=== PATIENT | female | born 1955 | race Caucasian/White ===

== ENCOUNTER → 2020-09-06 07:43 | Outpatient (REF) | payer MEDICARE, SELFPAY ==
--- NOTE | 2020-09-06 | NM_ITS ---
EXERCISE MYOCARDIAL PERFUSION STUDY INDICATION: Shortness of breath, coronary disease, evaluate for ischemia TECHNIQUE: The patient was brought in for an exercise perfusion study on 09/06/2020. Patient performed exercise as per Ryan protocol and was injected 35 mCi of sestamibi once target heart rate was achieved. Images were obtained using the SPECT gamma camera interlaced with the gating device. Images were obtained in supine position. Resting perfusion study was performed on 09/17/2020. Patient was administered 35 mCi of sestamibi intravenously at rest. Images were then obtained in supine position. Total DLP 103mGy-cm. Images were processed with the software and compared side to side in short axis, horizontal long axis and vertical long axis views. FINDINGS: Raw images were reviewed. The stress perfusion study showed moderately decreased tracer uptake in the basal to mid inferior wall. This is seen in both uncorrected as well as CT attenuated images. The gated study shows normal LV systolic function with calculated LVEF of 68%. LV cavity is normal in size. The gated study shows diminished contractility in the basal inferior wall. Resting study shows mildly decreased tracer uptake in the basal inferior wall that seems to improve with CT attenuation correction. Gating at rest reveals normal wall motion with ejection fraction at 64%. The findings are consistent with reversible perfusion defect in the basal to mid inferior wall. Basal part also has a fixed component. IMPRESSION: 1. Myocardial perfusion imaging study shows evidence of ischemia in the inferior wall. Moderate intensity. Most basal inferior wall has a fixed component that may indicate prior infarct. 2. Gated LVEF is normal. 3. Transient ischemic dilatation not present. EKG component of the test reported separately.
--- NOTE | 2020-09-06 07:30 | CA_ITS ---
Transthoracic Echocardiogram Patient (Last, First, Middle): Natacha Mei H Gender: Female Date of : 1955 Age: 65 Procedure Date: 09/06/2020 Procedure Type: Transthoracic Echocardiogram Location: OP Height: 182.88 cm Weight: 101.61 kg BSA: 2.24 m2 Heart Rate: bpm BP: 124 / 80 mmHg Marketing Ambassador: Referring MD: George Caro MD Symptoms: chest schuyler, CAD Study Quality: Fair ECG Rhythm: Sinus Conclusions: - The left ventricular systolic function is normal. The visually estimated ejection fraction is between 60-65%. - There is mild mitral valve regurgitation. - There is mild tricuspid valve regurgitation. Findings Procedure Information Contrast agent, definity, is being given per protocol without apparent complications. Left Ventricle Normal left ventricular cavity size. There is normal left ventricular wall thickness. The left ventricular systolic function is normal. The visually estimated ejection fraction is between 60-65%. There is no evidence of regional wall motion abnormalities. Diastolic function is normal for age. Right Ventricle Normal right ventricular cavity size and systolic function. Atria The left atrium is normal in size. The right atrium is normal in size. Aortic Valve There is a normal trileaflet aortic valve. There is no aortic valve stenosis. There is no aortic valve regurgitation. Mitral Valve The mitral valve appears normal. There is mild mitral valve regurgitation. There is no mitral valve stenosis. Pulmonic Valve The pulmonic valve was not well visualized. Tricuspid Valve Normal tricuspid valve structure. There is mild tricuspid valve regurgitation. The pulmonary artery systolic pressure is normal. Great Vessels The aortic annulus, sinuses of valsalva, asc aorta, and aortic arch are normal in size. Venous The inferior vena cava is normal in size and collapses greater than 50% with inspiration. Pericardium/Pleural There is a trivial pericardial effusion. Prior Study Comparison Changes noted compared to prior study dated: 11/12/2019. LVEF appears improved. Measurements 2D Linear Measurements IVSd: 0.87 0.6-0.9/0.6-1.0 cm LVIDd: 5.18 3.9-5.3/4.2-5.9 cm LVIDd Index: 2.31 2.4-3.2/2.2-3.1 cm/m2 LVIDs: 3.49 2.0-3.6 cm LVPWd: 0.89 0.7-1.1 cm Ao Root: 2.80 2.1-3.5 cm LA Diam: 3.80 2.7-3.8/3.0-4.0 cm LAIDs Index: 1.70 1.5-2.3 cm/m2 LV Mass: 203.53 67-162/88-224 g LV Mass Index: 90.86 43-95/49-115 g/m2 LVOT Diam: 2.00 3.0+(-)1.3 cm Mitral Valve MV Pk E: 0.72 MV PK A: 0.66 MV Decel Time: 269.00 E/A: 1.10 E'Lateral: 10.50 E'Medial: 7.83 E/E' Med: 9.20 E/E' Lat: 6.90 PHT: 79.00 MVA PHT: 2.78 Decel Labette: 2.69 Aortic Valve AoV Pk Anders: 1.29 AoV Mn Anders: 0.93 AoV VTI: 0.33 AoV Pk Grad: 7.00 Aov Mn Grad: 4.00 ROCHELLE Cont.VTI: 1.75 LVOT LVOT Pk Anders: 0.79 LVOT Mn Anders: 0.52 LVOT VTI: 0.19 LVOT Pk Grad: 3.00 LVOT Mn Grad: 1.00 LVOT Diam: 2.00 LVOT Area: 3.14 Diastolic Function MV Pk E: 0.72 MV Pk A: 0.66 E/A: 1.10 E'Medial: 7.83 E/E' Med: 9.20 E' Laterial: 10.50 E/E' Lat: 6.90 Tricuspid Valve TR Pk Anders: 1.89 TR Pk Grad: 14.00 Great Vessels Aorta Ao Root-2D: 2.80 2.0-3.7 cm Ao Asc: 2.90 2.1-3.4 cm Pulmonary Valve PV Pk Anders: 0.94 Peak PV Grad: 4.00 Updated in Other Vendor System with Status of Final Desean Jefferson MD electronically signed on 09/08/2020 4:04:32 PM with status of Final
--- NOTE | 2020-09-06 08:30 | CA_ITS ---
Acquisition Time: 2020-09-06 08:55:48 Total Exercise Time: 00:08:32 Test Indications: Dyspnea Medications: ASA ELIQUIS ISOSORBIDE METOPROLOL ATORVASTATIN OXCARBEZAPINE Protocol: SHANT Max HR: 113 BPM 73% of Pred: 153 BPM Max BP: 140/078 mmHG Max Work Load: 10.1 METS Exercise nuclear stress test using Shant protocol. Total of 8 min 32 sec. Pt reports thightnes in mid sternum and like she had a lump in her throat at peak exercise with L side jaw pain. Pain resolves copmpletely in recovery. EKG with occ PAC's and PVC's. Scooping ST depressions anteriorly and laterally suggestive of ischemia. Nuclear images to follow. Normotensive response to test. Test reviewed with Dr. Jefferson HR up to 132 measured Referred By: George Caro Overread By: Mame Hdez
== END ==
LOC: HO.CARD 07:43
PROVIDERS: PCP Internal Medicine; Visit Provider Internal Medicine Cardiovascular Disease
DX: R07.89 Other chest pain (principal); I48.0 Paroxysmal atrial fibrillation; I25.10 Atherosclerotic heart disease of native coronary artery without angina pectoris; I10 Essential (primary) hypertension; R06.02 Shortness of breath
CPT/HCPCS: 78452; 93017; 93306; A9500; Q9957

== ENCOUNTER → 2020-10-11 08:39 | Outpatient (BNVA) | payer MEDICARE, SELFPAY | PROVIDERS: PCP Internal Medicine; Referring Provider Internal Medicine; Visit Provider Nurse Practitioner Family | DX: G47.33 Obstructive sleep apnea (adult) (pediatric) (principal) | CPT/HCPCS: 99212 ==

== ENCOUNTER → 2020-12-13 08:37 | Outpatient (BNVA) | payer MEDICARE, SELFPAY | PROVIDERS: PCP Internal Medicine; Visit Provider Nurse Practitioner Family | DX: Z76.89 Persons encountering health services in other specified circumstances (principal) | CPT/HCPCS: Q3014 ==

== ENCOUNTER → 2021-01-02 13:07 | Outpatient (BNVA) | payer MEDICARE, SELFPAY | PROVIDERS: PCP Internal Medicine; Visit Provider Internal Medicine Cardiovascular Disease | DX: I25.118 Atherosclerotic heart disease of native coronary artery with other forms of angina pectoris (principal); I48.0 Paroxysmal atrial fibrillation | CPT/HCPCS: 93005; 99212 ==

== ENCOUNTER 2021-02-07 08:00 | Outpatient (REF) | payer MEDICARE, SELFPAY ==
--- NOTE | ~2021-02-07 | MM_ITS ---
EXAMINATION: MM SCREENING DIGITAL BREAST TOMOSYNTHESIS, BILATERAL CLINICAL INFORMATION: Screening. Asymptomatic. The lifetime risk of breast cancer based on the Tyrer-Cuzick Model is 11.6%. COMPARISON: Mammography: February 02, 2020 and studies dating back to November 03, 2012 TECHNIQUE: Digital breast tomosynthesis is performed in both the craniocaudal and mediolateral oblique views along with computer-aided detection (CAD). Synthesized 2D images are generated from the tomosynthesis. FINDINGS: There are scattered areas of fibroglandular density (ACR BI-RADS breast composition Category b). There are no significant masses, abnormal calcifications, or other abnormalities. MM/MM tomosynthesis screening BI IMPRESSION: There are no significant changes from prior study. ASSESSMENT: BI-RADS 1: Negative RECOMMENDATION: Routine annual mammography screening. This patient's information was entered into a reminder system with a target due date for their next mammogram.
== END 2021-02-07 08:01 | disposition home or self-care (01) ==
LOC: HO.MAMMO 08:00
PROVIDERS: Visit Provider Internal Medicine
DX: Z12.31 Encounter for screening mammogram for malignant neoplasm of breast (principal)
CPT/HCPCS: 77063; 77067

== ENCOUNTER 2021-03-01 09:37 | Outpatient (REF) | payer MEDICARE, SELFPAY ==
[2021-03-01 10:34] LABS: MANUAL DIFF FLAG NO
[2021-03-01 10:42] LABS: Basophils Absolute Auto 0.1 X10*3/uL (0.0-0.2); Basophils Percent Auto 1.2 % (0-2); Eosinophils Absolute Auto 0.1 X10*3/uL (0.0-0.4); Eosinophils Percent Auto 2.6 % (0-4); Hemoglobin 13.4 g/dl (12.0-16.0); Imm Gran Abs Auto 0.01 X10*3/uL (0.00-0.03); Imm Gran Pct Auto 0.2 % (0.0-0.4); Lymphocytes Absolute Auto 1.6 X10*3/uL (1.2-4.9); Lymphocytes Percent Auto 32.3 % (20-40); Mean Corpuscular HGB Conc 31.9 g/dl (31.0-35.0); Mean Corpuscular Hemoglobin 30.3 pg (27.0-33.0); Mean Platelet Volume 10.6 fL (9.4-12.3); Monocytes Absolute Auto 0.6 X10*3/uL (0.1-1.2); Monocytes Percent Auto 11.3 % (2-11); Neutrophils Absolute Auto 2.6 X10*3/uL (2.0-8.3); Neutrophils Percent Auto 52.4 % (45-73); Platelet Count 256 X10*3/uL (160-400); Red Blood Count 4.42 X10*6/uL (4.20-5.50)
[2021-03-01 11:18] LABS: Alanine Aminotransferase 29 U/L (0-31); Albumin Level 4.4 g/dL (3.5-5.0); Alkaline Phosphatase 74 U/L (39-117); Anion Gap 14 (12-20); Aspartate Amino Transferase 23 U/L (5-31); Bilirubin Total 0.6 mg/dL (0.0-1.0); Blood Urea Nitrogen 16 mg/dL (9-16); Calcium 9.5 mg/dL (8.4-10.2); Carbon Dioxide 28 mmol/L (22-29); Chloride 103 mmol/L (96-108); Cholesterol 149 mg/dL; Estimated Glomerular Filt Rate > 60; Glucose Random 102 mg/dL (60-115); HDL Cholesterol 47 mg/dL; LDL Cholesterol Calculated 82 mg/dl; Sodium 140 mmol/L (135-145); Total Protein 6.8 g/dL (6.5-8.0); Triglycerides 100 mg/dL
[2021-03-01 11:23] LABS: Free T4 (Free Thyroxine) 0.83 ng/dL (0.71-1.85); Thyroid Stimulating Hormone 2.12 uIU/mL (0.32-4.0); Vitamin D 25-OH Total 37.1 ng/mL (>30)
[2021-03-01 11:50] LABS: Folate 10.5 ng/mL (> or = 4.0); Vitamin B12 313 pg/mL (200-900)
== END 2021-03-01 09:38 | disposition home or self-care (01) ==
LOC: HO.LAB 09:37
PROVIDERS: PCP Internal Medicine; Visit Provider Internal Medicine
DX: I10 Essential (primary) hypertension (principal); E78.00 Pure hypercholesterolemia, unspecified; E78.2 Mixed hyperlipidemia; I25.10 Atherosclerotic heart disease of native coronary artery without angina pectoris
CPT/HCPCS: 36415; 80053; 80061; 82306; 82607; 82746; 84439; 84443; 85025

== ENCOUNTER → 2021-04-10 12:52 | Outpatient (BNVA) | payer MEDICARE, SELFPAY | PROVIDERS: PCP Internal Medicine; Visit Provider Internal Medicine Cardiovascular Disease | DX: I20.8 Other forms of angina pectoris (principal); I48.0 Paroxysmal atrial fibrillation | CPT/HCPCS: 99212 ==

== ENCOUNTER → 2021-05-23 08:30 | Outpatient (BNVA) | payer MEDICARE, SELFPAY | PROVIDERS: PCP Internal Medicine; Visit Provider Nurse Practitioner Family | DX: G47.33 Obstructive sleep apnea (adult) (pediatric) (principal); G47.31 Primary central sleep apnea | CPT/HCPCS: Q3014 ==

== ENCOUNTER 2021-06-06 07:29 | Outpatient (REF) | payer MEDICARE, SELFPAY ==
[2021-06-06 08:46] LABS: Estimated Average Glucose 126 mg/dL
[2021-06-06 08:54] LABS: Alanine Aminotransferase 23 U/L (0-31); Albumin Level 4.5 g/dL (3.5-5.0); Alkaline Phosphatase 79 U/L (39-117); Anion Gap 14 (12-20); Aspartate Amino Transferase 22 U/L (5-31); Blood Urea Nitrogen 20 mg/dL (9-16); Calcium 9.9 mg/dL (8.4-10.2); Carbon Dioxide 24 mmol/L (22-29); Chloride 105 mmol/L (96-108); Cholesterol 144 mg/dL; Estimated Glomerular Filt Rate 57; Glucose Random 114 mg/dL (60-115); HDL Cholesterol 40 mg/dL; LDL Cholesterol Calculated 89 mg/dl; Potassium 4.2 mmol/L (3.3-5.1); Sodium 139 mmol/L (135-145); Total Protein 7.1 g/dL (6.5-8.0); Triglycerides 78 mg/dL
[2021-06-06 10:46] LABS: Glucose Urine UA NEG (NEG); Leukocyte Esterase Urine 1+ (NEG); Nitrite Urine NEG (NEG); PH 5.5 (5.0-8.0); Specific Gravity - Urine >= 1.030 (1.005-1.025); Urine Blood TRACE (NEG); Urine Ketones NEG (NEG); Urine Protein NEG (NEG-TRACE)
[2021-06-06 10:50] LABS: Appearance Urine HAZY; Color Urine YELLOW
[2021-06-06 11:04] LABS: Bacteria Urine 1+ /LPF; Squamous Epithelial Cell Urine 2+ /LPF
== END 2021-06-06 07:30 | disposition home or self-care (01) ==
LOC: HO.LAB 07:29
PROVIDERS: PCP Internal Medicine; Visit Provider Internal Medicine
DX: E78.00 Pure hypercholesterolemia, unspecified (principal); E78.2 Mixed hyperlipidemia; R73.02 Impaired glucose tolerance (oral); N39.41 Urge incontinence
CPT/HCPCS: 36415; 80053; 80061; 81001; 83036

== ENCOUNTER 2021-08-04 08:00 | Outpatient (RCR) | payer MEDICARE, SELFPAY ==
[2021-06-29 10:11] VITALS: BP 118/85
--- NOTE | 2021-07-12 07:40 | MHC.PT.EP ---
[facility] [place] Office [place] Office [place] Office [address] Elham Stern [address] [phone] F: [phone] F: [phone] F: [phone] F: [phone] Physical Therapy Plan of Care Date of Evaluation: Date of Surgery: Diagnosis: Dorsalgia Assessment: Pt is a 66 y/o female referred to PT for eval and treat of dorsalgia who presents with lumbosacral dysfunction resulting in decreased tolerance for standing and walking for duration, as well as performing yard work, HH chores and squatting activities, secondary to decreased L > R hip strength, decreased L hip ROM, decreased core strength, mild pelvic asymmetry, and pain. Pt is deemed an appropriate candidate to receive skilled PT in order to address her physical limitations to improve her functional ability. Frequency and Duration: The patient will be seen 2 x / wk x 5 wks. Short Term Goals: Initiate HEP with evidence of compliance. 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 Improve baseline pain with activity to < 5/10; initial 8/10 Treatment Plan: Modalities to reduce pain, spasms and effusion. Manual therapy to restore motion and function. Therapeutic exercise to improve strength and flexibility. Neuromuscular re-education for posture and balance. Therapeutic activities to return to functional activities of daily living. Electronically signed by: Axel Johnson PT. Please sign and return to therapist. Thank you for your referral.
--- NOTE | 2021-08-04 09:09 | MHC.PT.DC ---
[facility] [place] Office [place] Office [place] Office [address] Elham Stern [address] [place] [address] [phone] F: [phone] F: [phone] F: [phone] F: [phone] Physical Therapy Discharge Report Diagnosis: Dorsalgia Date of Surgery: Date of Evaluation: 06/29/21 Date of Discharge: 08/04/21 Treatments to Date: 10 Cancellations to Date: No Shows to Date: Discharge Status: Achieved Goals Improved Function Independent with HEP Discharge Summary: Natacha was referred to PT for eval and treat of LBP secondary to decreased L > R hip strength, decreased L hip ROM, decreased core strength, mild pelvic asymmetry, and pain hindering her functional limitation. Natacha actively participated in all her ther/ex while in clinic and at her home. W/in the 10 visit to therapy, pt was able to address her physical impairments, achieved all of her goals, and is improved of her functional abilities. PT recommends pt is cont following her HEP and progressing appropriately. pt and PT in agreement for discharge. Electronically signed by: Axel Johnson PT. Please sign and return to therapist. Thank you for your referral.
== END 2021-08-04 09:09 | disposition home or self-care (01) ==
LOC: HO.PTCHIC 08:00
PROVIDERS: Visit Provider Internal Medicine
DX: M54.9 Dorsalgia, unspecified (principal)
CPT/HCPCS: 97110; 97140; 97161

== ENCOUNTER → 2021-08-07 19:20 | Outpatient (REF) | payer MEDICARE, SELFPAY | LOC: HO.SL 19:20 | PROVIDERS: Visit Provider Nurse Practitioner Family | DX: G47.33 Obstructive sleep apnea (adult) (pediatric) (principal); G47.31 Primary central sleep apnea; I48.0 Paroxysmal atrial fibrillation | CPT/HCPCS: 95811 ==

== ENCOUNTER → 2021-08-09 11:07 | Outpatient (BNVA) | payer MEDICARE, SELFPAY | PROVIDERS: PCP Internal Medicine; Referring Provider Internal Medicine; Visit Provider Internal Medicine Cardiovascular Disease ==

== ENCOUNTER → 2021-08-21 07:23 | Outpatient (REF) | payer MEDICARE, SELFPAY ==
--- NOTE | 2021-08-21 07:26 | CA_ITS ---
Transthoracic Echocardiogram Patient (Last, First, Middle): Natacha Mei H Gender: Female Date of : 1955 Age: 66 Procedure Date: 08/21/2021 Procedure Type: Transthoracic Echocardiogram Location: OP Height: 182.88 cm Weight: 102.97 kg BSA: 2.25 m2 Heart Rate: bpm BP: 124 / 78 mmHg Associate Account Director: Referring MD: George Caro MD Supervisor Mail Carriers: George Caro MD Symptoms: I42.9 - Cardiomyopathy, unspecified Study Quality: Fair ECG Rhythm: Atrial Fibrillation Conclusions: - 1. Mildly reduced LV systolic function with LVEF of 45-50% 2. Normal cardiac valvular Doppler 3. Normal RV systolic pressure 4. No gross pericardial effusion Findings Left Ventricle Normal left ventricular cavity size. There is normal left ventricular wall thickness. The left ventricular systolic function is mildly decreased. The visually estimated ejection fraction is between 45-50%. Diastolic function is indeterminate on the basis of available data. Right Ventricle Normal right ventricular cavity size. There is borderline right ventricular systolic function. Atria The left atrium is likely dilated. There is no evidence of interatrial shunt. The right atrium is normal in size. Aortic Valve Normal aortic valve structure and function. There is no aortic valve stenosis. There is no aortic valve regurgitation. Mitral Valve Normal mitral valve structure and function. There is trace mitral valve regurgitation. There is no mitral valve stenosis. Pulmonic Valve The pulmonic valve was not well visualized. Tricuspid Valve Likely normal tricuspid valve structure and function. There is trace tricuspid valve regurgitation. The right ventricular systolic pressure is normal. The right ventricular systolic pressure is 22 mmHg. Normal right atrial pressure. There is no evidence of pulmonary hypertension. Great Vessels All visible segments of the aorta are normal in size. Venous The inferior vena cava is normal in size and collapses greater than 50% with inspiration. Pericardium/Pleural There is no evidence of pericardial effusion. Prior Study Comparison Changes noted compared to prior study dated: 09/06/2020. LV systolic function is reduced Measurements 2D Linear Measurements IVSd: 0.84 0.6-0.9/0.6-1.0 cm LVIDd: 5.66 3.9-5.3/4.2-5.9 cm LVIDd Index: 2.52 2.4-3.2/2.2-3.1 cm/m2 LVIDs: 4.23 2.0-3.6 cm LVPWd: 0.91 0.7-1.1 cm Ao Root: 3.30 2.1-3.5 cm LA Diam: 3.80 2.7-3.8/3.0-4.0 cm LAIDs Index: 1.69 1.5-2.3 cm/m2 LV Mass: 234.57 67-162/88-224 g LV Mass Index: 104.25 43-95/49-115 g/m2 LVOT Diam: 2.00 3.0+(-)1.3 cm 2D Systolic Function EF 4C: 49.10 >55% EF 2C: 39.50 >55% EF BiP: 44.20 >55% Mitral Valve MV Pk E: 0.68 MV Decel Time: 294.00 E'Lateral: 10.70 E'Medial: 7.51 E/E' Med: 9.10 E/E' Lat: 6.40 PHT: 86.00 MVA PHT: 2.56 Decel [place]: 2.32 Aortic Valve AoV Pk Anders: 1.10 AoV Mn Anders: 0.69 AoV VTI: 0.25 AoV Pk Grad: 5.00 Aov Mn Grad: 2.00 ROCHELLE Cont.VTI: 1.71 LVOT LVOT Pk Anders: 0.65 LVOT Mn Anders: 0.43 LVOT VTI: 0.14 LVOT Pk Grad: 2.00 LVOT Mn Grad: 1.00 LVOT Diam: 2.00 LVOT Area: 3.14 Diastolic Function MV Pk E: 0.68 E'Medial: 7.51 E/E' Med: 9.10 E' Laterial: 10.70 E/E' Lat: 6.40 Tricuspid Valve TR Pk Anders: 1.89 TR Pk Grad: 14.00 RA Press: 8.00 RVSP: 22.00 Great Vessels Aorta Ao Root-2D: 3.30 2.0-3.7 cm Pulmonary Valve PV Pk Anders: 0.94 Peak PV Grad: 4.00 Updated in Other Vendor System with Status of Final George Caro MD electronically signed on 08/21/2021 2:21:26 PM with status of Final
== END ==
LOC: HO.CARD 07:23
PROVIDERS: Visit Provider Internal Medicine Cardiovascular Disease
DX: I20.8 Other forms of angina pectoris (principal); I48.0 Paroxysmal atrial fibrillation; I42.9 Cardiomyopathy, unspecified; Z79.899 Other long term (current) drug therapy
CPT/HCPCS: 93306; 99212

== ENCOUNTER → 2021-08-22 08:13 | Outpatient (BNVA) | payer MEDICARE, SELFPAY | PROVIDERS: PCP Internal Medicine; Visit Provider Nurse Practitioner Family | CPT/HCPCS: Q3014 ==

== ENCOUNTER → 2021-08-24 09:27 | Outpatient (BNVA) | payer MEDICARE, SELFPAY | PROVIDERS: PCP Internal Medicine; Referring Provider Internal Medicine; Visit Provider Internal Medicine Cardiovascular Disease | DX: I48.92 Unspecified atrial flutter (principal); I25.10 Atherosclerotic heart disease of native coronary artery without angina pectoris | CPT/HCPCS: 93005; 99212 ==

== ENCOUNTER → 2021-08-25 13:20 | Day surgery (SDC) | payer MEDICARE, SELFPAY ==
[2021-08-25 13:45] VITALS: BP 139/78; PULSE 66; RESP 16; TEMP 36.4; O2SAT 95
--- NOTE | 2021-08-25 13:45 | ECG_ITS ---
Test Reason : pre-cardioversion Blood Pressure : / mmHG Vent. Rate : 065 BPM Atrial Rate : 065 BPM P-R Int : 168 ms QRS Dur : 082 ms QT Int : 430 ms P-R-T Axes : 011 010 -12 degrees QTc Int : 447 ms Normal sinus rhythm Normal ECG When compared with ECG of 13-JAN-2020 08:24, Sinus rhythm has replaced Atrial flutter Nonspecific ST and T wave abnormality is no longer Present Vent. rate has decreased Referred By: George Caro Electronically Signed By:ELIANE JONES
--- NOTE | 2021-08-25 13:56 | PC.NURSE ---
Patient in NSR, confirmed with EKG per Dr Caro. Patient sent home.
== END ==
PROVIDERS: PCP Internal Medicine; Visit Provider Internal Medicine Cardiovascular Disease
DX: I48.0 Paroxysmal atrial fibrillation (principal); I48.92 Unspecified atrial flutter; I10 Essential (primary) hypertension; Z79.01 Long term (current) use of anticoagulants; Z53.8 Procedure and treatment not carried out for other reasons
CPT/HCPCS: 93005

== ENCOUNTER 2021-09-07 08:46 | Outpatient (REF) | payer MEDICARE, SELFPAY ==
[2021-09-07 09:25] LABS: Estimated Average Glucose 123 mg/dL; Hemoglobin A1c % 5.9 %
[2021-09-07 10:03] LABS: Alanine Aminotransferase 21 U/L (0-31); Albumin Level 4.3 g/dL (3.5-5.0); Alkaline Phosphatase 66 U/L (39-117); Anion Gap 9 (12-20); Aspartate Amino Transferase 19 U/L (5-31); Bilirubin Total 0.7 mg/dL (0.0-1.0); Blood Urea Nitrogen 17 mg/dL (9-16); Calcium 9.6 mg/dL (8.4-10.2); Carbon Dioxide 26 mmol/L (22-29); Chloride 109 mmol/L (96-108); Cholesterol 111 mg/dL; Estimated Glomerular Filt Rate 38; Glucose Random 101 mg/dL (60-115); HDL Cholesterol 44 mg/dL; LDL Cholesterol Calculated 52 mg/dl; Potassium 4.5 mmol/L (3.3-5.1); Sodium 139 mmol/L (135-145); Total Protein 6.6 g/dL (6.5-8.0); Triglycerides 78 mg/dL
[2021-09-07 10:54] LABS: Appearance Urine HAZY; Color Urine YELLOW; Glucose Urine UA NEG (NEG); Leukocyte Esterase Urine NEG (NEG); Nitrite Urine NEG (NEG); Specific Gravity - Urine >= 1.030 (1.005-1.025); Urine Blood 2+ (NEG); Urine Ketones NEG (NEG); Urine Protein 2+ MG/DL (NEG-TRACE)
[2021-09-07 11:15] LABS: Mucus Urine 2+ /LPF; Squamous Epithelial Cell Urine 1+ /LPF
== END 2021-09-07 08:47 | disposition home or self-care (01) ==
LOC: HO.LAB 08:46
PROVIDERS: PCP Internal Medicine; Visit Provider Internal Medicine
DX: E78.00 Pure hypercholesterolemia, unspecified (principal); E78.2 Mixed hyperlipidemia; N39.41 Urge incontinence
CPT/HCPCS: 36415; 80053; 80061; 81001; 83036

== ENCOUNTER → 2021-10-02 15:03 | Outpatient (BNVA) | payer MEDICARE, SELFPAY | PROVIDERS: PCP Internal Medicine; Referring Provider Internal Medicine; Visit Provider Internal Medicine Cardiovascular Disease | DX: I48.0 Paroxysmal atrial fibrillation (principal); I25.10 Atherosclerotic heart disease of native coronary artery without angina pectoris; Z79.899 Other long term (current) drug therapy | CPT/HCPCS: 93005; 99212 ==

== ENCOUNTER 2021-11-01 09:40 | Outpatient (REF) | payer MEDICARE, SELFPAY ==
[2021-11-01 11:04] LABS: Anion Gap 11 (12-20); Blood Urea Nitrogen 17 mg/dL (9-16); Carbon Dioxide 29 mmol/L (22-29); Chloride 105 mmol/L (96-108); Estimated Glomerular Filt Rate 57; Glucose Random 101 mg/dL (60-115); Potassium 4.4 mmol/L (3.3-5.1); Sodium 141 mmol/L (135-145)
[2021-11-01 11:12] LABS: Appearance Urine CLOUDY; Color Urine YELLOW; Glucose Urine UA NEG (NEG); Leukocyte Esterase Urine 1+ (NEG); Nitrite Urine NEG (NEG); Specific Gravity - Urine 1.015 (1.005-1.025); Urine Blood NEG (NEG); Urine Ketones NEG (NEG); Urine Protein 2+ MG/DL (NEG-TRACE)
[2021-11-01 11:28] LABS: Amorphous Sediment Urine 2+ /LPF; Bacteria Urine 2+ /LPF; RBC Urine 0-2 /HPF (0); Squamous Epithelial Cell Urine 2+ /LPF
== END 2021-11-01 09:41 | disposition home or self-care (01) ==
LOC: HO.LAB 09:40
PROVIDERS: Nurse Practitioner Family; PCP Internal Medicine; Visit Provider Internal Medicine
DX: I48.0 Paroxysmal atrial fibrillation (principal)
CPT/HCPCS: 36415; 80048; 81001

== ENCOUNTER 2021-12-06 14:15 | Emergency (ER) | payer MEDICARE, SELFPAY ==
--- NOTE | 2021-12-06 | ECG_ITS ---
Test Reason : a fibb Blood Pressure : / mmHG Vent. Rate : 091 BPM Atrial Rate : 288 BPM P-R Int : 000 ms QRS Dur : 070 ms QT Int : 352 ms P-R-T Axes : 243 011 -39 degrees QTc Int : 432 ms Atrial flutter with variable A-V block Nonspecific ST and T wave abnormality Abnormal ECG When compared with ECG of 25-AUG-2021 13:51, Atrial flutter has replaced Sinus rhythm Nonspecific T wave abnormality now evident in Anterolateral leads Referred By: Generic ED Physician Electronically Signed By:ROMA SINGH MD
--- NOTE | ~2021-12-06 | XR_ITS ---
EXAMINATION: LEFT WRIST AND LEFT ELBOW CLINICAL INFORMATION: Injury COMPARISON: None TECHNIQUE: 4 views left wrist, 4 views left elbow FINDINGS: Elbow: A hemarthrosis is present minimally displaced radial head fracture is present. No other fractures are seen. Wrist: No bone joint or soft tissue abnormality is seen. XR/XR wrist LT min 3V IMPRESSION: Nondisplaced radial head fracture with hemarthrosis
--- NOTE | ~2021-12-06 | XR_ITS ---
EXAMINATION: LEFT WRIST AND LEFT ELBOW CLINICAL INFORMATION: Injury COMPARISON: None TECHNIQUE: 4 views left wrist, 4 views left elbow FINDINGS: Elbow: A hemarthrosis is present minimally displaced radial head fracture is present. No other fractures are seen. Wrist: No bone joint or soft tissue abnormality is seen. XR/XR elbow LT 2V IMPRESSION: Nondisplaced radial head fracture with hemarthrosis
[2021-12-06 15:40] VITALS: BP 127/78; PULSE 65; RESP 18; TEMP 36.9; O2SAT 95; BMI 30.5
--- NOTE | 2021-12-06 22:37 | ED_ITS ---
HPI - Fall General Chief Complaint: Fall Stated Complaint: fell on ice L arm pain Time Seen by Provider: 12/06/21 22:12 Source: patient Mode of arrival: ambulatory Limitations: no limitations History of Present Illness HPI Narrative: 66-year-old female who presents emergency department for evaluation of injuries from a fall that occurred this morning at 8:30 a.m.. Patient states she stepped outside of her house and the steps were slippery secondary to icy conditions. She states that her legs when out from under her and she landed on her upper buttocks and left forearm. She denied any head injury or loss of consciousness. She states that since the injury she has been having pain in her left buttocks area, left forearm and left wrist. She states she is having trouble moving her left elbow secondary to her pain. The pain is constant, sharp and moderate in intensity. Related Data Home Medications Medication Instructions Recorded Confirmed cholecalciferol (vitamin D3) 25 25 mcg PO DAILY 09/16/20 10/02/21 mcg (1,000 unit) capsule nitroglycerin 0.4 mg sublingual 0.4 mg SUBLINGUAL DAILY PRN 09/16/20 10/02/21 tablet oxcarbazepine 150 mg tablet 150 mg PO DAILY 09/16/20 10/02/21 ropinirole 0.25 mg tablet 0.25 mg PO BEDTIME PRN 04/10/21 10/02/21 Previous Rx's Medication Instructions Recorded apixaban 5 mg tablet (Eliquis) 5 mg PO BID #180 tab 06/08/21 metoprolol succinate 100 mg 100 mg PO DAILY 90 Days #90 tab 08/08/21 tablet,extended release 24 hr cpap 14 cm water humidified air #1 ea 08/22/21 rosuvastatin 40 mg tablet 40 mg PO DAILY #90 tab 08/30/21 dronedarone 400 mg tablet (Multaq) 400 mg PO BID #60 tab 10/02/21 isosorbide mononitrate 120 mg 120 mg PO DAILY #90 tab 10/16/21 tablet,extended release 24 hr Allergies Allergy/AdvReac Type Severity Reaction Status Date / Time No Known Allergies Allergy Verified 12/06/21 15:40 [No Known Allergies*] Review of Systems Review of Systems: Yes all other systems are reviewed and are negative PMFSH Past Medical History Medical History CAD (coronary artery disease) GERD (gastroesophageal reflux disease) Glaucoma HLD (hyperlipidemia) HTN (hypertension) Obesity (BMI 30-39.9) Paroxysmal atrial fibrillation Seizure disorder Surgical History History of eye surgery Hx of appendectomy Hx of colonoscopy Family History Family History Father No problems noted. Mother CVD (cardiovascular disease) Sister Cancer Social History Social History Housing: House Alcohol intake: current Alcohol intake frequency: holidays/special occasions only Patient Tobacco Use Status: Never used Tobacco Second Hand Smoke Exposure: Yes Advance Directives: Yes Advance Directives on File: Yes Advance Directives Date on File: 11/16/19 service: No Current occupational status: retired Physical Exam Vital Signs: Vital Signs: Last Vital Signs Temp 98.5 F 12/06/21 15:40 Pulse 65 12/06/21 15:40 Resp 18 12/06/21 15:40 BP 127/78 12/06/21 15:40 Pulse Ox 95 12/06/21 15:40 BMI result Body Mass Index 30.5 Const: General: cooperative and no acute distress Orientation/consciousness: oriented to person and oriented to place Limitations: no limitations HENMT: Head: Yes normal to inspection, Yes normocephalic and Yes atraumatic Ears: external ears normal General nose exam: Normal external nose present Face and sinus: Yes normal facial exam Mouth: Normal oral and palatal mucosa present Throat: Yes posterior oropharynx normal Eyes: General: appearance normal, both eyes and all related structures Pupils: Equal, round and reactive pupils present Neck: Neck: Yes normal visual inspection, Yes no lymphadenopathy, Yes trachea midline and Yes supple Chest: Chest palpation & inspection: normal inspection of the chest and normal palpation of entire chest wall Resp: Effort & Inspection: normal respiratory effort and able to speak in complete sentences Auscultation: clear to auscultation bilaterally Cardio: Rate: regular rate Rhythm: regular rhythm Heart sounds: S1 normal heart sound present, S2 normal heart sound present and no murmurs GI: Inspection: Yes normal to inspection Palpation (GI): Soft to palpation, nontender and no guarding Auscultation: normal bowel sounds : General: Yes no CVA tenderness Back/Spine/Pelvis: Other: Tenderness with palpation of the left buttocks, no tenderness palpation of her vertebrae or her coccyx area. Back: no CVA tenderness Skin: General skin exam: no rashes or lesions noted Neuro: General: oriented to person and oriented to place Cranial nerves: Yes CN's II-XII intact bilaterally and Yes Equal, round and reactive pupils present Cognition (Neuro): normal cognition Motor exam (neuro): 5/5 motor strength present throughout Extrem: Other: Patient has full range of motion of all of her extremities except for her left elbow. The patient does have tenderness palpation over the radial head and has increased pain with supination and pronation of the left elbow /Forearm. Her extremity is neurovascularly intact. Psych: Appearance: grossly normal Speech and movement: Normal speech and movement present Affect: normal affect Attitude: cooperative Thought process: Normal thought process present Thought content: Normal thought content present Course Course Course Narrative: 66-year-old female who presents emergency department for evaluation of injuries from a fall that occurred this morning at 8:30 a.m. the patient was walking down the outside steps at her home, the [place] and she fell landing on her buttocks on her left forearm. The patient does have tenderness palpation of her left buttocks and pain with palpation over the Left radial head. she also has pain with supination pronation of the left forearm. I did look at the patient's left elbow and left wrist x-rays. I do not see any acute fracture on the left wrist x-ray. Patient does have a nondisplaced radial head fracture. Patient was placed in a sling. She was advised to take Tylenol for her pain. She was given printed and verbal instructions and discharged home. 2251: Radiologist noted a nondisplaced radial head fracture and no fracture noted on the wrist x-ray. Discharge Plan Discharge Clinical Impression: Fall Qualifiers: Encounter type: initial encounter Qualified Code(s): W19.XXXA - Unspecified fall, initial encounter Closed fracture of radial head Qualifiers: Encounter type: initial encounter Fracture alignment: nondisplaced Laterality: left Qualified Code(s): S52.125A - Nondisplaced fracture of head of left radius, initial encounter for closed fracture Contusion of buttock Qualifiers: Encounter type: initial encounter Qualified Code(s): S30.0XXA - Contusion of lower back and pelvis, initial encounter Patient Disposition: Home, Self-Care Instructions: Elbow Fracture (ED) Additional Instructions: I reviewed the x-ray of your elbow. You have a fracture/broken bone of the radial head. This type of fracture is usually treated with a sling and sometimes splint. I want you to wear the sling for at least 2 weeks. You should follow-up with the orthopedic doctor on-call within the next 1-2 weeks for re-evaluation. I do not see any broken bones on the x-ray of your wrist. I will contact to with the radiologist's interpretation of your x-rays. Take Tylenol (acetaminophen) 500 mg pills, 2 pills every 4 to 6 hours as needed for pain. Apply ice for 15 minutes 4 to 6 times a day to your elbow to help reduce the pain and swelling. Follow-up with the orthopedic doctor within 1-2 weeks. Please return to the emergency department if your symptoms get worse or if you develop any symptoms that are concerning to you. Prescriptions: No Action apixaban [Eliquis] 5 mg tablet 5 mg PO BID Qty: 180 RF: 1 metoprolol succinate 100 mg tablet extended release 24 hr 100 mg PO DAILY 90 Days Qty: 90 RF: 3 (DME) cpap 14 cm water humidified air 0 .Route .MEDSUPPLY Qty: 1 RF: 0 rosuvastatin 40 mg tablet 40 mg PO DAILY Qty: 90 RF: 3 isosorbide mononitrate 120 mg tablet extended release 24 hr 120 mg PO DAILY Qty: 90 RF: 1 ropinirole 0.25 mg tablet 0.25 mg PO BEDTIME PRNRF: 0 nitroglycerin 0.4 mg tablet, sublingual 0.4 mg sublingual DAILY PRNRF: 0 oxcarbazepine 150 mg tablet 150 mg PO DAILY RF: 0 cholecalciferol (vitamin D3) 25 mcg (1,000 unit) capsule 25 mcg PO DAILY RF: 0 Multaq 400 mg tablet 400 mg PO BID Qty: 60 RF: 3
== END 2021-12-06 23:04 | disposition home or self-care (01) ==
PROVIDERS: Emergency Provider Emergency Medicine Emergency Medical Services; PCP Internal Medicine
DX: S52.125A Nondisplaced fracture of head of left radius, initial encounter for closed fracture (principal); S30.0XXA Contusion of lower back and pelvis, initial encounter; I10 Essential (primary) hypertension; I25.10 Atherosclerotic heart disease of native coronary artery without angina pectoris; I48.0 Paroxysmal atrial fibrillation; G40.909 Epilepsy, unspecified, not intractable, without status epilepticus; W00.1XXA Fall from stairs and steps due to ice and snow, initial encounter; Y93.9 Activity, unspecified; Y92.009 Unspecified place in unspecified non-institutional (private) residence as the place of occurrence of the external cause; Y99.9 Unspecified external cause status
CPT/HCPCS: 73070; 73110; 93005; 99283; 99284

== ENCOUNTER 2021-12-22 07:57 | Outpatient (REF) | payer MEDICARE, SELFPAY ==
--- NOTE | ~2021-12-22 | XR_ITS ---
EXAMINATION: XR ELBOW, LEFT CLINICAL INFORMATION: Follow-up fracture COMPARISON: Previous x-ray 12/06/2021 TECHNIQUE: AP, lateral, and oblique views of the left elbow. FINDINGS: There is a nondisplaced radial head fracture that appears unchanged. This does not appear intra-articular. No other fracture is seen. The joint spaces are normal. There is a small joint effusion. XR/XR elbow LT min 3V IMPRESSION: Nondisplaced radial head fracture and small joint effusion.
== END 2021-12-22 07:58 | disposition home or self-care (01) ==
LOC: HO.HOSX 07:57
PROVIDERS: Visit Provider Physician Assistant
DX: S52.122A Displaced fracture of head of left radius, initial encounter for closed fracture (principal)
CPT/HCPCS: 73080; 99202

== ENCOUNTER → 2022-01-10 08:29 | Outpatient (BNVA) | payer MEDICARE, SELFPAY | PROVIDERS: PCP Internal Medicine; Referring Provider Internal Medicine; Visit Provider Internal Medicine Cardiovascular Disease | DX: I48.92 Unspecified atrial flutter (principal); I48.0 Paroxysmal atrial fibrillation; I25.10 Atherosclerotic heart disease of native coronary artery without angina pectoris | CPT/HCPCS: 93005; 99212 ==

== ENCOUNTER → 2022-01-15 15:05 | Outpatient (REF) | payer MEDICARE, SELFPAY ==
--- NOTE | 2022-01-15 15:16 | HM_ITS ---
Conclusion: 1. Patient was monitor for 3 days and 9 hours 2. Baseline was normal sinus rhythm with average heart of 77 beats per minute 3. Intermittent episodes of atrial fibrillation with total burden of 43.11% with longest episode lasting 19 hours and 22 minutes 4. No significant pauses or bradycardia noted 5. Total of 5109 PACs accounting for 1.35% of PACs accounting for frequent PACs 6. No patient reported symptoms MTDD
== END ==
LOC: HO.CARD 15:05
PROVIDERS: Visit Provider Internal Medicine Cardiovascular Disease
DX: I48.92 Unspecified atrial flutter (principal)
CPT/HCPCS: 93242

== ENCOUNTER 2022-01-19 07:52 | Outpatient (REF) | payer MEDICARE, SELFPAY ==
--- NOTE | ~2022-01-19 | XR_ITS ---
EXAMINATION: XR ELBOW, LEFT CLINICAL INFORMATION: Left elbow pain. COMPARISON: 12/22/2021 TECHNIQUE: AP, lateral, and oblique views of the left elbow. FINDINGS: The fracture line is still evident for healing proximal left radial neck fracture. There is no change in alignment. There is marginal sclerosis and some periosteal new bone formation present about the fracture site. A small elbow effusion remains. XR/XR elbow LT min 3V IMPRESSION: Healing left radial neck fracture without change in alignment. Elbow effusion.
== END 2022-01-19 07:53 | disposition home or self-care (01) ==
LOC: HO.HOSX 07:52
PROVIDERS: Visit Provider Physician Assistant
DX: S52.122D Displaced fracture of head of left radius, subsequent encounter for closed fracture with routine healing (principal)
CPT/HCPCS: 73080; 99212

== ENCOUNTER 2022-02-13 09:00 | Outpatient (RCR) | payer MEDICARE, SELFPAY ==
--- NOTE | 2022-02-13 09:36 | MHC.OT.DC ---
[address] [phone] F: [phone] Occupational Therapy Discharge Note Provider: REENA Naqvi Diagnosis: Left radial head fx Date of Surgery: Date of Evaluation: 01/02/22 Date of Discharge: 02/13/22 Treatments to Date: 8 Cancellations to Date: 0 No Shows to Date: 0 Discharge Status: Achieved Goals Improved Function Independent with HEP Discharge Summary: Pt is 9 wks post left radial head fracture. Goals met for left elbow ROM , hand strength and UE function. She cont to avoid heavy use of LUE. Her primary compliant is worsening of chronic left shoulder pain with some activities and pushing ie rolling over in bed. Electronically Signed By: Kelsey Ulloa OT CHT CLT Reviewed/agree with student documentation: N/A Therapist: Please Sign and return to therapist, thank you for your referral.
== END 2022-03-29 15:46 | disposition home or self-care (01) ==
LOC: HO.OT 09:00
PROVIDERS: PCP Internal Medicine; Visit Provider Physician Assistant
DX: S52.122D Displaced fracture of head of left radius, subsequent encounter for closed fracture with routine healing (principal)
CPT/HCPCS: 97110; 97140; 97165

== ENCOUNTER 2022-03-01 08:52 | Outpatient (REF) | payer MEDICARE, SELFPAY ==
--- NOTE | ~2022-03-01 | XR_ITS ---
EXAMINATION: XR ELBOW, LEFT CLINICAL INFORMATION: Pain. COMPARISON: Prior radiographs, most recently 01/19/2018. TECHNIQUE: AP, lateral, and oblique views of the left elbow. FINDINGS: There is mild bony demineralization. Bony alignment is normal. There is no fracture, dislocation or joint effusion. The previously noted radial head fracture now appears healed, with slight bony remodeling. No soft tissue swelling, gas or foreign body is seen. XR/XR elbow LT min 3V IMPRESSION: Unremarkable left elbow. The previously noted radial head fracture is now appears healed.
== END 2022-03-01 08:53 | disposition home or self-care (01) ==
LOC: HO.HOSX 08:52
PROVIDERS: Visit Provider Physician Assistant
DX: S52.122D Displaced fracture of head of left radius, subsequent encounter for closed fracture with routine healing (principal)
CPT/HCPCS: 73080; 99212

== ENCOUNTER → 2022-03-20 14:16 | Outpatient (BNVA) | payer MEDICARE, SELFPAY | PROVIDERS: PCP Internal Medicine; Referring Provider Internal Medicine; Visit Provider Internal Medicine Cardiovascular Disease | DX: I48.0 Paroxysmal atrial fibrillation (principal); I25.10 Atherosclerotic heart disease of native coronary artery without angina pectoris | CPT/HCPCS: 99212 ==

== ENCOUNTER 2022-03-21 10:03 | Outpatient (REF) | payer MEDICARE, SELFPAY ==
--- NOTE | ~2022-03-21 | XR_ITS ---
EXAMINATION: XR KNEE, LEFT CLINICAL INFORMATION: Left knee pain. COMPARISON: 03/15/2007 TECHNIQUE: Three views of the left knee. FINDINGS: There is osteopenia of visualized bones. No acute fracture or dislocation of the left knee is identified. No left knee effusion is seen. The joint spaces appear maintained. There is question of some concavity of the lateral tibial plateau however this may be related to spurring and angle of imaging. Without effusion, an acute minimal compression fracture would be unlikely. XR/XR knee LT 2V IMPRESSION: Osteopenia without definite acute abnormality of the left knee. No significant degenerative change.
== END 2022-03-21 10:04 | disposition home or self-care (01) ==
LOC: HO.XRAY 10:03
PROVIDERS: PCP Internal Medicine; Visit Provider Internal Medicine
DX: M25.511 Pain in right shoulder (principal); M25.512 Pain in left shoulder
CPT/HCPCS: 73560

== ENCOUNTER → 2022-04-04 07:58 | Outpatient (BNVA) | payer MEDICARE, SELFPAY | PROVIDERS: PCP Internal Medicine; Visit Provider Nurse Practitioner Family | DX: G47.33 Obstructive sleep apnea (adult) (pediatric) (principal); G40.909 Epilepsy, unspecified, not intractable, without status epilepticus; G25.81 Restless legs syndrome; Z79.899 Other long term (current) drug therapy | CPT/HCPCS: 99212 ==

== ENCOUNTER → 2022-04-11 13:28 | Outpatient (RCR) | payer MEDICARE, SELFPAY ==
--- NOTE | 2020-10-19 17:24 | MHC.PT.EP ---
[facility] [place] Office [place] Office [place] Office [address] Elham Stern [address] [phone] F: [phone] F: [phone] F: [phone] F: [phone] Physical Therapy Plan of Care Date of Evaluation: 10/19/20 Date of Surgery: Diagnosis: Dorsalgia Assessment: Pt is a 65 y/o female referred to PT for eval and treat of dorsalgia who presents with lumbar and pelvic dysfunction resulting in decreased tolerance for performing yard and housework, sitting for duration, performing recreational activities, as well as disturbed sleep secondary to decreased core and hip strength, pelvic asymmetry, increased LE tissue tension, decreased trunk ROM, and pain. Pt is deemed an appropriate candidate to receive skilled PT services to address her physical impairments in order to improve her functional ability. Frequency and Duration: The patient will be seen 2x/wk x 5 wks. Short Term Goals: In 1 week: initiate HEP with evidence of compliance. In 3 weeks: Pt will report no disturbed sleep d/t LBP; initial: 1/4 night's sleep. Custodial Goals: In 5 weeks: I with home program. In 5 weeks: Pt will report able to sit as long as she'd like w/o increasing her pain; initial: 1/2 hour. Treatment Plan: Modalities to reduce pain, spasms and effusion. Manual therapy to restore motion and function. Therapeutic exercise to improve strength and flexibility. Neuromuscular re-education for posture and balance. Therapeutic activities to return to functional activities of daily living. Please sign and return to therapist. Thank you for your referral.
--- NOTE | 2020-12-14 16:13 | MHC.PT.DC ---
[facility] [place] Office [place] Office [place] Office [address] Elham Stern [address] [phone] F: [phone] F: [phone] F: [phone] F: [phone] Physical Therapy Discharge Report Diagnosis: Dorsalgia Date of Surgery: Date of Evaluation: 10/19/20 Date of Discharge: 12/14/20 Treatments to Date: 12 Cancellations to Date: 0 No Shows to Date: 0 Discharge Status: Discharge Summary: Natacha has been an active and motivated participant in her therapy in and out of the clinic. She has met all of her therapeutic goals, is independent with her home program and though she has enjoyed PT and would like to continue therapy she is in agreement with DC at this time. Subjective back pain disability questionnaire improved from 48% to 6%. Electronically signed by: Axel Johnson PT. Please sign and return to therapist. Thank you for your referral.
--- NOTE | 2020-12-21 16:22 | MHC.PT.DC ---
[facility] [place] Office [place] Office [place] Office [address] Elham Stern [address] [phone] F: [phone] F: [phone] F: [phone] F: [phone] Physical Therapy Discharge Report Diagnosis: Dorsalgia Date of Surgery: Date of Evaluation: 10/19/20 Date of Discharge: 12/21/20 Treatments to Date: 12 Cancellations to Date: 0 No Shows to Date: 0 Discharge Status: Achieved Goals Improved Function Independent with HEP Discharge Summary: Natacha has been an active and motivated participant in her therapy in and out of the clinic. She has met all of her therapeutic goals, is independent with her home program and though she has enjoyed PT and would like to continue therapy she is in agreement with DC at this time. Subjective back pain disability questionnaire improved from 48% to 6%. Electronically signed by: Axel Johnson PT. Please sign and return to therapist. Thank you for your referral.
== END | disposition home or self-care (01) ==
LOC: HO.PTCHIC 10-19 08:07
PROVIDERS: PCP Internal Medicine; Visit Provider Internal Medicine
DX: M54.9 Dorsalgia, unspecified (principal)
CPT/HCPCS: 97110; 97140; 97162

== ENCOUNTER 2022-06-20 12:00 | Outpatient (REF) | payer MEDICARE, SELFPAY ==
--- NOTE | ~2022-06-20 | XR_ITS ---
EXAMINATION: XR KNEE AP STANDING CLINICAL INFORMATION: Right knee pain. COMPARISON: Radiographs dated 03/21/2022 and 12/16/2013. TECHNIQUE: AP bilateral standing view of the knees was obtained. FINDINGS: Bones and soft tissues are normal. No fracture or joint effusion. Alignment is anatomic. Joint spaces are well maintained. No abnormal soft tissue calcification. XR/XR knee standing BI IMPRESSION: Normal knees.
== END 2022-06-20 12:01 | disposition home or self-care (01) ==
LOC: HO.HOSX 12:00
PROVIDERS: Visit Provider Physician Assistant
DX: M25.561 Pain in right knee (principal); M25.562 Pain in left knee; M17.12 Unilateral primary osteoarthritis, left knee
CPT/HCPCS: 73565; 99212

== ENCOUNTER 2022-06-29 07:23 | Outpatient (REF) | payer MEDICARE, SELFPAY ==
--- NOTE | ~2022-06-29 | MR_ITS ---
EXAMINATION: MR KNEE WITHOUT CONTRAST, LEFT CLINICAL INFORMATION: Unilateral primary osteoarthritis of the left knee. COMPARISON: None TECHNIQUE: MRI of the knee without contrast was performed using routine sequences on a high-field scanner. FINDINGS: MENISCI: Medial Meniscus: Horizontal tear is present at the posterior horn and body of the medial meniscus extending to the undersurface with associated undersurface fraying. No displaced flap fragments. Lateral Meniscus: A diffuse horizontal tear involves the posterior horn, body, and anterior horn and extends to the meniscal undersurface throughout these regions. Partial extrusion of the meniscal body. LIGAMENTS: Cruciate: Intact Collateral: Intact EXTENSOR MECHANISM: Intact ARTICULAR CARTILAGE/BONE: Patellofemoral Compartment: There is mild nonuniform chondral thinning at the patella diffusely. Trochlear cartilage appears relatively well-preserved by comparison with minimal chondral thinning and surface irregularity at the inferior aspect of the medial trochlear facet. Normal trochlear morphology. Medial Compartment: Tiny marginal osteophytes. Minimal chondral thinning and surface irregularity at the medial tibial plateau. Lateral Compartment: Moderate nonuniform chondral thinning and surface irregularity are present at the posterior half of the lateral tibial plateau. No focal nonuniform cartilage loss is evident at the posterior weight-bearing surface of the lateral femoral condyle. Moderate sized marginal osteophytes. JOINT FLUID AND BURSAE: No joint effusion. Trace Trujillo's cyst. There is a multilocular cyst in the proximal aspect of the popliteal fossa arising from the origin of the lateral head of the gastrocnemius muscle measuring 5 x 4 x 2.5 cm, most consistent with a large synovial cyst. No suspicious features. MR/MR knee LT wo con IMPRESSION: 1. Diffuse horizontal undersurface tear of the lateral meniscus and a small undersurface horizontal tear of the medial meniscus. 2. [id number] lateral compartment osteoarthritis. More mild osteoarthritis in the patellofemoral and medial compartments. 3. A 5 cm multilocular synovial cyst in the superior aspect of the popliteal fossa arising at the origin of the lateral head of the gastrocnemius.
--- NOTE | ~2022-06-29 | MM_ITS ---
EXAMINATION: MM SCREENING DIGITAL BREAST TOMOSYNTHESIS, BILATERAL CLINICAL INFORMATION: Screening. Asymptomatic. The lifetime risk of breast cancer based on the Tyrer-Cuzick Model is 9%. COMPARISON: Mammography: 02/07/2021, 02/02/2020, 01/27/2019 TECHNIQUE: Digital breast tomosynthesis is performed in both the craniocaudal and mediolateral oblique views along with computer-aided detection (CAD). Synthesized 2D images are generated from the tomosynthesis. Additional left MLO view is provided. FINDINGS: There are scattered areas of fibroglandular density (ACR BI-RADS breast composition Category b). There are no significant masses, abnormal calcifications, or other abnormalities. Parenchymal pattern is similar to prior studies. The axilla and skin contours are unremarkable. MM/MM tomosynthesis screening BI IMPRESSION: No mammographic evidence of malignancy. ASSESSMENT: BI-RADS 1: Negative RECOMMENDATION: Routine annual mammography screening. This patient's information was entered into a reminder system with a target due date for their next mammogram.
== END 2022-06-29 07:24 | disposition home or self-care (01) ==
LOC: HO.MRI 07:23
PROVIDERS: Visit Provider Physician Assistant
DX: Z12.31 Encounter for screening mammogram for malignant neoplasm of breast (principal); M17.12 Unilateral primary osteoarthritis, left knee; R61 Generalized hyperhidrosis
CPT/HCPCS: 73721; 77063; 77067

== ENCOUNTER → 2022-07-04 07:51 | Outpatient (BNVA) | payer MEDICARE, SELFPAY | PROVIDERS: PCP Internal Medicine; Visit Provider Nurse Practitioner Family | DX: G47.33 Obstructive sleep apnea (adult) (pediatric) (principal); G40.909 Epilepsy, unspecified, not intractable, without status epilepticus; G25.81 Restless legs syndrome | CPT/HCPCS: 99212 ==

== ENCOUNTER 2022-07-06 11:47 | Outpatient (REF) | payer MEDICARE, SELFPAY ==
--- NOTE | ~2022-07-06 | XR_ITS ---
EXAMINATION: XR SHOULDER, LEFT CLINICAL INFORMATION: Pain. COMPARISON: None TECHNIQUE: AP neutral, scapular Y, and axillary views of the left shoulder. FINDINGS: Bony alignment and mineralization are normal. The glenohumeral joint is intact. There is mild osteoarthritic change of the glenohumeral joint. The acromioclavicular and coracoclavicular intervals are normal. There is very mild osteoarthritic change of the acromioclavicular joint. There is a small distal acromial undersurface osteophyte. There is cortical irregularity of the greater tuberosity of the proximal left humerus. No soft tissue calcification or foreign body is seen. There is no left pneumothorax. XR/XR shoulder LT min 2V IMPRESSION: 1. There is mild osteoarthritic change of the left glenohumeral joint, and very mild osteoarthritic change is seen of the left acromioclavicular joint. 2. Findings are consistent with left rotator cuff impingement.
== END 2022-07-06 11:48 | disposition home or self-care (01) ==
LOC: HO.HOSX 11:47
PROVIDERS: Visit Provider Physician Assistant
DX: M17.12 Unilateral primary osteoarthritis, left knee (principal); M19.012 Primary osteoarthritis, left shoulder
CPT/HCPCS: 73030; 99212

== ENCOUNTER 2022-07-06 13:00 | Outpatient (RCR) | payer MEDICARE, SELFPAY ==
--- NOTE | 2022-04-24 13:15 | MHC.PT.EP ---
[facility] [place] Office [place] Office [place] Office [address] [phone] F: [phone] F: [phone] F: [phone] F: [phone] Physical Therapy Plan of Care Date of Evaluation: Date of Surgery: n/a Diagnosis: L shoulder pain Assessment: Patient is a 67 year old R handed female who presents with s/s consistent with L shoulder pain. 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 She does not recall what caused the pain to start. Patient past medical history includes [place], seizure disorder and radial head fracture. Current impairments include pain, posture, ROM, strength, activity tolerance and functional mobility. Functional limitations include decreased ability to sleep, dress, reach, lift, push, carry, and drive. Patient is motivated with good rehab potential. Skilled PT will address impairments and functional limitations in order to achieve goals. Frequency and Duration: The patient will be seen 2x/week for 5 weeks Short Term Goals: I with HEP - 2 weeks Eliminate pain arc - 3 weeks ER AROM 55 - 3 weeks Cash Person Goals: Full pain free AROM - 5 weeks Strength 4/5 grossly - 5 weeks Pain 2/10 with daily activities - 5 weeks Treatment Plan: Modalities to reduce pain, spasms and effusion. Manual therapy to restore motion and function. Therapeutic exercise to improve strength and flexibility. Neuromuscular re-education for posture and balance. Therapeutic activities to return to functional activities of daily living. Electronically signed by: Akil Banerjee, PT Please sign and return to therapist. Thank you for your referral.
--- NOTE | 2022-07-09 10:30 | MHC.PT.DC ---
[facility] [place] Office [place] Office [place] Office [address] [phone] F: [phone] F: [phone] F: [phone] F: [phone] Physical Therapy Discharge Report Diagnosis: L shoulder pain Date of Surgery: n/a Date of Evaluation: 04/24/22 Date of Discharge: 07/06/22 Treatments to Date: 18 Cancellations to Date: No Shows to Date: Discharge Status: Improved Function Independent with HEP Discharge Summary: We discussed in depth pathology, pursuit of continued process through HEP and mechanics of HEP. Updated HEP issued. ER goals met. Painful arc still present but to lesser degree. She is I with HEP. and Strength is 4/5 within available ROM. ROM has progress but not full. AAROM to 150 flex, abd 140, ER 60, IR 60. Pain is up to 5/10 with daily activities. Electronically signed by: Akil Banerjee PT Please sign and return to therapist. Thank you for your referral.
== END 2022-07-09 10:31 | disposition home or self-care (01) ==
LOC: HO.PTCHIC 13:00
PROVIDERS: PCP Internal Medicine; Visit Provider Internal Medicine
DX: M25.511 Pain in right shoulder (principal)
CPT/HCPCS: 97012; 97110; 97140; 97162

== ENCOUNTER 2022-07-16 15:33 | Outpatient (REF) | payer MEDICARE, SELFPAY ==
--- NOTE | ~2022-07-16 | MR_ITS ---
EXAMINATION: MRI SHOULDER WITHOUT CONTRAST, LEFT CLINICAL INFORMATION: Left shoulder pain. Decreased range of motion. COMPARISON: Left shoulder radiographs dated 07/06/2022. TECHNIQUE: Multisequence MR imaging of the left shoulder was obtained without contrast high-field strength scanner. FINDINGS: ROTATOR CUFF: Moderate supraspinatus tendinosis with irregular full-thickness partial tearing of the supraspinatus tendon measuring up to 2.5 x 2.9 cm (AP x ML). The torn tendon fibers are retracted to the humeral head apex. A few posterior tendon fibers appear to remain intact. No muscle atrophy or fatty infiltration. BICEPS: Intact. CORACOACROMIAL ARCH: The undersurface of the acromion is curved with tiny lateral subacromial spurs. Moderate acromioclavicular osteoarthritis. LABRUM/CAPSULE: Attenuation and irregularity of the posterior, posteroinferior, and inferior labrum consistent with complex degenerative tearing. Intact inferior joint capsule. GLENOHUMERAL JOINT/MARROW: Full-thickness glenoid articular cartilage loss, most prominent posteriorly where there is mild glenoid bony remodeling and subchondral cystic change. Full thickness articular cartilage loss at the posterior aspect of the humeral head with mild underlying subchondral cystic change. Prominent marginal osteophytes. Small joint effusion. Mild chronic posterior subluxation of the humeral head. Degenerative cystic change within the greater tuberosity. MR/MR shoulder LT wo con IMPRESSION: 1. [id number] glenohumeral osteoarthritis, most prominent posteriorly. Mild chronic posterior subluxation of the humeral head. Small glenohumeral joint effusion with prominent marginal osteophytes. 2. Complex degenerative tearing and attenuation throughout the posterior, posteroinferior, and inferior labrum. 3. Moderate supraspinatus tendinosis with irregular full-thickness partial tearing measuring 2.5 x 2.9 cm. Retraction of the torn tendon fibers to the humeral head apex. 4. Moderate acromioclavicular osteoarthritis with tiny subacromial spurs.
== END 2022-07-16 15:34 | disposition home or self-care (01) ==
LOC: HO.MRI 15:33
PROVIDERS: Visit Provider Physician Assistant
DX: S46.009A Unspecified injury of muscle(s) and tendon(s) of the rotator cuff of unspecified shoulder, initial encounter (principal)
CPT/HCPCS: 73221

== ENCOUNTER → 2022-07-26 09:12 | Outpatient (BNVA) | payer MEDICARE, SELFPAY | PROVIDERS: PCP Internal Medicine; Visit Provider Orthopaedic Surgery | DX: M25.512 Pain in left shoulder (principal); M12.812 Other specific arthropathies, not elsewhere classified, left shoulder | CPT/HCPCS: 99212 ==

== ENCOUNTER 2022-08-16 09:00 | Outpatient (RCR) | payer MEDICARE, SELFPAY ==
--- NOTE | 2022-11-14 09:03 | MHC.PT.DC ---
[facility] [place] Office [place] Office [place] Office [address] Elham Stern [address] [phone] F: [phone] F: [phone] F: [phone] F: [phone] Physical Therapy Discharge Report Diagnosis: OA of L knee Date of Surgery: n/a Date of Evaluation: 07/17/22 Date of Discharge: 11/14/22 Treatments to Date: 10 Cancellations to Date: No Shows to Date: Discharge Status: Improved Function Independent with HEP Discharge Summary: Pt ended up continuing with just HEP. 08/16/22: pt progressing well in skilled PT with improved strength, balance and function. we reviewed all HEP at this time and re-issued. She will attempt exclusively for 2 weeks then return. 08/13/22: pt progressing well with skilled PT. improved strength and function with reduced pain. we will continue to progress as tolerated. update HEP NV. Pt has been demonstrating improved strength, reduced rest needed. functional improvements include increased ease with transfers and walking. Reduced pain with walking. Electronically signed by: Akil Banerjee, PT Please sign and return to therapist. Thank you for your referral.
== END 2022-11-14 09:03 | disposition home or self-care (01) ==
LOC: HO.PTCHIC 09:00
PROVIDERS: PCP Internal Medicine; Visit Provider Physician Assistant
DX: M17.12 Unilateral primary osteoarthritis, left knee (principal)
CPT/HCPCS: 97110; 97140; 97162

== ENCOUNTER 2022-09-11 07:08 | Outpatient (REF) | payer MEDICARE, SELFPAY ==
[2022-09-11 07:20] LABS: MANUAL DIFF FLAG NO
[2022-09-11 08:19] LABS: Basophils Absolute Auto 0.1 X10*3/uL (0.0-0.2); Basophils Percent Auto 1.1 % (0-2); Eosinophils Absolute Auto 0.2 X10*3/uL (0.0-0.4); Eosinophils Percent Auto 2.2 % (0-4); Estimated Average Glucose 128 mg/dL; Hematocrit 40.6 % (37.0-47.0); Hemoglobin 13.4 g/dl (12.0-16.0); Hemoglobin A1C 150.3616 umol/L; Hemoglobin A1c % 6.1 %; Imm Gran Abs Auto 0.02 X10*3/uL (0.00-0.03); Imm Gran Pct Auto 0.3 % (0.0-0.4); Lymphocytes Percent Auto 26.6 % (20-40); Mean Corpuscular Hemoglobin 30.5 pg (27.0-33.0); Mean Corpuscular Volume 92.3 fL (80.0-98.0); Mean Platelet Volume 10.6 fL (9.4-12.3); Monocytes Absolute Auto 0.8 X10*3/uL (0.1-1.2); Monocytes Percent Auto 10.8 % (2-11); Neutrophils Absolute Auto 4.3 x10*3/uL (2.0-8.3); Platelet Count 288 X10*3/uL (160-400); Red Cell Distribution Width 12.9 % (11.0-16.0); White Blood Count 7.3 X10*3/uL (4.8-10.8)
[2022-09-11 08:29] LABS: Appearance Urine Cloudy; Color Urine Yellow; Glucose Urine UA Negative (Negative); Leukocyte Esterase Urine Moderate (2+) (Negative); Nitrite Urine Negative (Negative); PH 5.5 (5.0-9.0); UMIC TRIGGER UA YES; Urine Blood Trace (Negative); Urine Ketones Trace mg/dL (Negative); Urine Protein 100 (2+) mg/dL (Neg-Trace)
[2022-09-11 08:34] LABS: Bacteria Urine 1+ (None Seen); Hyaline Casts Urine 0-2 /LPF (0-2); RBC Urine 0-2 /HPF (0-2); WBC Urine 21-50 /HPF (0-5)
[2022-09-11 08:42] LABS: Alanine Aminotransferase 34 U/L (0-31); Albumin Level 4.5 g/dL (3.5-5.0); Alkaline Phosphatase 58 U/L (39-117); Anion Gap 14 (12-20); Aspartate Amino Transferase 32 U/L (5-31); Bilirubin Total 0.7 mg/dL (0.0-1.0); Blood Urea Nitrogen 18 mg/dL (9-16); Carbon Dioxide 28 mmol/L (22-29); Chloride 105 mmol/L (96-108); Cholesterol 154 mg/dL; Estimated Glomerular Filt Rate 54; Glucose Random 111 mg/dL (60-115); HDL Cholesterol 46 mg/dL; LDL Cholesterol Calculated 80 mg/dl; Potassium 4.8 mmol/L (3.3-5.1); Sodium 142 mmol/L (135-145); Total Protein 7.2 g/dL (6.5-8.0); Triglycerides 143 mg/dL
[2022-09-11 08:50] LABS: B Type Natriuretic Peptide 541 pg/mL (<100)
[2022-09-11 09:06] LABS: Free T4 (Free Thyroxine) 0.89 ng/dL (0.71-1.85); Thyroid Stimulating Hormone 2.74 uIU/mL (0.32-4.0); Vitamin D 25-OH Total 48.9 ng/mL (>30)
[2022-09-11 09:23] LABS: Vitamin B12 352 pg/mL (200-900)
== END 2022-09-11 07:09 | disposition home or self-care (01) ==
LOC: HO.LAB 07:08
PROVIDERS: PCP Internal Medicine; Visit Provider Internal Medicine
DX: R73.02 Impaired glucose tolerance (oral) (principal); E78.00 Pure hypercholesterolemia, unspecified; N39.41 Urge incontinence; I48.0 Paroxysmal atrial fibrillation; M81.0 Age-related osteoporosis without current pathological fracture
CPT/HCPCS: 36415; 80053; 80061; 81001; 82306; 82607; 82746; 83036; 83880; 84439; 84443; 85025

== ENCOUNTER 2022-09-18 14:56 | Outpatient (REF) | payer MEDICARE, SELFPAY ==
--- NOTE | ~2022-09-18 | MM_ITS ---
EXAMINATION: BONE DENSITOMETRY CLINICAL INDICATION: Osteoporosis. COMPARISON: Previous BD dated 12/25/2016 and baseline BD dated 03/19/2000. TECHNIQUE: Using a PadSquad DXA System (software version: 13.1) manufactured by [employer], dual-energy x-ray absorptiometry was performed of the lumbar spine and left hip. The images are of good technical quality. Summary results are attached. FINDINGS: AP SPINE L1-L4: Current: BMD 1.328 g/cm2, Z-score 1.7, T-score 1.2, normal, 5.4% increase from previous, 0.8% increase from baseline (<5% change is not significant). Prior: BMD 1.260 g/cm2. Baseline: BMD 1.317 g/cm2. LEFT FEMUR, NECK: Current: BMD 0.972 g/cm2, Z-score 0.4, T-score -0.5, normal. Prior: BMD 0.909 g/cm2. Baseline: BMD 0.940 g/cm2. LEFT FEMUR, TOTAL: Current: BMD 0.882 g/cm2, Z-score -0.4, T-score -1.0, normal, 3.4% decrease from previous, 3.3% decrease from baseline (<5% change is not significant). Prior: BMD 0.913 g/cm2. Baseline: BMD 0.912 g/cm2. IDENTIFIED RISK FACTORS: Early menopause, family history (parent hip fracture), anticonvulsant, secondary osteoporosis, history of fracture (adult). HISTORY OF FRACTURE: Elbow. MEDICATIONS: Vitamin D. MM/XR DEXA axial skeleton IMPRESSION: 1. DIAGNOSIS: Normal bone density based on the lowest T-score value of -1.0 in the total femur applying World Health Organization criteria. 2. 10-YEAR FRACTURE RISK PREDICTION, FRAX: According to the guidelines, FRAX calculation should only be performed on patients in the osteopenia bone density category. Therefore, FRAX was not performed on this patient. 3. Treatment Recommendations: NOF guidelines recommend consideration for treatment in postmenopausal women and men age 50 and older presenting with the following: -A hip or vertebral (clinical or morphometric) fracture. -T-score less than or equal to -2.5 at the femoral neck or spine after appropriate evaluation to exclude secondary causes. -Low bone mass at the hip or spine and a 10-year fracture probability by FRAX of greater than or equal to 3% for hip fracture or greater than or equal to 20% for major osteoporotic fracture based on the [place] adapted WHO algorithm. 4. Other Recommendations: All treatment decisions require clinical judgment and consideration of individual patient factors, including patient preferences, comorbidities, previous drug use, risk factors not captured in the FRAX model (e.g. frailty, falls, vitamin D deficiency, increased bone turnover, interval significant decline in bone density) and possible under or overestimation of fracture risk by FRAX. FUTURE SCAN RECOMMENDATION: People with diagnosed cases of osteoporosis or at high risk for fracture should have regular bone mineral density tests. For patients eligible for Medicare, routine testing is allowed once every 2 years. The testing frequency can be increased to one year for patients who have rapidly progressing disease, those who are receiving or discontinuing medical therapy to restore bone mass, or have additional risk factors.
== END 2022-09-18 14:57 | disposition home or self-care (01) ==
LOC: HO.MAMMO 14:56
PROVIDERS: Visit Provider Internal Medicine
DX: Z13.820 Encounter for screening for osteoporosis (principal); M81.0 Age-related osteoporosis without current pathological fracture; Z78.0 Asymptomatic menopausal state
CPT/HCPCS: 77080

== ENCOUNTER → 2022-09-24 14:51 | Outpatient (BNVA) | payer MEDICARE, SELFPAY | PROVIDERS: PCP Internal Medicine; Referring Provider Internal Medicine; Visit Provider Internal Medicine Cardiovascular Disease | DX: I48.19 Other persistent atrial fibrillation (principal); I25.10 Atherosclerotic heart disease of native coronary artery without angina pectoris | CPT/HCPCS: 93005; 99212 ==

== ENCOUNTER 2022-10-03 11:16 | Day surgery (SDC) | payer MEDICARE, SELFPAY ==
--- NOTE | 2022-10-02 08:34 | HO.ANESPROP2 ---
HPI - Anesthesia Eval Consult details Narrative: 67yo F for Cardioversion Eliquis for afib PMFSH Active Problems Active Problems: All Active Problems (Updated 09/25/22 @ 14:15 by George Caro MD) Persistent atrial fibrillation (Acute) COVID-19 virus infection (Acute) Age-related osteoporosis without current pathological fracture (Acute) Encounter for subsequent annual wellness visit (AWV) in Medicare patient (Acute) Arthritis of left shoulder region (Acute) Hyperhidrosis (Acute) Osteoarthritis of left knee (Acute) Restless leg syndrome (Acute) Seizure disorder (Acute) Knee pain, left (Acute) Bilateral shoulder pain (Acute) Closed fracture of head of left radius with routine healing (Acute) Left radial head fracture (Acute) Urge incontinence (Acute) Left radial fracture (Acute) Renal insufficiency (Acute) Generalized anxiety disorder (Acute) Atrial flutter (Acute) Central sleep apnea (Acute) Urge incontinence (Acute) Impaired glucose tolerance (Acute) Angina of effort (Acute) GERD (gastroesophageal reflux disease) (Acute) Obesity (BMI 30-39.9) (Acute) Obstructive sleep apnea (Acute) Back pain (Acute) CAD (coronary artery disease) (Acute) HLD (hyperlipidemia) (Acute) HTN (hypertension) (Acute) Past Medical History Medical History (Updated 10/03/22 @ 15:48 by Alexsander Burroughs MD) Atrial flutter CAD (coronary artery disease) Glaucoma HLD (hyperlipidemia) HTN (hypertension) Left shoulder pain Obesity (BMI 30-39.9) Osteoarthritis of left knee Paroxysmal atrial fibrillation Rotator cuff arthropathy of left shoulder Seizure disorder Family History Family History Father No problems noted. Mother CVD (cardiovascular disease) Sister Cancer Surgical History Surgical History History of eye surgery Hx of appendectomy Hx of colonoscopy Social History Social History Housing: House Alcohol intake: current Alcohol intake frequency: holidays/special occasions only Patient Tobacco Use Status: Never used Tobacco e-Cigarette/Vaping Use: Never Used Second Hand Smoke Exposure: Yes Advance Directives Date on File: 11/16/19 service: No Current occupational status: retired Current occupation: rt handed Cognitive needs: No Hearing needs: No Vision needs: Yes Meds Allergies Allergy/AdvReac Type Severity Reaction Status Date / Time No Known Allergies Allergy Verified 10/03/22 11:41 [No Known Allergies*] Home Medications Medication Instructions Recorded Confirmed Last Taken Type cholecalciferol (vitamin D3) 25 25 mcg PO DAILY 09/16/20 10/03/22 10/03/22 History mcg (1,000 unit) capsule nitroglycerin 0.4 mg sublingual 0.4 mg sublingual DAILY PRN Chest 09/16/20 10/03/22 Unknown History tablet Pain Exam Exam Date and Time: October 02, 2022 0834 Pertinent Lab Results Pertinent Lab Results: Laboratory Tests 09/11/22 09/11/22 07:19 07:19 WBC 7.3 Hgb 13.4 Hct 40.6 Plt Count 288 Sodium 142 Potassium 4.8 Chloride 105 Carbon Dioxide 28 BUN 18 H Creatinine 1.01 Narrative Narrative: EKG 09/20[address] atrial fibrillation with nonspecific [address] T wave changes ECHO 2020 Conclusions: - 1. Mildly reduced LV systolic function with LVEF of 45-50% ? ? 2. Normal cardiac valvular Doppler ? 3. Normal RV systolic pressure ? 4. No gross pericardial effusion ? ? 3 day Holter Conclusion: 1. Patient was monitor for 3 days and 9 hours 2. Baseline was normal sinus rhythm with average heart of 77 beats per minute 3. Intermittent episodes of atrial fibrillation with total burden of 43.11% with longest episode lasting 19 hours and 22 minutes? 4. No significant pauses or bradycardia noted 5. Total of 5109 PACs accounting for 1.35% of PACs accounting for frequent PACs 6. No patient reported symptoms?
--- NOTE | 2022-10-03 11:26 | MHC.SHP ---
Pre-Procedural Eval Section A Date of Service: 10/03/22 The patient is an INPATIENT: No Changes since office visit: Yes Patient answered all questions; No Cold of Flu in the past 2 weeks, No New Medical Problems and No Changes in Medication The History & Physical has been completed within 30 days and I have reviewed it.: Yes Section B Chief Complaint: Unspecified atrial flutter Allergies: Allergies Allergy/AdvReac Type Severity Reaction Status Date / Time No Known Allergies Allergy Verified 09/12/22 13:44 [No Known Allergies*] Plan I have reviewed the history and physical and performed a pertinent physical examination on my patient. No changes have occurred unless specified.
[2022-10-03 11:42] VITALS: BMI 31.4
[2022-10-03 11:55] VITALS: BP 145/78; PULSE 71; RESP 18; TEMP 36.9; O2SAT 94
--- NOTE | 2022-10-03 12:36 | HO.ANESPROP2 ---
[facility] Active Problems Active Problems: All Active Problems (Updated 10/03/22 @ 11:41 by Veronica Norton RN) Back pain (Acute) Obstructive sleep apnea (Acute) Angina of effort (Acute) Impaired glucose tolerance (Acute) Urge incontinence (Acute) Central sleep apnea (Acute) Atrial flutter (Acute) Generalized anxiety disorder (Acute) Renal insufficiency (Acute) Left radial fracture (Acute) Urge incontinence (Acute) Left radial head fracture (Acute) Closed fracture of head of left radius with routine healing (Acute) Bilateral shoulder pain (Acute) Knee pain, left (Acute) Restless leg syndrome (Acute) Hyperhidrosis (Acute) Arthritis of left shoulder region (Acute) Encounter for subsequent annual wellness visit (AWV) in Medicare patient (Acute) Age-related osteoporosis without current pathological fracture (Acute) COVID-19 virus infection (Acute) Persistent atrial fibrillation (Acute) Osteoarthritis of left knee (Acute) Seizure disorder (Acute) GERD (gastroesophageal reflux disease) (Acute) Obesity (BMI 30-39.9) (Acute) CAD (coronary artery disease) (Acute) HLD (hyperlipidemia) (Acute) HTN (hypertension) (Acute) Past Medical History Medical History CAD (coronary artery disease) Glaucoma HLD (hyperlipidemia) HTN (hypertension) Left shoulder pain Obesity (BMI 30-39.9) Osteoarthritis of left knee Paroxysmal atrial fibrillation Rotator cuff arthropathy of left shoulder Seizure disorder Family History Family History Father No problems noted. Mother CVD (cardiovascular disease) Sister Cancer Family history of problems with anesthesia: No Surgical History Surgical History History of eye surgery Hx of appendectomy Hx of colonoscopy History of Problems with Anesthesia: No Social History Social History Housing: House Alcohol intake: current Alcohol intake frequency: holidays/special occasions only Patient Tobacco Use Status: Never used Tobacco e-Cigarette/Vaping Use: Never Used Second Hand Smoke Exposure: Yes Use of substances other than those prescribed or required for medical reasons: No Are you DNR?: No Advance Directives: No Advance Directives Information Provided: Yes Advance Directives Date on File: 11/16/19 service: No Current occupational status: retired Current occupation: rt handed Cognitive needs: No Hearing needs: No Vision needs: Yes Meds Allergies Allergy/AdvReac Type Severity Reaction Status Date / Time No Known Allergies Allergy Verified 10/03/22 11:41 [No Known Allergies*] Active Medications: Current Medications Lactated Ringer's (Lr) 1,000 mls @ 100 mls/hr IVCONT .Q10H TAO Sodium Chloride (0.9 % Sodium Chloride Flush 3 Ml Syringe) 3 ml IVFLUSH QSHIFT TAO Home Medications Medication Instructions Recorded Confirmed Last Taken Type cholecalciferol (vitamin D3) 25 25 mcg PO DAILY 09/16/20 10/03/22 10/03/22 History mcg (1,000 unit) capsule nitroglycerin 0.4 mg sublingual 0.4 mg sublingual DAILY PRN Chest 09/16/20 10/03/22 Unknown History tablet Pain Exam Exam Date and Time: October 03, 2022 1236 Height,Weight and Vital Signs: Height 6 ft Weight 105.233 kg Last Vital Signs Temp 98.5 F 10/03/22 11:55 Pulse 71 10/03/22 11:55 Resp 18 10/03/22 11:55 BP 145/78 H 10/03/22 11:55 Pulse Ox 94 10/03/22 11:55 O2 Del Method 10/03/22 11:55 Airway Mallampati Class: II TM Dist: >3cm Neck ROM: Full Assessment and Plan Assessment Anesthesia Assessment: Anesthesia Plan Discussed and Chart Reviewed Final Anesthetic Review Family History of Problems with Anesthesia: No History of Problems with Anesthesia: No NPO: Yes ASA Class: III Final Preanesthetic Review: No Changes in Pt Med Stat, Meds/Allgs Chart Reviewed, Consent Obtained/Reviewed and Anes Risks/Benef Reviewed Patient Risk: Intermediate Procedure Risk: Low Anesthetic Plan Anesthetic Plan: GA Disposition: Standard PACU
--- NOTE | 2022-10-03 13:13 | ECG_ITS ---
Test Reason : postop Blood Pressure : / mmHG Vent. Rate : 057 BPM Atrial Rate : 057 BPM P-R Int : 162 ms QRS Dur : 080 ms QT Int : 452 ms P-R-T Axes : 023 031 012 degrees QTc Int : 439 ms Sinus bradycardia with sinus arrhythmia RSR' or QR pattern in V1 suggests right ventricular conduction delay Otherwise normal ECG When compared with ECG of 06-DEC-2021 16:00, Sinus rhythm has replaced Atrial flutter Vent. rate has decreased BY 34 BPM Nonspecific T wave abnormality has replaced inverted T waves in Inferior leads Nonspecific T wave abnormality no longer evident in Anterolateral leads Referred By: George Caro Electronically Signed By:BRITTNEY YUAN MD
--- NOTE | 2022-10-03 13:14 | HO.CARDIVERS ---
Cardioversion Procedure Note Cardioversion Date of Procedure: Today Ordering Provider: Myself Performing Provider: Myself Indication for Procedure: Persistent atrial fibrillation Pre-Op Diagnosis: Same Post-Op Diagnosis: Sinus rhythm Performed with Transesophageal Echo: No History: See my office note Consent: Verbal and Written consent was obtained from the patient before starting and after confirming oral anticoagulation use. The patient was made aware of the risk of synchronized cardioversion including benefits, alternatives Procedure: After consent obtained, cardioversion pads were attached in AP configuration and the patient was sedated by the anesthesia team. Once adequate sedation achieved, patient was delivered 200 joules of biphasic synchronized energy in anteroposterior configuration x2. Complications: None Impression: Successful conversion to sinus rhythm Recommendations: 1. 12 lead EKG 2. Continue Multaq and oral anticoagulation 3. Follow up in the clinic after Holter monitor
[2022-10-03 13:17] VITALS: BP 90/60; PULSE 59; RESP 16; TEMP 36.3; O2SAT 93
[2022-10-03 13:32] VITALS: BP 102/59; PULSE 60; RESP 16; O2SAT 96
[2022-10-03 13:47] VITALS: BP 101/57; PULSE 56; RESP 16; O2SAT 96
[2022-10-03 14:07] VITALS: BP 121/78; PULSE 58; RESP 16; TEMP 36.3; O2SAT 96
== END 2022-10-03 15:26 | disposition home or self-care (01) ==
PROVIDERS: PCP Internal Medicine; Visit Provider Internal Medicine Cardiovascular Disease
PROC: 5A2204Z Restoration of Cardiac Rhythm, Single (ICD-10-PCS; principal; 2022-10-03 13:00)
DX: I48.19 Other persistent atrial fibrillation (principal); Z79.01 Long term (current) use of anticoagulants; I25.10 Atherosclerotic heart disease of native coronary artery without angina pectoris; I10 Essential (primary) hypertension; E78.5 Hyperlipidemia, unspecified; G40.909 Epilepsy, unspecified, not intractable, without status epilepticus; Z79.899 Other long term (current) drug therapy
CPT/HCPCS: 92960; 93005

== ENCOUNTER → 2022-10-17 07:07 | Outpatient (REF) | payer MEDICARE, SELFPAY ==
--- NOTE | 2022-10-17 07:11 | HM_ITS ---
Conclusion: 1. Patient was monitored for total period of 2 days and 22 hours 2. Baseline rhythm is atrial fibrillation/flutter with average heart of 62 beats per minute 3. Frequent slow ventricular response to atrial flutter/fibrillation, 32% of time, heart rate less than 60 beats per minute 4. Very rare PVCs noted 5. No patient reported symptoms 6. No significant pauses noted MTDD
== END ==
LOC: HO.CARD 07:07
PROVIDERS: Visit Provider Internal Medicine Cardiovascular Disease
DX: I48.19 Other persistent atrial fibrillation (principal)
CPT/HCPCS: 93242

== ENCOUNTER → 2022-11-21 10:37 | Outpatient (BNVA) | payer MEDICARE, SELFPAY | PROVIDERS: PCP Internal Medicine; Referring Provider Internal Medicine; Visit Provider Internal Medicine Cardiovascular Disease | DX: I48.0 Paroxysmal atrial fibrillation (principal); I25.10 Atherosclerotic heart disease of native coronary artery without angina pectoris; Z79.01 Long term (current) use of anticoagulants; Z79.899 Other long term (current) drug therapy | CPT/HCPCS: 93005; 99212 ==

== ENCOUNTER 2022-12-19 06:48 | Outpatient (REF) | payer MEDICARE, SELFPAY ==
[2022-12-19 06:59] LABS: MANUAL DIFF FLAG NO
[2022-12-19 07:24] LABS: Basophils Absolute Auto 0.1 X10*3/uL (0.0-0.2); Basophils Percent Auto 1.3 % (0-2); Eosinophils Absolute Auto 0.1 X10*3/uL (0.0-0.4); Eosinophils Percent Auto 2.5 % (0-4); Hematocrit 42.2 % (37.0-47.0); Hemoglobin 14.1 g/dl (12.0-16.0); Imm Gran Abs Auto 0.01 X10*3/uL (0.00-0.03); Imm Gran Pct Auto 0.2 % (0.0-0.4); Lymphocytes Absolute Auto 2.2 X10*3/uL (1.2-4.9); Lymphocytes Percent Auto 41.7 % (20-40); Mean Corpuscular HGB Conc 33.4 g/dl (31.0-35.0); Mean Corpuscular Hemoglobin 31.8 pg (27.0-33.0); Mean Platelet Volume 10.1 fL (9.4-12.3); Monocytes Absolute Auto 0.7 X10*3/uL (0.1-1.2); Monocytes Percent Auto 13.6 % (2-11); Neutrophils Absolute Auto 2.1 x10*3/uL (2.0-8.3); Neutrophils Percent Auto 40.7 % (45-73); Platelet Count 269 X10*3/uL (160-400); Red Blood Count 4.44 X10*6/uL (4.20-5.50); Red Cell Distribution Width 12.9 % (11.0-16.0); White Blood Count 5.2 X10*3/uL (4.8-10.8)
[2022-12-19 07:44] LABS: B Type Natriuretic Peptide 176 pg/mL (<100)
[2022-12-19 07:50] LABS: Alanine Aminotransferase 19 U/L (0-31); Albumin Level 4.5 g/dL (3.5-5.0); Alkaline Phosphatase 57 U/L (39-117); Anion Gap 14 (12-20); Aspartate Amino Transferase 21 U/L (5-31); Blood Urea Nitrogen 20 mg/dL (9-16); Calcium 10.2 mg/dL (8.4-10.2); Carbon Dioxide 25 mmol/L (22-29); Chloride 105 mmol/L (96-108); Cholesterol 126 mg/dL; Estimated Average Glucose 123 mg/dL; Estimated Glomerular Filt Rate 54; Glucose Random 101 mg/dL (60-115); HDL Cholesterol 42 mg/dL; Hemoglobin A1C 150.9405 umol/L; Hemoglobin A1c % 5.9 %; LDL Cholesterol Calculated 63 mg/dl; Potassium 4.6 mmol/L (3.3-5.1); Sodium 139 mmol/L (135-145); Total Protein 7.2 g/dL (6.5-8.0); Triglycerides 107 mg/dL
== END 2022-12-19 06:49 | disposition home or self-care (01) ==
LOC: HO.LAB 06:48
PROVIDERS: PCP Internal Medicine; Visit Provider Internal Medicine
DX: R73.02 Impaired glucose tolerance (oral) (principal); I25.10 Atherosclerotic heart disease of native coronary artery without angina pectoris; E78.00 Pure hypercholesterolemia, unspecified; E78.2 Mixed hyperlipidemia
CPT/HCPCS: 36415; 80053; 80061; 83036; 83880; 85025

== ENCOUNTER → 2023-03-28 11:08 | Outpatient (BNVA) | payer MEDICARE, SELFPAY | PROVIDERS: PCP Internal Medicine; Visit Provider Nurse Practitioner Family | DX: G47.33 Obstructive sleep apnea (adult) (pediatric) (principal); G40.909 Epilepsy, unspecified, not intractable, without status epilepticus; G25.81 Restless legs syndrome | CPT/HCPCS: 99212 ==

== ENCOUNTER 2023-05-02 10:06 | Outpatient (REF) | payer MEDICARE, SELFPAY ==
--- NOTE | ~2023-05-02 | XR_ITS ---
EXAMINATION: XR CHEST CLINICAL INFORMATION: Paroxysmal atrial fibrillation. COMPARISON: None available. TECHNIQUE: 2 views of the chest were obtained. FINDINGS: No significant abnormality is noted involving the heart, lungs, mediastinum, bony thorax or soft tissues. XR/XR chest 2V IMPRESSION: Unremarkable chest examination.
--- NOTE | ~2023-05-02 | XR_ITS ---
EXAMINATION: XR LUMBOSACRAL SPINE CLINICAL INFORMATION: Dorsalgia. COMPARISON: None available. TECHNIQUE: Three views of the lumbosacral spine. FINDINGS: There is normal lumbar lordosis. The vertebral heights and alignment is normal. There is loss of L2-L3 and L3-L4 disc levels in large left bridging osteophyte at the L3-L4 disc level. No acute fracture, lytic or sclerotic process seen. The paravertebral soft tissues are normal. SI joints are normal. XR/XR lumbar spine 2-3V IMPRESSION: Degenerative disc changes L2-L3 and L3-L4 disc levels with large left bridging osteophyte at the L3-L4 disc level.
--- NOTE | 2023-05-02 10:14 | ECG_ITS ---
Test Reason : PRE OP Blood Pressure : / mmHG Vent. Rate : 079 BPM Atrial Rate : 000 BPM P-R Int : 000 ms QRS Dur : 088 ms QT Int : 370 ms P-R-T Axes : 000 030 -03 degrees QTc Int : 424 ms Atrial fibrillation Abnormal ECG When compared with ECG of 03-OCT-2022 13:09, Atrial fibrillation has replaced Sinus rhythm Referred By: Monica Norwood Electronically Signed By:ROMA SINGH MD
[2023-05-02 11:21] LABS: INTERNATIONAL NORM RATIO 1.2 (0.9-1.1); Prothrombin Time 13.9 SEC (10.0-13.1)
[2023-05-02 11:26] LABS: Hematocrit 44.8 % (37.0-47.0); Hemoglobin 14.6 g/dl (12.0-16.0); Mean Corpuscular HGB Conc 32.6 g/dl (31.0-35.0); Mean Corpuscular Hemoglobin 30.9 pg (27.0-33.0); Mean Corpuscular Volume 94.7 fL (80.0-98.0); Mean Platelet Volume 11.2 fL (9.4-12.3); Platelet Count 246 X10*3/uL (160-400); Red Blood Count 4.73 X10*6/uL (4.20-5.50); Red Cell Distribution Width 12.8 % (11.0-16.0); White Blood Count 7.6 X10*3/uL (4.8-10.8)
[2023-05-02 11:54] LABS: Anion Gap 13 (12-20); Blood Urea Nitrogen 13 mg/dL (9-16); Calcium 10.4 mg/dL (8.4-10.2); Carbon Dioxide 25 mmol/L (22-29); Chloride 105 mmol/L (96-108); Estimated Glomerular Filt Rate 55; Glucose Random 89 mg/dL (60-115); Potassium 4.4 mmol/L (3.3-5.1); Sodium 139 mmol/L (135-145)
[2023-05-02 12:17] LABS: TSH reflex Free T4 2.71 uIU/mL (0.32-4.0)
== END 2023-05-02 10:07 | disposition home or self-care (01) ==
LOC: HO.LAB 10:06
PROVIDERS: Nurse Practitioner Family; PCP Internal Medicine; Visit Provider Internal Medicine
DX: Z01.818 Encounter for other preprocedural examination (principal); I48.0 Paroxysmal atrial fibrillation; M54.9 Dorsalgia, unspecified
CPT/HCPCS: 36415; 71046; 72100; 80048; 84443; 85027; 85610; 93005

== ENCOUNTER 2023-05-13 06:38 | Day surgery (SDC) | payer MEDICARE, SELFPAY ==
[2023-05-07 13:38] VITALS: BMI 33.1
--- NOTE | 2023-05-10 07:56 | MHC.SHP ---
Pre-Procedural Eval Section A Date of Service: 05/10/23 The patient is an INPATIENT: No Changes since office visit: No Cold of Flu in the past 2 weeks, No New Medical Problems, No Changes in Medication and No Patient answered all questions The History & Physical has been completed within 30 days and I have reviewed it.: Yes Section B Chief Complaint: Age-related nuclear cataract, right eye Allergies: Allergies Allergy/AdvReac Type Severity Reaction Status Date / Time No Known Allergies Allergy Verified 05/02/23 09:43 [No Known Allergies*] Plan Diagnosis/Plan: Unchanged I have reviewed the history and physical and performed a pertinent physical examination on my patient. No changes have occurred unless specified. Time Spent With Patient Time: Total time managing care of this patient today ____ minutes.
--- NOTE | 2023-05-10 08:29 | HO.ANESPROP2 ---
Documented by User: Erika Irving NP 05/10/23 08:30 HPI - Anesthesia Eval Consult details Narrative: 68yo F for Right Cataract Multifocal with IOL Insertion PCP cleared No previous cataract on record Eliquis for afib PMFSH Active Problems Active Problems: All Active Problems (Updated 05/07/23 @ 13:37 by Itzel Robledo RN) Back pain (Acute) Obstructive sleep apnea (Acute) GERD (gastroesophageal reflux disease) (Acute) Angina of effort (Acute) Impaired glucose tolerance (Acute) Urge incontinence (Acute) Central sleep apnea (Acute) Generalized anxiety disorder (Acute) Renal insufficiency (Acute) Left radial fracture (Acute) Urge incontinence (Acute) Left radial head fracture (Acute) Closed fracture of head of left radius with routine healing (Acute) Bilateral shoulder pain (Acute) Knee pain, left (Acute) Restless leg syndrome (Acute) Hyperhidrosis (Acute) Arthritis of left shoulder region (Acute) Encounter for subsequent annual wellness visit (AWV) in Medicare patient (Acute) Age-related osteoporosis without current pathological fracture (Acute) COVID-19 virus infection (Acute) Left shoulder pain (Acute) Preoperative clearance (Acute) Cataract (Acute) Paroxysmal atrial fibrillation (Acute) Osteoarthritis of left knee (Acute) Seizure disorder (Acute) Obesity (BMI 30-39.9) (Acute) CAD (coronary artery disease) (Acute) HLD (hyperlipidemia) (Acute) HTN (hypertension) (Acute) Past Medical History Medical History (Updated 05/07/23 @ 13:37 by Itzel Robledo RN) Atrial flutter CAD (coronary artery disease) Glaucoma History of cardioversion HLD (hyperlipidemia) HTN (hypertension) Left shoulder pain Obesity (BMI 30-39.9) Osteoarthritis of left knee Paroxysmal atrial fibrillation Persistent atrial fibrillation Rotator cuff arthropathy of left shoulder Seizure disorder Sleep apnea Family History Family History Father No problems noted. Mother CVD (cardiovascular disease) Sister Cancer Family history of problems with anesthesia: No Surgical History Surgical History (Updated 05/07/23 @ 13:24 by Itzel Robledo RN) History of eye surgery Hx of appendectomy Hx of colonoscopy History of Problems with Anesthesia: No Social History Social History Housing: House Are you a primary health care liaison to a significant other at home: No Do you presently have visiting nurse or other home services: No Alcohol intake: current Alcohol intake frequency: does not drink Patient Tobacco Use Status: Never used Tobacco e-Cigarette/Vaping Use: Never Used Second Hand Smoke Exposure: Yes Use of substances other than those prescribed or required for medical reasons: No Have you been hit, kicked, punched, or otherwise hurt by someone within the past year? If so, by whom?: No Are you DNR?: No Advance Directives: Yes Advance Directives Information Provided: Yes Advance Directives on File: Yes Advance Directives Date on File: 11/16/19 Recently lost weight without trying: No Eating poorly because of decreased appetite: No Nutrition Risks: No Nutritional Risk Poor oral hygiene: No service: No Current occupational status: retired Current occupation: rt handed Cognitive needs: No Hearing needs: No Vision needs: Yes Meds Allergies Allergy/AdvReac Type Severity Reaction Status Date / Time No Known Allergies Allergy Verified 05/02/23 09:43 [No Known Allergies*] Home Medications Medication Instructions Recorded Confirmed Last Taken Type cholecalciferol (vitamin D3) 25 25 mcg PO DAILY 09/16/20 05/07/23 10/03/22 History mcg (1,000 unit) capsule nitroglycerin 0.4 mg sublingual 0.4 mg sublingual DAILY PRN Chest 09/16/20 05/07/23 Unknown History tablet Pain Exam Exam Date and Time: May 10, 2023 0829 Height,Weight and Vital Signs: Height 6 ft Weight 110.677 kg Assessment and Plan Assessment Anesthesia Assessment: Chart Reviewed Final Anesthetic Review Family History of Problems with Anesthesia: No History of Problems with Anesthesia: No Documented by User: Cindy Steiner MD 05/13/23 07:33 [facility] Past Medical History Medical History (Updated 05/07/23 @ 13:37 by Itzel Robledo RN) Atrial flutter CAD (coronary artery disease) Glaucoma History of cardioversion HLD (hyperlipidemia) HTN (hypertension) Left shoulder pain Obesity (BMI 30-39.9) Osteoarthritis of left knee Paroxysmal atrial fibrillation Persistent atrial fibrillation Rotator cuff arthropathy of left shoulder Seizure disorder Sleep apnea Family History Family History Father No problems noted. Mother CVD (cardiovascular disease) Sister Cancer Surgical History Surgical History (Updated 05/07/23 @ 13:24 by Itzel Robledo RN) History of eye surgery Hx of appendectomy Hx of colonoscopy Social History Social History Housing: House Are you a primary health care liaison to a significant other at home: No Do you presently have visiting nurse or other home services: No Alcohol intake: current Alcohol intake frequency: does not drink Patient Tobacco Use Status: Never used Tobacco e-Cigarette/Vaping Use: Never Used Second Hand Smoke Exposure: Yes Use of substances other than those prescribed or required for medical reasons: No Have you been hit, kicked, punched, or otherwise hurt by someone within the past year? If so, by whom?: No Are you DNR?: No Advance Directives: Yes Advance Directives Information Provided: Yes Advance Directives on File: Yes Advance Directives Date on File: 11/16/19 Recently lost weight without trying: No Eating poorly because of decreased appetite: No Nutrition Risks: No Nutritional Risk Poor oral hygiene: No service: No Current occupational status: retired Current occupation: rt handed Cognitive needs: No Hearing needs: No Vision needs: Yes Meds Allergies Allergy/AdvReac Type Severity Reaction Status Date / Time No Known Allergies Allergy Verified 05/02/23 09:43 [No Known Allergies*] Home Medications Medication Instructions Recorded Confirmed Last Taken Type cholecalciferol (vitamin D3) 25 25 mcg PO DAILY 09/16/20 05/07/23 10/03/22 History mcg (1,000 unit) capsule nitroglycerin 0.4 mg sublingual 0.4 mg sublingual DAILY PRN Chest 09/16/20 05/07/23 Unknown History tablet Pain Exam Airway Mallampati Class: II TM Dist: >3cm Neck ROM: Full Heart: rrr Lungs: cta Assessment and Plan Assessment Anesthesia Assessment: Anesthesia Plan Discussed Final Anesthetic Review NPO: Yes ASA Class: III Final Preanesthetic Review: No Changes in Pt Med Stat, Meds/Allgs Chart Reviewed and Consent Obtained/Reviewed Patient Risk: Intermediate Procedure Risk: Intermediate Anesthetic Plan Anesthetic Plan: MAC: Disposition: Standard PACU
[2023-05-13 07:01] VITALS: BP 108/69; PULSE 89; RESP 18; TEMP 36.1; O2SAT 98
[2023-05-13] MEDS: Lactated Ringers 500 ML 50 ML IV (07:18)
[2023-05-13] MEDS: Tetracaine HCl/PF 0.5% Oph Sol 4 ML DROPS 1 DROP EYE-RIGHT (07:19)
[2023-05-13] MEDS: Ketorolac Tromethamine 0.5% Op 5 ML DROPS 1 DROP EYE-RIGHT ×3 (07:19→07:25)
[2023-05-13] MEDS: Cyclopentolate 1 % Ophth Sol 2 ML DRPBTL 1 DROP EYE-RIGHT ×3 (07:19→07:25)
[2023-05-13] MEDS: Phenylephrine HCL 2.5% Oph SoL 2 ML BOTTLE 1 DROP EYE-RIGHT ×3 (07:19→07:25)
[2023-05-13] MEDS: Tropicamide 1 % Ophth Sol 3 ML BTL 1 DROP EYE-RIGHT ×3 (07:33→07:34)
[2023-05-13 07:35] VITALS: BMI 33.0
--- NOTE | 2023-05-13 07:39 | PC.NURSE ---
late entry. udn ordered by Dr. Steiner for bilateral ex wheezes, given with increased aearation. ok to proceed with surgery.
--- NOTE | 2023-05-13 08:22 | HO.PNOPHT ---
Ophthalmology Procedure Procedure Date of Service: 05/13/23 Ophthalmology Viscoelastic: Humera Garcíat Dual Pack Pro Ophthalmology Lenses: TECNALINI [id number] (22) Procedure Notes: PREOPERATIVE DIAGNOSIS: Decreased visual acuity right eye secondary to cataract POSTOPERATIVE DIAGNOSIS: Same PROCEDURE: Right cataract extraction with intraocular lens insertion SURGEON: Jeffery Beauchamp M.D. ANESTHESIA: Topical/MAC ESTIMATED BLOOD LOSS: None COMPLICATIONS: None After obtaining informed consent, the patient was brought to the operating room suite and placed in the supine position. After adequate sedation per anesthesia, topical drops of Tetracaine were given to the right eye. The eye was then prepped and draped in the usual sterile fashion. The operating room microscope was then positioned over the operative eye and a lid speculum placed. A paracentesis was created. Viscoelastic was then instilled into the anterior chamber. A three plane incision was then created temporally, utilizing a 2.85 mm keratome. Capsulotomy forceps were then utilized to create a circular tear capsulotomy. Hydrodissection and hydrodelineation were carried out until adequate mobilization of the nucleus occurred. Phacoemulsification was then utilized to remove the dense central nucleus followed by removal of the cortical material utilizing the automated aspiration irrigation unit. Viscoelastic was instilled into the posterior capsular bag followed by placement of a posterior chamber intraocular lens without difficulty. The residual Viscoelastic was then removed utilizing the automated IA machine. The wound was checked and found to be watertight. The patient tolerated the procedure well and the lid speculum was removed. Intracameral injection of Vigamox 0.1 mL followed by a subtenon injection of Kenalog-40 0.2 mL were administered. The patient will be seen in the a.m.
[2023-05-13 08:42] VITALS: BP 117/72; PULSE 71; RESP 16; TEMP 36.1; O2SAT 98
== END 2023-05-13 08:59 | disposition home or self-care (01) ==
PROVIDERS: PCP Internal Medicine; Visit Provider Ophthalmology
PROC: (CPT 66985; principal; 2023-05-13 09:10)
DX: H25.11 Age-related nuclear cataract, right eye (principal); H52.4 Presbyopia; H40.1132 Primary open-angle glaucoma, bilateral, moderate stage; Z83.511 Family history of glaucoma; H18.413 Arcus senilis, bilateral; I48.91 Unspecified atrial fibrillation; I25.10 Atherosclerotic heart disease of native coronary artery without angina pectoris; I10 Essential (primary) hypertension; E78.00 Pure hypercholesterolemia, unspecified; G47.33 Obstructive sleep apnea (adult) (pediatric); F90.9 Attention-deficit hyperactivity disorder, unspecified type; Z79.01 Long term (current) use of anticoagulants; Z99.89 Dependence on other enabling machines and devices; Z79.899 Other long term (current) drug therapy; Z88.8 Allergy status to other drugs, medicaments and biological substances
CPT/HCPCS: 66984; J2250; J3301; V2632

== ENCOUNTER 2023-05-27 06:26 | Day surgery (SDC) | payer MEDICARE, SELFPAY ==
[2023-05-07 13:40] VITALS: BMI 33.1
--- NOTE | 2023-05-23 14:44 | HO.ANESPROP2 ---
Documented by User: Erika Irving NP 05/23/23 14:44 HPI - Anesthesia Eval Consult details Narrative: 68yo F for Left Cataract Multifocal with IOL Insertion PCP cleared Right eye 05/13/23 with MAC: midaz 2 PMFSH Active Problems Active Problems: All Active Problems (Updated 05/07/23 @ 13:37 by Itzel Robledo, RN) Back pain (Acute) Obstructive sleep apnea (Acute) GERD (gastroesophageal reflux disease) (Acute) Angina of effort (Acute) Impaired glucose tolerance (Acute) Urge incontinence (Acute) Central sleep apnea (Acute) Generalized anxiety disorder (Acute) Renal insufficiency (Acute) Left radial fracture (Acute) Urge incontinence (Acute) Left radial head fracture (Acute) Closed fracture of head of left radius with routine healing (Acute) Bilateral shoulder pain (Acute) Knee pain, left (Acute) Restless leg syndrome (Acute) Hyperhidrosis (Acute) Arthritis of left shoulder region (Acute) Encounter for subsequent annual wellness visit (AWV) in Medicare patient (Acute) Age-related osteoporosis without current pathological fracture (Acute) COVID-19 virus infection (Acute) Left shoulder pain (Acute) Preoperative clearance (Acute) Cataract (Acute) Paroxysmal atrial fibrillation (Acute) Osteoarthritis of left knee (Acute) Seizure disorder (Acute) Obesity (BMI 30-39.9) (Acute) CAD (coronary artery disease) (Acute) HLD (hyperlipidemia) (Acute) HTN (hypertension) (Acute) Past Medical History Medical History (Updated 05/07/23 @ 13:37 by Itzel Robledo RN) Atrial flutter CAD (coronary artery disease) Glaucoma History of cardioversion HLD (hyperlipidemia) HTN (hypertension) Left shoulder pain Obesity (BMI 30-39.9) Osteoarthritis of left knee Paroxysmal atrial fibrillation Persistent atrial fibrillation Rotator cuff arthropathy of left shoulder Seizure disorder Sleep apnea Family History Family History Father No problems noted. Mother CVD (cardiovascular disease) Sister Cancer Family history of problems with anesthesia: No Surgical History Surgical History (Updated 05/27/23 @ 06:37 by Graciela Jovel) History of cataract surgery History of eye surgery Hx of appendectomy Hx of colonoscopy History of Problems with Anesthesia: No Social History Social History Housing: House Are you a primary acute care assistant to a significant other at home: No Do you presently have visiting nurse or other home services: No Alcohol intake: current Alcohol intake frequency: does not drink Patient Tobacco Use Status: Never used Tobacco e-Cigarette/Vaping Use: Never Used Second Hand Smoke Exposure: Yes Use of substances other than those prescribed or required for medical reasons: No Have you been hit, kicked, punched, or otherwise hurt by someone within the past year? If so, by whom?: No Are you DNR?: No Advance Directives: Yes Advance Directives Information Provided: Yes Advance Directives on File: Yes Advance Directives Date on File: 11/16/19 Recently lost weight without trying: No Eating poorly because of decreased appetite: No Nutrition Risks: No Nutritional Risk Poor oral hygiene: No service: No Current occupational status: retired Current occupation: rt handed Cognitive needs: No Hearing needs: No Vision needs: Yes Meds Allergies Allergy/AdvReac Type Severity Reaction Status Date / Time No Known Allergies Allergy Verified 05/27/23 06:36 [No Known Allergies*] Home Medications Medication Instructions Recorded Confirmed Last Taken Type cholecalciferol (vitamin D3) 25 25 mcg PO DAILY 09/16/20 05/07/23 10/03/22 History mcg (1,000 unit) capsule nitroglycerin 0.4 mg sublingual 0.4 mg sublingual DAILY PRN Chest 09/16/20 05/07/23 Unknown History tablet Pain Exam Exam Date and Time: May 23, 2023 1444 Height,Weight and Vital Signs: Height 6 ft Weight 110.677 kg Assessment and Plan Assessment Anesthesia Assessment: Chart Reviewed Final Anesthetic Review Family History of Problems with Anesthesia: No History of Problems with Anesthesia: No Documented by User: Smooth Rodriguez MD 05/27/23 07:07 [facility] Past Medical History Medical History (Updated 05/07/23 @ 13:37 by Itzel Robledo RN) Atrial flutter CAD (coronary artery disease) Glaucoma History of cardioversion HLD (hyperlipidemia) HTN (hypertension) Left shoulder pain Obesity (BMI 30-39.9) Osteoarthritis of left knee Paroxysmal atrial fibrillation Persistent atrial fibrillation Rotator cuff arthropathy of left shoulder Seizure disorder Sleep apnea Family History Family History Father No problems noted. Mother CVD (cardiovascular disease) Sister Cancer Surgical History Surgical History (Updated 05/27/23 @ 06:37 by Graciela Jovel) History of cataract surgery History of eye surgery Hx of appendectomy Hx of colonoscopy Social History Social History Housing: House Are you a primary acute care assistant to a significant other at home: No Do you presently have visiting nurse or other home services: No Alcohol intake: current Alcohol intake frequency: does not drink Patient Tobacco Use Status: Never used Tobacco e-Cigarette/Vaping Use: Never Used Second Hand Smoke Exposure: Yes Use of substances other than those prescribed or required for medical reasons: No Have you been hit, kicked, punched, or otherwise hurt by someone within the past year? If so, by whom?: No Are you DNR?: No Advance Directives: Yes Advance Directives Information Provided: Yes Advance Directives on File: Yes Advance Directives Date on File: 11/16/19 Recently lost weight without trying: No Eating poorly because of decreased appetite: No Nutrition Risks: No Nutritional Risk Poor oral hygiene: No service: No Current occupational status: retired Current occupation: rt handed Cognitive needs: No Hearing needs: No Vision needs: Yes Meds Allergies Allergy/AdvReac Type Severity Reaction Status Date / Time No Known Allergies Allergy Verified 05/27/23 06:36 [No Known Allergies*] Home Medications Medication Instructions Recorded Confirmed Last Taken Type cholecalciferol (vitamin D3) 25 25 mcg PO DAILY 09/16/20 05/07/23 10/03/22 History mcg (1,000 unit) capsule nitroglycerin 0.4 mg sublingual 0.4 mg sublingual DAILY PRN Chest 09/16/20 05/07/23 Unknown History tablet Pain Exam Airway Mallampati Class: II TM Dist: >3cm Neck ROM: Full Assessment and Plan Assessment Anesthesia Assessment: Anesthesia Plan Discussed Final Anesthetic Review NPO: Yes ASA Class: III Final Preanesthetic Review: No Changes in Pt Med Stat, Meds/Allgs Chart Reviewed, Consent Obtained/Reviewed and Anes Risks/Benef Reviewed Patient Risk: Low Procedure Risk: Low Anesthetic Plan Anesthetic Plan: MAC: Disposition: Standard PACU
[2023-05-27] MEDS: Tetracaine HCl/PF 0.5% Oph Sol 4 ML DROPS 1 DROP EYE-LEFT (06:45)
[2023-05-27] MEDS: Cyclopentolate 1 % Ophth Sol 2 ML DRPBTL 1 DROP EYE-LEFT ×3 (06:46→07:02)
[2023-05-27 06:48] VITALS: BP 122/75; PULSE 83; RESP 16; TEMP 36.6; O2SAT 95
[2023-05-27] MEDS: Tropicamide 1 % Ophth Sol 3 ML BTL 1 DROP EYE-LEFT ×3 (06:48→07:04)
[2023-05-27] MEDS: Ketorolac Tromethamine 0.5% Op 5 ML DROPS 1 DROP EYE-LEFT ×3 (06:50→07:06)
[2023-05-27] MEDS: Phenylephrine HCL 2.5% Oph SoL 2 ML BOTTLE 1 DROP EYE-LEFT ×3 (06:52→07:08)
[2023-05-27] MEDS: Lactated Ringers 500 ML 50 ML IV (06:56)
--- NOTE | 2023-05-27 07:54 | HO.PNOPHT ---
Ophthalmology Procedure Procedure Date of Service: 05/27/23 Ophthalmology Viscoelastic: Healva Garcíat Dual Pack Pro Ophthalmology Lenses: TECNIS [id number] (22.5) Procedure Notes: PREOPERATIVE DIAGNOSIS: Decreased visual acuity left eye secondary to cataract POSTOPERATIVE DIAGNOSIS: Same PROCEDURE: Left cataract extraction with intraocular lens insertion SURGEON: Jeffery Beauchamp M.D. ANESTHESIA: Topical/MAC ESTIMATED BLOOD LOSS: None COMPLICATIONS: None After obtaining informed consent, the patient was brought to the operation room suite and placed in the supine position. After adequate sedation per anesthesia, topical drops of Tetracaine were given to the left eye. The eye was then prepped and draped in the usual sterile fashion. The operating room microscope was then positioned over the operative eye and a lid speculum placed. A paracentesis was created. Viscoelastic was then instilled into the anterior chamber. A three plane incision was then created temporally, utilizing a 2.85 mm keratome. Capsulotomy forceps were then utilized to create a circular tear capsulotomy. Hydrodissection and hydrodelineation were carried out until adequate mobilization of the nucleus occurred. Phacoemulsification was then utilized to remove the dense central nucleus followed by removal of the cortical material utilizing the automated aspiration irrigation unit. Viscoat elastic was instilled into the posterior capsular bag followed by placement of a posterior chamber intraocular lens without difficulty. The residual Viscoat elastic was then removed utilizing the automated IA machine. The wound was check and found to be watertight. The patient tolerated the procedure well and the lid speculum was removed. Intracameral injection of Vigamox 0.1 mL followed by a subtenon injection of Kenalog-40 0.2 mL were administered. The patient will be seen in the a.m.
[2023-05-27 08:21] VITALS: BP 107/69; PULSE 83; RESP 18; TEMP 36.1; O2SAT 97
== END 2023-05-27 08:31 | disposition home or self-care (01) ==
PROVIDERS: PCP Internal Medicine; Visit Provider Ophthalmology
PROC: (CPT 66985; principal; 2023-05-27 08:00)
DX: H25.12 Age-related nuclear cataract, left eye (principal); H52.4 Presbyopia; H40.1132 Primary open-angle glaucoma, bilateral, moderate stage; H18.413 Arcus senilis, bilateral; H54.7 Unspecified visual loss; I48.0 Paroxysmal atrial fibrillation; R56.9 Unspecified convulsions; E78.00 Pure hypercholesterolemia, unspecified; F90.9 Attention-deficit hyperactivity disorder, unspecified type; G47.30 Sleep apnea, unspecified; I25.10 Atherosclerotic heart disease of native coronary artery without angina pectoris; Z83.511 Family history of glaucoma; Z88.8 Allergy status to other drugs, medicaments and biological substances; Z79.899 Other long term (current) drug therapy
CPT/HCPCS: 66984; J2250; J3010; J3301; V2632

== ENCOUNTER → 2023-06-05 09:01 | Outpatient (BNVA) | payer MEDICARE, SELFPAY | PROVIDERS: PCP Internal Medicine; Referring Provider Internal Medicine; Visit Provider Internal Medicine Cardiovascular Disease | DX: R06.02 Shortness of breath (principal); I48.19 Other persistent atrial fibrillation; I25.10 Atherosclerotic heart disease of native coronary artery without angina pectoris; I10 Essential (primary) hypertension; Z98.890 Other specified postprocedural states | CPT/HCPCS: 99212 ==

== ENCOUNTER 2023-06-13 07:29 | Outpatient (REF) | payer MEDICARE, SELFPAY ==
--- NOTE | 2023-06-13 08:24 | PFT_ITS ---
INDICATION: Dyspnea. SPIROMETRY: FEV1 to FVC of 89% with an FEV1 of 3.10 L, which is 100% predicted and FVC of 3.49 L, which is 86% predicted. No significant response to bronchodilators noted. Maximum voluntary ventilation of 146% predicted. LUNG VOLUMES: Total lung capacity 86% predicted with an expiratory reserve volume of 17% predicted. DIFFUSION CAPACITY: DLCO 52% predicted. COMPARISONS: None. INTERPRETATION: No obstructive, nor restrictive ventilatory defects identified. No significant response to bronchodilators noted. Normal maximum voluntary ventilation. Lung volumes with a decrease in the expiratory reserve volume, secondary to an elevated BMI. Patient does have a moderate diffusion impairment that appears to be isolated therefore, need to consider underlying pulmonary vascular conditions and/or occult interstitial lung conditions. She would also correct for hemoglobin. Clinical correlation warranted. MD ROGER Ziegler/MODL / [id number]
== END 2023-06-13 07:30 | disposition home or self-care (01) ==
LOC: HO.RESP 07:29
PROVIDERS: PCP Internal Medicine; Visit Provider Internal Medicine Cardiovascular Disease
DX: R06.02 Shortness of breath (principal)
CPT/HCPCS: 94010; 94727; 94729

== ENCOUNTER → 2023-06-13 08:24 | Outpatient (BNV) | payer MEDICARE, SELFPAY | PROVIDERS: PCP Internal Medicine; Visit Provider Hospitalist | DX: R06.09 Other forms of dyspnea (principal) | CPT/HCPCS: 94060; 94727; 94729 ==

== ENCOUNTER 2023-07-03 06:44 | Outpatient (REF) | payer MEDICARE, SELFPAY ==
[2023-07-03 07:00] LABS: MANUAL DIFF FLAG NO
[2023-07-03 07:14] LABS: Basophils Absolute Auto 0.1 X10*3/uL (0.0-0.2); Basophils Percent Auto 1.7 % (0-2); Eosinophils Absolute Auto 0.1 X10*3/uL (0.0-0.4); Eosinophils Percent Auto 2.4 % (0-4); Hematocrit 45.8 % (37.0-47.0); Hemoglobin 14.8 g/dl (12.0-16.0); Imm Gran Abs Auto 0.02 X10*3/uL (0.00-0.03); Imm Gran Pct Auto 0.3 % (0.0-0.4); Lymphocytes Percent Auto 33.8 % (20-40); Mean Corpuscular HGB Conc 32.3 g/dl (31.0-35.0); Mean Corpuscular Hemoglobin 30.5 pg (27.0-33.0); Mean Corpuscular Volume 94.2 fL (80.0-98.0); Mean Platelet Volume 10.6 fL (9.4-12.3); Monocytes Absolute Auto 0.8 X10*3/uL (0.1-1.2); Monocytes Percent Auto 13.3 % (2-11); Neutrophils Absolute Auto 2.8 x10*3/uL (2.0-8.3); Neutrophils Percent Auto 48.5 % (45-73); Platelet Count 232 X10*3/uL (160-400); Red Blood Count 4.86 X10*6/uL (4.20-5.50); Red Cell Distribution Width 12.7 % (11.0-16.0); White Blood Count 5.8 X10*3/uL (4.8-10.8)
[2023-07-03 07:27] LABS: Estimated Average Glucose 123 mg/dL; Hemoglobin A1c % 5.9 %
[2023-07-03 07:46] LABS: Alanine Aminotransferase 26 U/L (0-31); Albumin Level 4.7 g/dL (3.5-5.0); Alkaline Phosphatase 65 U/L (39-117); Anion Gap 16 (12-20); Aspartate Amino Transferase 26 U/L (5-31); Bilirubin Total 1.1 mg/dL (0.0-1.0); Blood Urea Nitrogen 16 mg/dL (9-16); Calcium 10.3 mg/dL (8.4-10.2); Carbon Dioxide 25 mmol/L (22-29); Chloride 105 mmol/L (96-108); Estimated Glomerular Filt Rate 46; Glucose Random 110 mg/dL (60-115); Potassium 4.1 mmol/L (3.3-5.1); Sodium 142 mmol/L (135-145); Total Protein 7.8 g/dL (6.5-8.0)
[2023-07-03 07:49] LABS: B Type Natriuretic Peptide 212 pg/mL (<100)
== END 2023-07-03 06:45 | disposition home or self-care (01) ==
LOC: HO.LAB 06:44
PROVIDERS: PCP Internal Medicine; Visit Provider Internal Medicine
DX: I48.0 Paroxysmal atrial fibrillation (principal); R73.02 Impaired glucose tolerance (oral)
CPT/HCPCS: 36415; 80053; 83036; 83880; 85025

== ENCOUNTER 2023-07-04 10:53 | Outpatient (AMB) | payer MEDICARE, SELFPAY ==
--- NOTE | 2023-07-04 11:07 | A.OFFVIS_ITS ---
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: No Allergies No Known Allergies [No Known Allergies*] Allergy (Verified 05/27/23 06:36) Medication List - Last Reconciled 07/04/23 by George Caro MD aluminum chloride 20% (Drysol) 1 appl topical 2XW PRN apixaban (Eliquis) 5 mg PO BID cholecalciferol (vitamin D3) 25 mcg PO DAILY [cpap 14 cm water humidified air As directed] isosorbide mononitrate ER 120 mg PO DAILY metoprolol succinate ER 100 mg PO DAILY nitroglycerin 0.4 mg sublingual DAILY PRN oxcarbazepine 150 mg PO DAILY rosuvastatin 40 mg PO DAILY tramadol 25 mg (1/2 x 50 mg) PO DAILY PRN HPI HPI Comments History of Present Illness Details Natacha comes for follow-up after recent PFTs. This shows significantly reduced diffusion capacity and concern for pulmonary vascular disease and/or interstitial lung disease. Patient continues to have limiting exertional shortness of breath. Remains in atrial fibrillation with controlled rate. No anginal sounding chest discomfort. Takes all her medications. She denies any orthopnea, PND, leg edema. No lightheadedness, syncope. No bleeding issues or neurologic events. [facility] Medical History Atrial flutter CAD (coronary artery disease) Glaucoma History of cardioversion HLD (hyperlipidemia) HTN (hypertension) Left shoulder pain Obesity (BMI 30-39.9) Osteoarthritis of left knee Paroxysmal atrial fibrillation Persistent atrial fibrillation Rotator cuff arthropathy of left shoulder Seizure disorder Sleep apnea Surgical History History of cataract surgery History of eye surgery Hx of appendectomy Hx of colonoscopy Family History Father No problems noted. Mother CVD (cardiovascular disease) Sister Cancer Social History Housing: House Are you a primary respiratory care specialist to a significant other at home: No Do you presently have visiting nurse or other home services: No Alcohol intake: current Alcohol intake frequency: does not drink Patient Tobacco Use Status: Never used Tobacco e-Cigarette/Vaping Use: Never Used Second Hand Smoke Exposure: Yes Advance Directives Date on File: 11/16/19 service: No Current occupational status: retired Current occupation: rt handed Cognitive needs: No Hearing needs: No Vision needs: Yes Review of Systems Const Denies chills, Denies fatigue, Denies fever(s), Denies frequent falls, Denies weakness, Denies weight gain and Denies weight loss ENT Denies dizziness Card Denies chest pain, Denies leg edema, Denies lightheadedness, Denies palpitations, Denies dyspnea, Denies dyspnea on exertion, Denies orthopnea and Denies other (loss of consciousness) Resp Denies cough, Denies dyspnea and Denies dyspnea on exertion GI Denies hematochezia and Denies change in stool character Musc Denies abnormal gait, Denies muscle weakness, Denies numbness, Denies radiating pain into limb and Denies tingling Neuro Denies abnormal gait, Denies dizziness, Denies frequent falls, Denies numbness, Denies tingling and Denies weakness Endo Denies fatigue and Denies palpitations Physical Exam Vital Signs: Last Vital Signs Pulse 94 07/04/23 11:13 BP 120/80 07/04/23 11:13 BMI result Body Mass Index 33.2 Const General: cooperative, comfortable, no acute distress, alert, awake and well groomed Nutritional Appearance: overweight Orientation/consciousness: patient oriented x3 Limitations: no limitations Neck Neck: Yes trachea midline, Yes supple and Yes no JVD Resp Effort & Inspection: normal respiratory effort Auscultation: clear to auscultation bilaterally Cardio Jugular venous distension: no JVD Palpation: normal PMI Rate: regular rate Rhythm: abnormal rhythm regularly irregular Heart sounds: S1 normal heart sound present and S2 normal heart sound present GI Auscultation: normal bowel sounds Neuro General: patient oriented x3 and no focal motor deficits Extrem General: Yes no clubbing, cyanosis or edema Psych Appearance: grossly normal Assessment & Plan Assessment & Plan (1) SOB (shortness of breath) on exertion: Code(s): R06.02 - Shortness of breath Plan: Patient with disabling exertional shortness of breath of unclear etiology. Question worsening cardiomyopathy and/or pulmonary hypertension related to vascular disease. Would suggest her to undergo an echocardiogram. There is also likelihood of underlying interstitial lung disease and will refer her to Pulmonary for further evaluation with the CT scan. If there is no clear evidence of interstitial lung disease and/or there is worsening LV systolic function will pursue rhythm control approach. No overt signs of congestive heart failure at this point in time. (2) Persistent atrial fibrillation: Comment: Cardioversion September 2022 Code(s): I48.19 - Other persistent atrial fibrillation Plan: Persistent rate control atrial fibrillation has failed rhythm control approach in the past. She has been very vague about her symptoms in the past and this has led to difficulty in managing her atrial fibrillation. However there are no other obvious causes for shortness of breath as mentioned above, will pursue rhythm control approach. However would like to avoid amiodarone therapy given there is possibility of interstitial lung disease and reduced diffusion capacity and would have to use either sotalol or Tikosyn loading followed by synchronized cardioversion. Continue full oral anticoagulation with Eliquis. Semi annual renal function test should be pursued. Continue CPAP therapy. (3) CAD (coronary artery disease): Code(s): I25.10 - Atherosclerotic heart disease of [place] coronary artery without angina pectoris Qualifiers: Coronary Disease-Associated Artery/Lesion type: [place] artery [place] vs. transplanted heart: [place] heart Associated angina: without angina Qualified Code(s): I25.10 - Atherosclerotic heart disease of [place] coronary artery without angina pectoris Plan: CAD with prior RCA disease. Her symptoms are not suggestive angina at this point time. Does not require further ischemic workup at this point time. Continue full oral anticoagulation with Eliquis. Currently on dual antianginal therapy with isosorbide as well as metoprolol therapy. She does not have any symptoms including with stress of chest tightness which were symptoms of angina. Continue high-intensity statin therapy with target goal LDL less than 60 mg/dL. Will follow up in the clinic in 3 months time, sooner p.r.n.. Thank you for allowing me to partake in her care Orders: Orders CA echo transthoracic complete Today R06.02 - Shortness of breath Referrals Pulmonary Medicine Referral R06.02 - Shortness of breath, R94.2 - Abnormal results of pulmonary function studies Coding Level of Care Code Est Pt Level 4 (35367) Diagnoses SOB (shortness of breath) on exertion R06.02 Persistent atrial fibrillation I48.19 CAD (coronary artery disease) I25.10 Coronary Disease-Associated Artery/Lesion type: [place] artery [place] vs. transplanted heart: [place] heart Associated angina: without angina
[2023-07-04 11:13] VITALS: BP 120/80; PULSE 94; BMI 33.2
== END 2023-07-04 11:41 | disposition home or self-care (01) ==
PROVIDERS: PCP Internal Medicine; Visit Provider Internal Medicine Cardiovascular Disease
DX: R06.02 Shortness of breath (principal); I48.19 Other persistent atrial fibrillation; I25.10 Atherosclerotic heart disease of native coronary artery without angina pectoris
CPT/HCPCS: 99214

== ENCOUNTER → 2023-07-04 10:53 | Outpatient (BNVA) | payer MEDICARE, SELFPAY | PROVIDERS: PCP Internal Medicine; Visit Provider Internal Medicine Cardiovascular Disease | DX: I25.10 Atherosclerotic heart disease of native coronary artery without angina pectoris (principal); I48.19 Other persistent atrial fibrillation; R06.02 Shortness of breath | CPT/HCPCS: 99212 ==

== ENCOUNTER 2023-07-05 09:50 | Outpatient (AMB) | payer MEDICARE, SELFPAY ==
[2023-07-05 09:58] VITALS: BP 114/68; PULSE 85; O2SAT 92; BMI 33.2
--- NOTE | 2023-07-05 09:58 | MHC.PC.OV ---
Vital Signs 07/05/23 09:58 Height 6 ft Weight 245 lb BMI 33.2 BP 114/68 Blood Pressure Location Lt brachial Position Sitting Pulse 85 Pulse Source Pulse Oximeter Pulse Oximetry (%) 92 Oxygen Delivery Method Room Air Intake Visit Reasons: A fib, low back pain Allergies No Known Allergies [No Known Allergies*] Allergy (Verified 07/05/23 09:58) Medication List - Last Reconciled 07/05/23 by Alexsander Burroughs MD aluminum chloride 20% (Drysol) 1 appl topical 2XW PRN apixaban (Eliquis) 5 mg PO BID cholecalciferol (vitamin D3) 25 mcg PO DAILY [cpap 14 cm water humidified air As directed] isosorbide mononitrate ER 120 mg PO DAILY metoprolol succinate ER 100 mg PO DAILY nitroglycerin 0.4 mg sublingual DAILY PRN oxcarbazepine 150 mg PO DAILY rosuvastatin 40 mg PO DAILY tramadol 25 mg (1/2 x 50 mg) PO DAILY PRN Tobacco use date assessed: 05/02/23 Fall risk assessment: No Falls in past year Last assessed Fall Risk: 07/05/23 Dental Screening Dental Screen Date: 07/05/23 Did you have a dental visit in the last 12 months?: Yes Did you have a dental problem in the last 6 months where you did not have access to dental care?: No Was dental information given to patient?: Patient has dentist HPI A fib, low back pain HPI Details 68-year-old obese female with multiple medical problems atrial fibrillation paroxysmal obstructive sleep apnea impaired glucose tolerance generalized anxiety disorder seizure disorder GERD coronary artery disease with hypercholesterolemia and hypertension last seen in March 2023 having low back pain x-ray requested and is here for follow-up.. Review of the notes did see Cardiology for follow-up patient continues to have the problem with breathing and was advised echocardiogram concerns about interstitial lung disease and referred for pulmonary. Patient did have a pulmonary function test done early June no obstructive nor restrictive defects. Patient did have some cataract surgery vision is better but still has some problem. back pain discussed about osteoarthritis and tramadol does help.handicap melissa [facility] Medical History (Updated 07/05/23 @ 10:46 by Alexsander Burroughs MD) Atrial flutter CAD (coronary artery disease) Glaucoma History of cardioversion HLD (hyperlipidemia) HTN (hypertension) Left shoulder pain Obesity (BMI 30-39.9) Osteoarthritis of left knee Paroxysmal atrial fibrillation Persistent atrial fibrillation Rotator cuff arthropathy of left shoulder Seizure disorder Sleep apnea Surgical History History of cataract surgery History of eye surgery Hx of appendectomy Hx of colonoscopy Family History Father No problems noted. Mother CVD (cardiovascular disease) Sister Cancer Social History Housing: House Are you a primary resident caregiver to a significant other at home: No Do you presently have visiting nurse or other home services: No Alcohol intake: current Alcohol intake frequency: does not drink Patient Tobacco Use Status: Never used Tobacco e-Cigarette/Vaping Use: Never Used Second Hand Smoke Exposure: Yes Advance Directives Date on File: 11/16/19 service: No Current occupational status: retired Current occupation: rt handed Cognitive needs: No Hearing needs: No Vision needs: Yes Questionnaire PHQ-9 Over the last 2 weeks, how often have you been bothered by any of the following problems? 1. Little interest or pleasure in doing things: more than half the days 2. Feeling down, depressed, or hopeless: several days 3. Trouble falling or staying asleep, or sleeping too much: nearly every day 4. Feeling tired or having little energy: nearly every day 5. Poor appetite or overeating: more than half the days 6. Feeling bad about yourself - or that you are a failure or have let yourself or your family down: not at all 7. Trouble concentrating on things, such as reading the newspaper or watching television: several days 8. Moving or speaking so slowly that other people could have noticed. Or the opposite - being so fidgety or restless that you have been moving around a lot more than usual: not at all 9. Thoughts that you would be better off or of hurting yourself in some way: not at all Total score: 12 Depression Screening Interpretation: Positive Source: Developed by Drs. Chato Veliz, Aysha Cox, Shaka Adamson and colleagues, with an educational ly from [employer]. Thrive Questionnaire Date Thrive assessed: 12/21/22 AUDIT C Alcohol Use Questionnaire (AUDIT-C) 1. How often do you have a drink containing alcohol?: Monthly or less 2. How many drinks containing alcohol do you have on a typical day when you are drinking?: 1 or 2 3. How often do you have six or more drinks on one occasion?: Never Total Score: 1 Score Reviewed/Action Taken: No TERRELL-7 AMB Questionnaire TERRELL-7 Date TERRELL - 7 assessed: 05/02/23 Source: Developed by Drs. Chato Veliz, Aysha Cox, Shaka Adamson and colleagues, with an educational ly from [employer]. Physical exam (Primary Care) Vital Signs: Last Vital Signs Pulse 85 07/05/23 09:58 BP 114/68 07/05/23 09:58 Pulse Ox 92 07/05/23 09:58 Oxygen Delivery Method Room Air 07/05/23 09:58 BMI result Body Mass Index 33.2 Tobacco/Smoking Status: Tobacco use Status Tobacco use date assessed 05/02/23 07/05/23 10:01 Patient Tobacco Use Status Never used Tobacco 07/05/23 10:01 e-Cigarette/Vaping Use Never Used 07/05/23 10:01 PHQ-9: PHQ-9 Score PHQ-9: Total score 12 07/05/23 18:04 Depression Screening Interpretation: Positive Thrive Assessment: Date of Thrive Assessment Date Thrive assessed 12/21/22 07/05/23 10:01 Const General: alert; No acute distress Eyes Conjunctivae: conjunctivae normal Resp Auscultation: clear to auscultation bilaterally Cardio Rate: regular rate Rhythm: regular rhythm GI Inspection: Yes normal to inspection Extrem General: Yes normal to inspection and No edema Assessment and Plan Assessment & Plan (1) SOB (shortness of breath) on exertion: Code(s): R06.02 - Shortness of breath Plan: Patient has been seen by Cardiology and referred to Pulmonary (2) Persistent atrial fibrillation: Comment: Cardioversion September 2022 Code(s): I48.19 - Other persistent atrial fibrillation Plan: Continue with anticoagulation (3) Obstructive sleep apnea: Comment: in-lab PSG- AHI 24/hr, REM AHI 60/hr, O2 wild[place] 79% Code(s): G47.33 - Obstructive sleep apnea (adult) (pediatric) Plan: Discussed about CPAP treatment for obstructive sleep apnea. uses the cPAP > 4 hours QD and benefits from this (4) Impaired glucose tolerance: Code(s): R73.02 - Impaired glucose tolerance (oral) Plan: Decrease the amount of carbohydrate intake, pasta, bread, rice and potatoes are all sugar and that is aside from all the sweet stuff, remember that fruits are good but they are Sweet also. (5) Generalized anxiety disorder: Code(s): F41.1 - Generalized anxiety disorder Plan: Continue with present medication of oxcarbazepine (6) Obesity (BMI 30-39.9): Code(s): E66.9 - Obesity, unspecified Plan: Diet and exercise (7) CAD (coronary artery disease): Code(s): I25.10 - Atherosclerotic heart disease of [place] coronary artery without angina pectoris Qualifiers: Associated angina: without angina Coronary Disease-Associated Artery/Lesion type: [place] artery [place] vs. transplanted heart: [place] heart Qualified Code(s): I25.10 - Atherosclerotic heart disease of [place] coronary artery without angina pectoris Plan: Control the cholesterol, weight, blood pressure (8) HLD (hyperlipidemia): Comment: LDL goal < 70. Well controlled. Continue statin Code(s): E78.5 - Hyperlipidemia, unspecified Qualifiers: Hyperlipidemia type: mixed hyperlipidemia Qualified Code(s): E78.2 - Mixed hyperlipidemia Plan: Avoid fried foods, chicken skin, eggs, butter margarine, pastries and meat. Be it pork or beef they have a lot of cholesterol LDL goal of less than 70 and triglyceride of less than 150 patient is on rosuvastatin 40 mg once a day (9) HTN (hypertension): Comment: Well controlled. Continue current meds Code(s): I10 - Essential (primary) hypertension Qualifiers: Hypertension type: essential hypertension Qualified Code(s): I10 - Essential (primary) hypertension Plan: Continue with blood pressure medication. Decrease salt intake and exercise patient is taking metoprolol 100 mg once a day isosorbide mononitrate 120 mg once a day (10) Back pain: Comment: Marchegenerative disc changes L2-L3 and L3-L4 disc levels with large left bridging osteophyte at the L3-L4 disc level. Code(s): M54.9 - Dorsalgia, unspecified Plan: tramadol for pain and call if pain gets worse Medications: Changed From nitroglycerin 0.4 mg sublingual DAILY PRN Chest Pain To nitroglycerin Q5 min prn cp x 3 0.4 mg sublingual DAILY PRN 20 tabs 0RF Chest Pain Coding Level of Care Code Est Pt Level 4 (44683) Diagnoses SOB (shortness of breath) on exertion R06.02 Persistent atrial fibrillation I48.19 Obstructive sleep apnea G47.33 Impaired glucose tolerance R73.02 Generalized anxiety disorder F41.1 Obesity (BMI 30-39.9) E66.9 CAD (coronary artery disease) I25.10 Associated angina: without angina Coronary Disease-Associated Artery/Lesion type: [place] artery [place] vs. transplanted heart: [place] heart HLD (hyperlipidemia) E78.2 Hyperlipidemia type: mixed hyperlipidemia HTN (hypertension) I10 Hypertension type: essential hypertension Back pain M54.9
== END 2023-07-05 10:55 | disposition home or self-care (01) ==
PROVIDERS: Visit Provider Internal Medicine
DX: M54.50 Low back pain, unspecified (principal); I48.19 Other persistent atrial fibrillation; G47.33 Obstructive sleep apnea (adult) (pediatric); I10 Essential (primary) hypertension; R73.02 Impaired glucose tolerance (oral); F41.1 Generalized anxiety disorder; I25.10 Atherosclerotic heart disease of native coronary artery without angina pectoris; E78.2 Mixed hyperlipidemia
CPT/HCPCS: 99214

== ENCOUNTER → 2023-07-31 10:54 | Outpatient (REF) | payer MEDICARE, SELFPAY ==
--- NOTE | 2023-07-31 10:59 | CA_ITS ---
Transthoracic Echocardiogram Patient (Last, First, Middle): Natacha Mei H Gender: Female Date of : 1955 Age: 68 Procedure Date: 07/31/2023 Procedure Type: Transthoracic Echocardiogram Location: OP Height: 182.88 cm Weight: 111.13 kg BSA: 2.32 m2 Heart Rate: 70 bpm BP: 130 / 78 mmHg Junior Systems Engineer: Referring MD: George Caro MD Landscape Manager: George Caro MD Symptoms: R06.02 - Shortness of breath Study Quality: Adequate ECG Rhythm: Atrial Fibrillation Conclusions: - 1. Normal LV systolic function 2. Mildly dilated left atrium 3. Normal cardiac valvular Doppler 4. Normal RV systolic pressure 5. Small loculated pericardial effusion near the left ventricle Findings Left Ventricle Normal left ventricular size, thickness, and systolic function. The visually estimated ejection fraction is between 55-60%. Diastolic function is indeterminate on the basis of available data. Right Ventricle Normal right ventricular cavity size and systolic function. Atria The left atrium is mildly dilated. There is no evidence of interatrial shunt. The right atrium is likely dilated. Aortic Valve Normal aortic valve structure and function. There is no aortic valve stenosis. There is no aortic valve regurgitation. Mitral Valve Normal mitral valve structure and function. There is trace mitral valve regurgitation. There is no mitral valve stenosis. Pulmonic Valve The pulmonic valve is likely normal. Tricuspid Valve Normal tricuspid valve structure. There is mild tricuspid valve regurgitation. The right ventricular systolic pressure is normal. The right ventricular systolic pressure is 25 mmHg. Normal right atrial pressure. There is no evidence of pulmonary hypertension. Great Vessels All visible segments of the aorta are normal in size. The pulmonary artery was not well visualized. Venous The inferior vena cava is normal in size and collapses greater than 50% with inspiration. Pericardium/Pleural There is a small loculated pericardial effusion overlying the left ventricle. Prior Study Comparison Changes noted compared to prior study dated: 08/21/2021. LV systolic function is normal Measurements 2D Linear Measurements IVSd: 0.98 0.6-0.9/0.6-1.0 cm LVIDd: 5.26 3.9-5.3/4.2-5.9 cm LVIDd Index: 2.27 2.4-3.2/2.2-3.1 cm/m2 LVIDs: 3.39 2.0-3.6 cm LVPWd: 0.84 0.7-1.1 cm Ao Root: 3.00 2.1-3.5 cm LA Diam: 4.30 2.7-3.8/3.0-4.0 cm LAIDs Index: 1.85 1.5-2.3 cm/m2 LV Mass: 217.43 67-162/88-224 g LV Mass Index: 93.72 43-95/49-115 g/m2 LVOT Diam: 2.00 3.0+(-)1.3 cm 2D Systolic Function EF 4C: 62.10 >55% EF 2C: 47.10 >55% EF BiP: 56.90 >55% Mitral Valve MV Pk E: 1.01 MV Decel Time: 250.00 E'Lateral: 10.20 E'Medial: 8.38 E/E' Med: 12.10 E/E' Lat: 9.90 PHT: 73.00 MVA PHT: 3.01 Decel [place]: 4.04 Aortic Valve AoV Pk Anders: 1.43 AoV Mn Anders: 0.92 AoV VTI: 0.34 AoV Pk Grad: 8.00 Aov Mn Grad: 4.00 ROCHELLE Cont.VTI: 1.64 LVOT LVOT Pk Anders: 0.75 LVOT Mn Anders: 0.53 LVOT VTI: 0.18 LVOT Pk Grad: 2.00 LVOT Mn Grad: 1.00 LVOT Diam: 2.00 LVOT Area: 3.14 Diastolic Function MV Pk E: 1.01 E'Medial: 8.38 E/E' Med: 12.10 E' Laterial: 10.20 E/E' Lat: 9.90 Right Ventricle TAPSE (mm): 19.90 Tricuspid Valve TR Pk Anders: 2.35 TR Pk Grad: 22.00 RA Press: 3.00 RVSP: 25.00 Great Vessels Aorta Ao Root-2D: 3.00 2.0-3.7 cm Sinus of Valsalva: 3.00 2.0-3.5 cm Ao Asc: 3.30 2.1-3.4 cm Pulmonary Valve PV Pk Anders: 0.79 Peak PV Grad: 2.00 Updated in Other Vendor System with Status of Final George Caro MD electronically signed on 08/02/2023 11:26:00 AM with status of Final
== END ==
LOC: HO.CARD 10:54
PROVIDERS: PCP Internal Medicine; Visit Provider Internal Medicine Cardiovascular Disease
DX: R06.02 Shortness of breath (principal)
CPT/HCPCS: 93306

== ENCOUNTER → 2023-07-31 10:59 | Outpatient (BNV) | payer MEDICARE, SELFPAY | PROVIDERS: PCP Internal Medicine; Visit Provider Internal Medicine Cardiovascular Disease | DX: I31.39 Other pericardial effusion (noninflammatory) (principal) | CPT/HCPCS: 93306 ==

== ENCOUNTER 2023-08-02 13:14 | Outpatient (AMB) | payer MEDICARE, SELFPAY ==
[2023-08-02 13:15] VITALS: BP 123/77; PULSE 93; O2SAT 97; BMI 33.6
--- NOTE | 2023-08-02 13:15 | A.OFFVIS_ITS ---
Intake Vital Signs 08/02/23 13:15 Height 6 ft Weight 248 lb 0.321 oz BMI 33.6 BP 123/77 Blood Pressure Location Lt brachial Position Sitting Pulse 93 Pulse Source Doppler Pulse Oximetry (%) 97 Oxygen Delivery Method Room Air Intake Visit Reasons: Shortness of breath Allergies No Known Allergies [No Known Allergies*] Allergy (Verified 08/02/23 13:20) HPI HPI Comments History of Present Illness Details The patient is here for a pulmonary follow up visit. The patient has been complainging of dyspnea on exertion. Moderate inseverity, worse when going up stairs. Had recent PFTs. This shows significantly reduced diffusion capacity and concern for pulmonary vascular disease and/or interstitial lung disease. She had a CXR personally reviewed by me without any evidence of acute disease. She will requiere a CT chest. Has atrial fibrillation and have been adherent to the Eliquis. Has never had bloodclots. Takes all her medications. She denies any orthopnea, PND, leg edema. No lightheadedness, syncope. No bleeding issues or neurologic events. We did have her go on a brief walking oximetry and she did become dyspneic after going up stairs, She did not desaturate which is reassuring. [facility] Medical History (Updated 08/05/23 @ 23:12 by Dagoberto Casey MD) Abnormal PFTs (pulmonary function tests) CAD (coronary artery disease) Dyspnea Glaucoma History of COVID-19 HLD (hyperlipidemia) HTN (hypertension) Impaired glucose tolerance Obesity (BMI 30-39.9) Obstructive sleep apnea Osteoarthritis of left knee Persistent atrial fibrillation (~2019) Seizure disorder Tubular adenoma of colon (~2006) Surgical History (Updated 08/02/23 @ 09:55 by Saundra Grace PA-C) History of appendectomy History of cardiac cath History of cardioversion History of cataract surgery History of colonoscopy History of eye surgery Family History Father No problems noted. Mother CVD (cardiovascular disease) Sister Cancer Social History Housing: House Are you a primary residential child care counselor to a significant other at home: No Do you presently have visiting nurse or other home services: No Alcohol intake: current Alcohol intake frequency: does not drink Patient Tobacco Use Status: Never used Tobacco e-Cigarette/Vaping Use: Never Used Second Hand Smoke Exposure: Yes Advance Directives Date on File: 11/16/19 service: No Current occupational status: retired Current occupation: rt handed Cognitive needs: No Hearing needs: No Vision needs: Yes Review of Systems Const Denies chills, Denies fatigue, Denies fever(s), Denies frequent falls, Denies weakness, Denies weight gain and Denies weight loss ENT Denies dizziness Card Denies chest pain, Denies leg edema, Denies lightheadedness, Denies palpitations, Denies dyspnea, Reports dyspnea on exertion, Denies orthopnea and Denies other (loss of consciousness) Resp Denies cough, Denies dyspnea and Reports dyspnea on exertion GI Denies hematochezia and Denies change in stool character Musc Denies abnormal gait, Denies muscle weakness, Denies numbness, Denies radiating pain into limb and Denies tingling Neuro Denies abnormal gait, Denies dizziness, Denies frequent falls, Denies numbness, Denies tingling and Denies weakness Endo Denies fatigue and Denies palpitations Physical Exam Vital Signs: Last Vital Signs Pulse 93 08/02/23 13:15 BP 123/77 08/02/23 13:15 Pulse Ox 97 08/02/23 13:15 Oxygen Delivery Method Room Air 08/02/23 13:15 BMI result Body Mass Index 33.6 Const General: cooperative, comfortable, no acute distress, alert, awake and well groomed Orientation/consciousness: patient oriented x3 Limitations: no limitations HEENT Head: Yes normocephalic Neck Neck: Yes trachea midline, Yes supple and Yes no JVD Chest Chest palpation & inspection: normal inspection of the chest Resp Effort & Inspection: normal respiratory effort Auscultation: no crackles, no rales, no rhonchi, no wheezes and diminished lung sounds Cardio Rate: regular rate Rhythm: abnormal rhythm Heart sounds: S1 normal heart sound present and S2 normal heart sound present GI Auscultation: normal bowel sounds Skin General skin exam: no rashes or lesions noted Neuro General: patient oriented x3 and no focal motor deficits Extrem General: Yes no clubbing, cyanosis or edema Psych Appearance: grossly normal Results Reviewed Results Reviewed: [address] [address] Pulmonary Function Report Signed Patient: Natacha Mei MR#: [id number] : 1955 Acct:[id number] Age/Sex: 68 / F ADM Date: 06/13/23 Loc: HO.RESP Attending Dr: George Caro MD Ordering Physician: eGorge Caro MD Date of Service: 06/13/23 Procedure(s): PFT? pulmonary function test Accession Number(s): [id number] cc: George Caro MD~ ? INDICATION:? Dyspnea. ?? SPIROMETRY:? FEV1 to FVC of 89% with an FEV1 of 3.10 L, which is 100% predicted and FVC of 3.49 L, which is 86% predicted.? No significant response to bronchodilators noted.? Maximum voluntary ventilation of 146% predicted. ?? LUNG VOLUMES:? Total lung capacity 86% predicted with an expiratory reserve volume of 17% predicted. ?? DIFFUSION CAPACITY:? DLCO 52% predicted. ?? COMPARISONS:? None. ?? INTERPRETATION:? No obstructive, nor restrictive ventilatory defects identified.? No significant response to bronchodilators noted.? Normal maximum voluntary ventilation.? Lung volumes with a decrease in the expiratory reserve volume, secondary to an elevated BMI.? Patient does have a moderate diffusion impairment that appears to be isolated therefore, need to consider underlying pulmonary vascular conditions and/or occult interstitial lung conditions.? She would also correct for hemoglobin.? Clinical correlation warranted. ? Dagoberto Casey MD ? MR/MODL DD:? 06/14/2023 08:05:39 DT:? 06/15/2023 05:40:31 Job #:? [id number] / [id number] Dictated By: Dagoberto Casey MD Signed By: <Electronically signed by Dagoberto Casey MD> 06/15/23 2306 DD/ 0805 TD/TT: 06/15/23 0540 Solar Consultant: Assessment & Plan Assessment & Plan (1) Dyspnea: Code(s): R06.00 - Dyspnea, unspecified (2) Abnormal PFTs (pulmonary function tests): Code(s): R94.2 - Abnormal results of pulmonary function studies (3) Persistent atrial fibrillation: Onset Date: ~2018 Comment: (Dx 11/2019, s/p cardioversion 10/2022) Code(s): I48.19 - Other persistent atrial fibrillation Plan CT chest to address the on going dysnea and abnormal PFTs. CXR was non diagnostic lasix x 3 days rate control continue anticoagulation F/U 2 months Medications: New furosemide (Lasix) 20 mg PO DAILY 5 days 5 tabs 0RF Coding Level of Care Code New Pt Level 4 (50781) Diagnoses Dyspnea R06.00 Abnormal PFTs (pulmonary function tests) R94.2 Persistent atrial fibrillation I48.19 Time Spent (min) 40
== END 2023-08-02 13:49 | disposition home or self-care (01) ==
PROVIDERS: PCP Internal Medicine; Visit Provider Hospitalist
DX: R06.00 Dyspnea, unspecified (principal); R94.2 Abnormal results of pulmonary function studies; I48.19 Other persistent atrial fibrillation
CPT/HCPCS: 99214

== ENCOUNTER → 2023-08-02 13:14 | Outpatient (BNVA) | payer MEDICARE, SELFPAY | PROVIDERS: PCP Internal Medicine; Visit Provider Hospitalist | DX: R06.00 Dyspnea, unspecified (principal); R94.2 Abnormal results of pulmonary function studies; I48.19 Other persistent atrial fibrillation | CPT/HCPCS: 99212 ==

== ENCOUNTER 2023-08-22 13:46 | Outpatient (REF) | payer MEDICARE, SELFPAY ==
--- NOTE | ~2023-08-22 | CT_ITS ---
EXAMINATION: CT CHEST WITHOUT CONTRAST CLINICAL INFORMATION: Abnormal PFTs. Dyspnea COMPARISON: None available. TECHNIQUE: Multidetector volumetric CT imaging of the chest was done. Axial MIP volume rendering provided. Sagittal and coronal reformatted images were obtained. This CT examination was performed using dose optimization techniques as appropriate, variously including the following: *Automated exposure control *Adjustment of mA and/or kV according to patient size (this includes techniques or standardized protocols for targeted exams where dose is matched to indication/reason for exam; i.e. extremities or head) *Use of iterative reconstruction technique DLP: 241 mGy-cm FINDINGS: WATCH REPAIR PERSON: Unremarkable LUNGS: Trachea and bronchi are patent. Mild bronchiectasis without significant wall thickening. Very mild groundglass opacities left lower lobe, for example, sagittal 38/139 Lingular atelectasis. 3 mm subpleural RML nodule, 4:41. 3 mm lingular nodule, 4:38. MEDIASTINUM: Unremarkable thyroid. No pathologic lymphadenopathy. Nonenlarged heart. Trace pericardial thickening/fluid. Degree of coronary calcifications: Moderate. Nonaneurysmal aorta. Trace atherosclerotic calcifications. Nonenlarged pulmonary arteries. PLEURA: Minimal apical pleural thickening. 3 and 4 mm fissural nodules, 4:33. Small left fissural nodule, 4:35 There is no pleural effusion. No pleural mass or thickening. AXILLA: No lymphadenopathy. UPPER ABDOMEN: No upper abdominal pathology recognized. OSSEOUS STRUCTURES: No suspicious osseous lesions. CT/CT chest wo IV con IMPRESSION: Lingular atelectasis. Mild bronchiectasis without significant wall thickening. Mild groundglass opacities left lower lobe, question small vessel airway disease, infectious or inflammatory etiologies. Pulmonary nodules, none larger than 3 mm. In low-risk patient, no routine follow-up recommended. In high risk patient, optional CT at 12 months. Stable at 12 months, no further follow-up.
== END 2023-08-22 13:47 | disposition home or self-care (01) ==
LOC: HO.CT 13:46
PROVIDERS: PCP Internal Medicine; Visit Provider Hospitalist
DX: R94.2 Abnormal results of pulmonary function studies (principal); R06.00 Dyspnea, unspecified
CPT/HCPCS: 71250

== ENCOUNTER 2023-10-02 08:40 | Outpatient (AMB) | payer MEDICARE, SELFPAY ==
--- NOTE | 2023-10-02 08:54 | MHC.OFFVIS ---
Intake Vital Signs 10/02/23 08:55 Height 6 ft Weight 249 lb 1.957 oz BMI 33.8 Pulse 90 Pulse Source Pulse Oximeter Pulse Oximetry (%) 95 Oxygen Delivery Method Room Air Intake Visit Reasons: Shortness of breath Producer Director Required: No Allergies No Known Allergies [No Known Allergies*] Allergy (Verified 10/02/23 08:56) HPI HPI Comments History of Present Illness Details The patient is a 68 y/o woman complainging of dyspnea on exertion. Moderate inseverity, worse when going up stairs. Had recent PFTs. This shows significantly reduced diffusion capacity and concern for pulmonary vascular disease and/or interstitial lung disease. She had a CXR personally reviewed by me without any evidence of acute disease. She will requiere a CT chest. Has atrial fibrillation and have been adherent to the Eliquis. Has never had bloodclots. Takes all her medications. She denies any orthopnea, PND, leg edema. No lightheadedness, syncope. No bleeding issues or neurologic events. We did have her go on a brief walking oximetry and she did become dyspneic after going up stairs, She did not desaturate which is reassuring. 10/02/2023 the patient is here for a pulmonary follow-up visit. Overall the patient is doing about the same. Still having dyspnea on exertion. [id number] severity. We did review her CT scan of the chest which demonstrated some evidence of mild pneumonitis in addition to mild degree of bronchiectasis and also subcentimeter pulmonary nodule. The findings whenever dramatic but still could be if plain the patient has abnormal PFTs and also shortness of breath. The patient may be developing some degree of hypersensitivity. Be reasonable to try her on a course of inhaled cortical steroids see if she gets some relief. If she does not have any relief will be reasonable to get some blood work to assess for the pneumonitis. In addition to that she will need another CT scan in a year's time. [facility] Medical History (Updated 10/02/23 @ 20:02 by Dagoberto Casey MD) Pulmonary nodules Pneumonitis Aspiration pneumonitis Abnormal PFTs (pulmonary function tests) Dyspnea Tubular adenoma of colon (~2006) History of COVID-19 Persistent atrial fibrillation (~2018) Osteoarthritis of left knee Impaired glucose tolerance Obesity (BMI 30-39.9) Glaucoma Seizure disorder Obstructive sleep apnea CAD (coronary artery disease) HLD (hyperlipidemia) HTN (hypertension) Surgical History (Updated 08/02/23 @ 09:55 by Saundra Grace PA-C) History of cardiac cath History of colonoscopy History of appendectomy History of cataract surgery History of cardioversion History of eye surgery Family History Father No problems noted. Mother CVD (cardiovascular disease) Sister Cancer Social History Housing: House Are you a primary residential care officer to a significant other at home: No Do you presently have visiting nurse or other home services: No Alcohol intake: current Alcohol intake frequency: does not drink Patient Tobacco Use Status: Never used Tobacco e-Cigarette/Vaping Use: Never Used Second Hand Smoke Exposure: Yes Advance Directives Date on File: 11/16/19 service: No Current occupational status: retired Current occupation: rt handed Cognitive needs: No Hearing needs: No Vision needs: Yes Review of Systems Const Denies chills, Denies fatigue, Denies fever(s), Denies frequent falls, Denies weakness, Denies weight gain and Denies weight loss ENT Denies dizziness Card Denies chest pain, Denies leg edema, Denies lightheadedness, Denies palpitations, Denies dyspnea, Reports dyspnea on exertion, Denies orthopnea and Denies other (loss of consciousness) Resp Denies cough, Denies dyspnea and Reports dyspnea on exertion GI Denies hematochezia and Denies change in stool character Musc Denies abnormal gait, Denies muscle weakness, Denies numbness, Denies radiating pain into limb and Denies tingling Neuro Denies abnormal gait, Denies dizziness, Denies frequent falls, Denies numbness, Denies tingling and Denies weakness Endo Denies fatigue and Denies palpitations Physical Exam Vital Signs: Last Vital Signs Pulse 90 10/02/23 08:55 Pulse Ox 95 10/02/23 08:55 Oxygen Delivery Method Room Air 10/02/23 08:55 BMI result Body Mass Index 33.8 Const General: cooperative, comfortable, no acute distress, alert, awake and well groomed Orientation/consciousness: patient oriented x3 Limitations: no limitations HEENT Head: Yes normocephalic Neck Neck: Yes trachea midline, Yes supple and Yes no JVD Chest Chest palpation & inspection: normal inspection of the chest Resp Effort & Inspection: normal respiratory effort Auscultation: no crackles, no rales, no rhonchi, no wheezes and diminished lung sounds Cardio Rate: regular rate Rhythm: abnormal rhythm Heart sounds: S1 normal heart sound present and S2 normal heart sound present GI Auscultation: normal bowel sounds Skin General skin exam: no rashes or lesions noted Neuro General: patient oriented x3 and no focal motor deficits Extrem General: Yes no clubbing, cyanosis or edema Psych Appearance: grossly normal Results Reviewed Results Reviewed: [address] [address] [address] Scan Report Signed Patient: Natacha Mei MR#: [id number] : 1955 Acct:[id number] Age/Sex: 68 / F ADM Date: 08/22/23 Loc: HO.CT Attending Dr: Dagoberto Casey MD Ordering Physician: Dagoberto Casey MD Date of Service: 08/22/23 Procedure(s): CT chest wo IV con Accession Number(s): [id number] cc: Alexsander Burroughs MD; Dagoberto Casey MD~ EXAMINATION: CT CHEST WITHOUT CONTRAST CLINICAL INFORMATION: Abnormal PFTs. Dyspnea COMPARISON: None available. TECHNIQUE: Multidetector volumetric CT imaging of the chest was done. Axial MIP volume rendering provided. Sagittal and coronal reformatted images were obtained. This CT examination was performed using dose optimization techniques as appropriate, variously including the following: *Automated exposure control *Adjustment of mA and/or kV according to patient size (this includes techniques or standardized protocols for targeted exams where dose is matched to indication/reason for exam; i.e. extremities or head) *Use of iterative reconstruction technique DLP: 241 mGy-cm FINDINGS: STEREO COMPILER: Unremarkable LUNGS: Trachea and bronchi are patent. Mild bronchiectasis without significant wall thickening. Very mild groundglass opacities left lower lobe, for example, sagittal 38/139 Lingular atelectasis. 3 mm subpleural RML nodule, 4:41. 3 mm lingular nodule, 4:38. MEDIASTINUM: Unremarkable thyroid. No pathologic lymphadenopathy. Nonenlarged heart. Trace pericardial thickening/fluid. Degree of coronary calcifications: Moderate. Nonaneurysmal aorta. Trace atherosclerotic calcifications. Nonenlarged pulmonary arteries. PLEURA: Minimal apical pleural thickening. 3 and 4 mm fissural nodules, 4:33. Small left fissural nodule, 4:35 There is no pleural effusion. No pleural mass or thickening. AXILLA: No lymphadenopathy. UPPER ABDOMEN: No upper abdominal pathology recognized. OSSEOUS STRUCTURES: No suspicious osseous lesions. CT/CT chest wo IV con IMPRESSION: Lingular atelectasis. Mild bronchiectasis without significant wall thickening. Mild groundglass opacities left lower lobe, question small vessel airway disease, infectious or inflammatory etiologies. Pulmonary nodules, none larger than 3 mm. In low-risk patient, no routine follow-up recommended. In high risk patient, optional CT at 12 months. Stable at 12 months, no further follow-up. 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: Assessment & Plan Assessment & Plan (1) Dyspnea: Code(s): R06.00 - Dyspnea, unspecified Qualifiers: Dyspnea type: dyspnea on exertion Qualified Code(s): R06.09 - Other forms of dyspnea (2) Abnormal PFTs (pulmonary function tests): Code(s): R94.2 - Abnormal results of pulmonary function studies (3) Persistent atrial fibrillation: Onset Date: ~2018 Comment: (Dx 11/2019, s/p cardioversion 10/2022) Code(s): I48.19 - Other persistent atrial fibrillation (4) Pneumonitis: Code(s): J98.4 - Other disorders of lung (5) Pulmonary nodules: Code(s): R91.8 - Other nonspecific abnormal finding of lung field Plan start Flovent x 4-8 weeks Bloodwork specially if no better Repeat CT chest in 8-12 months rate control continue anticoagulation F/U 4 months Orders: Orders Basic Metabolic Panel Today J69.0 - Pneumonitis due to inhalation of food and vomit WENDY Reflex Titer and Pattern Today J69.0 - Pneumonitis due to inhalation of food and vomit Cyclic Citrullinated Peptide Today J69.0 - Pneumonitis due to inhalation of food and vomit Erythrocyte Sedimentation Rate Today J69.0 - Pneumonitis due to inhalation of food and vomit Complete Blood Count Auto Diff Today J69.0 - Pneumonitis due to inhalation of food and vomit Rast Allergen Today J69.0 - Pneumonitis due to inhalation of food and vomit Hypersensitive Pneumonitis Prf Today J69.0 - Pneumonitis due to inhalation of food and vomit, R91.8 - Other nonspecific abnormal finding of lung field Immunoglobulin E Today J69.0 - Pneumonitis due to inhalation of food and vomit Medications: New fluticasone propionate 110 mcg/actuation (Flovent HFA) 2 puffs inhalation DAILY 12 grams 5RF 30 days Coding Level of Care Code Est Pt Level 4 (81023) Diagnoses Dyspnea on exertion R06.09 Dyspnea type: dyspnea on exertion Abnormal PFTs (pulmonary function tests) R94.2 Persistent atrial fibrillation I48.19 Pneumonitis J98.4 Pulmonary nodules R91.8 Time Spent (min) 16
[2023-10-02 08:55] VITALS: PULSE 90; O2SAT 95; BMI 33.8
== END 2023-10-02 09:18 | disposition home or self-care (01) ==
PROVIDERS: PCP Internal Medicine; Visit Provider Hospitalist
DX: R06.09 Other forms of dyspnea (principal); R94.2 Abnormal results of pulmonary function studies; I48.19 Other persistent atrial fibrillation; J98.4 Other disorders of lung; R91.8 Other nonspecific abnormal finding of lung field
CPT/HCPCS: 99214

== ENCOUNTER → 2023-10-02 08:40 | Outpatient (BNVA) | payer MEDICARE, SELFPAY | PROVIDERS: PCP Internal Medicine; Visit Provider Hospitalist | DX: R06.09 Other forms of dyspnea (principal); R94.2 Abnormal results of pulmonary function studies; J98.4 Other disorders of lung; R91.8 Other nonspecific abnormal finding of lung field; I48.19 Other persistent atrial fibrillation; Z79.01 Long term (current) use of anticoagulants | CPT/HCPCS: 99212 ==

== ENCOUNTER 2023-10-03 09:30 | Outpatient (AMB) | payer MEDICARE, SELFPAY ==
--- NOTE | 2023-10-03 09:31 | MHC.OFFVIS ---
Intake Vital Signs 10/03/23 09:34 Weight 247 lb 8 oz BP 130/76 Blood Pressure Location Lt brachial Position Sitting Pulse 54 Pulse Source Pulse Oximeter Pulse Oximetry (%) 98 Oxygen Delivery Method Room Air Intake Visit Reasons: 6m Follow up SUSIE - Confirmed Intake Note: F/U SUSIE Community Health Advisor Required: No Allergies No Known Allergies [No Known Allergies*] Allergy (Verified 10/03/23 09:32) HPI HPI Comments History of Present Illness Details 68 y/o female patient presents for follow up SUSIE on CPAP and seizure. Pt reports she sleeps well with CPAP, wakes up refreshed. She does not wakes up during the night unless she needs to go to bathroom. Daytime tiredness has improved. The CPAP compliance and therapy response (09/03/23-10/02/23) reviewed. She is on CPAP at 15 cmH2O. The usage days 83 % and the average usage hours 7 hours and 50 min. The residual AHI was 13.3 /hr and the apnea index was central 10.6 and the obstructive 1.4. Pt's last seizure was 10-12 years ago, she lost consciousness, fell and broke her fingers. Pt states that she missed couple of days medications at that time. She is on oxcarbazepine 150 mg daily. Pt's restless legs symptoms stable, maybe once a month. Pt uses ropinirole 0.25 mg PRN. ? ? PFSH Medical History (Updated 10/02/23 @ 20:02 by Dagoberto Casey MD) Pulmonary nodules Pneumonitis Aspiration pneumonitis Abnormal PFTs (pulmonary function tests) Dyspnea Tubular adenoma of colon (~2006) History of COVID-19 Persistent atrial fibrillation (~2019) Osteoarthritis of left knee Impaired glucose tolerance Obesity (BMI 30-39.9) Glaucoma Seizure disorder Obstructive sleep apnea CAD (coronary artery disease) HLD (hyperlipidemia) HTN (hypertension) Surgical History (Updated 08/02/23 @ 09:55 by Saundra Grace PA-C) History of cardiac cath History of colonoscopy History of appendectomy History of cataract surgery History of cardioversion History of eye surgery Family History (Updated 10/03/23 @ 09:33 by Sarah Negron CMA) Father CVD (cardiovascular disease) Mother CVD (cardiovascular disease) Sister Cancer Social History (Updated 10/03/23 @ 09:34 by Sarah Negron CMA) Housing: House Are you a primary healthcare insurance sales agent to a significant other at home: No Do you presently have visiting nurse or other home services: No Alcohol intake: current Alcohol intake frequency: does not drink Patient Tobacco Use Status: Never used Tobacco e-Cigarette/Vaping Use: Never Used Second Hand Smoke Exposure: Yes Advance Directives Date on File: 11/16/19 service: No Current occupational status: retired Current occupation: rt handed Cognitive needs: No Hearing needs: No Vision needs: Yes Review of Systems Const All systems reviewed & are unremarkable except as noted in HPI and below ENT Reports Normal hearing present Neuro Reports Normal hearing present Physical Exam Const General: cooperative, comfortable and no acute distress Nutritional Appearance: obese Orientation/consciousness: patient oriented x3 Resp Effort & Inspection: normal respiratory effort and able to speak in complete sentences Neuro General: patient oriented x3 Cranial nerves: Yes Bilaterally intact EOM present, Yes Normal facial strength present, Yes Normal hearing present, Yes Ability to bilaterally rotate head present and Yes Ability to bilaterally elevate shoulders present Gait exam (Neuro): Normal gait present Assessment & Plan Assessment & Plan (1) Obstructive sleep apnea: Comment: in-lab PSG- AHI 24/hr, REM AHI 60/hr, O2 wilda 79% Code(s): G47.33 - Obstructive sleep apnea (adult) (pediatric) (2) Seizure disorder: Comment: Complex partial [id number] not had in a long time per patient Code(s): G40.909 - Epilepsy, unspecified, not intractable, without status epilepticus (3) Restless leg syndrome: Code(s): G25.81 - Restless legs syndrome Plan Ordered to switch to CPAP 12 cmH2O. Stressed patient for importance of compliance. Educate patient to clean and changes supplies routinely. Continue to take Oxcarbazepine 150 mg daily. Monitor restless legs symptoms. Coding Level of Care Code Est Pt Level 3 (51539) Diagnoses Obstructive sleep apnea G47.33 Seizure disorder G40.909 Restless leg syndrome G25.81
[2023-10-03 09:34] VITALS: BP 130/76; PULSE 54; O2SAT 98
== END 2023-10-03 09:56 | disposition home or self-care (01) ==
PROVIDERS: Visit Provider Nurse Practitioner Family
DX: G47.33 Obstructive sleep apnea (adult) (pediatric) (principal); G40.909 Epilepsy, unspecified, not intractable, without status epilepticus; G25.81 Restless legs syndrome
CPT/HCPCS: 99213

== ENCOUNTER → 2023-10-03 09:30 | Outpatient (BNVA) | payer MEDICARE, SELFPAY | PROVIDERS: Visit Provider Nurse Practitioner Family | DX: G47.33 Obstructive sleep apnea (adult) (pediatric) (principal); G40.909 Epilepsy, unspecified, not intractable, without status epilepticus; G25.81 Restless legs syndrome | CPT/HCPCS: 99212 ==

== ENCOUNTER 2023-10-14 09:09 | Outpatient (AMB) | payer MEDICARE, SELFPAY ==
[2023-10-14 09:11] VITALS: BP 120/72; PULSE 72; BMI 34.1
--- NOTE | 2023-10-14 09:11 | MHC.OFFVIS ---
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: No Allergies No Known Allergies [No Known Allergies*] Allergy (Verified 10/03/23 09:32) Medication List - Last Reconciled 10/14/23 by George Caro MD aluminum chloride 20% (Drysol) 1 appl topical 2XW PRN apixaban (Eliquis) 5 mg PO BID cholecalciferol (vitamin D3) 25 mcg PO DAILY [cpap 14 cm water humidified air As directed] fluticasone propionate 110 mcg/actuation (Flovent HFA) 2 puffs inhalation DAILY 30 days isosorbide mononitrate ER 120 mg PO DAILY metoprolol succinate ER 100 mg PO DAILY nitroglycerin 0.4 mg sublingual DAILY PRN oxcarbazepine 150 mg PO DAILY rosuvastatin 40 mg PO DAILY tramadol 25 mg (1/2 x 50 mg) PO DAILY PRN HPI HPI Comments History of Present Illness Details Natacha comes for follow-up. She continues to have increasing symptoms of shortness of breath. No clear orthopnea although she feels distended on her belly. She is currently not taking furosemide therapy. She denies any significant leg swelling. She says she cannot exercise because of shortness of breath but also she gets cramping in her thigh and gluteal muscles when she walks fast or for long distance could be suggestive claudication. She denies any palpitations. No anginal sounding chest discomfort. Has been taking oral anticoagulant regularly. Was seen by Pulmonary and there was suspicion for some kind of pneumonitis and was given course of steroids. Although this has not led to any improvement. [facility] Medical History Pulmonary nodules Pneumonitis Aspiration pneumonitis Abnormal PFTs (pulmonary function tests) Dyspnea Tubular adenoma of colon (~2006) History of COVID-19 Persistent atrial fibrillation (~2018) Osteoarthritis of left knee Impaired glucose tolerance Obesity (BMI 30-39.9) Glaucoma Seizure disorder Obstructive sleep apnea CAD (coronary artery disease) HLD (hyperlipidemia) HTN (hypertension) Surgical History History of cardiac cath History of colonoscopy History of appendectomy History of cataract surgery History of cardioversion History of eye surgery Family History Father CVD (cardiovascular disease) Mother CVD (cardiovascular disease) Sister Cancer Social History Housing: House Are you a primary congregational care pastor to a significant other at home: No Do you presently have visiting nurse or other home services: No Alcohol intake: current Alcohol intake frequency: does not drink Patient Tobacco Use Status: Never used Tobacco e-Cigarette/Vaping Use: Never Used Second Hand Smoke Exposure: Yes Advance Directives Date on File: 11/16/19 service: No Current occupational status: retired Current occupation: rt handed Cognitive needs: No Hearing needs: No Vision needs: Yes Review of Systems Const Denies chills, Denies fatigue, Denies fever(s), Denies frequent falls, Denies weakness, Denies weight gain and Denies weight loss ENT Denies dizziness Card Denies chest pain, Denies leg edema, Denies lightheadedness, Denies palpitations, Denies dyspnea, Denies dyspnea on exertion, Denies orthopnea and Denies other (loss of consciousness) Resp Denies cough, Denies dyspnea and Denies dyspnea on exertion GI Denies hematochezia and Denies change in stool character Musc Denies abnormal gait, Denies muscle weakness, Denies numbness, Denies radiating pain into limb and Denies tingling Neuro Denies abnormal gait, Denies dizziness, Denies frequent falls, Denies numbness, Denies tingling and Denies weakness Endo Denies fatigue and Denies palpitations Physical Exam Vital Signs: Last Vital Signs Pulse 72 10/14/23 09:11 BP 120/72 10/14/23 09:11 BMI result Body Mass Index 34.1 Const General: cooperative, comfortable, no acute distress, alert, awake and well groomed Nutritional Appearance: overweight Orientation/consciousness: patient oriented x3 Limitations: no limitations Neck Neck: Yes trachea midline, Yes supple and Yes JVD Resp Effort & Inspection: normal respiratory effort Auscultation: clear to auscultation bilaterally Cardio Jugular venous distension: JVD Palpation: normal PMI Rate: regular rate Rhythm: abnormal rhythm regularly irregular Heart sounds: S1 normal heart sound present and S2 normal heart sound present GI Auscultation: normal bowel sounds Neuro General: patient oriented x3 and no focal motor deficits Extrem General: Yes no clubbing, cyanosis or edema Psych Appearance: grossly normal Assessment & Plan Assessment & Plan (1) (HFpEF) heart failure with preserved ejection fraction: Code(s): I50.30 - Unspecified diastolic (congestive) heart failure Plan: Patient progressive symptoms shortness of breath with elevated BNP with persistent atrial fibrillation. Findings suggestive of early heart failure preserved ejection fraction. Clinically appears to be mildly overloaded. Would suggest to start Lasix 20 mg daily. Will obtain blood work including BMP and BNP today. Further treatment based on the finding. I think she will benefit from rhythm control approach, see below. Importance of daily weight monitoring avoidance of salt loading was discussed. Symptoms are suggestive claudication a legs and will obtain lower extremity ultrasound to assess for significant peripheral vascular disease that may require alternative evaluation and treatment to improve her functional capacity. Continue CPAP therapy. Continue aggressive blood pressure control. (2) CAD (coronary artery disease): Code(s): I25.10 - Atherosclerotic heart disease of grindstone coronary artery without angina pectoris Qualifiers: Coronary Disease-Associated Artery/Lesion type: grindstone artery [place] vs. transplanted heart: grindstone heart Associated angina: without angina Qualified Code(s): I25.10 - Atherosclerotic heart disease of grindstone coronary artery without angina pectoris Plan: CAD with no significant anginal symptoms on dual antianginal therapy. Continue current medical therapy. Currently on full oral anticoagulation with Eliquis and would avoid antiplatelet therapy to reduce bleeding risk. Continue statin therapy with target goal LDL closer to 60 mg/dL. (3) Persistent atrial fibrillation: Onset Date: ~2018 Comment: (Dx 11/2019, s/p cardioversion 10/2022) Code(s): I48.19 - Other persistent atrial fibrillation Plan: Persistent atrial fibrillation which has been resistant to treatment. Although I think this is causing a progressive cardiac dysfunction and probably early heart failure syndrome. I think she will benefit from rhythm control approach. Although there is limited options of treatment and cannot safely use flecainide, Multaq or amiodarone therapy. Will require initiation of sotalol in hospital. Will arrange for this after the . Continue full oral anticoagulation with Eliquis. Will follow with her in 4 weeks time, sooner p.r.n.. Thank you for allowing me to partake in her care Orders: Orders Basic Metabolic Panel Today I48.19 - Other persistent atrial fibrillation B Type Natriuretic Peptide Today I48.19 - Other persistent atrial fibrillation US arterial duplex LE BI Today I73.9 - Peripheral vascular disease, unspecified Medications: New furosemide (Lasix) 20 mg PO DAILY 40 tabs 2RF isosorbide mononitrate ER 120 mg PO DAILY 30 tabs 5RF Discontinued isosorbide mononitrate ER Discontinued Reason: Patient no longer taking 120 mg PO DAILY 90 tabs 2RF furosemide (Lasix) Discontinued Reason: Patient no longer taking 20 mg PO DAILY 5 days 5 tabs 0RF Coding Level of Care Code Est Pt Level 4 (25373) Diagnoses (HFpEF) heart failure with preserved ejection fraction I50.30 Coronary artery disease involving grindstone coronary artery of grindstone heart without angina pectoris I25.10 Coronary Disease-Associated Artery/Lesion type: grindstone artery [place] vs. transplanted heart: grindstone heart Associated angina: without angina Persistent atrial fibrillation I48.19
== END 2023-10-14 09:31 | disposition home or self-care (01) ==
PROVIDERS: PCP Internal Medicine; Visit Provider Internal Medicine Cardiovascular Disease
DX: I50.30 Unspecified diastolic (congestive) heart failure (principal); I25.10 Atherosclerotic heart disease of native coronary artery without angina pectoris; I48.19 Other persistent atrial fibrillation
CPT/HCPCS: 99214

== ENCOUNTER 2023-10-14 09:09 | Outpatient (REF) | payer MEDICARE, SELFPAY ==
[2023-10-14 10:59] LABS: Anion Gap 14 (12-20); Blood Urea Nitrogen 20 mg/dL (9-16); Calcium 9.8 mg/dL (8.4-10.2); Carbon Dioxide 26 mmol/L (22-29); Chloride 106 mmol/L (96-108); Estimated Glomerular Filt Rate 50; Glucose Random 109 mg/dL (60-115); Potassium 4.5 mmol/L (3.3-5.1); Sodium 141 mmol/L (135-145)
[2023-10-14 11:05] LABS: B Type Natriuretic Peptide 211 pg/mL (<100)
== END 2023-10-14 09:10 | disposition home or self-care (01) ==
LOC: HO.LAB 09:09
PROVIDERS: PCP Internal Medicine; Visit Provider Internal Medicine Cardiovascular Disease
DX: I48.19 Other persistent atrial fibrillation (principal); I50.30 Unspecified diastolic (congestive) heart failure; I25.10 Atherosclerotic heart disease of native coronary artery without angina pectoris; Z79.01 Long term (current) use of anticoagulants; Z79.899 Other long term (current) drug therapy
CPT/HCPCS: 36415; 80048; 83880; 99212

== ENCOUNTER 2023-10-16 10:06 | Outpatient (AMB) | payer MEDICARE, SELFPAY ==
[2023-10-16 10:09] VITALS: BP 112/62; PULSE 91; O2SAT 94; BMI 33.8
--- NOTE | 2023-10-16 10:09 | A.OFFPC_ITS ---
Vital Signs 10/16/23 10:09 Height 6 ft Weight 249 lb BMI 33.8 BP 112/62 Blood Pressure Location Lt brachial Position Sitting Pulse 91 Pulse Source Pulse Oximeter Pulse Oximetry (%) 94 Oxygen Delivery Method Room Air Intake Visit Reasons: sob on exertion, a fib Allergies No Known Allergies [No Known Allergies*] Allergy (Verified 10/16/23 10:10) Medication List - Last Reconciled 10/16/23 by Alexsander Burroughs, aluminum chloride 20% (Drysol) 1 appl topical 2XW PRN apixaban (Eliquis) 5 mg PO BID cholecalciferol (vitamin D3) 25 mcg PO DAILY [cpap 14 cm water humidified air As directed] fluticasone propionate 110 mcg/actuation (Flovent HFA) 2 puffs inhalation DAILY 30 days furosemide (Lasix) 20 mg PO DAILY isosorbide mononitrate ER 120 mg PO DAILY metoprolol succinate ER 100 mg PO DAILY nitroglycerin 0.4 mg sublingual DAILY PRN oxcarbazepine 150 mg PO DAILY rosuvastatin 40 mg PO DAILY tramadol 25 mg (1/2 x 50 mg) PO DAILY PRN Tobacco use date assessed: 05/02/23 Fall risk assessment: No Falls in past year Last assessed Fall Risk: 10/16/23 Dental Screening Dental Screen Date: 10/16/23 Did you have a dental visit in the last 12 months?: Yes Did you have a dental problem in the last 6 months where you did not have access to dental care?: No Was dental information given to patient?: Patient has dentist HPI sob on exertion, a fib HPI Details 68-year-old obese female with atrial fib rillation obstructive sleep apnea impaired glucose tolerance generalized anxiety disorder coronary artery disease with hypertension hypercholesterolemia last seen in July 2023. Review of the notes patient is due for colonoscopy mammogram. Patient follows up with Cardiology seen in October 14 problem of increasing shortness of breath no significant swelling preserved ejection fraction patient started on Lasix 20 mg suggesting benefit from rhythm control advised lower extremity ultrasound question of claudication advised sotalol and will need hospitalization. Patient also follows up with Neurology on CPAP advised to switch to CPAP 12 cm water. Patient also has followed up with Pulmonary started on Flovent and because of the in a pulmonary nodules advised repeat in 1 year. Echocardiogram August 2023 Normal LV systolic function 2. Mildly dilated left atrium 3. Normal cardiac valvular Doppler 4. Normal RV systolic pressure 5. Small loculated pericardial effusion near the left ventricle [facility] Medical History (Updated 10/16/23 @ 10:50 by Alexsander Burroughs MD) Breast cancer screening by mammogram Pulmonary nodules Pneumonitis Aspiration pneumonitis Abnormal PFTs (pulmonary function tests) Dyspnea Tubular adenoma of colon (~2006) History of COVID-19 Persistent atrial fibrillation (~2019) Osteoarthritis of left knee Impaired glucose tolerance Obesity (BMI 30-39.9) Glaucoma Seizure disorder Obstructive sleep apnea CAD (coronary artery disease) HLD (hyperlipidemia) HTN (hypertension) Surgical History History of cardiac cath History of colonoscopy History of appendectomy History of cataract surgery History of cardioversion History of eye surgery Family History Father CVD (cardiovascular disease) Mother CVD (cardiovascular disease) Sister Cancer Social History Housing: House Are you a primary intensive care anaesthetist to a significant other at home: No Do you presently have visiting nurse or other home services: No Alcohol intake: current Alcohol intake frequency: does not drink Patient Tobacco Use Status: Never used Tobacco e-Cigarette/Vaping Use: Never Used Second Hand Smoke Exposure: Yes Advance Directives Date on File: 11/16/19 service: No Current occupational status: retired Current occupation: rt handed Cognitive needs: No Hearing needs: No Vision needs: Yes Questionnaire PHQ-9 Over the last 2 weeks, how often have you been bothered by any of the following problems? 1. Little interest or pleasure in doing things: more than half the days 2. Feeling down, depressed, or hopeless: several days 3. Trouble falling or staying asleep, or sleeping too much: nearly every day 4. Feeling tired or having little energy: nearly every day 5. Poor appetite or overeating: more than half the days 6. Feeling bad about yourself - or that you are a failure or have let yourself or your family down: not at all 7. Trouble concentrating on things, such as reading the newspaper or watching television: several days 8. Moving or speaking so slowly that other people could have noticed. Or the opposite - being so fidgety or restless that you have been moving around a lot more than usual: not at all 9. Thoughts that you would be better off or of hurting yourself in some way: not at all Total score: 12 Depression Screening Interpretation: Positive Depression Screening Done: Yes Source: Developed by Drs. Chato Veliz, Aysha Cox, Shaka Adamson and colleagues, with an educational ly from [employer]. Thrive Questionnaire Date Thrive assessed: 12/21/22 AUDIT C Alcohol Use Questionnaire (AUDIT-C) 1. How often do you have a drink containing alcohol?: Monthly or less 2. How many drinks containing alcohol do you have on a typical day when you are drinking?: 1 or 2 3. How often do you have six or more drinks on one occasion?: Never Total Score: 1 Score Reviewed/Action Taken: No TERRELL-7 AMB Questionnaire TERRELL-7 Date TERRELL - 7 assessed: 05/02/23 Source: Developed by Drs. Chato Veliz, Aysha Cox, Shaka Adamson and colleagues, with an educational ly from [employer]. Physical exam (Primary Care) Vital Signs: Last Vital Signs Pulse 91 10/16/23 10:09 BP 112/62 10/16/23 10:09 Pulse Ox 94 10/16/23 10:09 Oxygen Delivery Method Room Air 10/16/23 10:09 BMI result Body Mass Index 33.8 Tobacco/Smoking Status: Tobacco use Status Tobacco use date assessed 05/02/23 10/16/23 10:11 Patient Tobacco Use Status Never used Tobacco 10/16/23 10:11 e-Cigarette/Vaping Use Never Used 10/16/23 10:11 PHQ-9: PHQ-9 Score PHQ-9: Total score 12 10/16/23 10:39 Depression Screening Interpretation: Positive Thrive Assessment: Date of Thrive Assessment Date Thrive assessed 12/21/22 10/16/23 10:11 Const General: alert; No acute distress Eyes Conjunctivae: conjunctivae normal Resp Auscultation: clear to auscultation bilaterally Cardio Rate: regular rate Rhythm: regular rhythm GI Inspection: Yes normal to inspection Extrem General: Yes normal to inspection and No edema Assessment and Plan Assessment & Plan (1) Dyspnea: Code(s): R06.00 - Dyspnea, unspecified Qualifiers: Dyspnea type: dyspnea on exertion Qualified Code(s): R06.09 - Other forms of dyspnea Plan: Patient has seen Pulmonary placed on Flovent concern about cardiac and has seen Cardiology placed on Lasix. Dilemma on rhythm control (2) Seizure disorder: Comment: Complex partial [id number] not had in a long time per patient Code(s): G40.909 - Epilepsy, unspecified, not intractable, without status epilepticus Plan: Continue with oxcarbazepine sees Neurology (3) CAD (coronary artery disease): Code(s): I25.10 - Atherosclerotic heart disease of [place] coronary artery without angina pectoris Qualifiers: Associated angina: without angina Coronary Disease-Associated Artery/Lesion type: [place] artery [place] vs. transplanted heart: [place] heart Qualified Code(s): I25.10 - Atherosclerotic heart disease of [place] coronary artery without angina pectoris Plan: Control the cholesterol, weight, blood pressure, diabetes continue with anticoagulation (4) Persistent atrial fibrillation: Onset Date: ~2018 Comment: (Dx 11/2019, s/p cardioversion 10/2022) Code(s): I48.19 - Other persistent atrial fibrillation Plan: Continue with anticoagulation will pursue rhythm control (5) HTN (hypertension): Comment: Well controlled. Continue current meds Code(s): I10 - Essential (primary) hypertension Qualifiers: Hypertension type: essential hypertension Qualified Code(s): I10 - Essential (primary) hypertension Plan: Continue with blood pressure medication. Decrease salt intake and exercise on metoprolol 100 mg once a day (6) HLD (hyperlipidemia): Comment: LDL goal < 70. Well controlled. Continue statin Code(s): E78.5 - Hyperlipidemia, unspecified Qualifiers: Hyperlipidemia type: mixed hyperlipidemia Qualified Code(s): E78.2 - Mixed hyperlipidemia Plan: Avoid fried foods, chicken skin, eggs, butter margarine, pastries and meat. Be it pork or beef they have a lot of cholesterol on rosuvastatin 40 mg once a day (7) Impaired glucose tolerance: Code(s): R73.02 - Impaired glucose tolerance (oral) Plan: Decrease the amount of carbohydrate intake, pasta, bread, rice and potatoes are all sugar and that is aside from all the sweet stuff, remember that fruits are good but they are Sweet also. (8) Obstructive sleep apnea: Comment: in-lab PSG- AHI 24/hr, REM AHI 60/hr, O2 wilda 79% Code(s): G47.33 - Obstructive sleep apnea (adult) (pediatric) Plan: Continue with CPAP more than 4 hours a night and benefits from this (9) Generalized anxiety disorder: Code(s): F41.1 - Generalized anxiety disorder (10) Obesity (BMI 30-39.9): Code(s): E66.9 - Obesity, unspecified Plan: Diet and exercise no salt loading (11) Breast cancer screening by mammogram: Code(s): Z12.31 - Encounter for screening mammogram for malignant neoplasm of breast (12) Colon cancer screening: Code(s): Z12.11 - Encounter for screening for malignant neoplasm of colon Orders: Orders Complete Blood Count Auto Diff 2 Months R73.02 - Impaired glucose tolerance (oral) Comprehensive Met. Panel 2 Months R73.02 - Impaired glucose tolerance (oral) Thyroid Stimulating Hormone 2 Months R73.02 - Impaired glucose tolerance (oral) Vitamin B12 and Folate 2 Months R73.02 - Impaired glucose tolerance (oral) Hemoglobin A1c Today R73.02 - Impaired glucose tolerance (oral) Free T4 (Free Thyroxine) 2 Months R73.02 - Impaired glucose tolerance (oral) Vitamin D 25-OH Total 2 Months R73.02 - Impaired glucose tolerance (oral) B Type Natriuretic Peptide 2 Months R73.02 - Impaired glucose tolerance (oral) Lipid Panel 2 Months E78.00 - Pure hypercholesterolemia, unspecified, R73.02 - Impaired glucose tolerance (oral) MM tomosynthesis screening BI Today Z12.31 - Encounter for screening mammogram for malignant neoplasm of breast Referrals Gastroenterology Referral Z12.11 - Encounter for screening for malignant neoplasm of colon Coding Level of Care Code Est Pt Level 4 (14954) Diagnoses Dyspnea on exertion R06.09 Dyspnea type: dyspnea on exertion Seizure disorder G40.909 Coronary artery disease involving [place] coronary artery of [place] heart without angina pectoris I25.10 Associated angina: without angina Coronary Disease-Associated Artery/Lesion type: [place] artery [place] vs. transplanted heart: [place] heart Persistent atrial fibrillation I48.19 Essential hypertension I10 Hypertension type: essential hypertension Mixed hyperlipidemia E78.2 Hyperlipidemia type: mixed hyperlipidemia Impaired glucose tolerance R73.02 Obstructive sleep apnea G47.33 Generalized anxiety disorder F41.1 Obesity (BMI 30-39.9) E66.9 Breast cancer screening by mammogram Z12.31 Colon cancer screening Z12.11
== END 2023-10-16 10:57 | disposition home or self-care (01) ==
PROVIDERS: PCP Internal Medicine; Visit Provider Internal Medicine
DX: R06.09 Other forms of dyspnea (principal); G40.909 Epilepsy, unspecified, not intractable, without status epilepticus; I48.19 Other persistent atrial fibrillation; I25.10 Atherosclerotic heart disease of native coronary artery without angina pectoris; I10 Essential (primary) hypertension; E78.2 Mixed hyperlipidemia; R73.02 Impaired glucose tolerance (oral); G47.33 Obstructive sleep apnea (adult) (pediatric); F41.1 Generalized anxiety disorder; E66.9 Obesity, unspecified
CPT/HCPCS: 99214

== ENCOUNTER 2023-10-29 10:40 | Inpatient (IN) | payer MEDICARE, SELFPAY ==
--- NOTE | 2023-10-28 11:47 | P.HPHOSP_ITS ---
History of Present Illness Date of Service: 10/28/23 <Lexy Casey NP - Last Filed: 10/29/23 13:25> 10/29/23 <Agustin Levi MD - Last Filed: 10/30/23 08:18> Chief Complaint: Sotalol initiation due to persistent atrial fibrillation <Lexy Casey NP - Last Filed: 10/29/23 13:25> 68 year old women admitted for sotalol initiation. She has a hx of persistant atrial fibrillation causing dyspnea with no chest pain. She had been on other antiarrythmics with no success. She will be directly admitted and will be started on sotalol. <Lexy Casey NP - Last Filed: 10/29/23 13:25> Review of Systems 2 Review of Systems: Denies any recent fever chills or decrease in appetite respiratory reported some dyspnea cardiovascular denied chest pain gastrointestinal denies any dysphagia abdominal pain nausea vomiting or diarrhea genitourinary denies any dysuria frequency or hematuria musculoskeletal denies any joint pain or swelling neuropsych denies any weakness or seizures all other systems reviewed are negative <Lexy Casey NP - Last Filed: 10/29/23 13:25> [facility] Medical History: Medical History Pulmonary nodules Aspiration pneumonitis Tubular adenoma of colon (~2006) History of COVID-19 Persistent atrial fibrillation (~2018) Osteoarthritis of left knee Impaired glucose tolerance Obesity (BMI 30-39.9) Glaucoma Seizure disorder Obstructive sleep apnea CAD (coronary artery disease) HLD (hyperlipidemia) HTN (hypertension) <Lexy Casey NP - Last Filed: 10/29/23 13:25> Family History: Family History Father CVD (cardiovascular disease) Mother CVD (cardiovascular disease) Sister Cancer <Lexy Casey NP - Last Filed: 10/29/23 13:25> Surgical History: Surgical History History of cardiac cath History of colonoscopy History of appendectomy History of cataract surgery History of cardioversion History of eye surgery <Lexy Casey NP - Last Filed: 10/29/23 13:25> Social History: Social History Household Members: None Housing: House Are you a primary landcare officer to a significant other at home: No Do you presently have visiting nurse or other home services: No Alcohol intake: current Alcohol intake frequency: does not drink Patient Tobacco Use Status: Never used Tobacco e-Cigarette/Vaping Use: Never Used Second Hand Smoke Exposure: Yes Use of substances other than those prescribed or required for medical reasons: No Currently Displaying Signs/Symptoms of Drug Intoxication Withdrawal: No Have you been hit, kicked, punched, or otherwise hurt by someone within the past year? If so, by whom?: No Do you feel safe in your current relationship?: No Current Relationship Is there a partner from a previous relationship who is making you feel unsafe now?: No Are you made to feel afraid or neglected: No Advance Directives: Yes Advance Directives on File: Yes Advance Directives Date on File: 11/16/19 Do you have thoughts of harming others: None Do you have a plan to hurt others: No Plan Recently lost weight without trying: No Nutrition Risks: No Nutritional Risk Patient : No : No Poor oral hygiene: No service: No Current occupational status: retired Current occupation: rt handed Cognitive needs: No Hearing needs: No Vision needs: Yes <Lexy Casey NP - Last Filed: 10/29/23 13:25> Meds Allergies/Adverse reactions: Allergies Allergy/AdvReac Type Severity Reaction Status Date / Time No Known Allergies Allergy Verified 10/16/23 10:10 [No Known Allergies*] <Lexy Casey NP - Last Filed: 10/29/23 13:25> Active Medications: Current Medications Acetaminophen (Acetaminophen 325 Mg Tablet) 650 mg PO Q6H PRN PRN Reason: Pain, Mild (Pain Scale 1-3) Ondansetron HCl (Ondansetron Hcl 4 Mg/2 Ml Vial) 4 mg IVPUSH Q8H PRN PRN Reason: Nausea and Vomiting Sodium Chloride (0.9 % Sodium Chloride Flush 3 Ml Syringe) 3 ml IVFLUSH QSHIFT TAO Sotalol HCl (Sotalol Hcl 80 Mg Tablet) 80 mg PO BID TAO <Lexy Casey NP - Last Filed: 10/29/23 13:25> Home medications: Home Medications Medication Instructions Recorded Confirmed Last Taken Type cholecalciferol (vitamin D3) 25 25 mcg PO DAILY 09/16/20 10/29/23 10/29/23 History mcg (1,000 unit) capsule rosuvastatin 40 mg tablet 40 mg PO BEDTIME 10/29/23 10/29/23 10/28/23 History <Lexy Casey NP - Last Filed: 10/29/23 13:25> Physical Exam 2 Vital Signs and Narrative: Vital Signs: Appearing in no acute distress head is normocephalic atraumatic eyes pupils are PERRLA sclera is anicteric mouth throat mucous membranes are intact and moist neck is supple no lymphadenopathy, no JVD noted lung sounds are clear to auscultation heart regular rate rhythm, clear S1, S2 positive bowel sounds, abdomen is soft, nontender neuro patient is alert x3, no focal deficits <Lexy Casey NP - Last Filed: 10/29/23 13:25> Results Labs CBC and Chem 7: 10/29/23 11:17 10/29/23 11:17 <Lexy Casey NP - Last Filed: 10/29/23 13:25> Assessment and Plan (1) Persistent atrial fibrillation: Status: Acute <Lexy Casey NP - Last Filed: 10/29/23 13:25> 68-year-old woman admitted for sotalol initiation due to persistent atrial fibrillation putting her in to acute congestive heart failure. Patient has failed other antiarrhythmics in the past Persistent atrial fibrillation Sotalol initiation Check EKG prior to 1st dose, then EKG 2 hours post dose x5, contact provider for QTC greater than 500 Check BMP, magnesium in the morning, keep potassium greater than 4 magnesium greater than 2 Continue Eliquis and metoprolol cardioversion Congestive heart failure no exacerbation On lasix Coronary artery disease statin Obesity. BMI 33.5 Discussed importance of weight management as this may be contributing to worsening of other comorbidities DVT prophylaxis with Eliquis Full code Patient requires 2 inpatient midnights for sotalol initiation necessitating close monitoring and likely cardioversion, this cannot be done at a lesser acute setting <Lexy Casey NP - Last Filed: 10/29/23 13:25> Quality Stroke Does the patient have a stroke diagnosis?: No <Lexy Casey NP - Last Filed: 10/29/23 13:25> VTE Prior VTE?: No <Lexy Casey NP - Last Filed: 10/29/23 13:25> VTE Risk Level:: Medical - moderate - high <Lexy Casey NP - Last Filed: 10/29/23 13:25> VTE Device Contraindication: Treatment Not Indicated <Lexy Casey NP - Last Filed: 10/29/23 13:25> VTE Drug Contraindication: N/A - Med Ordered <Lexy Casey NP - Last Filed: 10/29/23 13:25>
--- NOTE | 2023-10-29 | ECG_ITS ---
Test Reason : sotolol protocol Blood Pressure : / mmHG Vent. Rate : 086 BPM Atrial Rate : 000 BPM P-R Int : 000 ms QRS Dur : 078 ms QT Int : 370 ms P-R-T Axes : 000 019 -33 degrees QTc Int : 442 ms Atrial fibrillation RSR' or QR pattern in V1 suggests right ventricular conduction delay Nonspecific ST abnormality Abnormal ECG When compared with ECG of 02-MAY-2023 10:18, No significant change was found Referred By: Lexy Casey Electronically Signed By:BRITTNEY YUAN MD
[2023-10-29 11:35] LABS: Hemoglobin 14.5 g/dl (12.0-16.0); Mean Corpuscular HGB Conc 33.7 g/dl (31.0-35.0); Mean Corpuscular Hemoglobin 31.1 pg (27.0-33.0); Mean Corpuscular Volume 92.3 fL (80.0-98.0); Mean Platelet Volume 10.5 fL (9.4-12.3); Platelet Count 244 X10*3/uL (160-400); Red Blood Count 4.66 X10*6/uL (4.20-5.50); Red Cell Distribution Width 12.7 % (11.0-16.0); White Blood Count 6.8 X10*3/uL (4.8-10.8)
[2023-10-29 11:49] VITALS: BP 110/71; PULSE 70; RESP 18; TEMP 36.5; O2SAT 92
[2023-10-29 11:51] LABS: Anion Gap 11 (12-20); Blood Urea Nitrogen 15 mg/dL (9-16); Calcium 10.2 mg/dL (8.4-10.2); Carbon Dioxide 26 mmol/L (22-29); Chloride 106 mmol/L (96-108); Glucose Random 121 mg/dL (60-115); Magnesium 2.1 mg/dL (1.6-2.6); Potassium 3.9 mmol/L (3.3-5.1); Sodium 139 mmol/L (135-145)
[2023-10-29 12:05] VITALS: BMI 33.5
[2023-10-29 13:14] LABS: Creatinine Clr Calc Pharmacy 66.6; Estimated Glomerular Filt Rate 49
[2023-10-29] MEDS: Sotalol HCL 80 MG TABLET PO ×2 (13:34→20:20)
--- NOTE | 2023-10-29 14:40 | PC.NURSE ---
At ~11:15 pts BP 75/35. Pt stated he felt weird and not right . Dr. Rodriges paged and immediatley after Dr. Caro happened to be at bedside checking in on pt, gave verbal order to give bolus of 500cc NS. Pt diaphoretic, placed in trendelenberg. Rapid response initiated. Dr. Rodriges at bedside as well as multiple staff RNs. Pts BP increased after bolus see chart for details. Pt also mentating better and stated he felt better.
--- NOTE | 2023-10-29 15:30 | ECG_ITS ---
Test Reason : sotolol Blood Pressure : / mmHG Vent. Rate : 078 BPM Atrial Rate : 000 BPM P-R Int : 000 ms QRS Dur : 092 ms QT Int : 372 ms P-R-T Axes : 000 035 -23 degrees QTc Int : 424 ms Atrial fibrillation RSR' or QR pattern in V1 suggests right ventricular conduction delay Nonspecific ST abnormality Abnormal ECG When compared with ECG of 29-OCT-2023 11:48, No significant changes seen Referred By: Lexy Casey Electronically Signed By:BRITTNEY YUAN MD
[2023-10-29 16:00] VITALS: BP 105/67; PULSE 83; RESP 18; TEMP 36.4; O2SAT 95
--- NOTE | 2023-10-29 17:34 | P.CONCA_ITS ---
History of Present Illness History of Present Illness Date of Service: 10/29/23 Requesting physician: Lexy Casey Consult reason: atrial fibrillation and shortness of breath Chief complaint: Sotalol start Narrative: I was consulted to see Natacha who is a long-term patient of mine for admission for sotalol loading as requested might be. Patient came as an outpatient. Plan was made to admit her for sotalol loading and if does not convert with medications as followed by synchronized cardioversion. As recommended by FDA she requires inpatient initiation sotalol as per sotalol protocol. Patient has history of persistent atrial fibrillation with exertional shortness of breath which is not explained by any other significant etiology including decompensated heart failure or significant worsening of pulmonary function. Also no evidence of significant myocardial ischemia. Plan was made for pursuing rhythm control approach. Given her multiple comorbidities sotalol was selected as a choice of antiarrhythmic drug therapy and requirement for inpatient initiation. Patient has been taking her oral anticoagulation therapy regularly. She denies any new onset orthopnea, PND, leg edema. No prolonged palpitations irregular heartbeat. Review of Systems 2 Constitutional: Constitutional: Reports no additional constitutional complaints Eyes: Eyes: Reports no additional eye complaints Cardiovascular: Cardiovascular: Denies chest pain, Denies lightheadedness, Denies Loss of Consciousness, Denies palpitations, Reports dyspnea on exertion and Denies orthopnea Respiratory: Respiratory: Denies cough, Reports dyspnea on exertion and Denies wheezing Gastrointestinal: Gastrointestinal: Reports no additional gastrointestinal complaints Genitourinary: Genitourinary: Reports no additional female genitourinary complaints Musculoskeletal: Musculoskeletal: Reports no additional musculoskeletal complaints Integumentary/Breasts: Skin/Breast: Reports system reviewed and no additional complaints, except as docu Neurologic: Reports system reviewed and no additional complaints, except as documented Psychiatric: Psychiatric: Reports no additional psychiatric complaints Endocrine: Endocrine: Denies palpitations Allergic/Immunologic: Allergic/Immunologic: Denies wheezing PMFSH Past Medical History Medical History Pulmonary nodules Aspiration pneumonitis Tubular adenoma of colon (~2006) History of COVID-19 Persistent atrial fibrillation (~2018) Osteoarthritis of left knee Impaired glucose tolerance Obesity (BMI 30-39.9) Glaucoma Seizure disorder Obstructive sleep apnea CAD (coronary artery disease) HLD (hyperlipidemia) HTN (hypertension) Family History Family History Father CVD (cardiovascular disease) Mother CVD (cardiovascular disease) Sister Cancer Surgical History Surgical History History of cardiac cath History of colonoscopy History of appendectomy History of cataract surgery History of cardioversion History of eye surgery Social History Social History Household Members: None Housing: House Are you a primary healthcare financial analyst to a significant other at home: No Do you presently have visiting nurse or other home services: No Alcohol intake: current Alcohol intake frequency: does not drink Patient Tobacco Use Status: Never used Tobacco e-Cigarette/Vaping Use: Never Used Second Hand Smoke Exposure: Yes Use of substances other than those prescribed or required for medical reasons: No Currently Displaying Signs/Symptoms of Drug Intoxication Withdrawal: No Have you been hit, kicked, punched, or otherwise hurt by someone within the past year? If so, by whom?: No Do you feel safe in your current relationship?: No Current Relationship Is there a partner from a previous relationship who is making you feel unsafe now?: No Are you made to feel afraid or neglected: No Advance Directives: Yes Advance Directives on File: Yes Advance Directives Date on File: 11/16/19 Do you have thoughts of harming others: None Do you have a plan to hurt others: No Plan Recently lost weight without trying: No Nutrition Risks: No Nutritional Risk Patient : No : No Poor oral hygiene: No service: No Current occupational status: retired Current occupation: rt handed Cognitive needs: No Hearing needs: No Vision needs: Yes Meds Allergies Allergy/AdvReac Type Severity Reaction Status Date / Time No Known Allergies Allergy Verified 10/16/23 10:10 [No Known Allergies*] Active Medications: Current Medications Acetaminophen (Acetaminophen 325 Mg Tablet) 650 mg PO Q6H PRN PRN Reason: Pain, Mild (Pain Scale 1-3) Apixaban (Apixaban 5 Mg Tablet) 5 mg PO BID [facility] Atorvastatin Calcium (Atorvastatin Calcium 80 Mg Tablet) 80 mg PO BEDTIME [facility] Fluticasone Propionate (Fluticasone Propionate 100 Mcg Blst.W.Dev) 2 puff INHALE RDAILY [facility] Furosemide (Furosemide 20 Mg Tablet) 20 mg PO DAILY [facility]; Protocol Isosorbide Mononitrate (Isosorbide Mononitrate 60 Mg Tab.Er.24h) 120 mg PO DAILY [facility]; Protocol Metoprolol Succinate (Metoprolol Succinate Er 100 Mg Tab.Er.24h) 100 mg PO DAILY [facility]; Protocol Nitroglycerin (Nitroglycerin 0.4 Mg Tab.Subl) 0.4 mg SUBLINGUAL DAILY PRN PRN Reason: Chest Pain Ondansetron HCl (Ondansetron Hcl 4 Mg/2 Ml Vial) 4 mg IVPUSH Q8H PRN PRN Reason: Nausea and Vomiting Oxcarbazepine (Oxcarbazepine 150 Mg Tablet) 150 mg PO DAILY [facility] Sodium Chloride (0.9 % Sodium Chloride Flush 3 Ml Syringe) 3 ml IVFLUSH QSHIFT [facility] Last Admin: 10/29/23 15:15 Dose: Not Given Sotalol HCl (Sotalol Hcl 80 Mg Tablet) 80 mg PO BID [facility] Last Admin: 10/29/23 13:34 Dose: 80 mg Vitamin D (Cholecalciferol (Vitamin D3) 25 Mcg Tablet) 25 mcg PO DAILY [facility] Home Medications Medication Instructions Recorded Confirmed Last Taken Type cholecalciferol (vitamin D3) 25 25 mcg PO DAILY 09/16/20 10/29/23 10/29/23 History mcg (1,000 unit) capsule rosuvastatin 40 mg tablet 40 mg PO BEDTIME 10/29/23 10/29/23 10/28/23 History Physical Exam 2 Vital Signs: Vital Signs: Last Vital Signs Temp 97.5 F 10/29/23 16:00 Pulse 83 10/29/23 16:00 Resp 18 10/29/23 16:00 BP 105/67 10/29/23 16:00 Pulse Ox 95 10/29/23 16:00 O2 Del Method Room Air 10/29/23 16:00 BMI result Body Mass Index 33.5 Const: General: cooperative, comfortable, no acute distress, alert, awake and well groomed Nutritional Appearance: overweight Orientation/consciousness: patient oriented x3 Limitations: no limitations Neck: Neck: Yes trachea midline, Yes supple and Yes JVD Resp: Effort & Inspection: normal respiratory effort Auscultation: clear to auscultation bilaterally Cardio: Jugular venous distension: JVD Palpation: normal PMI Rate: r egular rate Rhythm: abnormal rhythm regularly irregular Heart sounds: S1 normal heart sound present and S2 normal heart sound present GI: Auscultation: normal bowel sounds Neuro: General: patient oriented x3 and no focal motor deficits Extrem: General: Yes no clubbing, cyanosis or edema Psych: Appearance: grossly normal Objective Labs and Meds 10/29/23 11:17 10/29/23 11:17 Lab results: Laboratory Results - last 24 hr 10/29/23 11:17 WBC 6.8 RBC 4.66 Hgb 14.5 Hct 43.0 MCV 92.3 MCH 31.1 MCHC 33.7 RDW 12.7 Plt Count 244 MPV 10.5 Absolute Nucleated RBC 0.000 Nucleated RBC % (auto) 0.0 Sodium 139 Potassium 3.9 Chloride 106 Carbon Dioxide 26 Anion Gap 11 L BUN 15 Creatinine 1.10 Estim Creat Clear Calc 66.6 Estimated GFR 49 Random Glucose 121 H Calcium 10.2 Magnesium 2.1 EKG shows atrial fibrillation with nonspecific ST wave changes with normal QT interval Assessment and Plan (1) Persistent atrial fibrillation: Status: Acute Persistent atrial fibrillation this elderly woman with multiple comorbidities with persistent symptoms exertional shortness of breath not clearly explained by any other etiology. Plan for pursuing rhythm control approach. Given long- standing atrial fibrillation unlikely antiarrhythmic drug support will require with sotalol as the best option given her multiple other underlying comorbidities. Admitted for sotalol protocol for 48 hours. Plan if she does not convert for synchronized cardioversion on . Please keep her NPO past midnight. Continue full oral anticoagulation as prescribed. Metoprolol should be discontinued as patient is being initiated on sotalol therapy. (2) CAD (coronary artery disease): Qualifiers: Coronary Disease-Associated Artery/Lesion type: [place] artery [place] vs. transplanted heart: menominee heart Associated angina: without angina Qualified Code(s): I25.10 - Atherosclerotic heart disease of [place] coronary artery without angina pectoris Status: Acute Known prior CAD with RCA intervention. Currently with no symptoms. Continue high-intensity statin therapy. Continue aggressive blood pressure control. If required with discontinue of metoprolol blood pressure increased will require amlodipine therapy. No new aspirin therapy as patient is already on oral anticoagulation therapy. No active symptoms of ischemia. Continue isosorbide therapy. Will continue to follow with you Procedures Date of Service Date of Service: 10/29/23
[2023-10-29 19:21] VITALS: BP 98/60; PULSE 80; RESP 20; TEMP 36.3; O2SAT 93
--- NOTE | 2023-10-29 20:00 | ECG_ITS ---
Test Reason : Sotalol administration Blood Pressure : / mmHG Vent. Rate : 065 BPM Atrial Rate : 000 BPM P-R Int : 000 ms QRS Dur : 090 ms QT Int : 426 ms P-R-T Axes : 000 038 008 degrees QTc Int : 443 ms Atrial fibrillation RSR' or QR pattern in V1 suggests right ventricular conduction delay Nonspecific ST and T wave abnormality Abnormal ECG No significant changes seen Referred By: Lexy Casey Electronically Signed By:BRITTNEY YUAN MD
[2023-10-29] MEDS: Atorvastatin Calcium 80 MG TABLET PO (20:19)
[2023-10-29] MEDS: Apixaban 5 MG TABLET PO (20:19)
--- NOTE | 2023-10-29 22:36 | ECG_ITS ---
Test Reason : SOTOLOL PROTOCOL Blood Pressure : / mmHG Vent. Rate : 061 BPM Atrial Rate : 036 BPM P-R Int : 000 ms QRS Dur : 092 ms QT Int : 434 ms P-R-T Axes : 000 018 -21 degrees QTc Int : 436 ms Atrial fibrillation RSR' or QR pattern in V1 suggests right ventricular conduction delay Nonspecific ST abnormality Abnormal ECG No significant changes seen Referred By: Hernandez العلي Electronically Signed By:BRITTNEY YUAN MD
[2023-10-29 23:27] VITALS: BP 112/68; PULSE 69; RESP 18; TEMP 36.4; O2SAT 96
[2023-10-29] MEDS: 0.9 % Sodium Chloride Flush 3 ML SYRINGE IVFLUSH (23:58)
--- NOTE | 2023-10-30 | ECG_ITS ---
Test Reason : SOTOLOL PROTOCOL Blood Pressure : / mmHG Vent. Rate : 073 BPM Atrial Rate : 073 BPM P-R Int : 172 ms QRS Dur : 078 ms QT Int : 400 ms P-R-T Axes : 064 038 031 degrees QTc Int : 440 ms Normal sinus rhythm RSR' or QR pattern in V1 suggests right ventricular conduction delay Otherwise normal ECG When compared with ECG of 30-OCT-2023 10:12, Sinus rhythm has replaced Atrial fibrillation Nonspecific T wave abnormality, improved in Inferior leads Referred By: Hernandez العلي Electronically Signed By:BRITTNEY YUAN MD
--- NOTE | 2023-10-30 | ECG_ITS ---
Test Reason : sotolol Blood Pressure : / mmHG Vent. Rate : 067 BPM Atrial Rate : 000 BPM P-R Int : 000 ms QRS Dur : 084 ms QT Int : 438 ms P-R-T Axes : 000 027 -04 degrees QTc Int : 462 ms Atrial fibrillation RSR' or QR pattern in V1 suggests right ventricular conduction delay Nonspecific ST abnormality Abnormal ECG When compared with ECG of 29-OCT-2023 22:36, No significant changes seen Referred By: Hernandez العلي Electronically Signed By:BRITTNEY YUAN MD
[2023-10-30 03:37] VITALS: BP 121/77; PULSE 63; RESP 18; TEMP 36.2; O2SAT 96
--- NOTE | 2023-10-30 03:44 | PC.NURSE ---
10/29/23 EKG done prior to Sotalol dose scheduled for 2099 , QTC was 443. Sotalol administered at 2019 as per order. EKG done 2 hours following QTC was 436. Patient remains in Afib. This RN notified pharmacy to update. Patient is resting comfortably . Will continue to monitor .
[2023-10-30 07:15] VITALS: BP 111/60; PULSE 64; RESP 18; TEMP 36.9; O2SAT 94
[2023-10-30 07:55] LABS: Blood Urea Nitrogen 16 mg/dL (9-16); Calcium 9.9 mg/dL (8.4-10.2); Carbon Dioxide 27 mmol/L (22-29); Chloride 104 mmol/L (96-108); Creatinine Clr Calc Pharmacy 80.5; Estimated Glomerular Filt Rate > 60; Glucose Random 105 mg/dL (60-115); Magnesium 2.3 mg/dL (1.6-2.6); Potassium 4.2 mmol/L (3.3-5.1); Sodium 138 mmol/L (135-145)
[2023-10-30] MEDS: Furosemide 20 MG TABLET PO (08:16)
[2023-10-30] MEDS: OXcarbazepine 150 MG TABLET PO (08:16)
[2023-10-30] MEDS: Cholecalciferol (Vitamin D3) 25 MCG TABLET PO (08:17)
[2023-10-30] MEDS: Apixaban 5 MG TABLET PO ×2 (08:17→21:34)
[2023-10-30] MEDS: Isosorbide Mononitrate 60 MG TAB.ER.24H 120 MG PO (08:17)
[2023-10-30] MEDS: Sotalol HCL 80 MG TABLET PO ×2 (08:18→21:34)
--- NOTE | 2023-10-30 09:19 | MHC.CM.PN ---
IMM 10/30. Pt lives at home alone, is self-care, uses a cane occasionally. Pt will drive herself home (car is in lot). HCP completed with pt, now on file. PCP: Dr. Beltre Po
[2023-10-30] MEDS: 0.9 % Sodium Chloride Flush 3 ML SYRINGE IVFLUSH ×3 (09:25→21:35)
--- NOTE | 2023-10-30 09:44 | PM.PNCARD ---
Subjective Subjective Date of Service: 10/30/23 Principal diagnosis: Persistent atrial fibrillation, CAD. Interval history: Patient currently asymptomatic. Doing well. Hemodynamically stable. Remains in control atrial fibrillation. Getting sotalol load and tolerating well with no significant QTC prolongation Review of Systems Review of Systems Yes all other systems are reviewed and are negative Physical Exam Vital Signs: Last Vital Signs Temp 98.4 F 10/30/23 07:15 Pulse 64 10/30/23 07:15 Resp 18 10/30/23 07:15 BP 111/60 10/30/23 07:15 Pulse Ox 94 10/30/23 07:15 O2 Del Method Room Air 10/30/23 07:15 BMI result Body Mass Index 33.5 Const General: cooperative, comfortable, no acute distress, alert, awake and well groomed Nutritional Appearance: overweight Orientation/consciousness: patient oriented x3 Limitations: no limitations Neck Neck: Yes trachea midline, Yes supple and Yes JVD Resp Effort & Inspection: normal respiratory effort Auscultation: clear to auscultation bilaterally Cardio Jugular venous distension: JVD Palpation: normal PMI Rate: regular rate Rhythm: abnormal rhythm regularly irregular Heart sounds: S1 normal heart sound present and S2 normal heart sound present GI Auscultation: normal bowel sounds Neuro General: patient oriented x3 and no focal motor deficits Extrem General: Yes no clubbing, cyanosis or edema Psych Appearance: grossly normal Objective Labs and Meds 10/29/23 11:17 10/29/23 11:17 Lab results: Laboratory Results - last 24 hr 10/29/23 10/30/23 11:17 07:08 WBC 6.8 RBC 4.66 Hgb 14.5 Hct 43.0 MCV 92.3 MCH 31.1 MCHC 33.7 RDW 12.7 Plt Count 244 MPV 10.5 Absolute Nucleated RBC 0.000 Nucleated RBC % (auto) 0.0 Hold Purple Top SEE NOTE Sodium 139 Potassium 3.9 Chloride 106 Carbon Dioxide 26 Anion Gap 11 L BUN 15 Creatinine 1.10 Estim Creat Clear Calc 66.6 Estimated GFR 49 Random Glucose 121 H Calcium 10.2 Magnesium 2.1 Progress Note: A&P Assessment and plan (1) Persistent atrial fibrillation: Status: Acute Assessment and Plan: Persistent rate control atrial fibrillation with symptoms of shortness of breath. Plan is for sotalol loading and completion if remains in atrial fibrillation to synchronized cardioversion. Continue to do sotalol protocol in EKGs. Plan for synchronized cardioversion tomorrow tentatively. Please keep patient NPO past midnight. Continue full oral anticoagulation as planned with apixaban 5 mg b.i.d.. (2) CAD (coronary artery disease): Status: Acute Assessment and Plan: CAD stable without any symptoms of angina. Continue high-intensity statin therapy. Continue full oral anticoagulation with Eliquis. Continue metoprolol and isosorbide. Will continue to follow with you Time Spent With Patient Time: Total time managing care of this patient today ____ minutes. Progress Note: Quality Stroke Does the patient have a stroke diagnosis?: No Procedures Date of Service Date of Service: 10/30/23
--- NOTE | 2023-10-30 10:18 | ECG_ITS ---
Test Reason : sotolol protocol Blood Pressure : / mmHG Vent. Rate : 079 BPM Atrial Rate : 000 BPM P-R Int : 000 ms QRS Dur : 078 ms QT Int : 386 ms P-R-T Axes : 000 042 009 degrees QTc Int : 442 ms Atrial fibrillation RSR' or QR pattern in V1 suggests right ventricular conduction delay Nonspecific ST and T wave abnormality Abnormal ECG When compared with ECG of 30-OCT-2023 07:52, No significant change was found Referred By: Hernandez العلي Electronically Signed By:BRITTNEY YUAN MD
--- NOTE | 2023-10-30 10:22 | PC.NURSE ---
EKG done this am prior to sotalol dose, qtc was 462, provider notified and sotalol dose given 0818. Recheck EKG showed qtc 442, provider notified.
--- NOTE | 2023-10-30 11:24 | P.PNIM_ITS ---
Subjective Subjective Date of Service: 10/30/23 Interval History: no palpitations no chest pain Review of Systems Review of Systems: Yes all other systems are reviewed and are negative Physical Exam 2 Vital Signs: Vital Signs: Last Vital Signs Temp 98.4 F 10/30/23 07:15 Pulse 64 10/30/23 07:15 Resp 18 10/30/23 07:15 BP 111/60 10/30/23 07:15 Pulse Ox 94 10/30/23 07:15 O2 Del Method Room Air 10/30/23 07:15 BMI result Body Mass Index 33.5 Gen: in no acute distress HEENT: sclera anicteric, moist mucus membranes Neck: supple Lungs: clear to auscultation bilaterally Heart: irregular, no murmurs Abd: soft, non-tender, non-distended Ext: no edema Skin: warm/well-perfused Neuro: alert and oriented x3, no focal findings Psych: appropriate affect Objective Data Active Medications Acetaminophen (Acetaminophen 325 Mg Tablet) 650 mg PO Q6H PRN PRN Reason: Pain, Mild (Pain Scale 1-3) Apixaban (Apixaban 5 Mg Tablet) 5 mg PO BID [facility] Last Admin: 10/30/23 08:17 Dose: 5 mg Documented By: GRACE Atorvastatin Calcium (Atorvastatin Calcium 80 Mg Tablet) 80 mg PO BEDTIME [facility] Last Admin: 10/29/23 20:19 Dose: 80 mg Documented By: JUSTNIA Fluticasone Propionate (Fluticasone Propionate 100 Mcg Blst.W.Dev) 2 puff INHALE RDAILY [facility] Last Admin: 10/30/23 07:39 Dose: Not Given Documented By: MIGDALIA Non-Admin Reason: Med Not Available Furosemide (Furosemide 20 Mg Tablet) 20 mg PO DAILY [facility]; Protocol Last Admin: 10/30/23 08:16 Dose: 20 mg Documented By: GRACE Isosorbide Mononitrate (Isosorbide Mononitrate 60 Mg Tab.Er.24h) 120 mg PO DAILY [facility]; Protocol Last Admin: 10/30/23 08:17 Dose: 120 mg Documented By: GRACE Nitroglycerin (Nitroglycerin 0.4 Mg Tab.Subl) 0.4 mg SUBLINGUAL DAILY PRN PRN Reason: Chest Pain Ondansetron HCl (Ondansetron Hcl 4 Mg/2 Ml Vial) 4 mg IVPUSH Q8H PRN PRN Reason: Nausea and Vomiting Oxcarbazepine (Oxcarbazepine 150 Mg Tablet) 150 mg PO DAILY [facility] Last Admin: 10/30/23 08:16 Dose: 150 mg Documented By: GRACE Sodium Chloride (0.9 % Sodium Chloride Flush 3 Ml Syringe) 3 ml IVFLUSH QSHIFT [facility] Last Admin: 10/30/23 09:25 Dose: 3 ml Documented By: GRACE Sotalol HCl (Sotalol Hcl 80 Mg Tablet) 80 mg PO BID [facility] Last Admin: 10/30/23 08:18 Dose: 80 mg Documented By: GRACE Vitamin D (Cholecalciferol (Vitamin D3) 25 Mcg Tablet) 25 mcg PO DAILY [facility] Last Admin: 10/30/23 08:17 Dose: 25 mcg Documented By: GRACE Labs 10/29/23 11:17 10/29/23 11:17 Labs: Laboratory Results - last 24 hr 10/29/23 10/30/23 11:17 07:08 MCV 92.3 MCH 31.1 MCHC 33.7 RDW 12.7 Plt Count 244 MPV 10.5 Absolute Nucleated RBC 0.000 Nucleated RBC % (auto) 0.0 Hold Purple Top SEE NOTE Anion Gap 11 L Estim Creat Clear Calc 66.6 Estimated GFR 49 Random Glucose 121 H Calcium 10.2 Magnesium 2.1 Assessment and Plan (1) Persistent atrial fibrillation: Status: Acute Plan d2 68yo W with persistent AF, CAD admitted for sotalol load persistent AF - sotalol load, monitor QTc to ensure <500, Cardiology following - monitor K/Mg, keep >4/2 respectively - continue apixaban - d/c metoprolol - NPO p MN for cardioversion tomorrow if remains in AF CAD - statin, Imdur VTE ppx - apixaban dispo - eventual home In my clinical judgment, the patient requires continued inpatient hospitalization for the following reasons: sotalol load, cardioversion Total time managing care of this patient today: 35 minutes. Quality Stroke Does the patient have a stroke diagnosis?: No VTE Prior VTE?: No VTE Risk Level:: Medical - moderate - high VTE Device Contraindication: Treatment Not Indicated VTE Drug Contraindication: N/A - Med Ordered
[2023-10-30 11:44] VITALS: BP 110/58; PULSE 75; RESP 20; TEMP 36.2; O2SAT 95
[2023-10-30 13:56] LABS: Anion Gap 12 (12-20)
[2023-10-30 15:25] VITALS: BP 127/80; PULSE 87; RESP 16; TEMP 36.6; O2SAT 96
[2023-10-30 20:00] VITALS: BP 108/59; PULSE 69; RESP 20; TEMP 36.6; O2SAT 94
--- NOTE | 2023-10-30 21:24 | PC.NURSE ---
Assumed care of patient 20:00 this evening (late assignment change). Patient on sotalol protocol. EKG done at 20:33 showed NSR ventricular rate 72bpm, QTc 459ms. Covering Dr. Cerda notified of EKG results and pt BP 108/59. On tele pt's HR noted to be ranging upper 60's to low 70's, asymptomatic with BP. MD written order to continue with administration of sotalol. Will continue to monitor for remainder of designer/writer's scheduled care.
[2023-10-30] MEDS: Atorvastatin Calcium 80 MG TABLET PO (21:34)
[2023-10-30 23:22] VITALS: BP 140/68; PULSE 68; RESP 20; TEMP 36.2; O2SAT 94
[2023-10-31] MEDS: Acetaminophen 325 MG TABLET 650 MG PO (00:21)
--- NOTE | 2023-10-31 00:23 | PC.NURSE ---
Post-sotalol EKG obtained at 23:13, still showing NSR ventricular rate 67bpm, QTc 467ms. Dr. Cerda notified, continue with NPO at midnight as ordered for prior tentative cardioversion in case pt should reconvert to afib. Okay for po meds per MD. Will continue to monitor.
[2023-10-31 01:28] VITALS: RESP 14
[2023-10-31 04:00] VITALS: BP 110/60; PULSE 80; RESP 16; TEMP 36.6; O2SAT 92
--- NOTE | 2023-10-31 07:00 | ECG_ITS ---
Test Reason : SOTALOL PROTOCOL Blood Pressure : / mmHG Vent. Rate : 077 BPM Atrial Rate : 077 BPM P-R Int : 172 ms QRS Dur : 076 ms QT Int : 414 ms P-R-T Axes : 013 036 026 degrees QTc Int : 468 ms Normal sinus rhythm Nonspecific ST abnormality Abnormal ECG No significant change was found Referred By: Hernandez العلي Electronically Signed By:BRITTNEY YUAN MD
[2023-10-31 07:10] VITALS: BP 135/67; PULSE 73; RESP 18; TEMP 36.2; O2SAT 97
--- NOTE | 2023-10-31 07:28 | PC.NURSE ---
Assumed care this am, got EKG @ 0714 showed sinus rhythm, qtc 468. provider notified.
[2023-10-31 07:51] LABS: Anion Gap 12 (12-20); Blood Urea Nitrogen 16 mg/dL (9-16); Calcium 9.6 mg/dL (8.4-10.2); Carbon Dioxide 27 mmol/L (22-29); Chloride 103 mmol/L (96-108); Creatinine Clr Calc Pharmacy 77.9; Estimated Glomerular Filt Rate 59; Glucose Random 100 mg/dL (60-115); Magnesium 2.3 mg/dL (1.6-2.6); Potassium 3.7 mmol/L (3.3-5.1); Sodium 138 mmol/L (135-145)
[2023-10-31] MEDS: Fluticasone Propionate 100 MCG BLST.W.DEV 2 PUFF INHALE (08:06)
[2023-10-31 08:09] VITALS: PULSE 79; RESP 18; O2SAT 93
[2023-10-31] MEDS: 0.9 % Sodium Chloride Flush 3 ML SYRINGE IVFLUSH (08:36)
[2023-10-31] MEDS: Apixaban 5 MG TABLET PO (08:36)
[2023-10-31] MEDS: Isosorbide Mononitrate 60 MG TAB.ER.24H 120 MG PO (08:36)
[2023-10-31] MEDS: OXcarbazepine 150 MG TABLET PO (08:36)
[2023-10-31] MEDS: Cholecalciferol (Vitamin D3) 25 MCG TABLET PO (08:36)
[2023-10-31] MEDS: Sotalol HCL 80 MG TABLET PO (08:36)
[2023-10-31] MEDS: Furosemide 20 MG TABLET PO (09:18)
--- NOTE | 2023-10-31 10:24 | PM.PNCARD ---
Subjective Subjective Date of Service: 10/31/23 Principal diagnosis: Persistent atrial fibrillation, CAD. Interval history: Converted to sinus rhythm overnight. Does not feel any changes symptoms. Hemodynamically stable. Review of Systems Review of Systems Yes all other systems are reviewed and are negative Physical Exam Vital Signs: Last Vital Signs Temp 97.2 F 10/31/23 07:10 Pulse 79 10/31/23 08:09 Resp 18 10/31/23 08:09 BP 135/67 10/31/23 07:10 Pulse Ox 97 10/31/23 07:10 O2 Del Method Room Air 10/31/23 07:10 BMI result Body Mass Index 33.5 Const General: cooperative, comfortable, no acute distress, alert and awake Nutritional Appearance: overweight Orientation/consciousness: patient oriented x3 Neck Neck: Yes trachea midline, Yes supple and Yes no JVD Resp Effort & Inspection: normal respiratory effort Auscultation: rales, no wheezes and diminished lung sounds Cardio Jugular venous distension: no JVD Palpation: normal PMI Rate: regular rate Rhythm: regular rhythm Heart sounds: S1 normal heart sound present, S2 normal heart sound present, no click, no gallops and no murmurs GI Auscultation: normal bowel sounds Neuro General: patient oriented x3 and no focal motor deficits Extrem General: Yes no clubbing, cyanosis or edema Objective Labs and Meds 10/29/23 11:17 10/31/23 06:47 Lab results: Laboratory Results - last 24 hr 10/30/23 10/31/23 08:35 06:47 Hold Purple Top SEE NOTE Sodium 138 138 Potassium 4.2 3.7 Chloride 104 103 Carbon Dioxide 27 27 Anion Gap 12 12 BUN 16 16 Creatinine 0.91 0.94 Estim Creat Clear Calc 80.5 77.9 Estimated GFR > 60 59 Random Glucose 105 100 Calcium 9.9 9.6 Magnesium 2.3 2.3 Progress Note: A&P Assessment and plan (1) Paroxysmal atrial fibrillation: Status: Inactive Assessment and Plan: Patient converted to sinus rhythm on sotalol loading. Doing okay. After her morning dose of sotalol repeat EKG and if QTC is within acceptable limits can be discharged home on sotalol 80 mg b.i.d.. Please switch her timing to 10:00 and 22:00. Continue Eliquis for oral anticoagulation as well. Will follow-up clinically and after Holter monitor in 4 weeks time. Continue CPAP therapy (2) CAD (coronary artery disease): Status: Acute Assessment and Plan: CAD stable. Continue aggressive medical therapy. Continue full oral anticoagulation. Blood pressure is well optimized. Continue high-intensity statin therapy. Will follow up as outpatient. Thank you for allowing me to partake in her care Time Spent With Patient Time: Total time managing care of this patient today ____ minutes. Progress Note: Quality Stroke Does the patient have a stroke diagnosis?: No Procedures Date of Service Date of Service: 10/31/23
--- NOTE | 2023-10-31 10:26 | P.DS_ITS ---
DS: Providers Provider Date of Service: 10/31/23 Date of admission: 10/29/23 10:40 Date of discharge: 10/31/23 Primary care physician: Alexsander Burroughs MD Consults: 10/28/23 11:20 Consult to Cardiology Routine Consulting Provider: [facility] Reason for consultation: sotalol load DS: Diagnosis Discharge Diagnosis (1) Persistent atrial fibrillation: Status: Acute DS: Summary Hospital Course Hospital Course: from admission H+P by hospitalist Lexy Casey NP, 10/29/23: 68 year old women admitted for sotalol initiation. She has a hx of persistant atrial fibrillation causing dyspnea with no chest pain. She had been on other antiarrythmics with no success. She will be directly admitted and will be started on sotalol. She was admitted to the telemetry unit for 48hr sotalol load. She converted to sinus rhythm on 10/30/23. QTc remained well below 500 ms. She was discharged on sotalol to replace metoprolol and will follow up with her automotive artist in 1-2 weeks. Time Attestation Discharge coordination time: Greater than 30 minutes Quality: Safe Use of Opioids Does Pt have an Active Cancer Diagnosis on the Problem List?: No Quality: Stroke Does the patient have a stroke diagnosis?: No Physical Exam Vital Signs: Vital Signs: Last Vital Signs Temp 97.2 F 10/31/23 07:10 Pulse 79 10/31/23 08:09 Resp 18 10/31/23 08:09 BP 135/67 10/31/23 07:10 Pulse Ox 97 10/31/23 07:10 O2 Del Method Room Air 10/31/23 07:10 BMI result Body Mass Index 33.5 Gen: in no acute distress HEENT: sclera anicteric, moist mucus membranes Neck: supple Lungs: clear to auscultation bilaterally Heart: regular rate and rhythm, no murmurs Abd: soft, non-tender, non-distended Ext: no edema Skin: warm/well-perfused Neuro: alert and oriented x3, no focal findings Psych: appropriate affect DS: Data Data Completed and Pending Completed studies during hospitalization [Text1]: Laboratory Results WBC 6.8 X10*3/uL (4.8-10.8) 10/29/23 11:17 RBC 4.66 X10*6/uL (4.20-5.50) 10/29/23 11:17 Hgb 14.5 g/dl (12.0-16.0) 10/29/23 11:17 Hct 43.0 % (37.0-47.0) 10/29/23 11:17 MCV 92.3 fL (80.0-98.0) 10/29/23 11:17 MCH 31.1 pg (27.0-33.0) 10/29/23 11:17 MCHC 33.7 g/dl (31.0-35.0) 10/29/23 11:17 RDW 12.7 % (11.0-16.0) 10/29/23 11:17 Plt Count 244 X10*3/uL (160-400) 10/29/23 11:17 MPV 10.5 fL (9.4-12.3) 10/29/23 11:17 Absolute Nucleated RBC 0.000 X10*3/uL (0.0-0.012) 10/29/23 11:17 Nucleated RBC % (auto) 0.0 /100WBC (0.0-0.2) 10/29/23 11:17 Hold Purple Top SEE NOTE 10/31/23 06:47 Sodium 138 mmol/L (135-145) 10/31/23 06:47 Potassium 3.7 mmol/L (3.3-5.1) 10/31/23 06:47 Chloride 103 mmol/L (96-108) 10/31/23 06:47 Carbon Dioxide 27 mmol/L (22-29) 10/31/23 06:47 Anion Gap 12 (12-20) 10/31/23 06:47 BUN 16 mg/dL (9-16) 10/31/23 06:47 Creatinine 0.94 mg/dL (0.5-1.4) 10/31/23 06:47 Estim Creat Clear Calc 77.9 10/31/23 06:47 Estimated GFR 59 10/31/23 06:47 Random Glucose 100 mg/dL (60-115) 10/31/23 06:47 Calcium 9.6 mg/dL (8.4-10.2) 10/31/23 06:47 Magnesium 2.3 mg/dL (1.6-2.6) 10/31/23 06:47 Discharge Plan Discharge Anticipated Discharge Date/Time: 10/31/23 12:00 Patient Disposition: Home, Self-Care Discharge Diagnosis: persistent atrial fibrillation Referrals: Alexsander Burroughs MD [Primary Care Provider] - 1 Week George Caro MD [Physician] - 1 Week Discharge Medications: New sotalol 80 mg Tablet 80 mg PO BID Qty: 60 0RF Continued Eliquis 5 mg tablet 5 mg PO BID Qty: 180 3RF oxcarbazepine 150 mg tablet 150 mg PO DAILY Qty: 90 2RF rosuvastatin 40 mg tablet 40 mg PO BEDTIME tramadol 50 mg tablet 25 mg PO DAILY PRN (Reason: pain) Qty: 20 0RF nitroglycerin 0.4 mg tablet, sublingual 0.4 mg sublingual DAILY PRN (Reason: Chest Pain) Qty: 20 0RF Rx Instructions: Q5 min prn cp x 3 cholecalciferol (vitamin D3) 25 mcg (1,000 unit) capsule 25 mcg PO DAILY isosorbide mononitrate 120 mg tablet extended release 24 hr 120 mg PO DAILY Qty: 30 5RF furosemide [Lasix] 20 mg tablet 20 mg PO DAILY Qty: 40 2RF fluticasone propionate [Flovent HFA] 110 mcg/actuation HFA aerosol inhaler 2 puff inhalation DAILY 30 Days Qty: 12 5RF Discontinued metoprolol succinate 100 mg tablet extended release 24 hr 100 mg PO DAILY Qty: 90 3RF Discharge Orders: Discharge Order (Routine); Ordered 10/31/23 Ordered By: Hernandez العلي Diet: Low salt diet Activity on Discharge: As tolerated Stand Alone Forms: Patient Portal Discharge page Care Plan Goals: cardiac health Health Concerns: atrial fibrillation, persistent Plan of Treatment: stop metoprolol; replace with sotalol 80 mg twice daily follow up with Dr Caro in 4 weeks; will arrange Holter monitoring continue Eliquis Please follow up with your primary care doctor within 1 week. Return to the hospital if you experience recurrent or worsening symptoms. Assessment: See Discharge Summary.
--- NOTE | 2023-10-31 10:33 | MHC.CM.PN ---
Per ROUNDS discussion, Patient will be medically cleared for dc to home today, self care. Last IMM addressed yesterday.
--- NOTE | 2023-10-31 10:36 | ECG_ITS ---
Test Reason : sotolol protocol Blood Pressure : / mmHG Vent. Rate : 068 BPM Atrial Rate : 068 BPM P-R Int : 162 ms QRS Dur : 082 ms QT Int : 440 ms P-R-T Axes : 022 013 005 degrees QTc Int : 467 ms Normal sinus rhythm with sinus arrhythmia Normal ECG When compared with ECG of 31-OCT-2023 07:14, No significant change was found Referred By: Hernandez العلي Electronically Signed By:ROMA SINGH MD
--- NOTE | 2023-10-31 10:50 | ECG_ITS ---
Test Reason : sotalol protocol Blood Pressure : / mmHG Vent. Rate : 079 BPM Atrial Rate : 079 BPM P-R Int : 174 ms QRS Dur : 078 ms QT Int : 420 ms P-R-T Axes : 018 028 001 degrees QTc Int : 481 ms Normal sinus rhythm Nonspecific ST abnormality Abnormal ECG When compared with ECG of 31-OCT-2023 10:19, QT has lengthened Referred By: Hernandez العلي Electronically Signed By:ROMA SINGH MD
[2023-10-31 11:04] VITALS: BP 122/65; PULSE 67; RESP 18; TEMP 36.6; O2SAT 92
== END 2023-10-31 13:52 | disposition home or self-care (01) | DRG 310 ==
PROVIDERS: Admitting Provider Nurse Practitioner Acute Care; PCP Internal Medicine; Visit Provider Family Medicine
DX: I48.19 Other persistent atrial fibrillation (principal); I25.10 Atherosclerotic heart disease of native coronary artery without angina pectoris; G47.33 Obstructive sleep apnea (adult) (pediatric); I50.9 Heart failure, unspecified; E66.9 Obesity, unspecified; Z68.35 Body mass index [BMI] 35.0-35.9, adult; Z79.01 Long term (current) use of anticoagulants; Z79.51 Long term (current) use of inhaled steroids; Z79.899 Other long term (current) drug therapy
CPT/HCPCS: 36415; 80048; 83735; 85027; 93005; 94640

== ENCOUNTER 2023-10-29 10:40 | Outpatient (BNV) | payer MEDICARE, SELFPAY | END 2023-10-31 10:36 | PROVIDERS: Admitting Provider Nurse Practitioner Acute Care; PCP Internal Medicine; Visit Provider Internal Medicine Cardiovascular Disease | DX: R94.31 Abnormal electrocardiogram [ECG] [EKG] (principal); Z51.81 Encounter for therapeutic drug level monitoring | CPT/HCPCS: 93010 ==

== ENCOUNTER → 2023-10-29 10:40 | Outpatient (BNV) | payer MEDICARE, SELFPAY | PROVIDERS: Admitting Provider Nurse Practitioner Acute Care; PCP Internal Medicine; Visit Provider Internal Medicine Cardiovascular Disease | DX: I48.0 Paroxysmal atrial fibrillation (principal); I25.10 Atherosclerotic heart disease of native coronary artery without angina pectoris | CPT/HCPCS: 99222; 99233 ==

== ENCOUNTER → 2023-10-29 10:40 | Outpatient (BNV) | payer MEDICARE, SELFPAY | PROVIDERS: Admitting Provider Nurse Practitioner Acute Care; PCP Internal Medicine; Visit Provider Nurse Practitioner Acute Care | DX: I48.19 Other persistent atrial fibrillation (principal) | CPT/HCPCS: 99223; 99232; 99239 ==

== ENCOUNTER → 2023-11-05 08:07 | Outpatient (REF) | payer MEDICARE, SELFPAY ==
--- NOTE | 2023-11-05 08:10 | HM_ITS ---
* Total monitoring time 3 days. * Underlying rhythm is sinus rhythm and atrial fibrillation. * Overall atrial fibrillation burden is about 45%. Longest episode 1 day. Khjytex402/Min. * Frequent supraventricular ectopy burden of 1.6%. * Occasional ventricular ectopy with a burden of 0.7%. Evidence of couplets, bigeminy, trigeminy. 3 morphologies. Longest 3 beat run. * Palpitations mentioned in diary but the date is not clear. Could be related to atrial fibrillation. MTDD
== END ==
LOC: HO.CARD 08:07
PROVIDERS: PCP Internal Medicine; Visit Provider Internal Medicine Cardiovascular Disease
DX: I48.19 Other persistent atrial fibrillation (principal)
CPT/HCPCS: 93005; 93242

== ENCOUNTER 2023-11-05 09:55 | Outpatient (AMB) | payer MEDICARE, SELFPAY ==
--- NOTE | 2023-11-05 09:32 | AM.OFFVISNUR ---
Intake Intake Visit Reasons: EKG Intake Note: Pt was here [place] [facility] [place]. Has rash face, upper back, and chest. On sotolol. Sent to our office by cardio dept. Legal Compliance Officer Required: No Accompanied by: Self / Same As Patient Allergies No Known Allergies [No Known Allergies*] Allergy (Verified 10/16/23 10:10) Followed by:: Dr. Caro Nursing Note Dry maculopapular rash on upper chest, upper back, and cheeks. She noted this s/p sotolol load at hospital. She was also on Lasix around this time and can't decipher rash cause. She also suspects she is back in Afib. EKG completed, confirms Afib. Dr. Caro reviewed EKG - orders: stop sotolol, go back on previous dose of Metoprolol 100mg, take claritan OTC for itchiness. Call us w outcome. If rash continues then we may conclude that it is not from sotolol and Dr. Caro may put her back on it. If rash continues we will need to look at Lasix as the possible culprit. She is not on Lasix currently, but was recently. Pt informed of results of EKG and recommendations above. She verbalizes understanding and agrees to plan. MAR updated w changes. Office Procedures EKG [id number], Complete Coding Level of Care Code Est Pt Level 1 (06172) CPT Codes EKG - CPT: 19870-[id number], Complete ([id number]) Time Spent (min) 40 Comment Triage, EKG, Medication reconciliation, Documentation, Education, Directions in writing
== END 2023-11-05 09:56 | disposition home or self-care (01) ==
LOC: HO.HCS 09:55
PROVIDERS: PCP Internal Medicine; Visit Provider Internal Medicine Cardiovascular Disease
DX: I48.19 Other persistent atrial fibrillation (principal)
CPT/HCPCS: 93010; 93244

== ENCOUNTER 2023-11-13 09:03 | Outpatient (AMB) | payer MEDICARE, SELFPAY ==
--- NOTE | 2023-11-13 09:06 | A.OFFPC_ITS ---
Vital Signs 11/13/23 09:08 Height 6 ft Weight 111.244 kg BMI 33.3 BP 126/70 Blood Pressure Location Lt brachial Position Sitting Pulse 62 Pulse Source Pulse Oximeter Pulse Oximetry (%) 96 Oxygen Delivery Method Room Air Intake Visit Reasons: TCM Intake Note: Patient is here for hospital discharge follow up (TCM). Patient was discharged from [facility] on 10/31/23. Mortgage Closer Required: No Workforce Development Program Director: Not Required per policy Accompanied by: Self / Same As Patient Allergies No Known Allergies [No Known Allergies*] Allergy (Verified 11/13/23 09:07) Tobacco use date assessed: 11/13/23 Fall risk assessment: No Falls in past year Last assessed Fall Risk: 11/13/23 Dental Screening Dental Screen Date: 11/13/23 Did you have a dental visit in the last 12 months?: Yes Did you have a dental problem in the last 6 months where you did not have access to dental care?: No Was dental information given to patient?: Patient has dentist HPI TCM TCM Information Date of Discharge 10/31/23 Discharged From [facility] Interactive Contact Date (Reference documentation from this date) 11/01/23 HPI Comments History of Present Illness Details 68 year old female with history of persi stent atrial fibrillation, htn, hld, unspecified seizure d/o, SUSIE, obesity among others presents to the office for hospital discharge follow up. Pt was directly admitted at the recommendation of her field marketing associate, Dr. Caro, for sotalol load from 10/29-10/31. She was started on sotalol 80mg BID. She converted to sinus rhythm on 10/30. Qtc was monitored closely and remained well below 500ms. Electrolytes, including mg and ca remained within normal limits. She was discharged home on sotalol 80mg bid to replace metoprolol and advised to follow up with cardiology in 1-2 weeks. She did have 48 holter monitor applied with afib noted 45% of the duration of study. Pt reports developing a rash on the chest, neck, and back with erythema, burning sensation, and pruritus that started during hospitalization after the sotalol initiation. She states about 2 weeks prior to admission, was started on 20mg lasix given persistent afib, elevated BNP, and soto suggestive of early systolic HF. She questions whether the rash is related to the furosemide vs the sotalol. She discontinued the sotalol at the recommendation of Dr. Caro about 5 days ago and does feel the rash is improving. Advised by pharmacy sotalol can take up to 5 days to clear from the body. She has been using lotions but feels they burn. No other new contacts. Since stopping the sotalol has gone back into atrial fibrillation. She has also noted recurrence of her soto to the point she needs to stop and rest before resuming activity. She was able to ambulate from her car into the office without resting. She denies any associated wheezing, lightheadedness, cp, but does report some palpitations. Denies any weight gain or edema. [facility] Medical History Pulmonary nodules Aspiration pneumonitis Tubular adenoma of colon (~2006) History of COVID-19 Persistent atrial fibrillation (~2018) Osteoarthritis of left knee Impaired glucose tolerance Obesity (BMI 30-39.9) Glaucoma Seizure disorder Obstructive sleep apnea CAD (coronary artery disease) HLD (hyperlipidemia) HTN (hypertension) Surgical History History of cardiac cath History of colonoscopy History of appendectomy History of cataract surgery History of cardioversion History of eye surgery Family History Father CVD (cardiovascular disease) Mother CVD (cardiovascular disease) Sister Cancer Social History Household Members: None Housing: House Are you a primary administrator health care facility to a significant other at home: No Do you presently have visiting nurse or other home services: No Alcohol intake: current Alcohol intake frequency: holidays/special occasions only Patient Tobacco Use Status: Never used Tobacco e-Cigarette/Vaping Use: Never Used Second Hand Smoke Exposure: Yes Advance Directives Date on File: 11/16/19 service: No Current occupational status: retired Current occupation: rt handed Cognitive needs: No Hearing needs: No Vision needs: Yes (Glasses) Questionnaire Thrive Questionnaire Date Thrive assessed: 10/30/23 TERRELL-7 AMB Questionnaire TERRELL-7 Date TERRELL - 7 assessed: 05/02/23 Source: Developed by Drs. Chato Veliz, Aysha B.W. Shaka Cox and colleagues, with an educational ly from [employer]. Review of Systems Const All systems reviewed & are unremarkable except as noted in HPI and below Physical exam (Primary Care) Vital Signs: Last Vital Signs Pulse 62 11/13/23 09:08 BP 126/70 11/13/23 09:08 Pulse Ox 96 11/13/23 09:08 Oxygen Delivery Method Room Air 11/13/23 09:08 BMI result Body Mass Index 33.3 Tobacco/Smoking Status: Tobacco use Status Tobacco use date assessed 11/13/23 11/13/23 09:16 Patient Tobacco Use Status Never used Tobacco 11/13/23 09:16 e-Cigarette/Vaping Use Never Used 11/13/23 09:16 Thrive Assessment: Date of Thrive Assessment Date Thrive assessed 10/30/23 11/13/23 09:16 Const Other: Constitutional - Awake and Alert, No apparent distress Eyes - PERRLA, EOMI Cardiovascular - S1S2, irregularly irregular, normal rate, 1+ ble edema Respiratory - Normal lung expansion, Normal respiratory effort, No respiratory distress, CTA bilaterally Extremities - no calf tenderness bilaterally, no swelling Skin - Warm, turgor normal. Maculopapular rash covering the anterior chest, proximal aspect of the anterior neck, and back. There is mild excoriation and dry skin noted. No fluctuance, induration, or drainage. Neurological - Alert & oriented x3 Psychological - Appropriate affect Results Reviewed Results Reviewed: cbc, bmp, echo 07/24, holter monitor 11/23, H&P, cardiology consult, d/c sumary Assessment and Plan Assessment & Plan (1) Persistent atrial fibrillation: Onset Date: ~2018 Comment: (Dx 11/2019, s/p cardioversion 10/2022), converted to nsr with sotalol but developed rash Code(s): I48.19 - Other persistent atrial fibrillation Plan: Pt successfully concerted to NSR following sotalol load during recent hospitalization. Unfortunately developed rash, likely r/t sotalol and this was discontinued and converted back into afib. Unfortunately per cardiology not a good candidate for other antiarrhythmics. Rate remains controlled. Continue toprol 100mg daily. Has also experienced recurrence of SOTO following conversion back into afib. Suspect has some degree of systolic heart failure 2/2 persistent afib, though last echo in July did not reveal this. Clinically she does not appear volume overloaded at this time. Advised to continue lasix 20mg daily. Keep upcoming appt with Dr. Caro but call sooner for any worsening symptoms. At this time, I do not think symptoms are severe enough to warrant emergency room evaluation but advised if SOTO worsens, if palpitations do not resolve in short period, if any lightheadness of chest pain to present immediately to the ED. Also recommended daily weights to monitor for 2-3lb gain in 24 hours or 5 pounds in 5 days. Follow low sodium diet. Continue eliquis for anticoagulation. (2) Obstructive sleep apnea: Comment: in-lab PSG- AHI 24/hr, REM AHI 60/hr, O2 wilda 79% Code(s): G47.33 - Obstructive sleep apnea (adult) (pediatric) Plan: Strict compliance with CPap (3) Drug rash: Code(s): L27.0 - Generalized skin eruption due to drugs and medicaments taken internally Plan: Seems less likely that furosemide use is cause of rash given such delay in symptoms onset from initiation of drug, though this medication can be associated with dry skin/rash. Will check BMP to evaluate for any signs of dehydration. More likely rash is r/t sotalol given it started w/i 24 hours of starting medication and has improved since its discontinuation, however sotalol is less likely to cause rash compared to furosemide. The rash is still quite extensive and is bothersome to patient. She shoudl continue the loratidine for antihistamine. Will prescribe prednisone 40mg daily x5 days. Advised on appropriate use of and side effects of medication. Orders: Orders Basic Metabolic Panel 11/13/23 I48.19 - Other persistent atrial fibrillation, L27.0 - Generalized skin eruption due to drugs and medicaments taken internally, Z51.81 - Encounter for therapeutic drug level monitoring Complete Blood Count Auto Diff 11/13/23 I48.19 - Other persistent atrial fibrillation, L27.0 - Generalized skin eruption due to drugs and medicaments taken internally, Z51.81 - Encounter for therapeutic drug level monitoring Medications: New prednisone 40 mg (2 x 20 mg) PO DAILY 10 tabs 0RF Coding Level of Care Code New Pt Level 5 (64997) Diagnoses Persistent atrial fibrillation I48.19 Obstructive sleep apnea G47.33 Drug rash L27.0 Time Spent (min) 50 Comment time on results above, discussion w/ pt, documentation
[2023-11-13 09:08] VITALS: BP 126/70; PULSE 62; O2SAT 96; BMI 33.3
== END 2023-11-13 09:51 | disposition home or self-care (01) ==
PROVIDERS: PCP Internal Medicine; Visit Provider Physician Assistant
DX: I48.19 Other persistent atrial fibrillation (principal); G47.33 Obstructive sleep apnea (adult) (pediatric); L27.0 Generalized skin eruption due to drugs and medicaments taken internally
CPT/HCPCS: 99204

== ENCOUNTER 2023-11-13 10:00 | Outpatient (REF) | payer MEDICARE, SELFPAY ==
[2023-11-13 10:57] LABS: MANUAL DIFF FLAG NO
[2023-11-13 11:31] LABS: Basophils Absolute Auto 0.1 X10*3/uL (0.0-0.2); Basophils Percent Auto 1.3 % (0-2); Eosinophils Absolute Auto 0.1 X10*3/uL (0.0-0.4); Eosinophils Percent Auto 1.2 % (0-4); Hematocrit 46.5 % (37.0-47.0); Hemoglobin 15.3 g/dl (12.0-16.0); Imm Gran Abs Auto 0.02 X10*3/uL (0.00-0.03); Imm Gran Pct Auto 0.3 % (0.0-0.4); Lymphocytes Percent Auto 25.4 % (20-40); Mean Corpuscular HGB Conc 32.9 g/dl (31.0-35.0); Mean Corpuscular Volume 94.1 fL (80.0-98.0); Mean Platelet Volume 11.1 fL (9.4-12.3); Monocytes Absolute Auto 0.8 X10*3/uL (0.1-1.2); Monocytes Percent Auto 9.9 % (2-11); Neutrophils Absolute Auto 4.9 x10*3/uL (2.0-8.3); Neutrophils Percent Auto 61.9 % (45-73); Platelet Count 259 X10*3/uL (160-400); Red Blood Count 4.94 X10*6/uL (4.20-5.50); Red Cell Distribution Width 12.8 % (11.0-16.0); White Blood Count 7.8 X10*3/uL (4.8-10.8)
[2023-11-13 11:59] LABS: Anion Gap 12 (12-20); Blood Urea Nitrogen 17 mg/dL (9-16); Calcium 10.3 mg/dL (8.4-10.2); Carbon Dioxide 28 mmol/L (22-29); Chloride 105 mmol/L (96-108); Estimated Glomerular Filt Rate 42; Glucose Random 153 mg/dL (60-115); Potassium 4.6 mmol/L (3.3-5.1); Sodium 140 mmol/L (135-145)
== END 2023-11-13 10:01 | disposition home or self-care (01) ==
LOC: HO.LAB 10:00
PROVIDERS: PCP Internal Medicine; Visit Provider Physician Assistant
DX: L27.0 Generalized skin eruption due to drugs and medicaments taken internally (principal); I48.19 Other persistent atrial fibrillation; Z79.899 Other long term (current) drug therapy
CPT/HCPCS: 36415; 80048; 85025

== ENCOUNTER 2023-11-19 08:27 | Outpatient (REF) | payer MEDICARE, SELFPAY ==
--- NOTE | ~2023-11-19 | US_ITS ---
EXAMINATION: US arterial duplex LE BI CLINICAL INFORMATION: Peripheral vascular disease, unspecified COMPARISON: None TECHNIQUE: Duplex Doppler techniques with wave form analysis and measurement of velocities were performed in the bilateral common femoral, profunda femoral, superficial femoral, popliteal, tibial and peroneal arteries. The study was performed only at rest. FINDINGS: RIGHT LEG: Common femoral artery: 91.1 cm/s, Multiphasic Profunda femoris artery: 60.4 cm/s, biphasic Superficial femoral artery (proximal): 122 cm/s, Multiphasic Superficial femoral artery (mid): 90.4 cm/s, Multiphasic Superficial femoral artery (distal): 99.5 cm/s, Multiphasic Proximal Popliteal artery: 69.7 cm/s, biphasic Distal popliteal artery: 66.4 cm/s, Multiphasic Mid posterior tibial artery: 58.5 cm/s, Multiphasic Peroneal artery: 87 cm/s, Multiphasic LEFT LEG: Common femoral artery: 129 cm/s, Multiphasic Profunda femoris artery: 70.8 cm/s, biphasic Superficial femoral artery (proximal): 126 cm/s, Multiphasic Superficial femoral artery (mid): 87.6 cm/s, Multiphasic Superficial femoral artery (distal): 92.5 cm/s, biphasic. Distal SFA collateral: 45.8 cm/sec, biphasic. Proximal Popliteal artery: 55.3 cm/s, Multiphasic Distal popliteal artery: 71.3 cm/s, Multiphasic Mid posterior tibial artery: 32.4 cm/s, biphasic Peroneal artery: 65.5 cm/s, biphasic US/US arterial duplex LE BI IMPRESSION: RIGHT LEG: No hemodynamically significant stenoses. LEFT LEG: No hemodynamically significant stenoses.
== END 2023-11-19 08:28 | disposition home or self-care (01) ==
LOC: HO.US 08:27
PROVIDERS: PCP Internal Medicine; Visit Provider Internal Medicine Cardiovascular Disease
DX: I73.9 Peripheral vascular disease, unspecified (principal)
CPT/HCPCS: 93925

== ENCOUNTER 2023-12-06 10:16 | Outpatient (REF) | payer MEDICARE, SELFPAY ==
--- NOTE | ~2023-12-06 | MM_ITS ---
EXAMINATION: MM SCREENING DIGITAL BREAST TOMOSYNTHESIS, BILATERAL CLINICAL INFORMATION: Screening. Asymptomatic. COMPARISON: Mammography: 06/29/2022, 02/07/2021, 02/02/2020, 01/27/2019, and dating back to 2013. TECHNIQUE: Digital breast tomosynthesis is performed in both the craniocaudal and mediolateral oblique views along with computer-aided detection (CAD). Synthesized 2D images are generated from the tomosynthesis. FINDINGS: There are scattered areas of fibroglandular density (ACR BI-RADS breast composition Category b). There are no suspicious masses, suspicious grouped calcifications, or areas of architectural distortion in either breast. The parenchymal pattern is stable from prior exams. No skin or axillary abnormality. MM/MM tomosynthesis screening BI IMPRESSION: No mammographic evidence of malignancy. ASSESSMENT: BI-RADS BI-RADS 1 - Negative RECOMMENDATION: Routine annual mammography screening. 1 year F/U This examination should not preclude the clinical evaluation of a suspicious palpable abnormality. This patient's information was entered into a reminder system with a target due date for their next mammogram.
== END 2023-12-06 10:17 | disposition home or self-care (01) ==
LOC: HO.MAMMO 10:16
PROVIDERS: PCP Internal Medicine; Visit Provider Internal Medicine
DX: Z12.31 Encounter for screening mammogram for malignant neoplasm of breast (principal); I48.19 Other persistent atrial fibrillation; I25.10 Atherosclerotic heart disease of native coronary artery without angina pectoris
CPT/HCPCS: 77063; 77067; 93005; 99212

== ENCOUNTER → 2023-12-06 10:30 | Outpatient (BNV) | payer MEDICARE, SELFPAY | PROVIDERS: PCP Internal Medicine; Visit Provider Radiology Diagnostic Radiology | DX: Z12.31 Encounter for screening mammogram for malignant neoplasm of breast (principal) | CPT/HCPCS: 77063; 77067 ==

== ENCOUNTER 2023-12-06 11:20 | Outpatient (AMB) | payer MEDICARE, SELFPAY ==
[2023-12-06 11:22] VITALS: BP 140/60; PULSE 83; BMI 33.7
--- NOTE | 2023-12-06 11:22 | MHC.OFFVIS ---
Intake Vital Signs 12/06/23 11:22 Height 6 ft Weight 248 lb 10.903 oz BMI 33.7 BP 140/60 H Blood Pressure Location Lt brachial Position Sitting Pulse 83 Pulse Source Pulse Oximeter Intake Visit Reasons: 1 mth s/p sotolol loading Intake Note: 1 mnth/ pt its feeling some tire and some shortness of breath due to been with a cold the pass week. [employer] Required: No Accompanied by: Self / Same As Patient Allergies sotolol Allergy (Severe, Uncoded 12/06/23 14:09) Rash HPI HPI Comments History of Present Illness Details Natacha comes for follow-up. She notices more exertional shortness of breath and notice that she is in atrial fibrillation. She developed a rash post hospitalization and subsequently rashes not dissipated after stopping sotalol and it seems like is related to sotalol. However since stopping a sotalol her atrial fibrillation has recurred. She definitely notice much improvement in her symptoms when she was in normal sinus rhythm with much improved functional capacity. She has been taking all other medications. Uses CPAP most of the time when she can. Also uses Eliquis all the time. She has no bleeding issues or neurologic events. No anginal symptoms. No clear orthopnea, PND. [facility] Medical History (Updated 12/06/23 @ 14:10 by George Caro MD) CAD (coronary artery disease) Pulmonary nodules Aspiration pneumonitis Tubular adenoma of colon (~2006) History of COVID-19 Persistent atrial fibrillation (~2018) Osteoarthritis of left knee Impaired glucose tolerance Obesity (BMI 30-39.9) Glaucoma Seizure disorder Obstructive sleep apnea HLD (hyperlipidemia) HTN (hypertension) Surgical History History of cardiac cath History of colonoscopy History of appendectomy History of cataract surgery History of cardioversion History of eye surgery Family History Father CVD (cardiovascular disease) Mother CVD (cardiovascular disease) Sister Cancer Social History Household Members: None Housing: House Are you a primary director long term care to a significant other at home: No Do you presently have visiting nurse or other home services: No Alcohol intake: current Alcohol intake frequency: holidays/special occasions only Patient Tobacco Use Status: Never used Tobacco e-Cigarette/Vaping Use: Never Used Second Hand Smoke Exposure: Yes Advance Directives Date on File: 11/16/19 service: No Current occupational status: retired Current occupation: rt handed Cognitive needs: No Hearing needs: No Vision needs: Yes (Glasses) Review of Systems Const Reports chills, Reports fatigue, Reports fever(s), Reports frequent falls, Reports weakness, Reports weight gain and Reports weight loss ENT Reports dizziness Card Reports chest pain, Reports leg edema, Reports lightheadedness, Reports palpitations, Reports dyspnea and Reports dyspnea on exertion Resp Reports cough, Reports dyspnea and Reports dyspnea on exertion GI Reports hematochezia Musc Reports abnormal gait, Reports muscle weakness, Reports numbness, Reports radiating pain into limb and Reports tingling Neuro Reports abnormal gait, Reports dizziness, Reports frequent falls, Reports numbness, Reports tingling and Reports weakness Endo Reports fatigue and Reports palpitations Physical Exam Vital Signs: Last Vital Signs Pulse 83 12/06/23 11:22 BP 140/60 H 12/06/23 11:22 BMI result Body Mass Index 33.7 Const General: cooperative, comfortable, no acute distress, alert, awake and well groomed Nutritional Appearance: overweight Orientation/consciousness: patient oriented x3 Limitations: no limitations Neck Neck: Yes trachea midline, Yes supple and Yes JVD Resp Effort & Inspection: normal respiratory effort Auscultation: clear to auscultation bilaterally Cardio Jugular venous distension: JVD Palpation: normal PMI Rate: regular rate Rhythm: abnormal rhythm regularly irregular Heart sounds: S1 normal heart sound present and S2 normal heart sound present GI Auscultation: normal bowel sounds Neuro General: patient oriented x3 and no focal motor deficits Extrem General: Yes no clubbing, cyanosis or edema Psych Appearance: grossly normal Office Procedures EKG Details: EKG shows atrial fibrillation 86 beats per minute [id number], Complete Assessment & Plan Assessment & Plan (1) Persistent atrial fibrillation: Onset Date: ~2018 Comment: (Dx 11/2019, s/p cardioversion 10/2022), converted to nsr with sotalol but developed rash Code(s): I48.19 - Other persistent atrial fibrillation Plan: persistent recurrent atrial fibrillation with allergic reaction developed to sotalol and developed atrial fibrillation after stopping sotalol. Patient symptomatic and is now more apparent with symptoms of shortness of breath with exertion which had improved with maintenance of rhythm. Will try to pursue rhythm control although charges are medications are limited. Given her underlying CAD class 1 C agents cannot be used. Now she has developed Virgen G to sotalol. Will schedule her for again admission for initiation of Tikosyn in the next week. We discussed about mechanism of action of Tikosyn and potential side effects. Requires inpatient monitoring for initiation. Continue full oral anticoagulation with Eliquis. If required may require synchronized cardioversion if remains in atrial fibrillation after loading with Tikosyn. If she maintains rhythm in the long run and does well will pursue ablation approach as well. (2) CAD (coronary artery disease): Code(s): I25.10 - Atherosclerotic heart disease of [place] coronary artery without angina pectoris Qualifiers: Coronary Disease-Associated Artery/Lesion type: [place] artery [place] vs. transplanted heart: [place] heart Associated angina: without angina Qualified Code(s): I25.10 - Atherosclerotic heart disease of [place] coronary artery without angina pectoris Plan: CAD with no recurrent symptoms of angina on current dual antianginal therapy with metoprolol as well as isosorbide. Continue high-intensity statin therapy. Currently on full oral anticoagulation with Eliquis and will therefore avoid antiplatelet agent. Target goal LDL closer to 60 mg/dL. Will follow up in the clinic in 4 weeks time, sooner p.r.n.. Thank you for allowing me to partake in her care Coding Level of Care Code Est Pt Level 4 (97083) Diagnoses Persistent atrial fibrillation I48.19 Coronary artery disease involving [place] coronary artery of [place] heart without angina pectoris I25.10 Coronary Disease-Associated Artery/Lesion type: [place] artery [place] vs. transplanted heart: [place] heart Associated angina: without angina CPT Codes EKG - CPT: 35900-[id number], Complete ([id number])
== END 2023-12-06 11:52 | disposition home or self-care (01) ==
PROVIDERS: PCP Internal Medicine; Visit Provider Internal Medicine Cardiovascular Disease
DX: I48.19 Other persistent atrial fibrillation (principal); I25.10 Atherosclerotic heart disease of native coronary artery without angina pectoris
CPT/HCPCS: 93010; 99214

== ENCOUNTER 2023-12-11 15:02 | Outpatient (BNV) | payer MEDICARE, SELFPAY | END 2023-12-11 19:01 | PROVIDERS: Admitting Provider Student in an Organized Health Care Education/Training Program; Visit Provider Internal Medicine Cardiovascular Disease | DX: I48.91 Unspecified atrial fibrillation (principal) | CPT/HCPCS: 93010 ==

== ENCOUNTER 2023-12-11 15:02 | Inpatient (IN) | payer MEDICARE, SELFPAY ==
--- NOTE | 2023-12-11 | ECG_ITS ---
Test Reason : QTc eval. Blood Pressure : / mmHG Vent. Rate : 084 BPM Atrial Rate : 000 BPM P-R Int : 000 ms QRS Dur : 080 ms QT Int : 382 ms P-R-T Axes : 000 023 -30 degrees QTc Int : 451 ms Atrial fibrillation Nonspecific T wave abnormality Abnormal ECG When compared to the previous EKG of No significant changes seen Referred By: Jose Carlos Ferrari Electronically Signed By:ROMA SINGH MD
[2023-12-11 15:14] VITALS: BP 126/71; PULSE 106; RESP 24; O2SAT 94
[2023-12-11 15:53] VITALS: BMI 34.0
[2023-12-11 16:04] LABS: MANUAL DIFF FLAG NO
[2023-12-11 16:07] LABS: Basophils Absolute Auto 0.1 X10*3/uL (0.0-0.2); Basophils Percent Auto 1.2 % (0-2); Eosinophils Absolute Auto 0.1 X10*3/uL (0.0-0.4); Eosinophils Percent Auto 1.8 % (0-4); Hematocrit 39.6 % (37.0-47.0); Hemoglobin 13.1 g/dl (12.0-16.0); Imm Gran Abs Auto 0.01 X10*3/uL (0.00-0.03); Imm Gran Pct Auto 0.2 % (0.0-0.4); Lymphocytes Absolute Auto 1.7 X10*3/uL (1.2-4.9); Lymphocytes Percent Auto 32.3 % (20-40); Mean Corpuscular HGB Conc 33.1 g/dl (31.0-35.0); Mean Corpuscular Hemoglobin 30.8 pg (27.0-33.0); Mean Corpuscular Volume 93.2 fL (80.0-98.0); Mean Platelet Volume 9.9 fL (9.4-12.3); Neutrophils Absolute Auto 2.3 x10*3/uL (2.0-8.3); Neutrophils Percent Auto 44.5 % (45-73); Platelet Count 246 X10*3/uL (160-400); Red Blood Count 4.25 X10*6/uL (4.20-5.50); Red Cell Distribution Width 13.2 % (11.0-16.0); White Blood Count 5.1 X10*3/uL (4.8-10.8)
--- NOTE | 2023-12-11 16:19 | PC.NURSE ---
Patient arrived as direct admit approximately 1500 ambulates to unit with steady gait. Oriented to room, call lim system and staff. Neurologically intact. SCHWARZ to command 5/5 denies sensation loss, +pp bilat no edema noted. Afib on tele. LSCTA c/o shortness of breath with exertion from ambulation only ok at rest. BS+X4 abdomen soft non-tender denies nausea/vomiting, last BM 12/11. Denies pain discomfort. Ambulated with steady gait low fall risk. Dr Del Angel notified of arrival to unit. Labs drawn awaiting EKG. Resting in bed comfortably bed in lowest locked position call lim within reach. Will continue to monitor and report changes
[2023-12-11 16:21] LABS: Anion Gap 13 (12-20); Blood Urea Nitrogen 19 mg/dL (9-16); Calcium 9.7 mg/dL (8.4-10.2); Carbon Dioxide 27 mmol/L (22-29); Chloride 105 mmol/L (96-108); Creatinine Clr Calc Pharmacy 70.3; Estimated Glomerular Filt Rate 52; Glucose Random 97 mg/dL (60-115); Sodium 141 mmol/L (135-145)
--- NOTE | 2023-12-11 17:00 | PM.IMHP ---
History of Present Illness Date of Service: 12/11/23 Chief Complaint: Atrial fibrillation, Need of Tikosyn A 68 years old lady with PMH of CAD, Seizure disorder, persistent Afib, SUSIE among others who presents to the hospital as direct admission by dr Caro for Tikosyn administration as she failed Sotalol outpatient. The patient was started on Sotalol about a month earlier and felt really good for few days before she developed a rash. She had to stop Sotalol and her Afib restarted again. No chest pain, SOB, nausea, vomiting, diarrhea or urinary symptoms. but she reports palpitations and dyspnea on exertion. She uses CPAP at home and takes her medications as prescribed. To start Tikosyn therapy inpatient. Review of Systems Review of Systems: No fever, chills or weakness No chest pain, having palpitation dyspnea on exertion No abdominal pain, nausea or vomiting No urinary symptoms No any rash or wounds PMFSH Medical History CAD (coronary artery disease) Pulmonary nodules Aspiration pneumonitis Tubular adenoma of colon (~2006) History of COVID-19 Persistent atrial fibrillation (~2019) Osteoarthritis of left knee Impaired glucose tolerance Obesity (BMI 30-39.9) Glaucoma Seizure disorder Obstructive sleep apnea HLD (hyperlipidemia) HTN (hypertension) Family History Father CVD (cardiovascular disease) Mother CVD (cardiovascular disease) Sister Cancer Surgical History History of cardiac cath History of colonoscopy History of appendectomy History of cataract surgery History of cardioversion History of eye surgery Social History Household Members: None Housing: House Are you a primary hospice care transitions coordinator to a significant other at home: No Do you presently have visiting nurse or other home services: No Alcohol intake: current Alcohol intake frequency: holidays/special occasions only Patient Tobacco Use Status: Never used Tobacco e-Cigarette/Vaping Use: Never Used Second Hand Smoke Exposure: Yes Use of substances other than those prescribed or required for medical reasons: No Have you been hit, kicked, punched, or otherwise hurt by someone within the past year? If so, by whom?: No Do you feel safe in your current relationship?: No Current Relationship Is there a partner from a previous relationship who is making you feel unsafe now?: No Are you made to feel afraid or neglected: No Denominational Healthcare Practices: [employer] Advance Directives: Yes Advance Directives on File: Yes Advance Directives Date on File: 11/01/23 Do you have thoughts of harming others: None Do you have a plan to hurt others: No Plan Recently lost weight without trying: No How much weight loss: Not applicable Eating poorly because of decreased appetite: No Nutrition screen score: 0 Nutrition Risks: No Nutritional Risk Patient : No : No Poor oral hygiene: No service: No Current occupational status: retired Current occupation: rt handed Cognitive needs: No Hearing needs: No Vision needs: Yes (Glasses) Meds Allergies Allergy/AdvReac Type Severity Reaction Status Date / Time sotolol Allergy Severe Rash Uncoded 12/06/23 14:09 Active Medications: Current Medications Acetaminophen (Acetaminophen 325 Mg Tablet) 650 mg PO Q6H PRN PRN Reason: Pain, Mild (Pain Scale 1-3) Ondansetron HCl (Ondansetron Hcl 4 Mg/2 Ml Vial) 4 mg IVPUSH Q8H PRN PRN Reason: Nausea and Vomiting Sodium Chloride (0.9 % Sodium Chloride Flush 3 Ml Syringe) 3 ml IVFLUSH [facility] Medications Medication Instructions Recorded Confirmed Last Taken Type cholecalciferol (vitamin D3) 25 25 mcg PO DAILY 09/16/20 10/29/23 10/29/23 History mcg (1,000 unit) capsule Physical Exam Vital Signs and Narrative: Vital Signs: Last Vital Signs Pulse 106 H 12/11/23 15:14 Resp 24 H 12/11/23 15:14 BP 126/71 12/11/23 15:14 Pulse Ox 94 12/11/23 15:14 O2 Del Method Room Air 12/11/23 15:14 BMI result Body Mass Index 34.0 Const: Other: Constitutional : Awake, interactive, not in distress Neck : Normal inspection, Supple Cardiovascular :irregular iirregular , no JVP, no lower extremity edema Respiratory : good bilateral air entry, no crackles, wheezes or rhonchi Gastrointestinal: soft, lax, Normal bowel sounds, Non tender Skin : Warm, Dry Neurological : Alert & oriented x3, No focal deficit Results Labs 12/11/23 15:53 12/11/23 15:53 Labs: Laboratory Results - last 24 hr 12/11/23 15:53 MCV 93.2 MCH 30.8 MCHC 33.1 RDW 13.2 Plt Count 246 MPV 9.9 Immature Gran % (Auto) 0.2 Neut % (Auto) 44.5 L Lymph % (Auto) 32.3 [place] % (Auto) 20.0 H Eos % (Auto) 1.8 Baso % (Auto) 1.2 Lymph # (Auto) 1.7 [place] # (Auto) 1.0 Eos # (Auto) 0.1 Baso # (Auto) 0.1 Abs Immat Gran (auto) 0.01 Absolute Neuts (auto) 2.3 Absolute Nucleated RBC 0.000 Nucleated RBC % (auto) 0.0 Anion Gap 13 Estim Creat Clear Calc 70.3 Estimated GFR 52 Random Glucose 97 Calcium 9.7 Assessment and Plan (1) Persistent atrial fibrillation: Status: Acute Plan A 68 years old lady with PMH of CAD, Seizure disorder, persistent Afib, SUSIE among others who presents to the hospital as direct admission by dr Caro for Tikosyn administration as she failed Sotalol outpatient. Dyspnea 2/2 symptomatic Persistent atrial fibrillation Start Tikosyn 250 mg bid at 7 Metoprolol 100 mg Continue Eliquis EKG for QTc prolongation Dr Caro recommended starting Tikosyn if QTc < 500 msec To follow with ECGs overnight Hx CAD Continue Hx Seizure disorder Continue Oxcarbazepine HLD Statin DVT PPx Eliquis The patient will need at least 2 overnight hospital stay for control of heart rhythm and resolution of dyspnea pending specialist recommendations. Quality Stroke Does the patient have a stroke diagnosis?: No VTE Prior VTE?: No VTE Risk Level:: Medical - moderate - high VTE Device Contraindication: Treatment Not Indicated VTE Drug Contraindication: N/A - Med Ordered
--- NOTE | 2023-12-11 17:37 | PHA.MEDREC ---
Pharmacy Consult ? Medication Reconciliation Pharmacy has completed the medication reconciliation. Patient reported medications. Reports has not started Arnuity Inhaler as it has not been approved by insurance yet. Reports she is suppose to do Flovent daily, but only does it when she remembers. Rachel David, PharmD
--- NOTE | 2023-12-11 19:01 | ECG_ITS ---
Test Reason : Follow QTc Blood Pressure : / mmHG Vent. Rate : 084 BPM Atrial Rate : 000 BPM P-R Int : 000 ms QRS Dur : 080 ms QT Int : 382 ms P-R-T Axes : 000 023 -30 degrees QTc Int : 451 ms Atrial fibrillation Nonspecific T wave abnormality Abnormal ECG When compared to the previous EKG of Atrial fibrillation has replaced Normal sinus rhythm Referred By: Jose Carlos Ferrari Electronically Signed By:ROMA SINGH MD
[2023-12-11 19:26] VITALS: BP 99/70; PULSE 92; RESP 22; TEMP 35.8; O2SAT 95
[2023-12-11] MEDS: Apixaban 5 MG TABLET PO (20:47)
[2023-12-11] MEDS: Atorvastatin Calcium 80 MG TABLET PO (20:47)
[2023-12-11] MEDS: 0.9 % Sodium Chloride Flush 3 ML SYRINGE IVFLUSH (20:48)
[2023-12-11] MEDS: Dofetilide 125 MCG CAPSULE 250 MCG PO (21:52)
[2023-12-11 23:08] VITALS: BP 113/65; PULSE 67; RESP 18; TEMP 37; O2SAT 96
[2023-12-12] VITALS (7 sets, daily range): BP systolic 103–129; BP diastolic 55–76; PULSE 69–83; RESP 18–20; TEMP 36.5–37.1; O2SAT 91–97
--- NOTE | 2023-12-12 | ECG_ITS ---
Test Reason : CP Blood Pressure : / mmHG Vent. Rate : 071 BPM Atrial Rate : 071 BPM P-R Int : 184 ms QRS Dur : 090 ms QT Int : 476 ms P-R-T Axes : 041 024 004 degrees QTc Int : 517 ms Sinus rhythm with Premature atrial complexes with Aberrant conduction Nonspecific ST abnormality Prolonged QT Abnormal ECG When compared with ECG of 12-DEC-2023 22:20, Aberrant conduction is now Present Referred By: Bryson Del Angel Electronically Signed By:ROMA SINGH MD
--- NOTE | 2023-12-12 01:09 | ECG_ITS ---
Test Reason : Follow QTc interval Blood Pressure : / mmHG Vent. Rate : 064 BPM Atrial Rate : 064 BPM P-R Int : 158 ms QRS Dur : 084 ms QT Int : 460 ms P-R-T Axes : 040 029 010 degrees QTc Int : 474 ms Sinus rhythm with Premature atrial complexes Nonspecific ST abnormality Abnormal ECG When compared to the previous EKG of Normal sinus rhythm has replaced Atrial fibrillation Referred By: Jose Carlos Ferrari Electronically Signed By:ROMA SINGH MD
--- NOTE | 2023-12-12 03:30 | PC.NURSE ---
Pt A&Ox4, no c/o pain or discomfort. Started Tikosyn this evening. Initially afib on hall monitor. At approx 0100 patient converted into NSR. MD Chavez notified. EKG obtained and copy placed on file. EKG showing NSR with PACs.
[2023-12-12 07:44] LABS: Alanine Aminotransferase 24 U/L (0-31); Albumin Level 4.3 g/dL (3.5-5.0); Alkaline Phosphatase 54 U/L (39-117); Anion Gap 13 (12-20); Aspartate Amino Transferase 26 U/L (5-31); Bilirubin Total 1.1 mg/dL (0.0-1.0); Blood Urea Nitrogen 16 mg/dL (9-16); Calcium 10.2 mg/dL (8.4-10.2); Carbon Dioxide 28 mmol/L (22-29); Chloride 103 mmol/L (96-108); Creatinine Clr Calc Pharmacy 80.2; Estimated Glomerular Filt Rate > 60; Glucose Random 98 mg/dL (60-115); Potassium 3.9 mmol/L (3.3-5.1); Sodium 140 mmol/L (135-145); Total Protein 7.2 g/dL (6.5-8.0)
[2023-12-12] MEDS: Fluticasone Propionate 100 MCG BLST.W.DEV 2 PUFF INHALE (07:48)
[2023-12-12] MEDS: Apixaban 5 MG TABLET PO ×2 (07:52→20:50)
[2023-12-12] MEDS: Isosorbide Mononitrate 60 MG TAB.ER.24H 120 MG PO (07:52)
[2023-12-12] MEDS: Cholecalciferol (Vitamin D3) 25 MCG TABLET PO (07:52)
[2023-12-12] MEDS: OXcarbazepine 150 MG TABLET PO (07:52)
[2023-12-12] MEDS: Furosemide 20 MG TABLET PO (07:52)
[2023-12-12] MEDS: Dofetilide 125 MCG CAPSULE 250 MCG PO ×2 (07:52→20:50)
[2023-12-12] MEDS: 0.9 % Sodium Chloride Flush 3 ML SYRINGE IVFLUSH ×2 (07:53→20:50)
[2023-12-12] MEDS: Metoprolol Succinate ER 100 MG TAB.ER.24H PO (08:27)
--- NOTE | 2023-12-12 09:02 | MHC.CM.PN ---
IMM 12/12. Pt lives at home, alone, self-care, uses a cane. Pt will transport herself home at D/C (car in lot). HCP on file and verified. PCP: Dr. Beltre Po
--- NOTE | 2023-12-12 09:51 | P.PNIM_ITS ---
Subjective Subjective Date of Service: 12/12/23 Interval History: Seen and evaluated this morning Converted to Sinus rhythm overnight No reported events QTc around 470 Review of Systems Review of Systems: Yes all other systems are reviewed and are negative Physical Exam 2 Vital Signs: Vital Signs: Last Vital Signs Temp 97.7 F 12/12/23 07:13 Pulse 74 12/12/23 07:51 Resp 18 12/12/23 07:51 BP 103/55 L 12/12/23 07:13 Pulse Ox 96 12/12/23 07:13 O2 Del Method Room Air 12/12/23 07:13 BMI result Body Mass Index 34.0 Const: Other: Constitutional : Awake, interactive, not in distress Neck : Normal inspection, Supple Cardiovascular :regular rhythm , no JVP, no lower extremity edema Respiratory : good bilateral air entry, no crackles, wheezes or rhonchi Gastrointestinal: soft, lax, Normal bowel sounds, Non tender Skin : Warm, Dry Neurological : Alert & oriented x3, No focal deficit Objective Data Active Medications Acetaminophen (Acetaminophen 325 Mg Tablet) 650 mg PO Q6H PRN PRN Reason: Pain, Mild (Pain Scale 1-3) Apixaban (Apixaban 5 Mg Tablet) 5 mg PO BID [facility] Last Admin: 12/12/23 07:52 Dose: 5 mg Documented By: TERESITA Atorvastatin Calcium (Atorvastatin Calcium 80 Mg Tablet) 80 mg PO BEDTIME [facility] Last Admin: 12/11/23 20:47 Dose: 80 mg Documented By: LATRELL Dofetilide (Dofetilide 125 Mcg Capsule) 250 mcg PO Q12H [facility] Last Admin: 12/12/23 07:52 Dose: 250 mcg Documented By: TERESITA Fluticasone Propionate (Fluticasone Propionate 100 Mcg Blst.W.Dev) 2 puff INHALE RDAILY [facility] Last Admin: 12/12/23 07:48 Dose: 2 puff Documented By: MIGDALIA Furosemide (Furosemide 20 Mg Tablet) 20 mg PO DAILY [facility]; Protocol Last Admin: 12/12/23 07:52 Dose: 20 mg Documented By: TERESITA Isosorbide Mononitrate (Isosorbide Mononitrate 60 Mg Tab.Er.24h) 120 mg PO DAILY [facility]; Protocol Last Admin: 12/12/23 07:52 Dose: 120 mg Documented By: TERESITA Loratadine (Loratadine 10 Mg Tablet) 10 mg PO DAILY PRN PRN Reason: Allergy Symptoms Metoprolol Succinate (Metoprolol Succinate Er 100 Mg Tab.Er.24h) 100 mg PO DAILY [facility]; Protocol Last Admin: 12/12/23 08:27 Dose: 100 mg Documented By: TERESITA Nitroglycerin (Nitroglycerin 0.4 Mg Tab.Subl) 0.4 mg SUBLINGUAL DAILY PRN PRN Reason: Chest Pain Ondansetron HCl (Ondansetron Hcl 4 Mg/2 Ml Vial) 4 mg IVPUSH Q8H PRN PRN Reason: Nausea and Vomiting Oxcarbazepine (Oxcarbazepine 150 Mg Tablet) 150 mg PO DAILY [facility] Last Admin: 12/12/23 07:52 Dose: 150 mg Documented By: TERESITA Sodium Chloride (0.9 % Sodium Chloride Flush 3 Ml Syringe) 3 ml IVFLUSH QSHIFT [facility] Last Admin: 12/12/23 07:53 Dose: 3 ml Documented By: TERESITA Tramadol HCl (Tramadol Hcl 50 Mg Tablet) 25 mg PO DAILY PRN PRN Reason: Pain, Moderate(Pain Scale 4-6) Vitamin D (Cholecalciferol (Vitamin D3) 25 Mcg Tablet) 25 mcg PO DAILY [facility] Last Admin: 12/12/23 07:52 Dose: 25 mcg Documented By: TERESITA Labs 12/11/23 15:53 12/12/23 07:10 Labs: Laboratory Results - last 24 hr 12/11/23 12/12/23 15:53 07:10 MCV 93.2 MCH 30.8 MCHC 33.1 RDW 13.2 Plt Count 246 MPV 9.9 Immature Gran % (Auto) 0.2 Neut % (Auto) 44.5 L Lymph % (Auto) 32.3 [place] % (Auto) 20.0 H Eos % (Auto) 1.8 Baso % (Auto) 1.2 Lymph # (Auto) 1.7 [place] # (Auto) 1.0 Eos # (Auto) 0.1 Baso # (Auto) 0.1 Abs Immat Gran (auto) 0.01 Absolute Neuts (auto) 2.3 Absolute Nucleated RBC 0.000 Nucleated RBC % (auto) 0.0 Hold Purple Top SEE NOTE Anion Gap 13 13 Estim Creat Clear Calc 70.3 80.2 Estimated GFR 52 > 60 Random Glucose 97 98 Calcium 9.7 10.2 Total Bilirubin 1.1 H AST 26 ALT 24 Alkaline Phosphatase 54 Total Protein 7.2 Albumin 4.3 Assessment and Plan (1) Persistent atrial fibrillation: Status: Acute Plan A 68 years old lady with PMH of CAD, Seizure disorder, persistent Afib, SUSIE among others who presents to the hospital as direct admission by dr Caro for Tikosyn administration as she failed Sotalol outpatient. Dyspnea 2/2 symptomatic Persistent atrial fibrillation converted to sinus rhythm Continue Tikosyn 250 mg bid Metoprolol 100 mg Continue Eliquis EKG for QTc prolongation Cardiology following To follow with ECGs overnight Hx CAD Continue Hx Seizure disorder Continue Oxcarbazepine HLD Statin DVT PPx Eliquis The patient will need at least overnight hospital stay for control of heart rhythm and resolution of dyspnea pending specialist recommendations. Quality Stroke Does the patient have a stroke diagnosis?: No VTE Prior VTE?: No VTE Risk Level:: Medical - moderate - high VTE Device Contraindication: Treatment Not Indicated VTE Drug Contraindication: N/A - Med Ordered
--- NOTE | 2023-12-12 10:12 | P.CONCA_ITS ---
History of Present Illness History of Present Illness Date of Service: 12/12/23 Requesting physician: Bryson Del Angel Consult reason: atrial fibrillation Chief complaint: Tikoysin treatment Narrative: I was consulted to see Natacha in cardiology consultation today for initiation of antiarrhythmic drug therapy with Tikosyn. Patient was recently admitted and initiated on sotalol therapy but subsequently developed a rash which is suspected to be related sotalol. This was discontinued and she had promptly had recurrent atrial fibrillation. She remain symptomatic with shortness of breath. She was therefore advised to come for outpatient admission for Tikosyn therapy. First dose of Tikosyn was given last night around 22:00. At 01:00 this morning she converted to sinus rhythm. She feels well. Denies any other cardiac complaints. No heart failure symptoms. Has been taking her oral anticoagulation regularly. QTC after Tikosyn was in the 470 range Review of Systems 2 Constitutional: Constitutional: Reports no additional constitutional complaints Cardiovascular: Cardiovascular: Reports no additional cardiovascular complaints Respiratory: Respiratory: Reports no additional respiratory complaints Gastrointestinal: Gastrointestinal: Reports no additional gastrointestinal complaints Genitourinary: Genitourinary: Reports no additional female genitourinary complaints Integumentary/Breasts: Skin/Breast: Reports system reviewed and no additional complaints, except as docu Psychiatric: Psychiatric: Reports no additional psychiatric complaints Endocrine: Endocrine: Reports no additional endocrine complaints [facility] Past Medical History Medical History CAD (coronary artery disease) Pulmonary nodules Aspiration pneumonitis Tubular adenoma of colon (~2006) History of COVID-19 Persistent atrial fibrillation (~2019) Osteoarthritis of left knee Impaired glucose tolerance Obesity (BMI 30-39.9) Glaucoma Seizure disorder Obstructive sleep apnea HLD (hyperlipidemia) HTN (hypertension) Family History Family History Father CVD (cardiovascular disease) Mother CVD (cardiovascular disease) Sister Cancer Surgical History Surgical History History of cardiac cath History of colonoscopy History of appendectomy History of cataract surgery History of cardioversion History of eye surgery Social History Social History Household Members: None Housing: House Are you a primary child care supervisor to a significant other at home: No Do you presently have visiting nurse or other home services: No Alcohol intake: current Alcohol intake frequency: holidays/special occasions only Patient Tobacco Use Status: Never used Tobacco e-Cigarette/Vaping Use: Never Used Second Hand Smoke Exposure: Yes Use of substances other than those prescribed or required for medical reasons: No Currently Displaying Signs/Symptoms of Drug Intoxication Withdrawal: No Have you been hit, kicked, punched, or otherwise hurt by someone within the past year? If so, by whom?: No Do you feel safe in your current relationship?: No Current Relationship Is there a partner from a previous relationship who is making you feel unsafe now?: No Are you made to feel afraid or neglected: No Gnosticism Healthcare Practices: Spiritism Advance Directives: Yes Advance Directives on File: Yes Advance Directives Date on File: 11/01/23 Do you have thoughts of harming others: None Do you have a plan to hurt others: No Plan Recently lost weight without trying: No How much weight loss: Not applicable Eating poorly because of decreased appetite: No Nutrition screen score: 0 Nutrition Risks: No Nutritional Risk Patient : No : No Poor oral hygiene: No service: No Current occupational status: retired Current occupation: rt handed Cognitive needs: No Hearing needs: No Vision needs: Yes (Glasses) Meds Allergies Allergy/AdvReac Type Severity Reaction Status Date / Time sotolol Allergy Severe Rash Uncoded 12/06/23 14:09 Active Medications: Current Medications Acetaminophen (Acetaminophen 325 Mg Tablet) 650 mg PO Q6H PRN PRN Reason: Pain, Mild (Pain Scale 1-3) Apixaban (Apixaban 5 Mg Tablet) 5 mg PO BID [facility] Last Admin: 12/12/23 07:52 Dose: 5 mg Atorvastatin Calcium (Atorvastatin Calcium 80 Mg Tablet) 80 mg PO BEDTIME [facility] Last Admin: 12/11/23 20:47 Dose: 80 mg Dofetilide (Dofetilide 125 Mcg Capsule) 250 mcg PO Q12H [facility] Last Admin: 12/12/23 07:52 Dose: 250 mcg Fluticasone Propionate (Fluticasone Propionate 100 Mcg Blst.W.Dev) 2 puff INHALE RDAILY [facility] Last Admin: 12/12/23 07:48 Dose: 2 puff Furosemide (Furosemide 20 Mg Tablet) 20 mg PO DAILY [facility]; Protocol Last Admin: 12/12/23 07:52 Dose: 20 mg Isosorbide Mononitrate (Isosorbide Mononitrate 60 Mg Tab.Er.24h) 120 mg PO DAILY [facility]; Protocol Last Admin: 12/12/23 07:52 Dose: 120 mg Loratadine (Loratadine 10 Mg Tablet) 10 mg PO DAILY PRN PRN Reason: Allergy Symptoms Metoprolol Succinate (Metoprolol Succinate Er 100 Mg Tab.Er.24h) 100 mg PO DAILY [facility]; Protocol Last Admin: 12/12/23 08:27 Dose: 100 mg Nitroglycerin (Nitroglycerin 0.4 Mg Tab.Subl) 0.4 mg SUBLINGUAL DAILY PRN PRN Reason: Chest Pain Ondansetron HCl (Ondansetron Hcl 4 Mg/2 Ml Vial) 4 mg IVPUSH Q8H PRN PRN Reason: Nausea and Vomiting Oxcarbazepine (Oxcarbazepine 150 Mg Tablet) 150 mg PO DAILY [facility] Last Admin: 12/12/23 07:52 Dose: 150 mg Sodium Chloride (0.9 % Sodium Chloride Flush 3 Ml Syringe) 3 ml IVFLUSH QSHIFT [facility] Last Admin: 12/12/23 07:53 Dose: 3 ml Tramadol HCl (Tramadol Hcl 50 Mg Tablet) 25 mg PO DAILY PRN PRN Reason: Pain, Moderate(Pain Scale 4-6) Vitamin D (Cholecalciferol (Vitamin D3) 25 Mcg Tablet) 25 mcg PO DAILY [facility] Last Admin: 12/12/23 07:52 Dose: 25 mcg Home Medications Medication Instructions Recorded Confirmed Last Taken Type cholecalciferol (vitamin D3) 25 25 mcg PO DAILY 09/16/20 12/11/23 10/29/23 History mcg (1,000 unit) capsule loratadine 10 mg tablet 10 mg PO DAILY PRN Allergy Symptoms 12/11/23 12/11/23 12/11/22 History Physical Exam 2 Vital Signs: Vital Signs: Last Vital Signs Temp 97.7 F 12/12/23 07:13 Pulse 74 12/12/23 07:51 Resp 18 12/12/23 07:51 BP 103/55 L 12/12/23 07:13 Pulse Ox 96 12/12/23 07:13 O2 Del Method Room Air 12/12/23 07:13 BMI result Body Mass Index 34.0 Const: General: cooperative, comfortable, no acute distress, well developed, alert and awake Nutritional Appearance: well nourished and obese O rientation/consciousness: patient oriented x3 Limitations: no limitations HEENT: Head: Yes normocephalic and Yes atraumatic Neck: Neck: Yes trachea midline, Yes supple and Yes no JVD Resp: Effort & Inspection: normal respiratory effort Auscultation: clear to auscultation bilaterally Cardio: Jugular venous distension: no JVD Palpation: normal PMI Rate: r egular rate Rhythm: regular rhythm Heart sounds: S1 normal heart sound present and S2 normal heart sound present GI: Auscultation: normal bowel sounds Skin: General skin exam: no rashes or lesions noted Neuro: General: patient oriented x3 and no focal motor deficits Extrem: General: Yes no clubbing, cyanosis or edema Objective Labs and Meds 12/11/23 15:53 12/12/23 07:10 Lab results: Laboratory Results - last 24 hr 12/11/23 12/12/23 15:53 07:10 WBC 5.1 RBC 4.25 Hgb 13.1 Hct 39.6 MCV 93.2 MCH 30.8 MCHC 33.1 RDW 13.2 Plt Count 246 MPV 9.9 Immature Gran % (Auto) 0.2 Neut % (Auto) 44.5 L Lymph % (Auto) 32.3 [place] % (Auto) 20.0 H Eos % (Auto) 1.8 Baso % (Auto) 1.2 Lymph # (Auto) 1.7 [place] # (Auto) 1.0 Eos # (Auto) 0.1 Baso # (Auto) 0.1 Abs Immat Gran (auto) 0.01 Absolute Neuts (auto) 2.3 Absolute Nucleated RBC 0.000 Nucleated RBC % (auto) 0.0 Hold Purple Top SEE NOTE Sodium 141 140 Potassium 4.0 3.9 Chloride 105 103 Carbon Dioxide 27 28 Anion Gap 13 13 BUN 19 H 16 Creatinine 1.05 0.92 Estim Creat Clear Calc 70.3 80.2 Estimated GFR 52 > 60 Random Glucose 97 98 Calcium 9.7 10.2 Total Bilirubin 1.1 H AST 26 ALT 24 Alkaline Phosphatase 54 Total Protein 7.2 Albumin 4.3 EKG on admission showed atrial fibrillation 2. EKG 3. Shows normal sinus rhythm with PACs with mildly prolonged QTC interval Assessment and Plan (1) Persistent atrial fibrillation: Status: Acute Persistent atrial fibrillation that promptly converted to sinus rhythm with 1 dose of Tikosyn. Feeling well with it. Continue to pursue Tikosyn protocol for total of 72 hours as recommended by FDA. Continue monitor EKGs 2 hours after Tikosyn dose. Continue metoprolol therapy. Avoidance of stimulants. Continue full oral anticoagulation with Eliquis. (2) CAD (coronary artery disease): Qualifiers: Coronary Disease-Associated Artery/Lesion type: [place] artery [place] vs. transplanted heart: [place] heart Associated angina: without angina Qualified Code(s): I25.10 - Atherosclerotic heart disease of [place] coronary artery without angina pectoris Status: Acute CAD without any symptoms of angina. Continue aggressive medical therapy including isosorbide and metoprolol. Nitroglycerin. Continue high-intensity statin therapy. Currently on full oral anticoagulation Eliquis and will therefore avoid aspirin therapy to reduce bleeding risk. Will continue to follow with you Procedures Date of Service Date of Service: 12/12/23
[2023-12-12] MEDS: Atorvastatin Calcium 80 MG TABLET PO (20:50)
--- NOTE | 2023-12-12 22:00 | ECG_ITS ---
Test Reason : qtc check Blood Pressure : / mmHG Vent. Rate : 083 BPM Atrial Rate : 083 BPM P-R Int : 172 ms QRS Dur : 072 ms QT Int : 414 ms P-R-T Axes : 021 038 -12 degrees QTc Int : 486 ms Normal sinus rhythm Nonspecific ST and T wave abnormality QT has lengthened Abnormal ECG When compared with ECG of 12-DEC-2023 03:17, Premature atrial complexes are no longer Present Referred By: Bryson Del Angel Electronically Signed By:ROMA SINGH MD
[2023-12-13 04:00] VITALS: BP 124/67; PULSE 67; RESP 18; TEMP 37; O2SAT 98
[2023-12-13 07:10] VITALS: BP 115/59; PULSE 64; RESP 18; TEMP 36.6; O2SAT 92
[2023-12-13 07:38] LABS: Anion Gap 11 (12-20); Blood Urea Nitrogen 15 mg/dL (9-16); Calcium 9.8 mg/dL (8.4-10.2); Carbon Dioxide 28 mmol/L (22-29); Chloride 105 mmol/L (96-108); Creatinine Clr Calc Pharmacy 84.8; Estimated Glomerular Filt Rate > 60; Glucose Random 100 mg/dL (60-115); Potassium 4.2 mmol/L (3.3-5.1); Sodium 140 mmol/L (135-145)
[2023-12-13] MEDS: Fluticasone Propionate 100 MCG BLST.W.DEV 2 PUFF INHALE (07:45)
[2023-12-13 07:47] VITALS: PULSE 67; RESP 18; O2SAT 95
[2023-12-13] MEDS: Dofetilide 125 MCG CAPSULE 250 MCG PO (08:19)
[2023-12-13] MEDS: Apixaban 5 MG TABLET PO ×2 (08:20→21:09)
[2023-12-13] MEDS: OXcarbazepine 150 MG TABLET PO (08:20)
[2023-12-13] MEDS: Isosorbide Mononitrate 60 MG TAB.ER.24H 120 MG PO (08:20)
[2023-12-13] MEDS: Furosemide 20 MG TABLET PO (08:20)
[2023-12-13] MEDS: Metoprolol Succinate ER 100 MG TAB.ER.24H PO (08:20)
[2023-12-13] MEDS: Cholecalciferol (Vitamin D3) 25 MCG TABLET PO (08:20)
[2023-12-13] MEDS: 0.9 % Sodium Chloride Flush 3 ML SYRINGE IVFLUSH ×2 (08:21→16:07)
--- NOTE | 2023-12-13 09:00 | ECG_ITS ---
Test Reason : Follow QTc Blood Pressure : / mmHG Vent. Rate : 071 BPM Atrial Rate : 071 BPM P-R Int : 158 ms QRS Dur : 088 ms QT Int : 436 ms P-R-T Axes : 021 028 -14 degrees QTc Int : 473 ms Normal sinus rhythm with sinus arrhythmia Nonspecific ST abnormality Abnormal ECG When compared with ECG of 12-DEC-2023 22:21, Aberrant conduction is no longer Present Referred By: Bryson Del Angel Electronically Signed By:ROMA SINGH MD
--- NOTE | 2023-12-13 10:40 | PM.PNCARD ---
Subjective Subjective Date of Service: 12/13/23 Principal diagnosis: Paroxysmal atrial fibrillation Interval history: Patient remains in sinus rhythm. She said she walked the hallway yesterday 6 times around the [place] and she says shortness of breath significantly improved. However QT interval is mildly prolonged. Review of Systems Review of Systems Yes all other systems are reviewed and are negative Physical Exam Vital Signs: Last Vital Signs Temp 97.8 F 12/13/23 07:10 Pulse 67 12/13/23 07:47 Resp 18 12/13/23 07:47 BP 115/59 L 12/13/23 07:10 Pulse Ox 92 12/13/23 07:10 O2 Del Method Room Air 12/13/23 07:10 BMI result Body Mass Index 34.0 Const General: cooperative, comfortable, no acute distress, well developed, alert and awake Nutritional Appearance: well nourished and obese Orientation/consciousness: patient oriented x3 Limitations: no limitations HEENT Head: Yes normocephalic and Yes atraumatic Neck Neck: Yes trachea midline, Yes supple and Yes no JVD Resp Effort & Inspection: normal respiratory effort Auscultation: clear to auscultation bilaterally Cardio Jugular venous distension: no JVD Palpation: normal PMI Rate: regular rate Rhythm: regular rhythm Heart sounds: S1 normal heart sound present and S2 normal heart sound present GI Auscultation: normal bowel sounds Skin General skin exam: no rashes or lesions noted Neuro General: patient oriented x3 and no focal motor deficits Extrem General: Yes no clubbing, cyanosis or edema Objective Labs and Meds 12/11/23 15:53 12/13/23 07:12 Lab results: Laboratory Results - last 24 hr 12/13/23 07:12 Hold Purple Top SEE NOTE Sodium 140 Potassium 4.2 Chloride 105 Carbon Dioxide 28 Anion Gap 11 L BUN 15 Creatinine 0.87 Estim Creat Clear Calc 84.8 Estimated GFR > 60 Random Glucose 100 Calcium 9.8 Progress Note: A&P Assessment and plan (1) Paroxysmal atrial fibrillation: Status: Inactive Assessment and Plan: Patient converted with Tikosyn. Doing very well with symptoms with exertion her shortness of breath is significantly improved. Continue rhythm control approach. Given her mild QT prolongation will reduce her Tikosyn dose to 125 mcg b.i.d. and follow-up for 2 more doses. Also lower the Toprol dose by half. Continue aggressive blood pressure control. Continue full oral anticoagulation with Eliquis. (2) CAD (coronary artery disease): Status: Acute Assessment and Plan: CAD which is currently stable. Continue current therapy. Continue full oral anticoagulation is high-intensity statin therapy. Will continue to follow with you Time Spent With Patient Time: Total time managing care of this patient today ____ minutes. Progress Note: Quality Stroke Does the patient have a stroke diagnosis?: No Procedures Date of Service Date of Service: 12/13/23
[2023-12-13 11:06] VITALS: BP 132/77; PULSE 84; RESP 20; TEMP 36.2; O2SAT 93
--- NOTE | 2023-12-13 11:54 | HO.PM.IMPN ---
Subjective Subjective Date of Service: 12/13/23 Interval History: Seen and evaluated this morning Still in Sinus rhythm No reported events QTc around 480s Review of Systems Review of Systems: Yes all other systems are reviewed and are negative Physical Exam Vital Signs: Vital Signs: Last Vital Signs Temp 97.1 F 12/13/23 11:06 Pulse 84 12/13/23 11:06 Resp 20 12/13/23 11:06 BP 132/77 12/13/23 11:06 Pulse Ox 93 12/13/23 11:06 O2 Del Method Room Air 12/13/23 11:06 BMI result Body Mass Index 34.0 Const: Other: Constitutional : Awake, interactive, not in distress Neck : Normal inspection, Supple Cardiovascular :regular rhythm , no JVP, no lower extremity edema Respiratory : good bilateral air entry, no crackles, wheezes or rhonchi Gastrointestinal: soft, lax, Normal bowel sounds, Non tender Skin : Warm, Dry Neurological : Alert & oriented x3, No focal deficit Objective Data Active Medications Acetaminophen (Acetaminophen 325 Mg Tablet) 650 mg PO Q6H PRN PRN Reason: Pain, Mild (Pain Scale 1-3) Apixaban (Apixaban 5 Mg Tablet) 5 mg PO BID [facility] Last Admin: 12/13/23 08:20 Dose: 5 mg Documented By: KING Atorvastatin Calcium (Atorvastatin Calcium 80 Mg Tablet) 80 mg PO BEDTIME [facility] Last Admin: 12/12/23 20:50 Dose: 80 mg Documented By: THEODORE Dofetilide (Dofetilide 125 Mcg Capsule) 125 mcg PO Q12H [facility] Fluticasone Propionate (Fluticasone Propionate 100 Mcg Blst.W.Dev) 2 puff INHALE RDAILY [facility] Last Admin: 12/13/23 07:45 Dose: 2 puff Documented By: SHANT Furosemide (Furosemide 20 Mg Tablet) 20 mg PO DAILY [facility]; Protocol Last Admin: 12/13/23 08:20 Dose: 20 mg Documented By: KING Isosorbide Mononitrate (Isosorbide Mononitrate 60 Mg Tab.Er.24h) 120 mg PO DAILY [facility]; Protocol Last Admin: 12/13/23 08:20 Dose: 120 mg Documented By: KING Loratadine (Loratadine 10 Mg Tablet) 10 mg PO DAILY PRN PRN Reason: Allergy Symptoms Metoprolol Succinate (Metoprolol Succinate Er 50 Mg Tab.Er.24h) 50 mg PO DAILY [facility]; Protocol Nitroglycerin (Nitroglycerin 0.4 Mg Tab.Subl) 0.4 mg SUBLINGUAL DAILY PRN PRN Reason: Chest Pain Ondansetron HCl (Ondansetron Hcl 4 Mg/2 Ml Vial) 4 mg IVPUSH Q8H PRN PRN Reason: Nausea and Vomiting Oxcarbazepine (Oxcarbazepine 150 Mg Tablet) 150 mg PO DAILY [facility] Last Admin: 12/13/23 08:20 Dose: 150 mg Documented By: KING Sodium Chloride (0.9 % Sodium Chloride Flush 3 Ml Syringe) 3 ml IVFLUSH QSHIFT [facility] Last Admin: 12/13/23 08:21 Dose: 3 ml Documented By: KING Tramadol HCl (Tramadol Hcl 50 Mg Tablet) 25 mg PO DAILY PRN PRN Reason: Pain, Moderate(Pain Scale 4-6) Vitamin D (Cholecalciferol (Vitamin D3) 25 Mcg Tablet) 25 mcg PO DAILY [facility] Last Admin: 12/13/23 08:20 Dose: 25 mcg Documented By: KING Labs 12/11/23 15:53 12/13/23 07:12 Labs: Laboratory Results - last 24 hr 12/13/23 07:12 Hold Purple Top SEE NOTE Anion Gap 11 L Estim Creat Clear Calc 84.8 Estimated GFR > 60 Random Glucose 100 Calcium 9.8 Assessment and Plan (1) Persistent atrial fibrillation: Status: Acute Plan A 68 years old lady with PMH of CAD, Seizure disorder, persistent Afib, SUSIE among others who presents to the hospital as direct admission by dr Caro for Tikosyn administration as she failed Sotalol outpatient. Dyspnea 2/2 symptomatic Persistent atrial fibrillation converted to sinus rhythm DEcrease Tikosyn to 125 mg bid Decrease Metoprolol 75 mg Continue Eliquis EKG for QTc prolongation Cardiology following To follow with ECGs post dose Hx CAD Continue Hx Seizure disorder Continue Oxcarbazepine HLD Statin DVT PPx Eliquis The patient will need at least overnight hospital stay for control of heart rhythm and resolution of dyspnea pending Finishing Tikosyn load. Quality Stroke Does the patient have a stroke diagnosis?: No VTE Prior VTE?: No VTE Risk Level:: Medical - moderate - high VTE Device Contraindication: Treatment Not Indicated VTE Drug Contraindication: N/A - Med Ordered
--- NOTE | 2023-12-13 14:34 | MHC.CM.PN ---
EMR reviewed and per MD rounds, pt is not medically cleared for D/C due to monitoring of remaining Tikosyn load. CM will continue to follow.
[2023-12-13 15:09] VITALS: BP 126/63; PULSE 89; RESP 19; TEMP 36.1; O2SAT 95
[2023-12-13 19:20] VITALS: BP 134/63; PULSE 85; RESP 16; TEMP 36.1; O2SAT 93
[2023-12-13] MEDS: Atorvastatin Calcium 80 MG TABLET PO (21:09)
[2023-12-13] MEDS: Dofetilide 125 MCG CAPSULE PO (21:09)
--- NOTE | 2023-12-13 22:00 | ECG_ITS ---
Test Reason : Follow QTc Blood Pressure : / mmHG Vent. Rate : 084 BPM Atrial Rate : 084 BPM P-R Int : 196 ms QRS Dur : 086 ms QT Int : 434 ms P-R-T Axes : 048 025 020 degrees QTc Int : 512 ms Normal sinus rhythm Low voltage QRS Nonspecific ST abnormality Prolonged QT Abnormal ECG When compared with ECG of 13-DEC-2023 10:29, No significant change was found Referred By: Bryson Del Angel Electronically Signed By:ROMA SINGH MD
[2023-12-14] VITALS: BP 128/72; PULSE 62; RESP 20
[2023-12-14 03:45] VITALS: BP 113/65; PULSE 63; RESP 20; TEMP 36.4; O2SAT 97
[2023-12-14 08:00] VITALS: BP 126/69; PULSE 78; RESP 16; TEMP 36.6; O2SAT 97
[2023-12-14] MEDS: Fluticasone Propionate 100 MCG BLST.W.DEV 2 PUFF INHALE (08:18)
[2023-12-14 08:21] VITALS: PULSE 83; RESP 16; O2SAT 92
[2023-12-14] MEDS: Furosemide 20 MG TABLET PO (08:29)
[2023-12-14] MEDS: Dofetilide 125 MCG CAPSULE PO (08:29)
[2023-12-14] MEDS: OXcarbazepine 150 MG TABLET PO (08:29)
[2023-12-14] MEDS: Isosorbide Mononitrate 60 MG TAB.ER.24H 120 MG PO (08:29)
[2023-12-14] MEDS: Cholecalciferol (Vitamin D3) 25 MCG TABLET PO (08:29)
[2023-12-14] MEDS: Apixaban 5 MG TABLET PO (08:29)
[2023-12-14] MEDS: Metoprolol Succinate ER 50 MG TAB.ER.24H PO (08:30)
[2023-12-14] MEDS: 0.9 % Sodium Chloride Flush 3 ML SYRINGE IVFLUSH (08:30)
[2023-12-14] MEDS: Acetaminophen 325 MG TABLET 650 MG PO (08:30)
--- NOTE | 2023-12-14 09:43 | PM.PNCARD ---
Subjective Subjective Date of Service: 12/14/23 Principal diagnosis: Paroxysmal atrial fibrillation Interval history: Patient remains in sinus rhythm. Feels very well. Able to walk the hallways without significant shortness of breath. QT is mildly prolonged. Tikosyn dose was reduced to 125 mcg b.i.d.. Review of Systems Review of Systems Yes all other systems are reviewed and are negative Physical Exam Vital Signs: Last Vital Signs Temp 97.9 F 12/14/23 08:00 Pulse 83 12/14/23 08:21 Resp 16 12/14/23 08:21 BP 126/69 12/14/23 08:00 Pulse Ox 97 12/14/23 08:00 O2 Del Method Room Air 12/14/23 08:00 BMI result Body Mass Index 34.0 Const General: cooperative, comfortable, no acute distress, well developed, alert and awake Nutritional Appearance: well nourished and obese Orientation/consciousness: patient oriented x3 Limitations: no limitations HEENT Head: Yes normocephalic and Yes atraumatic Neck Neck: Yes trachea midline, Yes supple and Yes no JVD Resp Effort & Inspection: normal respiratory effort Auscultation: clear to auscultation bilaterally Cardio Jugular venous distension: no JVD Palpation: normal PMI Rate: regular rate Rhythm: regular rhythm Heart sounds: S1 normal heart sound present and S2 normal heart sound present GI Auscultation: normal bowel sounds Skin General skin exam: no rashes or lesions noted Neuro General: patient oriented x3 and no focal motor deficits Extrem General: Yes no clubbing, cyanosis or edema Objective Labs and Meds 12/11/23 15:53 12/13/23 07:12 Progress Note: A&P Assessment and plan (1) Paroxysmal atrial fibrillation: Status: Inactive Assessment and Plan: Paroxysmal atrial fibrillation with much improved symptoms of exercise tolerance and shortness of breath in sinus rhythm. Will try to aggressively pursue rhythm control approach. Currently tolerating Tikosyn therapy well without any side effects. QT is mildly prolonged. Will follow up in the office after Holter monitor in 4 weeks time. Continue metoprolol but can reduce it to 50 mg daily. Avoidance of stimulants was discussed. Continue CPAP therapy. Continue aggressive blood pressure control. Continue full oral anticoagulation Eliquis. May consider ablation referral if she remains in sinus rhythm in the next 3-6 months (2) CAD (coronary artery disease): Status: Acute Assessment and Plan: CAD with no symptoms of angina at current point time. Continue current dual antianginal therapy. Continue aggressive lipid modification. Currently on full oral anticoagulation with Eliquis and will avoid aspirin therapy. Patient can be discharged home and will follow-up as outpatient Time Spent With Patient Time: Total time managing care of this patient today ____ minutes. Progress Note: Quality Stroke Does the patient have a stroke diagnosis?: No Procedures Date of Service Date of Service: 12/14/23
--- NOTE | 2023-12-14 10:12 | P.DS_ITS ---
DS: Providers Provider Date of Service: 12/14/23 Date of admission: 12/11/23 15:02 Primary care physician: Alexsander Burroughs MD Consults: 12/11/23 14:01 Consult to Cardiology Routine [place]ing [place] [facility] [place] Reason for consultation: Loading Tikosyn DS: Diagnosis Discharge Diagnosis (1) CAD (coronary artery disease): Status: Acute (2) Persistent atrial fibrillation: Status: Inactive DS: Summary Hospital Course Hospital Course: Admission note HPI A 68 years old lady with PMH of CAD, Seizure disorder, persistent Afib, SUSIE among others who presents to the hospital as direct admission by dr Caro for Tikosyn administration as she failed Sotalol outpatient. The patient was started on Sotalol about a month earlier and felt really good for few days before she developed a rash. She had to stop Sotalol and her Afib restarted again. No chest pain, SOB, nausea, vomiting, diarrhea or urinary symptoms. but she reports palpitations and dyspnea on exertion. She uses CPAP at home and takes her medications as prescribed. To start Tikosyn therapy inpatient. Hospital course The patient was admitted for treatment of symptomatic Persistent atrial fibrillation by loading Tikosyn. The patient was started on 250mcg with good response as she converted back to sinus rhythm and her dyspnea significantly improved. EKG monitored QTc which was between 450-480s. No abnormal rhythms noted. Decreased Tikosyn to 125 mg bid and Decrease Metoprolol to 50 mg XR daily. To follow with cardiology as outpatient. Continue Tikosyn 125 mcg twice daily Decrease Metoprolol to 50 mg XR Follow with dr Caro in office as scheduled Time Attestation Discharge coordination time: Greater than 30 minutes Quality: Safe Use of Opioids Does Pt have an Active Cancer Diagnosis on the Problem List?: No Quality: Stroke Does the patient have a stroke diagnosis?: No Physical Exam Vital Signs: Vital Signs: Last Vital Signs Temp 97.9 F 12/14/23 08:00 Pulse 83 12/14/23 08:21 Resp 16 12/14/23 08:21 BP 126/69 12/14/23 08:00 Pulse Ox 97 12/14/23 08:00 O2 Del Method Room Air 12/14/23 08:00 BMI result Body Mass Index 34.0 Const: Other: Constitutional : Awake, interactive, not in distress Neck : Normal inspection, Supple Cardiovascular :regular rhythm , no JVP, no lower extremity edema Respiratory : good bilateral air entry, no crackles, wheezes or rhonchi Gastrointestinal: soft, lax, Normal bowel sounds, Non tender Skin : Warm, Dry Neurological : Alert & oriented x3, No focal deficit DS: Data Data Completed and Pending Completed studies during hospitalization [Text1]: Procedures Assistance with Respiratory Ventilation, Less than 24 Consecutive Hours, Continuous Positive Airway Pressure (10/29/23) Discharge Plan Discharge Anticipated Discharge Date/Time: 12/14/23 10:02 Patient Disposition: Home, Self-Care Discharge Diagnosis: Persistent Atrial fibrillation Referrals: Po,Alexsander Schuler MD [Primary Care Provider] - 1 Week Discharge Medications: New metoprolol succinate 50 mg Tablet Extended Release 24 Hr 50 mg PO DAILY Qty: 90 0RF Protocol: Hold for SBP/HR < HOLD for SBP < : 90 HOLD for HR < : 60 dofetilide [Tikosyn] 125 mcg Capsule 125 mcg PO Q12H Qty: 60 0RF Continued Eliquis 5 mg tablet 5 mg PO BID Qty: 180 3RF oxcarbazepine 150 mg tablet 150 mg PO DAILY Qty: 90 2RF rosuvastatin 40 mg tablet 40 mg PO BEDTIME Qty: 90 3RF Arnuity Ellipta 100 mcg/actuation blister with device 1 inh inhalation DAILY Qty: 30 11RF loratadine 10 mg Tablet 10 mg PO DAILY PRN (Reason: Allergy Symptoms) tramadol 50 mg tablet 25 mg PO DAILY PRN (Reason: pain) Qty: 20 0RF nitroglycerin 0.4 mg tablet, sublingual 0.4 mg sublingual DAILY PRN (Reason: Chest Pain) Qty: 20 0RF Rx Instructions: Q5 min prn cp x 3 cholecalciferol (vitamin D3) 25 mcg (1,000 unit) capsule 25 mcg PO DAILY isosorbide mononitrate 120 mg tablet extended release 24 hr 120 mg PO DAILY Qty: 30 5RF furosemide [Lasix] 20 mg tablet 20 mg PO DAILY Qty: 40 2RF fluticasone propionate [Flovent HFA] 110 mcg/actuation HFA aerosol inhaler 2 puff inhalation DAILY 30 Days Qty: 12 5RF Discontinued metoprolol succinate 100 mg tablet extended release 24 hr 100 mg PO DAILY Qty: 90 3RF Discharge Orders: Discharge Order (Routine); Ordered 12/14/23 Ordered By: Bryson Del Angel Diet: Advance to usual diet Activity on Discharge: As tolerated Stand Alone Forms: Patient Portal Discharge page Care Plan Goals: Read below Health Concerns: Read below Plan of Treatment: Read below Assessment: You were admitted for administration of Tikosyn. Your heart rhythm converted to sinus as you were followed by senior storage engineer. Continue Tikosyn 125 mcg twice daily Decrease Metoprolol to 50 mg XR Follow with dr Caro in office as scheduled
--- NOTE | 2023-12-14 10:43 | MHC.CM.PN ---
Pt has been medically cleared for DC. She will go home via private transport, and no services referred.
== END 2023-12-14 11:00 | disposition home or self-care (01) | DRG 310 ==
PROVIDERS: Admitting Provider Student in an Organized Health Care Education/Training Program; PCP Internal Medicine; Visit Provider Student in an Organized Health Care Education/Training Program
DX: I48.19 Other persistent atrial fibrillation (principal); I25.10 Atherosclerotic heart disease of native coronary artery without angina pectoris; E78.5 Hyperlipidemia, unspecified; G47.33 Obstructive sleep apnea (adult) (pediatric); G40.909 Epilepsy, unspecified, not intractable, without status epilepticus; Z79.51 Long term (current) use of inhaled steroids; Z79.899 Other long term (current) drug therapy
CPT/HCPCS: 36415; 80048; 80053; 85025; 93005

== ENCOUNTER 2023-12-11 15:02 | Outpatient (BNV) | payer MEDICARE, SELFPAY | END 2023-12-13 09:00 | PROVIDERS: Admitting Provider Student in an Organized Health Care Education/Training Program; PCP Internal Medicine; Visit Provider Internal Medicine Cardiovascular Disease | DX: I45.81 Long QT syndrome (principal) | CPT/HCPCS: 93010 ==

== ENCOUNTER 2023-12-11 15:02 | Outpatient (BNV) | payer MEDICARE, SELFPAY | END 2023-12-12 01:09 | PROVIDERS: Admitting Provider Student in an Organized Health Care Education/Training Program; Visit Provider Internal Medicine Cardiovascular Disease | DX: R94.31 Abnormal electrocardiogram [ECG] [EKG] (principal) | CPT/HCPCS: 93010 ==

== ENCOUNTER → 2023-12-11 15:02 | Outpatient (BNV) | payer MEDICARE, SELFPAY | PROVIDERS: Admitting Provider Student in an Organized Health Care Education/Training Program; Visit Provider Student in an Organized Health Care Education/Training Program | DX: I48.19 Other persistent atrial fibrillation (principal) | CPT/HCPCS: 99222; 99232; 99239 ==

== ENCOUNTER → 2023-12-11 15:02 | Outpatient (BNV) | payer MEDICARE, SELFPAY | PROVIDERS: Admitting Provider Student in an Organized Health Care Education/Training Program; Visit Provider Internal Medicine Cardiovascular Disease | DX: I48.0 Paroxysmal atrial fibrillation (principal); I25.10 Atherosclerotic heart disease of native coronary artery without angina pectoris | CPT/HCPCS: 99222; 99233 ==

== ENCOUNTER 2023-12-23 09:20 | Outpatient (AMB) | payer MEDICARE, SELFPAY ==
[2023-12-23 09:27] VITALS: BP 118/72; PULSE 90; O2SAT 97; BMI 33.5
--- NOTE | 2023-12-23 09:27 | A.OFFPC_ITS ---
Vital Signs 12/23/23 09:27 Height 6 ft Weight 247 lb BMI 33.5 BP 118/72 Blood Pressure Location Lt brachial Position Sitting Pulse 90 Pulse Source Pulse Oximeter Pulse Oximetry (%) 97 Oxygen Delivery Method Room Air Intake Visit Reasons: [facility] Allergies sotolol Allergy (Severe, Uncoded 12/06/23 14:09) Rash Tobacco use date assessed: 12/23/23 Fall risk assessment: No Falls in past year Last assessed Fall Risk: 12/23/23 Dental Screening Dental Screen Date: 12/23/23 Did you have a dental visit in the last 12 months?: Yes Did you have a dental problem in the last 6 months where you did not have access to dental care?: No Was dental information given to patient?: Patient has dentist HPI [facility] HPI Details 68-year-old obese female with atrial fib rillation coronary artery disease hypertension hypercholesterolemia impaired glucose tolerance obstructive sleep apnea generalized anxiety disorder and seizure disorder coming in for follow-up. Last seen in October 2023. Mammogram due colonoscopy due. Review of the notes was recently in the hospital in 12/14/2023 direct admission by Cardiology for Tikosyn administration patient failed sotalol.. After having a rash patient did see the nurse practitioner in November had pruritus erythema burning sensation after the sotalol initiation from hospitalization in November. on reducing med dofetilide and metoprolol- went back to A fib- called cardiology- dofetilide 150 mg [facility] Medical History (Updated 12/23/23 @ 09:54 by Alexsander Burroughs MD) Persistent atrial fibrillation (~2018) CAD (coronary artery disease) Pulmonary nodules Aspiration pneumonitis Tubular adenoma of colon (~2006) History of COVID-19 Osteoarthritis of left knee Impaired glucose tolerance Obesity (BMI 30-39.9) Glaucoma Seizure disorder Obstructive sleep apnea HLD (hyperlipidemia) HTN (hypertension) Surgical History History of cardiac cath History of colonoscopy History of appendectomy History of cataract surgery History of cardioversion History of eye surgery Family History Father CVD (cardiovascular disease) Mother CVD (cardiovascular disease) Sister Cancer Social History Household Members: None Housing: House Are you a primary animal care provider to a significant other at home: No Do you presently have visiting nurse or other home services: No Alcohol intake: current Alcohol intake frequency: holidays/special occasions only Patient Tobacco Use Status: Never used Tobacco e-Cigarette/Vaping Use: Never Used Second Hand Smoke Exposure: Yes Advance Directives Date on File: 11/01/23 service: No Current occupational status: retired Current occupation: rt handed Cognitive needs: No Hearing needs: No Vision needs: Yes (Glasses) Questionnaire Thrive Questionnaire Date Thrive assessed: 12/12/23 AUDIT C Alcohol Use Questionnaire (AUDIT-C) 1. How often do you have a drink containing alcohol?: Monthly or less 2. How many drinks containing alcohol do you have on a typical day when you are drinking?: 1 or 2 3. How often do you have six or more drinks on one occasion?: Never Total Score: 1 Score Reviewed/Action Taken: No TERRELL-7 AMB Questionnaire TERRELL-7 Date TERRELL - 7 assessed: 12/23/23 Source: Developed by Drs. Chato Veliz, Aysha Cox, Shaka Adamson and colleagues, with an educational ly from [employer]. Physical exam (Primary Care) Vital Signs: Last Vital Signs Pulse 90 12/23/23 09:27 BP 118/72 12/23/23 09:27 Pulse Ox 97 12/23/23 09:27 Oxygen Delivery Method Room Air 12/23/23 09:27 BMI result Body Mass Index 33.5 Tobacco/Smoking Status: Tobacco use Status Tobacco use date assessed 12/23/23 12/23/23 09:32 Patient Tobacco Use Status Never used Tobacco 12/23/23 09:32 e-Cigarette/Vaping Use Never Used 12/23/23 09:32 Thrive Assessment: Date of Thrive Assessment Date Thrive assessed 12/12/23 12/23/23 09:32 Const General: alert; No acute distress Eyes Conjunctivae: conjunctivae normal Resp Auscultation: clear to auscultation bilaterally Cardio Rate: regular rate Rhythm: regular rhythm GI Inspection: Yes normal to inspection Extrem General: Yes normal to inspection and No edema Assessment and Plan Assessment & Plan (1) Obesity (BMI 30-39.9): Code(s): E66.9 - Obesity, unspecified Plan: Diet and exercise (2) Generalized anxiety disorder: Code(s): F41.1 - Generalized anxiety disorder Plan: Continue with oxcarbazepine (3) Obstructive sleep apnea: Comment: in-lab PSG- AHI 24/hr, REM AHI 60/hr, O2 wilda 79% Code(s): G47.33 - Obstructive sleep apnea (adult) (pediatric) Plan: Continue to use the CPAP more than 4 hours a night and benefits from this (4) HTN (hypertension): Comment: Well controlled. Continue current meds Code(s): I10 - Essential (primary) hypertension Qualifiers: Hypertension type: essential hypertension Qualified Code(s): I10 - Essential (primary) hypertension Plan: Continue with blood pressure medication. Decrease salt intake and exercise pres ently on metoprolol 50 mg once a day isosorbide 120 mg once a day (5) HLD (hyperlipidemia): Comment: LDL goal < 70. Well controlled. Continue statin Code(s): E78.5 - Hyperlipidemia, unspecified Qualifiers: Hyperlipidemia type: mixed hyperlipidemia Qualified Code(s): E78.2 - Mixed hyperlipidemia Plan: Avoid fried foods, chicken skin, eggs, butter margarine, pastries and meat. Be it pork or beef they have a lot of cholesterol LDL goal of less than 70 and triglyceride of less than 150 will need blood work. On rosuvastatin 40 mg once a day (6) Seizure disorder: Comment: Complex partial [id number] not had in a long time per patient Code(s): G40.909 - Epilepsy, unspecified, not intractable, without status epilepticus (7) CAD (coronary artery disease): Code(s): I25.10 - Atherosclerotic heart disease of [place] coronary artery without angina pectoris Qualifiers: Coronary Disease-Associated Artery/Lesion type: [place] artery [place] vs. transplanted heart: [place] heart Associated angina: without angina Qu alified Code(s): I25.10 - Atherosclerotic heart disease of [place] coronary artery without angina pectoris Plan: Control the cholesterol, weight, blood pressure, diabetes presently on anticoagulation (8) Persistent atrial fibrillation: Onset Date: ~2018 Comment: (Dx 11/2019, s/p cardioversion 10/2022), converted to nsr with sotalol but developed rash Code(s): I48.19 - Other persistent atrial fibrillation Plan: Patient had an allergic reaction sotalol and presently placed on dofetilide and metoprolol. Continue with anticoagulation Medications: Changed From dofetilide (Tikosyn) 125 mcg PO Q12H 60 caps 0RF To dofetilide 250 mcg PO Q12H 60 caps 0RF Refilled aluminum chloride 20% (Drysol) 1 appl topical 2XW PRN 37.5 mL 0RF excessive sweating R61 - Generalized hyperhidrosis Coding Level of Care Code Est Pt Level 4 (82994) Diagnoses Obesity (BMI 30-39.9) E66.9 Generalized anxiety disorder F41.1 Obstructive sleep apnea G47.33 Essential hypertension I10 Hypertension type: essential hypertension Mixed hyperlipidemia E78.2 Hyperlipidemia type: mixed hyperlipidemia Seizure disorder G40.909 Coronary artery disease involving [place] coronary artery of [place] heart without angina pectoris I25.10 Coronary Disease-Associated Artery/Lesion type: [place] artery [place] vs. transplanted heart: [place] heart Associated angina: without angina Persistent atrial fibrillation I48.19
== END 2023-12-23 10:51 | disposition home or self-care (01) ==
PROVIDERS: PCP Internal Medicine; Visit Provider Internal Medicine
DX: I48.19 Other persistent atrial fibrillation (principal); I25.10 Atherosclerotic heart disease of native coronary artery without angina pectoris; I10 Essential (primary) hypertension; G40.909 Epilepsy, unspecified, not intractable, without status epilepticus
CPT/HCPCS: 99214

== ENCOUNTER 2023-12-23 10:40 | Outpatient (AMB) | payer MEDICARE, SELFPAY ==
--- NOTE | 2023-12-23 10:51 | AM.OFFVISNUR ---
Intake Intake Visit Reasons: EKG Allergies sotolol Allergy (Severe, Uncoded 12/06/23 14:09) Rash Nursing Note Patient is in today for EKG on Tikosyn 250 mg EKG today show normal sinus rhythm BPM 88 . EKG was left with for review. Coding
== END 2023-12-23 10:58 | disposition home or self-care (01) ==
PROVIDERS: PCP Internal Medicine; Visit Provider Internal Medicine Cardiovascular Disease
DX: I48.19 Other persistent atrial fibrillation (principal)
CPT/HCPCS: 93244

== ENCOUNTER → 2023-12-23 10:40 | Outpatient (BNVA) | payer MEDICARE, SELFPAY | PROVIDERS: PCP Internal Medicine; Visit Provider Internal Medicine Cardiovascular Disease ==

== ENCOUNTER → 2023-12-23 10:56 | Outpatient (REF) | payer MEDICARE, SELFPAY ==
--- NOTE | 2023-12-23 10:58 | HM_ITS ---
Conclusion: 1. Patient was monitored for total period of 3 days 2. Baseline was normal sinus rhythm with average heart rate of 73 beats per minute 3. Intermittent episodes of atrial fibrillation with total burden of 21% with longest episode lasting 15 hours with fastest heart rate of 131 beats per minute 4. Occasional PACs noted 5. No significant pauses noted 6. No patient reported events MTDD
== END ==
LOC: HO.CARD 10:56
PROVIDERS: PCP Internal Medicine; Visit Provider Internal Medicine Cardiovascular Disease
DX: I48.19 Other persistent atrial fibrillation (principal)
CPT/HCPCS: 93242

== ENCOUNTER 2024-01-22 07:03 | Outpatient (REF) | payer MEDICARE, SELFPAY ==
[2024-01-22 07:22] LABS: MANUAL DIFF FLAG NO
[2024-01-22 08:00] LABS: Basophils Absolute Auto 0.1 X10*3/uL (0.0-0.2); Basophils Percent Auto 1.3 % (0-2); Eosinophils Absolute Auto 0.1 X10*3/uL (0.0-0.4); Eosinophils Percent Auto 2.6 % (0-4); Hematocrit 42.6 % (37.0-47.0); Hemoglobin 14.1 g/dl (12.0-16.0); Imm Gran Abs Auto 0.01 X10*3/uL (0.00-0.03); Imm Gran Pct Auto 0.2 % (0.0-0.4); Lymphocytes Percent Auto 37.3 % (20-40); Mean Corpuscular HGB Conc 33.1 g/dl (31.0-35.0); Mean Corpuscular Hemoglobin 31.3 pg (27.0-33.0); Mean Corpuscular Volume 94.7 fL (80.0-98.0); Mean Platelet Volume 10.7 fL (9.4-12.3); Monocytes Absolute Auto 0.8 X10*3/uL (0.1-1.2); Monocytes Percent Auto 14.5 % (2-11); Neutrophils Absolute Auto 2.4 x10*3/uL (2.0-8.3); Neutrophils Percent Auto 44.1 % (45-73); Platelet Count 250 X10*3/uL (160-400); Red Cell Distribution Width 13.2 % (11.0-16.0); White Blood Count 5.4 X10*3/uL (4.8-10.8)
[2024-01-22 08:01] LABS: Estimated Average Glucose 126 mg/dL; Hemoglobin A1C 152.2269 umol/L
[2024-01-22 08:32] LABS: Alanine Aminotransferase 28 U/L (0-31); Albumin Level 4.4 g/dL (3.5-5.0); Alkaline Phosphatase 66 U/L (39-117); Anion Gap 12 (12-20); Aspartate Amino Transferase 28 U/L (5-31); Bilirubin Total 0.8 mg/dL (0.0-1.0); Blood Urea Nitrogen 20 mg/dL (9-16); Calcium 10.1 mg/dL (8.4-10.2); Carbon Dioxide 29 mmol/L (22-29); Chloride 105 mmol/L (96-108); Cholesterol 133 mg/dL (<200); Estimated Glomerular Filt Rate > 60; Glucose Random 106 mg/dL (60-115); HDL Cholesterol 40 mg/dL (>40); LDL Cholesterol Calculated 68 mg/dL (<100); Potassium 3.9 mmol/L (3.3-5.1); Sodium 142 mmol/L (135-145); Total Protein 7.4 g/dL (6.5-8.0); Triglycerides 125 mg/dL (<150)
[2024-01-22 08:41] LABS: Free T4 (Free Thyroxine) 0.85 ng/dL (0.71-1.85); Thyroid Stimulating Hormone 2.38 uIU/mL (0.32-4.0); Vitamin D 25-OH Total 44.5 ng/mL (>30)
[2024-01-22 08:54] LABS: Folate 11.7 ng/mL (> or = 4.0); Vitamin B12 390 pg/mL (200-900)
[2024-01-22 09:00] LABS: B Type Natriuretic Peptide 86 pg/mL (<100)
== END 2024-01-22 07:04 | disposition home or self-care (01) ==
LOC: HO.LAB 07:03
PROVIDERS: PCP Internal Medicine; Visit Provider Internal Medicine
DX: R73.02 Impaired glucose tolerance (oral) (principal); E78.00 Pure hypercholesterolemia, unspecified
CPT/HCPCS: 36415; 80053; 80061; 82306; 82607; 82746; 83036; 83880; 84439; 84443; 85025

== ENCOUNTER 2024-01-23 09:48 | Outpatient (AMB) | payer MEDICARE, SELFPAY ==
--- NOTE | 2024-01-23 09:48 | A.OFFPC_ITS ---
Vital Signs 01/23/24 09:49 Height 6 ft Weight 252 lb BMI 34.2 BP 118/78 Blood Pressure Location Lt brachial Position Sitting Pulse 82 Pulse Source Pulse Oximeter Pulse Oximetry (%) 96 Oxygen Delivery Method Room Air Intake Visit Reasons: Pepper gooden [employer] Counsel Required: No Allergies sotolol Allergy (Severe, Uncoded 01/23/24 09:49) Rash Medication List - Last Reconciled 01/23/24 by Alexsander Burroughs MD aluminum chloride 20% (Drysol) 1 appl topical 2XW PRN apixaban (Eliquis) 5 mg PO BID cholecalciferol (vitamin D3) 25 mcg PO DAILY dofetilide 250 mcg PO Q12H fluticasone furoate 100 mcg/actuation (Arnuity Ellipta) 1 inh inhalation DAILY fluticasone propionate 110 mcg/actuation (Flovent HFA) 2 puffs inhalation DAILY 30 days furosemide (Lasix) 20 mg PO DAILY isosorbide mononitrate ER 120 mg PO DAILY loratadine 10 mg PO DAILY PRN metoprolol succinate ER 50 mg See Protocol PO DAILY nitroglycerin 0.4 mg sublingual DAILY PRN oxcarbazepine 150 mg PO DAILY rosuvastatin 40 mg PO BEDTIME tramadol 25 mg (1/2 x 50 mg) PO DAILY PRN Tobacco use date assessed: 01/23/24 Fall risk assessment: No Falls in past year Last assessed Fall Risk: 01/23/24 Dental Screening Dental Screen Date: 01/23/24 Did you have a dental visit in the last 12 months?: Yes Did you have a dental problem in the last 6 months where you did not have access to dental care?: No Was dental information given to patient?: Patient has dentist HPI [facility] HPI Details 68-year-old obese female with atrial fib rillation coronary artery disease seizure disorder hypercholesterolemia hypertension obstructive sleep apnea generalized anxiety disorder last seen in December 2023. Patient's mammogram is up-to-date bone density is up-to-date colonoscopy is due. Holter done in December:atient was monitored for total period of 3 days 2. Baseline was normal sinus rhythm with average heart rate of 73 beats per minute 3. Intermittent episodes of atrial fibri llation with total burden of 21% with longest episode lasting 15 hours with fastest heart rate of 131 beats per minute 4. Occasional PACs noted 5. No significant pauses noted 6. No patient reported events [facility] Medical History (Updated 12/23/23 @ 09:54 by Alexsander Burroguhs MD) Persistent atrial fibrillation (~2018) CAD (coronary artery disease) Pulmonary nodules Aspiration pneumonitis Tubular adenoma of colon (~2006) History of COVID-19 Osteoarthritis of left knee Impaired glucose tolerance Obesity (BMI 30-39.9) Glaucoma Seizure disorder Obstructive sleep apnea HLD (hyperlipidemia) HTN (hypertension) Surgical History History of cardiac cath History of colonoscopy History of appendectomy History of cataract surgery History of cardioversion History of eye surgery Family History Father CVD (cardiovascular disease) Mother CVD (cardiovascular disease) Sister Cancer Social History Household Members: None Housing: House Are you a primary senior care manager to a significant other at home: No Do you presently have visiting nurse or other home services: No Alcohol intake: current Alcohol intake frequency: holidays/special occasions only Patient Tobacco Use Status: Never used Tobacco e-Cigarette/Vaping Use: Never Used Second Hand Smoke Exposure: Yes Advance Directives Date on File: 11/01/23 service: No Current occupational status: retired Current occupation: rt handed Cognitive needs: No Hearing needs: No Vision needs: Yes (Glasses) Questionnaire Thrive Questionnaire Date Thrive assessed: 12/12/23 AUDIT C Alcohol Use Questionnaire (AUDIT-C) 1. How often do you have a drink containing alcohol?: Monthly or less 2. How many drinks containing alcohol do you have on a typical day when you are drinking?: 1 or 2 3. How often do you have six or more drinks on one occasion?: Never Total Score: 1 Score Reviewed/Action Taken: No TERRELL-7 AMB Questionnaire TERRELL-7 Date TERRELL - 7 assessed: 12/23/23 Source: Developed by Drs. Chato Veliz, Aysha Cox, Shaka Adamson and colleagues, with an educational ly from [employer]. Physical exam (Primary Care) Vital Signs: Last Vital Signs Pulse 82 01/23/24 09:49 BP 118/78 01/23/24 09:49 Pulse Ox 96 01/23/24 09:49 Oxygen Delivery Method Room Air 01/23/24 09:49 BMI result Body Mass Index 34.2 Tobacco/Smoking Status: Tobacco use Status Tobacco use date assessed 01/23/24 01/23/24 09:52 Patient Tobacco Use Status Never used Tobacco 01/23/24 09:52 e-Cigarette/Vaping Use Never Used 01/23/24 09:52 Thrive Assessment: Date of Thrive Assessment Date Thrive assessed 12/12/23 01/23/24 09:52 Const General: alert; No acute distress Eyes Conjunctivae: conjunctivae normal Resp Auscultation: clear to auscultation bilaterally Cardio Rate: regular rate Rhythm: regular rhythm GI Inspection: Yes normal to inspection Extrem General: Yes normal to inspection and No edema Immunizations tetanus-diphtheria toxoids-Td 2 Lf unit-2 Lf unit/0.5 mL IM suspension Performing Provider: Alexsander Burroughs MD Performing Location: [facility] Administered by: FELIPA Gill on 01/23/24 10:30 Dose Route Admin Location Dispensed Lot Number Expiration Date NDC [employer] 0.5 mL IM Left Deltoid 0.5 mL [id number] 04/06/24 [address]-7 [employer] VIS Given Date VIS Provided VIS Publication Date 01/23/24 Single Vaccine 21 Eligibility Eligibility Date Funding Source Not VFC Eligible 01/23/24 [facility] Assessment and Plan Assessment & Plan (1) Persistent atrial fibrillation: Onset Date: ~2018 Comment: (Dx 11/2019, s/p cardioversion 10/2022), converted to nsr with sotalol but developed rash Code(s): I48.19 - Other persistent atrial fibrillation Plan: Continue with anticoagulation and on dofetilide right now (2) CAD (coronary artery disease): Code(s): I25.10 - Atherosclerotic heart disease of [place] coronary artery without angina pectoris Qualifiers: Associated angina: without angina Coronary Disease-Associated Artery/Lesion type: [place] artery [place] vs. transplanted heart: [place] heart Qualified Code(s): I25.10 - Atherosclerotic heart disease of [place] coronary artery without angina pectoris Plan: Control the cholesterol, weight, blood pressure, presently on anticoagulation (3) Seizure disorder: Comment: Complex partial [id number] not had in a long time per patient Code(s): G40.909 - Epilepsy, unspecified, not intractable, without status epilepticus Plan: Continue with present medication (4) HTN (hypertension): Comment: Well controlled. Continue current meds Code(s): I10 - Essential (primary) hypertension Qualifiers: Hypertension type: essential hypertension Qualified Code(s): I10 - Essential (primary) hypertension Plan: Continue with blood pressure medication. Decrease salt intake and exercise on metoprolol 50 mg once a day (5) HLD (hyperlipidemia): Comment: LDL goal < 70. Well controlled. Continue statin Code(s): E78.5 - Hyperlipidemia, unspecified Qualifiers: Hyperlipidemia type: mixed hyperlipidemia Qualified Code(s): E78.2 - Mixed hyperlipidemia Plan: Avoid fried foods, chicken skin, eggs, butter margarine, pastries and meat. Be it pork or beef they have a lot of cholesterol LDL goal of less than 70 and triglyceride of less than 150 on rosuvastatin 40 mg once a day (6) Obstructive sleep apnea: Comment: in-lab PSG- AHI 24/hr, REM AHI 60/hr, O2 wilda 79% Code(s): G47.33 - Obstructive sleep apnea (adult) (pediatric) Plan: Continue with CPAP more than 4 hours a night and benefits from this (7) Impaired glucose tolerance: Code(s): R73.02 - Impaired glucose tolerance (oral) Plan: Decrease the amount of carbohydrate intake, pasta, bread, rice and potatoes are all sugar and that is aside from all the sweet stuff, remember that fruits are good but they are Sweet also. (8) Generalized anxiety disorder: Code(s): F41.1 - Generalized anxiety disorder Plan: Continue with present medication (9) Obesity (BMI 30-39.9): Code(s): E66.9 - Obesity, unspecified Plan: Diet and exercise Orders: Orders Td State Immunization Today Z23 - Encounter for immunization Medications: Refilled tramadol 25 mg (1/2 x 50 mg) PO DAILY PRN 20 tabs 0RF pain M54.9 - Dorsalgia, unspecified Coding Level of Care Code Est Pt Level 4 (21968) Diagnoses Persistent atrial fibrillation I48.19 Coronary artery disease involving [place] coronary artery of [place] heart without angina pectoris I25.10 Associated angina: without angina Coronary Disease-Associated Artery/Lesion type: [place] artery [place] vs. transplanted heart: [place] heart Seizure disorder G40.909 Essential hypertension I10 Hypertension type: essential hypertension Mixed hyperlipidemia E78.2 Hyperlipidemia type: mixed hyperlipidemia Obstructive sleep apnea G47.33 Impaired glucose tolerance R73.02 Generalized anxiety disorder F41.1 Obesity (BMI 30-39.9) E66.9
[2024-01-23 09:49] VITALS: BP 118/78; PULSE 82; O2SAT 96; BMI 34.2
== END 2024-01-23 10:39 | disposition home or self-care (01) ==
PROVIDERS: PCP Internal Medicine; Visit Provider Internal Medicine
DX: I48.19 Other persistent atrial fibrillation (principal); G40.909 Epilepsy, unspecified, not intractable, without status epilepticus; I25.10 Atherosclerotic heart disease of native coronary artery without angina pectoris; Z23 Encounter for immunization; I10 Essential (primary) hypertension; E66.9 Obesity, unspecified; Z68.34 Body mass index [BMI] 34.0-34.9, adult; E78.2 Mixed hyperlipidemia; G47.33 Obstructive sleep apnea (adult) (pediatric); R73.02 Impaired glucose tolerance (oral); F41.1 Generalized anxiety disorder
CPT/HCPCS: 90471; 90714; 99214

== ENCOUNTER 2024-01-27 09:41 | Outpatient (AMB) | payer MEDICARE, SELFPAY ==
[2024-01-27 09:44] VITALS: BP 126/70; PULSE 89; BMI 34.4
--- NOTE | 2024-01-27 09:44 | A.OFFVIS_ITS ---
Intake Vital Signs 01/27/24 09:44 Height 6 ft Weight 253 lb 15.56 oz BMI 34.4 BP 126/70 Blood Pressure Location Lt brachial Position Sitting Pulse 89 Pulse Source Pulse Oximeter Intake Visit Reasons: f/up holter/ cvr Intake Note: follow up for holter and CVR Appraiser Timber Required: No Allergies sotolol Allergy (Severe, Uncoded 01/23/24 09:49) Rash Medication List - Last Reconciled 01/27/24 by George Caro MD aluminum chloride 20% (Drysol) 1 appl topical 2XW PRN apixaban (Eliquis) 5 mg PO BID cholecalciferol (vitamin D3) 25 mcg PO DAILY dofetilide 250 mcg PO Q12H dofetilide 250 mcg PO fluticasone furoate 100 mcg/actuation (Arnuity Ellipta) 1 inh inhalation DAILY fluticasone propionate 110 mcg/actuation (Flovent HFA) 2 puffs inhalation DAILY 30 days furosemide (Lasix) 20 mg PO DAILY isosorbide mononitrate ER 120 mg PO DAILY metoprolol succinate ER 50 mg See Protocol PO DAILY nitroglycerin 0.4 mg sublingual DAILY PRN oxcarbazepine 150 mg PO DAILY rosuvastatin 40 mg PO BEDTIME tramadol 25 mg (1/2 x 50 mg) PO DAILY PRN HPI HPI Comments History of Present Illness Details Natacha comes for follow-up. Overall she says she has been breathing a lot better and maintaining rhythm. She says maintaining sinus rhythm as helped her significantly in terms of her activity level. She however still notice intermittent episode of atrial fibrillation about once a week usually when she is resting. She would check and she would notice that she has not feeling well and then heart would be in atrial fibrillation. The exact duration of these episodes unknown. These are infrequent. She has no bleeding issues or neurologic events. Recent LDL is 68 mg/dL. She denies any exertional chest pain or tightness. No orthopnea, PND, leg edema. No worsening heart failure symptoms. [facility] Medical History (Updated 01/27/24 @ 10:22 by George Caro MD) Chronic heart failure with preserved ejection fraction (HFpEF) Persistent atrial fibrillation (~2018) CAD (coronary artery disease) Pulmonary nodules Aspiration pneumonitis Tubular adenoma of colon (~2006) History of COVID-19 Osteoarthritis of left knee Impaired glucose tolerance Obesity (BMI 30-39.9) Glaucoma Seizure disorder Obstructive sleep apnea HLD (hyperlipidemia) HTN (hypertension) Surgical History History of cardiac cath History of colonoscopy History of appendectomy History of cataract surgery History of cardioversion History of eye surgery Family History Father CVD (cardiovascular disease) Mother CVD (cardiovascular disease) Sister Cancer Social History Household Members: None Housing: House Are you a primary career transition specialist to a significant other at home: No Do you presently have visiting nurse or other home services: No Alcohol intake: current Alcohol intake frequency: holidays/special occasions only Patient Tobacco Use Status: Never used Tobacco e-Cigarette/Vaping Use: Never Used Second Hand Smoke Exposure: Yes Advance Directives Date on File: 11/01/23 service: No Current occupational status: retired Current occupation: rt handed Cognitive needs: No Hearing needs: No Vision needs: Yes (Glasses) Review of Systems Const Denies chills, Denies fatigue, Denies fever(s), Denies frequent falls, Denies weakness, Denies weight gain and Denies weight loss ENT Denies dizziness Card Denies chest pain, Denies leg edema, Denies lightheadedness, Denies palpitations, Denies dyspnea, Denies dyspnea on exertion, Denies orthopnea and Denies other (loss of consciousness) Resp Denies cough, Denies dyspnea and Denies dyspnea on exertion GI Denies hematochezia and Denies change in stool character Musc Denies abnormal gait, Denies muscle weakness, Denies numbness, Denies radiating pain into limb and Denies tingling Neuro Denies abnormal gait, Denies dizziness, Denies frequent falls, Denies numbness, Denies tingling and Denies weakness Endo Denies fatigue and Denies palpitations Physical Exam Vital Signs: Last Vital Signs Pulse 89 01/27/24 09:44 BP 126/70 01/27/24 09:44 BMI result Body Mass Index 34.4 Const General: cooperative, comfortable, no acute distress, alert, awake and well groomed Nutritional Appearance: overweight Orientation/consciousness: patient oriented x3 Limitations: no limitations Neck Neck: Yes trachea midline, Yes supple and Yes JVD Resp Effort & Inspection: normal respiratory effort Auscultation: clear to auscultation bilaterally Cardio Jugular venous distension: JVD Palpation: normal PMI Rate: regular rate Rhythm: regular rhythm Heart sounds: S1 normal heart sound present, S2 normal heart sound present, no click, no gallops and no murmurs GI Auscultation: normal bowel sounds Neuro General: patient oriented x3 and no focal motor deficits Extrem General: Yes no clubbing, cyanosis or edema Psych Appearance: grossly normal Office Procedures EKG Details: EKG shows normal sinus rhythm with borderline QT interval with nonspecific ST T wave changes [id number], Complete Assessment & Plan Assessment & Plan (1) Paroxysmal atrial fibrillation: Code(s): I48.0 - Paroxysmal atrial fibrillation Plan: It has not clear that her symptoms of exertional shortness of breath the clear related to loss of AV synchrony. She is done extremely well since rhythm control approach with much improved symptoms of shortness of breath. She is looking forward to increasing her activity level and exercise. Continue current Tikosyn dose. Advised her to log her symptoms and see if they gradually improving with duration and frequency and intensity. They are then will continue pursue current medical therapy. If not then will probably need to uptitrate Tikosyn therapy and/or consider ablation. Continue full oral anticoagulation, currently on Eliquis 5 mg b.i.d.. Semi annual renal function test should be pursued. (2) CAD (coronary artery disease): Code(s): I25.10 - Atherosclerotic heart disease of [place] coronary artery without angina pectoris Qualifiers: Associated angina: without angina Coronary Disease-Associated Artery/Lesion type: [place] artery [place] vs. transplanted heart: [place] heart Qualified Code(s): I25.10 - Atherosclerotic heart disease of [place] coronary artery without angina pectoris Plan: CAD with no symptoms at current point time. Continue aggressive medical therapy. Currently on full oral anticoagulation with therefore avoid antiplatelet therapy. Continue dual antianginal therapy with metoprolol and isosorbide therapy. Continue rosuvastatin which is full dose and LDL well optimized at this point time. (3) Chronic heart failure with preserved ejection fraction (HFpEF): Code(s): I50.32 - Chronic diastolic (congestive) heart failure Plan: Heart failure preserved ejection fraction with normalized BNP with rhythm management as well as Lasix therapy. Continue current diuretic therapy. Daily weight avoidance of salt loading was discussed. Gradual titration of Lasix over time she maintains rhythm and symptoms improve will be pursued. Continue aggressive rhythm control approach. Continue aggressive blood pressure control. Advised daily weight monitoring avoidance of salt loading. Advised to increase activity level. Will follow up in the clinic in 6 months time, sooner p.r.n.. Thank you for allowing me to partake in her care Coding Level of Care Code Est Pt Level 4 (42516) Diagnoses Paroxysmal atrial fibrillation I48.0 Coronary artery disease involving [place] coronary artery of [place] heart without angina pectoris I25.10 Associated angina: without angina Coronary Disease-Associated Artery/Lesion type: [place] artery [place] vs. transplanted heart: [place] heart Chronic heart failure with preserved ejection fraction (HFpEF) I50.32 CPT Codes EKG - CPT: 08774-[id number], Complete ([id number])
== END 2024-01-27 10:12 | disposition home or self-care (01) ==
PROVIDERS: PCP Internal Medicine; Visit Provider Internal Medicine Cardiovascular Disease
DX: I48.0 Paroxysmal atrial fibrillation (principal); I25.10 Atherosclerotic heart disease of native coronary artery without angina pectoris; I50.32 Chronic diastolic (congestive) heart failure
CPT/HCPCS: 93010; 99214

== ENCOUNTER → 2024-01-27 09:41 | Outpatient (BNVA) | payer MEDICARE, SELFPAY | PROVIDERS: PCP Internal Medicine; Visit Provider Internal Medicine Cardiovascular Disease | DX: I48.0 Paroxysmal atrial fibrillation (principal); I25.10 Atherosclerotic heart disease of native coronary artery without angina pectoris; I50.32 Chronic diastolic (congestive) heart failure | CPT/HCPCS: 93005; 99212 ==

== ENCOUNTER → 2024-02-18 08:01 | Outpatient (BNVA) | payer MEDICARE, SELFPAY | PROVIDERS: PCP Internal Medicine; Visit Provider Nurse Practitioner Family ==

== ENCOUNTER 2024-05-07 07:38 | Outpatient (REF) | payer MEDICARE, SELFPAY ==
[2024-05-07 09:35] LABS: MANUAL DIFF FLAG NO
[2024-05-07 10:19] LABS: Basophils Absolute Auto 0.1 X10*3/uL (0.0-0.2); Basophils Percent Auto 1.6 % (0-2); Eosinophils Absolute Auto 0.1 X10*3/uL (0.0-0.4); Hematocrit 42.6 % (37.0-47.0); Hemoglobin 14.2 g/dl (12.0-16.0); Imm Gran Abs Auto 0.01 X10*3/uL (0.00-0.03); Imm Gran Pct Auto 0.2 % (0.0-0.4); Lymphocytes Absolute Auto 1.5 X10*3/uL (1.2-4.9); Lymphocytes Percent Auto 29.1 % (20-40); Mean Corpuscular HGB Conc 33.3 g/dl (31.0-35.0); Mean Corpuscular Hemoglobin 31.1 pg (27.0-33.0); Mean Corpuscular Volume 93.4 fL (80.0-98.0); Mean Platelet Volume 10.7 fL (9.4-12.3); Monocytes Absolute Auto 0.5 X10*3/uL (0.1-1.2); Monocytes Percent Auto 10.2 % (2-11); Neutrophils Absolute Auto 2.9 x10*3/uL (2.0-8.3); Neutrophils Percent Auto 56.9 % (45-73); Platelet Count 230 X10*3/uL (160-400); Red Blood Count 4.56 X10*6/uL (4.20-5.50); White Blood Count 5.1 X10*3/uL (4.8-10.8)
[2024-05-07 10:50] LABS: Anion Gap 15 (12-20); Blood Urea Nitrogen 16 mg/dL (9-16); Calcium 10.2 mg/dL (8.4-10.2); Carbon Dioxide 24 mmol/L (22-29); Chloride 108 mmol/L (96-108); Estimated Glomerular Filt Rate 47; Glucose Random 133 mg/dL (60-115); Potassium 3.8 mmol/L (3.3-5.1); Sodium 143 mmol/L (135-145)
[2024-05-07 10:58] LABS: Erythrocyte Sedimentation Rate 12 MM/HR (0-20)
[2024-05-09 22:24] LABS: Anti Nuclear Antibody Screen NEGATIVE (NEGATIVE)
[2024-05-11 20:43] LABS: Cyclic Citrullinated Peptide <16 UNITS
[2024-05-11 23:43] LABS: Immunoglobulin E 13 kU/L (<OR=114)
[2024-05-20 14:52] LABS: Asperg fumigatus Precip Abs NEGATIVE (NEGATIVE); Micropoly faeni Abs NEGATIVE (NEGATIVE); Pigeon serum Abs NEGATIVE (NEGATIVE); Saccharo pora viridis Abs NEGATIVE (NEGATIVE); Thermo candidus Abs NEGATIVE (NEGATIVE); Thermoa vulgaris #1 NEGATIVE (NEGATIVE)
== END 2024-05-07 07:39 | disposition home or self-care (01) ==
LOC: HO.LAB 07:38
PROVIDERS: PCP Internal Medicine; Visit Provider Hospitalist
DX: J69.0 Pneumonitis due to inhalation of food and vomit (principal); R91.8 Other nonspecific abnormal finding of lung field; J30.2 Other seasonal allergic rhinitis
CPT/HCPCS: 36415; 80048; 82785; 85025; 85652; 86003; 86038; 86200; 86331; 86606; 86609

== ENCOUNTER 2024-05-07 15:10 | Outpatient (AMB) | payer MEDICARE, SELFPAY ==
[2024-05-07 15:34] VITALS: BP 120/62; RESP 73; O2SAT 94; BMI 33.2
--- NOTE | 2024-05-07 15:34 | A.OFFPC_ITS ---
Vital Signs 05/07/24 15:34 Height 6 ft Weight 245 lb BMI 33.2 BP 120/62 Blood Pressure Location Lt brachial Position Sitting Respiration 73 H Pulse Source Pulse Oximeter Pulse Oximetry (%) 94 Oxygen Delivery Method Room Air Intake Visit Reasons: vertigo Nuclear Powerplant Supervisor Required: No Last Model Department Supervisor: Not Required per policy Accompanied by: Self / Same As Patient Allergies sotolol Allergy (Severe, Uncoded 05/07/24 15:34) Rash Tobacco use date assessed: 01/23/24 Fall risk assessment: No Falls in past year Last assessed Fall Risk: 05/07/24 Dental Screening Dental Screen Date: 01/23/24 HPI vertigo HPI Details 69-year-old obese female with atrial fib rillation coronary artery disease hypertension hypercholesterolemia obstructive sleep apnea impaired glucose tolerance generalized anxiety disorder and seizure disorder last seen in 01/21/2024. Patient's last colonoscopy was done in March 2013. Review of the notes has seen Cardiology in 01/21/2024 still noticing intermittent episodes of atrial fibrillation once a week patient has been placed on Tikosyn on antic oagulation and with a history of diastolic heart failure on diuretics. concern on more episodes of a fib more and longer. complains of vertigo no chest pain PFSH Medical History Chronic heart failure with preserved ejection fraction (HFpEF) Persistent atrial fibrillation (~2018) CAD (coronary artery disease) Pulmonary nodules Aspiration pneumonitis Tubular adenoma of colon (~2006) History of COVID-19 Osteoarthritis of left knee Impaired glucose tolerance Obesity (BMI 30-39.9) Glaucoma Seizure disorder Obstructive sleep apnea HLD (hyperlipidemia) HTN (hypertension) Surgical History History of cardiac cath History of colonoscopy History of appendectomy History of cataract surgery History of cardioversion History of eye surgery Family History Father CVD (cardiovascular disease) Mother CVD (cardiovascular disease) Sister Cancer Social History Household Members: None Housing: House Are you a primary healthcare economics consultant to a significant other at home: No Do you presently have visiting nurse or other home services: No Alcohol intake: current Alcohol intake frequency: holidays/special occasions only Patient Tobacco Use Status: Never used Tobacco e-Cigarette/Vaping Use: Never Used Second Hand Smoke Exposure: Yes Advance Directives Date on File: 11/01/23 service: No Current occupational status: retired Current occupation: rt handed Cognitive needs: No Hearing needs: No Vision needs: Yes (Glasses) Questionnaire Thrive Questionnaire Date Thrive assessed: 12/12/23 TERRELL-7 AMB Questionnaire TERRELL-7 Date TERRELL - 7 assessed: 12/23/23 Source: Developed by Drs. Chato Veliz, Aysha Cox, Shaka Adamson and colleagues, with an educational ly from [employer]. Physical exam (Primary Care) Vital Signs: Last Vital Signs Resp 73 H 05/07/24 15:34 BP 120/62 05/07/24 15:34 Pulse Ox 94 05/07/24 15:34 Oxygen Delivery Method Room Air 05/07/24 15:34 BMI result Body Mass Index 33.2 Tobacco/Smoking Status: Tobacco use Status Tobacco use date assessed 01/23/24 05/07/24 15:35 Patient Tobacco Use Status Never used Tobacco 05/07/24 15:35 e-Cigarette/Vaping Use Never Used 05/07/24 15:35 Thrive Assessment: Date of Thrive Assessment Date Thrive assessed 12/12/23 05/07/24 15:35 Const General: alert; No acute distress Eyes Conjunctivae: conjunctivae normal Resp Auscultation: clear to auscultation bilaterally Cardio Rate: regular rate Rhythm: regular rhythm GI Inspection: Yes normal to inspection Extrem General: Yes normal to inspection and No edema Assessment and Plan Assessment & Plan (1) HTN (hypertension): Comment: Well controlled. Continue current meds Code(s): I10 - Essential (primary) hypertension Qualifiers: Hypertension type: essential hypertension Qualified Code(s): I10 - Essential (primary) hypertension Plan: Continue with blood pressure medication. Decrease salt intake and exercise on metoprolol 50 mg once a day (2) HLD (hyperlipidemia): Comment: LDL goal < 70. Well controlled. Continue statin Code(s): E78.5 - Hyperlipidemia, unspecified Qualifiers: Hyperlipidemia type: mixed hyperlipidemia Qualified Code(s): E78.2 - Mixed hyperlipidemia Plan: Avoid fried foods, chicken skin, eggs, butter margarine, pastries and meat. Be it pork or beef they have a lot of cholesterol LDL goal of less than 70 and triglyceride of less than 150 preferably lower on rosuvastatin 40 mg at bedtime (3) CAD (coronary artery disease): Code(s): I25.10 - Atherosclerotic heart disease of [place] coronary artery without angina pectoris Qualifiers: Coronary Disease-Associated Artery/Lesion type: [place] artery [place] vs. transplanted heart: [place] heart Associated angina: without angina Qualified Code(s): I25.10 - Atherosclerotic heart disease of [place] coronary artery without angina pectoris Plan: Control the cholesterol, weight, blood pressure, diabetes continuing with and Eliquis 5 mg twice a day semiannual renal function test (4) Persistent atrial fibrillation: Onset Date: ~2018 Comment: (Dx 11/2019, s/p cardioversion 10/2022), converted to nsr with sotalol but developed rash Code(s): I48.19 - Other persistent atrial fibrillation Plan: Continue with anticoagulation placed on Tikosyn and metoprolol (5) Chronic heart failure with preserved ejection fraction (HFpEF): Code(s): I50.32 - Chronic diastolic (congestive) heart failure Plan: Patient on furosemide and isosorbide mononitrate continue to weigh daily (6) Obstructive sleep apnea: Comment: in-lab PSG- AHI 24/hr, REM AHI 60/hr, O2 wilda 79% Code(s): G47.33 - Obstructive sleep apnea (adult) (pediatric) Plan: Continue with CPAP more than 4 hours a night and benefits from this (7) Generalized anxiety disorder: Code(s): F41.1 - Generalized anxiety disorder Plan: Continue with present medication. (8) Vertigo: Code(s): R42 - Dizziness and giddiness Plan: discussed about keeping well hydrated, Coding Level of Care Code Est Pt Level 4 (52710) Diagnoses Essential hypertension I10 Hypertension type: essential hypertension Mixed hyperlipidemia E78.2 Hyperlipidemia type: mixed hyperlipidemia Coronary artery disease involving [place] coronary artery of [place] heart without angina pectoris I25.10 Coronary Disease-Associated Artery/Lesion type: [place] artery [place] vs. transplanted heart: [place] heart Associated angina: without angina Persistent atrial fibrillation I48.19 Chronic heart failure with preserved ejection fraction (HFpEF) I50.32 Obstructive sleep apnea G47.33 Generalized anxiety disorder F41.1 Vertigo R42
== END 2024-05-07 16:48 | disposition home or self-care (01) ==
PROVIDERS: PCP Internal Medicine; Visit Provider Internal Medicine
DX: I48.19 Other persistent atrial fibrillation (principal); I11.0 Hypertensive heart disease with heart failure; I50.32 Chronic diastolic (congestive) heart failure; E78.2 Mixed hyperlipidemia; I25.10 Atherosclerotic heart disease of native coronary artery without angina pectoris; G47.33 Obstructive sleep apnea (adult) (pediatric); F41.1 Generalized anxiety disorder; R42 Dizziness and giddiness
CPT/HCPCS: 99214

== ENCOUNTER 2024-05-11 08:20 | Outpatient (AMB) | payer MEDICARE, SELFPAY ==
[2024-05-11 08:28] VITALS: BP 124/78; PULSE 75; O2SAT 94; BMI 33.9
--- NOTE | 2024-05-11 08:28 | A.OFFVIS_ITS ---
Vital Signs 05/11/24 08:28 Height 6 ft Weight 250 lb BMI 33.9 BP 124/78 Blood Pressure Location Lt brachial Position Sitting Pulse 75 Pulse Source Pulse Oximeter Pulse Oximetry (%) 94 Oxygen Delivery Method Room Air Intake Visit Reasons: Shortness of breath Environmental Analyst Required: No Allergies sotolol Allergy (Severe, Uncoded 05/11/24 08:30) Rash HPI Comments Details: The patient is a 69 y/o woman complainging of dyspnea on exertion. Moderate inseverity, worse when going up stairs. Had recent PFTs. This shows significantly reduced diffusion capacity and concern for pulmonary vascular disease and/or interstitial lung disease. She had a CXR personally reviewed by me without any evidence of acute disease. She will requiere a CT chest. Has atrial fibrillation and have been adherent to the Eliquis. Has never had bloodclots. Takes all her medications. She denies any orthopnea, PND, leg e cash. No lightheadedness, syncope. No bleeding issues or neurologic events. We did have her go on a brief walking oximetry and she did become dyspneic after going up stairs, She did not desaturate which is reassuring. 10/02/2023 the patient is here for a pulmonary follow-up visit. Overall the patient is doing about the same. Still having dyspnea on exertion. [id number] severity. We did review her CT scan of the chest which demonstrated some evidence of mild pneumonitis in addition to mild degree of bronchiectasis and also subcentimeter pulmonary nodule. The findings whenever dramatic but still could be if plain the patient has abnormal PFTs and also shortness of breath. The patient may be developing some degree of hypersensitivity. Be reasonable to try her on a course of inhaled cortical steroids see if she gets some relief. If she does not have any relief will be reasonable to get some blood work to assess for the pneumonitis. In addition to that she will need another CT scan in a year's time. 05/11/2024 the patient is here for a pulmonary follow-up visit. The patient has been doing well from a respiratory status. Has not had to use any rescue inhalers or therapies. This is reassuring. She did have a blood work with the allergy testing still pending. Her WENDY was negative which is reassuring. We again looked at her CT scan of the chest. She has subcentimeter pulmonary nodules. She has a significant history of secondhand smoke. The patient however never smoked. She also has some minimal bronchiectasis and some ground- glass opacities in the left base. She is having issues with atrial fibrillation which is going more into her. She is going to talk to Cardiology about changes. She has already had allergic reactions to sotalol. With history of pneumonitis I would steer away from amiodarone at this time. Regarding follow-up CT scans CT scan in 6 months will be warranted to follow-up with the pulmonary nodule in the pneumonitis. The patient right now is off inhalers. She is doing well. Her respiratory exam is reassuring. [facility] Medical History Chronic heart failure with preserved ejection fraction (HFpEF) Persistent atrial fibrillation (~2018) CAD (coronary artery disease) Pulmonary nodules Aspiration pneumonitis Tubular adenoma of colon (~2006) History of COVID-19 Osteoarthritis of left knee Impaired glucose tolerance Obesity (BMI 30-39.9) Glaucoma Seizure disorder Obstructive sleep apnea HLD (hyperlipidemia) HTN (hypertension) Surgical History History of cardiac cath History of colonoscopy History of appendectomy History of cataract surgery History of cardioversion History of eye surgery Family History Father CVD (cardiovascular disease) Mother CVD (cardiovascular disease) Sister Cancer Social History Household Members: None Housing: House Are you a primary childcare administrator to a significant other at home: No Do you presently have visiting nurse or other home services: No Alcohol intake: current Alcohol intake frequency: holidays/special occasions only Patient Tobacco Use Status: Never used Tobacco e-Cigarette/Vaping Use: Never Used Second Hand Smoke Exposure: Yes Advance Directives Date on File: 11/01/23 service: No Current occupational status: retired Current occupation: rt handed Cognitive needs: No Hearing needs: No Vision needs: Yes (Glasses) Review of Systems Const Denies chills, Denies fatigue, Denies fever(s), Denies frequent falls, Denies weakness, Denies weight gain and Denies weight loss ENT Denies dizziness Card Denies chest pain, Denies leg edema, Denies lightheadedness, Denies palpitations, Denies dyspnea, Reports dyspnea on exertion, Denies orthopnea and Denies other (loss of consciousness) Resp Denies cough, Denies dyspnea and Reports dyspnea on exertion GI Denies hematochezia and Denies change in stool character Musc Denies abnormal gait, Denies muscle weakness, Denies numbness, Denies radiating pain into limb and Denies tingling Skin/Breast Denies rash Neuro Denies abnormal gait, Denies dizziness, Denies frequent falls, Denies numbness, Denies tingling and Denies weakness Endo Denies fatigue and Denies palpitations Physical Exam Vital Signs: Last Vital Signs Pulse 75 05/11/24 08:28 BP 124/78 05/11/24 08:28 Pulse Ox 94 05/11/24 08:28 Oxygen Delivery Method Room Air 05/11/24 08:28 BMI result Body Mass Index 33.9 Const General: cooperative, comfortable, no acute distress, alert, awake and well groomed Orientation/consciousness: patient oriented x3 Limitations: no limitations HEENT Head: Yes normocephalic Neck Neck: Yes trachea midline, Yes supple and Yes no JVD Chest Chest palpation & inspection: normal inspection of the chest Resp Effort & Inspection: normal respiratory effort Auscultation: no crackles, no rales, no rhonchi, no wheezes and diminished lung sounds Cardio Rate: regular rate Rhythm: abnormal rhythm Heart sounds: S1 normal heart sound present and S2 normal heart sound present GI Auscultation: normal bowel sounds Skin General skin exam: no rashes or lesions noted Neuro General: patient oriented x3 and no focal motor deficits Extrem General: Yes no clubbing, cyanosis or edema Psych Appearance: grossly normal Assessment & Plan Assessment & Plan (1) Dyspnea: Code(s): R06.00 - Dyspnea, unspecified Category: Medical Qualifiers: Dyspnea type: dyspnea on exertion Qualified Code(s): R06.09 - Other forms of dyspnea (2) Abnormal PFTs (pulmonary function tests): Code(s): R94.2 - Abnormal results of pulmonary function studies Category: Medical (3) Persistent atrial fibrillation: Onset Date: ~2018 Code(s): I48.19 - Other persistent atrial fibrillation Category: Medical (4) Pneumonitis: Code(s): J98.4 - Other disorders of lung Category: Medical (5) Pulmonary nodules: Code(s): R91.8 - Other nonspecific abnormal finding of lung field Category: Medical Plan stopped Flovent Bloodwork pending Repeat CT chest in 6 months rate control, would avoid Amiodarone with the h/o of pneumonitis continue anticoagulation F/U 6 months Orders: Orders CT chest wo IV con 6 Months R91.8 - Other nonspecific abnormal finding of lung field Coding Level of Care Code Est Pt Level 4 (91839) Diagnoses Dyspnea on exertion R06.09 Dyspnea type: dyspnea on exertion Abnormal PFTs (pulmonary function tests) R94.2 Persistent atrial fibrillation I48.19 Pneumonitis J98.4 Pulmonary nodules R91.8 Time Spent (min) 17
== END 2024-05-11 08:48 | disposition home or self-care (01) ==
PROVIDERS: PCP Internal Medicine; Visit Provider Hospitalist
DX: R06.09 Other forms of dyspnea (principal); R94.2 Abnormal results of pulmonary function studies; I48.19 Other persistent atrial fibrillation; J98.4 Other disorders of lung; R91.8 Other nonspecific abnormal finding of lung field
CPT/HCPCS: 99214

== ENCOUNTER → 2024-05-11 08:20 | Outpatient (BNVA) | payer MEDICARE, SELFPAY | PROVIDERS: PCP Internal Medicine; Visit Provider Hospitalist | DX: R06.09 Other forms of dyspnea (principal); R94.2 Abnormal results of pulmonary function studies; J98.4 Other disorders of lung; R91.8 Other nonspecific abnormal finding of lung field; I48.19 Other persistent atrial fibrillation; Z79.01 Long term (current) use of anticoagulants | CPT/HCPCS: 99212 ==

== ENCOUNTER 2024-06-29 08:45 | Outpatient (REF) | payer MEDICARE, SELFPAY ==
[2024-06-30 10:29] LABS: Immunoglobulin A 168 mg/dL (70-320)
[2024-06-30 19:43] LABS: Gliadin Deamidated IgA Ab 3.4 U/mL; Gliadin Deamidated IgG Ab <1.0 U/mL; Transglutaminase Ab IgG <1.0 U/mL; Transglutaminase IgA <1.0 U/mL
[2024-07-08 12:23] LABS: Endomysial IgA Antibody Negative (Negative)
== END 2024-06-29 08:46 | disposition home or self-care (01) ==
LOC: HO.LAB 08:45
PROVIDERS: PCP Internal Medicine; Visit Provider Internal Medicine
DX: K58.9 Irritable bowel syndrome, unspecified (principal); R14.0 Abdominal distension (gaseous)
CPT/HCPCS: 36415; 82784; 86231; 86258; 86364

== ENCOUNTER 2024-07-23 08:41 | Outpatient (AMB) | payer MEDICARE, SELFPAY ==
--- NOTE | 2024-07-23 08:50 | A.OFFVIS_ITS ---
Vital Signs 07/23/24 08:51 Height 6 ft Weight 242 lb 8.136 oz BMI 32.9 BP 116/58 L Blood Pressure Location Lt brachial Position Sitting Pulse 72 Pulse Source Monitor Intake Visit Reasons: 6 mth fu Allergies sotolol Allergy (Severe, Uncoded 05/11/24 08:30) Rash Medication List - Last Reconciled 07/23/24 by George Caro MD aluminum chloride 20% (Drysol) 1 appl topical 2XW PRN apixaban (Eliquis) 5 mg PO BID cholecalciferol (vitamin D3) 25 mcg PO DAILY dofetilide 250 mcg PO Q12H 90 days furosemide 20 mg PO DAILY isosorbide mononitrate ER 120 mg PO DAILY metoprolol succinate ER 50 mg See Protocol PO DAILY nitroglycerin 0.4 mg sublingual DAILY PRN oxcarbazepine 150 mg PO DAILY rosuvastatin 40 mg PO BEDTIME tramadol 25 mg (1/2 x 50 mg) PO DAILY PRN HPI Comments Details: Natacha comes for follow-up. I last saw her she is having increasing symptoms of palpitation more recently. She feels like she is in atrial fibrillation, symptoms seem to be triggered by M[place] increased stress. She feels symptoms of rapid heart rate and then feels symptoms rising in the center of the chest and then choking feeling in the left side of her neck. With exertional activity she has no symptoms. In fact she says she feels better overall. She denies any worsening shortness of breath, orthopnea, PND. Takes all her medications. No recent other changes in health. [facility] Medical History Paroxysmal atrial fibrillation Persistent atrial fibrillation (~2018) Chronic heart failure with preserved ejection fraction (HFpEF) CAD (coronary artery disease) Pulmonary nodules Aspiration pneumonitis Tubular adenoma of colon (~2006) History of COVID-19 Osteoarthritis of left knee Impaired glucose tolerance Obesity (BMI 30-39.9) Glaucoma Seizure disorder Obstructive sleep apnea HLD (hyperlipidemia) HTN (hypertension) Surgical History History of cardiac cath History of colonoscopy History of appendectomy History of cataract surgery History of cardioversion History of eye surgery Family History Father CVD (cardiovascular disease) Mother CVD (cardiovascular disease) Sister Cancer Social History Household Members: None Housing: House Are you a primary career technical education instructor to a significant other at home: No Do you presently have visiting nurse or other home services: No Alcohol intake: current Alcohol intake frequency: holidays/special occasions only Patient Tobacco Use Status: Never used Tobacco e-Cigarette/Vaping Use: Never Used Second Hand Smoke Exposure: Yes Advance Directives Date on File: 11/01/23 service: No Current occupational status: retired Current occupation: rt handed Cognitive needs: No Hearing needs: No Vision needs: Yes (Glasses) Review of Systems Const Denies weakness ENT Denies dizziness Card Denies chest pain, Denies chest pain with activity, Denies syncope, Denies rapid heart rate, Denies pedal edema, Denies edema, Denies leg edema, Denies lightheadedness, Denies palpitations, Denies dyspnea, Denies dyspnea on exertion and Denies orthopnea Resp Denies cough, Denies dyspnea and Denies dyspnea on exertion GI Denies hematochezia and Denies change in stool character Musc Denies abnormal gait, Denies muscle cramps, Denies muscle weakness, Denies numbness, Denies radiating pain into limb and Denies tingling Neuro Denies abnormal gait, Denies dizziness, Denies syncope, Denies numbness, Denies tingling and Denies weakness Endo Denies palpitations Physical Exam Vital Signs: Last Vital Signs Pulse 72 07/23/24 08:51 BP 116/58 L 07/23/24 08:51 BMI result Body Mass Index 32.9 Const General: cooperative, comfortable, no acute distress, alert, awake and well groomed Nutritional Appearance: overweight Orientation/consciousness: patient oriented x3 Limitations: no limitations Neck Neck: Yes trachea midline, Yes supple and Yes JVD Resp Effort & Inspection: normal respiratory effort Auscultation: clear to auscultation bilaterally Cardio Jugular venous distension: JVD Palpation: normal PMI Rate: regular rate Rhythm: regular rhythm Heart sounds: S1 normal heart sound present, S2 normal heart sound present, no click, no gallops and no murmurs GI Auscultation: normal bowel sounds Neuro General: patient oriented x3 and no focal motor deficits Extrem General: Yes no clubbing, cyanosis or edema Psych Appearance: grossly normal Office Procedures EKG Details: EKG shows normal sinus rhythm normal EKG with [place] 43753-[id number], Complete Assessment & Plan Assessment & Plan (1) Paroxysmal atrial fibrillation: Code(s): I48.0 - Paroxysmal atrial fibrillation Category: Medical Plan: Highly symptomatic paroxysmal atrial fibrillation with increased burden recently probably induced by stress. Discussed about stress mitigation strategies. Avoidance of stimulants was discussed. Will increase Tikosyn to 375 mcg b.i.d.. Additional prescriptions have been provided. Follow-up EKG next week. Will check magnesium and potassium level along with renal function. Continue full oral anticoagulation with Eliquis 5 mg b.i.d.. She has done very well with rhythm control approach will continue pursue rhythm control approach. (2) Chronic heart failure with preserved ejection fraction (HFpEF): Code(s): I50.32 - Chronic diastolic (congestive) heart failure Category: Medical Plan: Heart failure preserved ejection fraction in the setting mostly with atrial fibrillation. Clinically has done well with rhythm control approach will continue pursue rhythm control approach currently having no symptoms. Continue low-dose Lasix therapy. Daily weight monitoring avoidance of salt loading was discussed continue aggressive blood pressure control. Continue treatment for sleep apnea. Management of heart failure were discussed. She understands agrees. Encouraged to continue remain active as tolerated. (3) CAD (coronary artery disease): Code(s): I25.10 - Atherosclerotic heart disease of [place] coronary artery without angina pectoris Category: Medical Qualifiers: Associated angina: without angina Coronary Disease-Associated Artery/Lesion type: [place] artery [place] vs. transplanted heart: [place] heart Qualified Code(s): I25.10 - Atherosclerotic heart disease of [place] coronary artery without angina pectoris Plan: CAD with no current symptoms suggestive angina on dual antianginal therapy. Continue the same. Currently on full oral anticoagulation with Eliquis and therefore would avoid antiplatelet therapy. Continue high-intensity statin therapy. Target goal LDL closer to 60 mg/dL. Blood pressure is currently well optimized. Will follow up in the clinic in 6 months time, sooner p.r.n.. Thank you for allowing me to partake in her care Orders: Orders Magnesium Today I50.32 - Chronic diastolic (congestive) heart failure Basic Metabolic Panel Today I50.32 - Chronic diastolic (congestive) heart failure Medications: New dofetilide (Tikosyn) 125 mcg PO Q12H 60 caps 2RF Coding Level of Care Code Est Pt Level 4 (54152) Diagnoses Paroxysmal atrial fibrillation I48.0 Chronic heart failure with preserved ejection fraction (HFpEF) I50.32 Coronary artery disease involving [place] coronary artery of [place] heart without angina pectoris I25.10 Associated angina: without angina Coronary Disease-Associated Artery/Lesion type: [place] artery [place] vs. transplanted heart: [place] heart CPT Codes EKG - CPT: 88150-[id number], Complete ([id number])
[2024-07-23 08:51] VITALS: BP 116/58; PULSE 72; BMI 32.9
== END 2024-07-23 09:17 | disposition home or self-care (01) ==
PROVIDERS: PCP Internal Medicine; Visit Provider Internal Medicine Cardiovascular Disease
DX: I48.0 Paroxysmal atrial fibrillation (principal); I50.32 Chronic diastolic (congestive) heart failure; I25.10 Atherosclerotic heart disease of native coronary artery without angina pectoris
CPT/HCPCS: 93010; 99214

== ENCOUNTER → 2024-07-23 08:41 | Outpatient (BNVA) | payer MEDICARE, SELFPAY | PROVIDERS: PCP Internal Medicine; Visit Provider Internal Medicine Cardiovascular Disease | DX: Z13.89 Encounter for screening for other disorder (principal) | CPT/HCPCS: 93005; 99212 ==

== ENCOUNTER 2024-07-23 09:21 | Outpatient (REF) | payer MEDICARE, SELFPAY ==
[2024-07-23 10:33] LABS: Anion Gap 10 (12-20); Blood Urea Nitrogen 14 mg/dL (9-16); Calcium 10.1 mg/dL (8.4-10.2); Carbon Dioxide 30 mmol/L (22-29); Chloride 107 mmol/L (96-108); Estimated Glomerular Filt Rate 57; Glucose Random 113 mg/dL (60-115); Magnesium 2.1 mg/dL (1.6-2.6); Sodium 143 mmol/L (135-145)
== END 2024-07-23 09:22 | disposition home or self-care (01) ==
LOC: HO.LAB 09:21
PROVIDERS: PCP Internal Medicine; Visit Provider Internal Medicine Cardiovascular Disease
DX: I50.32 Chronic diastolic (congestive) heart failure (principal)
CPT/HCPCS: 36415; 80048; 83735; 93005; 99212

== ENCOUNTER → 2024-07-29 09:40 | Outpatient (BNVA) | payer MEDICARE, SELFPAY | PROVIDERS: PCP Internal Medicine; Visit Provider Internal Medicine Cardiovascular Disease ==

== ENCOUNTER 2024-09-03 08:36 | Outpatient (AMB) | payer MEDICARE, SELFPAY ==
--- NOTE | 2024-09-03 08:38 | A.OFFPC_ITS ---
Vital Signs 09/03/24 08:40 Height 6 ft Weight 109.316 kg BMI 32.7 BP 124/78 Blood Pressure Location Lt brachial Position Sitting Pulse 77 Pulse Source Pulse Oximeter Pulse Oximetry (%) 96 Oxygen Delivery Method Room Air Intake Visit Reasons: Atrial fibrillation Allergies sotolol Allergy (Severe, Uncoded 09/03/24 08:41) Rash Tobacco use date assessed: 01/23/24 Fall risk assessment: No Falls in past year Last assessed Fall Risk: 09/03/24 Dental Screening Dental Screen Date: 09/03/24 Did you have a dental visit in the last 12 months?: Yes Did you have a dental problem in the last 6 months where you did not have access to dental care?: No Was dental information given to patient?: Patient has dentist HPI Atrial fibrillation HPI Details 69-year-old obese female with atrial fib rillation coronary artery disease hypertension hypercholesterolemia congestive heart failure with preserved ejection fraction obstructive sleep apnea generalized anxiety disorder last seen in 05/21/2024. Patient is up-to-date with mammogram due for bone density due for colonoscopy. And scheduled 10/21/2024. Patient follows up with Cardiology July 23 patient continues to have palpitations concern about stress causing symptomatic paroxysmal atrial fibrillation. Advised Tikosyn to 375 mcg twice a day continuing with anticoagulation with Eliquis continue with diuretics for the congestive heart failure dual antianginal therapy statins LDL goal 60. Patient also follows up with Pulmonary May [address]24 CT scan pending in October 2024. concern on adhd and anxiety brought up and will do referral [facility] Medical History (Updated 09/03/24 @ 09:01 by Alexsander Burroughs MD) Paroxysmal atrial fibrillation Persistent atrial fibrillation (~2018) Chronic heart failure with preserved ejection fraction (HFpEF) CAD (coronary artery disease) Pulmonary nodules Aspiration pneumonitis Tubular adenoma of colon (~2006) History of COVID-19 Osteoarthritis of left knee Impaired glucose tolerance Obesity (BMI 30-39.9) Glaucoma Seizure disorder Obstructive sleep apnea HLD (hyperlipidemia) HTN (hypertension) Surgical History History of cardiac cath History of colonoscopy History of appendectomy History of cataract surgery History of cardioversion History of eye surgery Family History Father CVD (cardiovascular disease) Mother CVD (cardiovascular disease) Sister Cancer Social History Household Members: None Housing: House Are you a primary infant caregiver to a significant other at home: No Do you presently have visiting nurse or other home services: No Alcohol intake: current Alcohol intake frequency: holidays/special occasions only Patient Tobacco Use Status: Never used Tobacco e-Cigarette/Vaping Use: Never Used Second Hand Smoke Exposure: Yes Advance Directives Date on File: 11/01/23 service: No Current occupational status: retired Current occupation: rt handed Cognitive needs: No Hearing needs: No Vision needs: Yes (Glasses) Questionnaire PHQ-9 Over the last 2 weeks, how often have you been bothered by any of the following problems? 1. Little interest or pleasure in doing things: not at all 2. Feeling down, depressed, or hopeless: not at all 3. Trouble falling or staying asleep, or sleeping too much: not at all 4. Feeling tired or having little energy: not at all 5. Poor appetite or overeating: not at all 6. Feeling bad about yourself - or that you are a failure or have let yourself or your family down: not at all 7. Trouble concentrating on things, such as reading the newspaper or watching television: not at all 8. Moving or speaking so slowly that other people could have noticed. Or the opposite - being so fidgety or restless that you have been moving around a lot more than usual: not at all 9. Thoughts that you would be better off or of hurting yourself in some way: not at all Total score: 0 Source: Developed by Drs. Chato Veliz, Aysha Cox, Shaka Adamson and colleagues, with an educational ly from [employer]. Thrive Questionnaire Date Thrive assessed: 09/03/24 I am a: Patient What is your living situation today?: I have a steady place to live Within the past 12 months, did the food you bought not last and you didn't have the money to get more?: Never true Within the past 12 months, did you worry whether your food would run out before you got money to buy more?: Never true Do you have trouble paying for medicines?: No Do you have trouble getting transportation to medical appointments?: No Do you have trouble paying your heating and electricity bill?: No Do you have trouble taking care of your child, family member or friend?: No Do you have trouble with day-to-day activities such as bathing, preparing meals, shopping, managing finances, etc.?: No Are you currently unemployed and looking for a job?: No Are you interested in more education?: No Please select the resources that you would like help with: None Currently or been in a relationship where the following occur: No concerns reported THRIVE Score: 0 AUDIT C Alcohol Use Questionnaire (AUDIT-C) 1. How often do you have a drink containing alcohol?: Monthly or less 2. How many drinks containing alcohol do you have on a typical day when you are drinking?: 1 or 2 3. How often do you have six or more drinks on one occasion?: Never Total Score: 1 TERRELL-7 AMB Questionnaire TERRELL-7 Date TERRELL - 7 assessed: 09/03/24 Feeling nervous, anxious, or on edge: 0 = Not at all Not being able to stop or control worryin = Not at all Worrying too much about different things: 0 = Not at all Trouble relaxin = Not at all Being so restless that it is hard to sit still: 0 = Not at all Becoming easily annoyed or irritable: 0 = Not at all Feeling afraid as if something awful might happen: 0 = Not at all Total TERRELL-7 score (0-4 normal; 5-9 mild; 10-14 moderate; 15-21 severe): 0 Source: Developed by Drs. Chato Veliz, Aysha Cox, Shaka Adamson and colleagues, with an educational ly from [employer]. Physical exam (Primary Care) Vital Signs: Last Vital Signs Pulse 77 09/03/24 08:40 BP 124/78 09/03/24 08:40 Pulse Ox 96 09/03/24 08:40 Oxygen Delivery Method Room Air 09/03/24 08:40 BMI result Body Mass Index 32.7 Tobacco/Smoking Status: Tobacco use Status Tobacco use date assessed 01/23/24 09/03/24 08:44 Patient Tobacco Use Status Never used Tobacco 09/03/24 08:44 e-Cigarette/Vaping Use Never Used 09/03/24 08:44 PHQ-9: PHQ-9 Score PHQ-9: Total score 0 09/03/24 09:04 Thrive Assessment: Date of Thrive Assessment Date Thrive assessed 09/03/24 09/03/24 08:44 Currently or been in a relationship where the following occur: No concerns reported Const General: alert; No acute distress Eyes Conjunctivae: conjunctivae normal Resp Auscultation: clear to auscultation bilaterally Cardio Rate: regular rate Rhythm: regular rhythm GI Inspection: Yes normal to inspection Extrem General: Yes normal to inspection and No edema Office Procedures Flu Questionnaire Does the patient have a severe egg allergy?: No Does the patient have severe life threatening allergies?: No Does the patient have a fever or illness today?: No Has the patient ever had Guillain-[place] Syndrome?: No Has the patient ever had any past reaction to a flu shot?: No Immunizations Fluarix Triv [id number] (PF) 45 mcg (15 mcg x 3)/0.5 mL IM syringe Performing Provider: Alexsander Burroughs MD [facility] Administered by: FELIPA Guevara on 09/03/24 09:20 Dose Route Admin Location Dispensed Lot Number Expiration Date [facility] Business Transformation Analyst 0.5 mL IM Left Deltoid 0.5 mL [id number] 05/31/25 [id number] [employer] VIS Given Date VIS Provided VIS Publication Date 09/03/24 Single Vaccine 21 Eligibility Eligibility Date Funding Source Not [facility] Eligible 09/03/24 Private Coding Level of Care Code Est Pt Level 4 (60669) Diagnoses Paroxysmal atrial fibrillation I48.0 Chronic heart failure with preserved ejection fraction (HFpEF) I50.32 Coronary artery disease involving [place] coronary artery of [place] heart without angina pectoris I25.10 Associated angina: without angina Coronary Disease-Associated Artery/Lesion type: [place] artery [place] vs. transplanted heart: [place] heart Essential hypertension I10 Hypertension type: essential hypertension Mixed hyperlipidemia E78.2 Hyperlipidemia type: mixed hyperlipidemia Impaired glucose tolerance R73.02 Obstructive sleep apnea G47.33 Generalized anxiety disorder F41.1 Obesity (BMI 30-39.9) E66.9 Assessment & Plan Assessment & Plan (1) Paroxysmal atrial fibrillation: Code(s): I48.0 - Paroxysmal atrial fibrillation Category: Medical Plan: Highly symptomatic patient is following up with cardiology has increased dofetilide. Continuing with anticoagulation and advised electrolyte testing. (2) Chronic heart failure with preserved ejection fraction (HFpEF): Code(s): I50.32 - Chronic diastolic (congestive) heart failure Category: Medical Plan: Continuing with diuretics, weighing daily and record. (3) CAD (coronary artery disease): Code(s): I25.10 - Atherosclerotic heart disease of [place] coronary artery without angina pectoris Category: Medical Qualifiers: Associated angina: without angina Coronary Disease-Associated Artery/Lesion type: [place] artery [place] vs. transplanted heart: [place] heart Qualified Code(s): I25.10 - Atherosclerotic heart disease of [place] coronary a rtery without angina pectoris Plan: Control the cholesterol, weight, blood pressure, on anticoagulation (4) HTN (hypertension): Comment: Well controlled. Continue current meds Code(s): I10 - Essential (primary) hypertension Category: Medical Qualifiers: Hypertension type: essential hypertension Qualified Code(s): I10 - Essential (primary) hypertension Plan: Continue with blood pressure medication. Decrease salt intake and exercise patient on metoprolol 50 mg once a day (5) HLD (hyperlipidemia): Comment: LDL goal < 70. Well controlled. Continue statin Code(s): E78.5 - Hyperlipidemia, unspecified Category: Medical Qualifiers: Hyperlipidemia type: mixed hyperlipidemia Qualified Code(s): E78.2 - Mixed hyperlipidemia Plan: Avoid fried foods, chicken skin, eggs, butter margarine, pastries and meat. Be it pork or beef they have a lot of cholesterol rosuvastatin 40 mg once a day goal of cholesterol less than 60 (6) Impaired glucose tolerance: Code(s): R73.02 - Impaired glucose tolerance (oral) Category: Medical Plan: Decrease the amount of carbohydrate intake, pasta, bread, rice and potatoes are all sugar and that is aside from all the sweet stuff, remember that fruits are good but they are Sweet also. (7) Obstructive sleep apnea: Comment: in-lab PSG- AHI 24/hr, REM AHI 60/hr, O2 wild[place] 79% Code(s): G47.33 - Obstructive sleep apnea (adult) (pediatric) Category: Medical Plan: Continue to use the CPAP more than 4 hours a night and benefits from this (8) Generalized anxiety disorder: Code(s): F41.1 - Generalized anxiety disorder Category: Medical Plan: Discussion with the patient regarding anxiety and on oxcarbazepine (9) Obesity (BMI 30-39.9): Code(s): E66.9 - Obesity, unspecified Category: Medical Plan: Diet and exercise Orders: Orders Comprehensive Met. Panel Today I50.32 - Chronic diastolic (congestive) heart failure Free T4 (Free Thyroxine) Today I50.32 - Chronic diastolic (congestive) heart failure Thyroid Stimulating Hormone Today I50.32 - Chronic diastolic (congestive) heart failure Lipid Panel Today E78.00 - Pure hypercholesterolemia, unspecified, I50.32 - Chronic diastolic (congestive) heart failure Magnesium Today I50.32 - Chronic diastolic (congestive) heart failure Phosphorus Today I50.32 - Chronic diastolic (congestive) heart failure Influenza [id number] Immunization Today Z23 - Encounter for immunization Complete Blood Count Auto Diff Today I50.32 - Chronic diastolic (congestive) heart failure Vitamin B12 and Folate Today I50.32 - Chronic diastolic (congestive) heart marta lure Hemoglobin A1c Today I50.32 - Chronic diastolic (congestive) heart failure B Type Natriuretic Peptide Today I50.32 - Chronic diastolic (congestive) heart failure XR DEXA axial skeleton Today M54.9 - Dorsalgia, unspecified, M81.0 - Age- related osteoporosis without current pathological fracture Referrals Psychiatry Outpatient Consultation Service F41.1 - Generalized anxiety disorder Medications: New Fluarix Triv [id number] (PF) (flu vacc [id number] 6mos up(PF)) 0.5 mL IM ONCE 0.5 mL 0RF NS Z23 - Encounter for immunization
[2024-09-03 08:40] VITALS: BP 124/78; PULSE 77; O2SAT 96; BMI 32.7
== END 2024-09-03 09:24 | disposition home or self-care (01) ==
PROVIDERS: PCP Internal Medicine; Visit Provider Internal Medicine
DX: I48.0 Paroxysmal atrial fibrillation (principal); I50.32 Chronic diastolic (congestive) heart failure; E66.811 Obesity, class 1; Z68.32 Body mass index [BMI] 32.0-32.9, adult; I25.10 Atherosclerotic heart disease of native coronary artery without angina pectoris; I10 Essential (primary) hypertension; Z23 Encounter for immunization; E78.2 Mixed hyperlipidemia; R73.02 Impaired glucose tolerance (oral); G47.33 Obstructive sleep apnea (adult) (pediatric); F41.1 Generalized anxiety disorder

== ENCOUNTER → 2024-09-03 08:36 | Outpatient (BNVA) | payer MEDICARE, SELFPAY | PROVIDERS: PCP Internal Medicine; Visit Provider Internal Medicine | DX: Z23 Encounter for immunization (principal); G47.33 Obstructive sleep apnea (adult) (pediatric); G40.909 Epilepsy, unspecified, not intractable, without status epilepticus; I48.0 Paroxysmal atrial fibrillation; I50.32 Chronic diastolic (congestive) heart failure; I25.10 Atherosclerotic heart disease of native coronary artery without angina pectoris | CPT/HCPCS: 90471; 90656; 99212 ==

== ENCOUNTER 2024-09-03 11:29 | Outpatient (AMB) | payer MEDICARE, SELFPAY ==
--- NOTE | 2024-09-03 11:43 | A.OFFVIS_ITS ---
Vital Signs 09/03/24 11:45 Height 6 ft Weight 241 lb BMI 32.7 Intake Visit Reasons: 6M follow up Intake Note: Patient presents for 6 month follow up Allergies sotolol Allergy (Severe, Uncoded 09/03/24 11:45) Rash HPI Comments Details: 69-yr-old female presents for follow-up visit of sleep apnea and seizure d/o. Pt was last seen in Oct 2023 by our former colleague Marco Morales NP. Pt denies any significant interval medical history changes. She is using her CPAP machine with good effect, her residual AHI is now < 3/hr. Pt mentions that she was wondering if she still needed to take her trileptal. She has not seen her previous neurologist in some time. Her PCP has been refilling her oxcarbazepine. She does still take her trileptal, but may skip a day. Recent CBC and BMP- WNL. Pt reports she thinks she may have had a total of 4-5 seizures overall in [facility] and in college- as she had episodes of passing out and other episodes of all of a sudden feeling like she was waking up but was standing. She was diagnosed w/ seizure in early , as she had LOC w/ fall, and broke her fingers and injured her chin. She has had neuro work-up in the past- seizure etiology was never specifically identified. Her last seizure was ~15 yrs ago- when she was sick and possibly had not taken her seizure med. [place] [id number] Email: [email or web address] Compliance Report Usage 08/04/2024 - 09/02/2024 Usage days 24/30 days (80%) >= 4 hours 23 days (77%) < 4 hours 1 days (3%) Usage hours 179 hours 54 minutes Average usage (total days) 6 hours 0 minutes Average usage (days used) 7 hours 30 minutes Median usage (days used) 7 hours 38 minutes Total used hours (value since last reset - 09/02/2024) 6,553 hours [employer] Serial number [id number] Mode CPAP Set pressure 12 cmH2O EPR Fulltime EPR level 3 Therapy Leaks - L/min Median: 0.3 95th percentile: 10.8 Maximum: 20.1 Events per hour AI: 2.6 HI: 0.4 AHI: 3.0 PFSH Medical History (Updated 09/03/24 @ 09:01 by Alexsander Burroughs MD) Paroxysmal atrial fibrillation Persistent atrial fibrillation (~2018) Chronic heart failure with preserved ejection fraction (HFpEF) CAD (coronary artery disease) Pulmonary nodules Aspiration pneumonitis Tubular adenoma of colon (~2006) History of COVID-19 Osteoarthritis of left knee Impaired glucose tolerance Obesity (BMI 30-39.9) Glaucoma Seizure disorder Obstructive sleep apnea HLD (hyperlipidemia) HTN (hypertension) Surgical History History of cardiac cath History of colonoscopy History of appendectomy History of cataract surgery History of cardioversion History of eye surgery Family History Father CVD (cardiovascular disease) Mother CVD (cardiovascular disease) Sister Cancer Social History Household Members: None Housing: House Are you a primary health care legal assistant to a significant other at home: No Do you presently have visiting nurse or other home services: No Alcohol intake: current Alcohol intake frequency: holidays/special occasions only Patient Tobacco Use Status: Never used Tobacco e-Cigarette/Vaping Use: Never Used Second Hand Smoke Exposure: Yes Advance Directives Date on File: 11/01/23 service: No Current occupational status: retired Current occupation: rt handed Cognitive needs: No Hearing needs: No Vision needs: Yes (Glasses) Physical Exam Vital Signs: BMI result Body Mass Index 32.7 Const General: no acute distress Orientation/consciousness: patient oriented x3 HEENT Other: Mallampati stage Resp Effort & Inspection: normal respiratory effort and able to speak in complete sentences Neuro General: patient oriented x3 Psych Mental Status: mental status grossly normal Speech and movement: Clear speech present Attitude: cooperative Results Reviewed Results Reviewed: PAP compliance report- see HPI Assessment & Plan Assessment & Plan (1) Obstructive sleep apnea: Comment: in-lab PSG- AHI 24/hr, REM AHI 60/hr, O2 wilda 79% Code(s): G47.33 - Obstructive sleep apnea (adult) (pediatric) Category: Medical (2) Seizure disorder: Comment: Complex partial [id number] not had in a long time per patient Code(s): G40.909 - Epilepsy, unspecified, not intractable, without status epilepticus Category: Medical Plan For SUSIE: Continue CPAP 12 cmH2O nightly > 4 hours, as pt continues to have good clinical effect from use.. Clean CPAP machine and supplies routinely. Change CPAP supplies routinely. Pt to contact us or respiratory company with any questions or concerns. For seizure: Advised pt that if we were to trial weaning pt off of her AED, then she would need to have f/u EEG and adhere to seizure precautions for at least 3-6 months, such as NOT driving or engaging in high risk activities. Pt states she cannot not drive, and thus will continue current AED tx. Continue troleptal 150mg qd- advised to take consistently. She did ask if trileptal could be a cause of her glaucoma- discussed this si not a reported adverse effect. Recent CBC/BMP- NL. Pt to follow-up in 12 months or sooner prn. Coding Level of Care Code Est Pt Level 4 (00249) Diagnoses Obstructive sleep apnea G47.33 Seizure disorder G40.909
[2024-09-03 11:45] VITALS: BMI 32.7
== END 2024-09-03 12:26 | disposition home or self-care (01) ==
PROVIDERS: PCP Internal Medicine; Visit Provider Nurse Practitioner Family
DX: G47.33 Obstructive sleep apnea (adult) (pediatric) (principal); G40.909 Epilepsy, unspecified, not intractable, without status epilepticus

== ENCOUNTER 2024-09-04 09:33 | Outpatient (REF) | payer MEDICARE, SELFPAY ==
[2024-09-04 09:57] LABS: MANUAL DIFF FLAG NO
[2024-09-04 11:07] LABS: Basophils Absolute Auto 0.1 X10*3/uL (0.0-0.2); Eosinophils Absolute Auto 0.1 X10*3/uL (0.0-0.4); Eosinophils Percent Auto 1.4 % (0-4); Hematocrit 41.7 % (37.0-47.0); Hemoglobin 13.6 g/dl (12.0-16.0); Imm Gran Abs Auto 0.01 X10*3/uL (0.00-0.03); Imm Gran Pct Auto 0.2 % (0.0-0.4); Lymphocytes Absolute Auto 1.4 X10*3/uL (1.2-4.9); Lymphocytes Percent Auto 22.6 % (20-40); Mean Corpuscular HGB Conc 32.6 g/dl (31.0-35.0); Mean Corpuscular Hemoglobin 30.7 pg (27.0-33.0); Mean Corpuscular Volume 94.1 fL (80.0-98.0); Mean Platelet Volume 10.6 fL (9.4-12.3); Monocytes Absolute Auto 0.8 X10*3/uL (0.1-1.2); Monocytes Percent Auto 12.5 % (2-11); Neutrophils Absolute Auto 3.9 x10*3/uL (2.0-8.3); Neutrophils Percent Auto 62.3 % (45-73); Platelet Count 228 X10*3/uL (160-400); Red Blood Count 4.43 X10*6/uL (4.20-5.50); Red Cell Distribution Width 13.1 % (11.0-16.0); White Blood Count 6.3 X10*3/uL (4.8-10.8)
[2024-09-04 11:14] LABS: Estimated Average Glucose 128 mg/dL; Hemoglobin A1C 141.4551 umol/L; Hemoglobin A1c % 6.1 % (<6.0); Total Hemoglobin (HGBA1C) 3315.8373 umol/L
[2024-09-04 11:24] LABS: B Type Natriuretic Peptide 66 pg/mL (<100)
[2024-09-04 12:07] LABS: Folate 11.4 ng/mL (> or = 4.0); Vitamin B12 294 pg/mL (200-900)
[2024-09-04 12:43] LABS: Free T4 (Free Thyroxine) 0.89 ng/dL (0.71-1.85); Thyroid Stimulating Hormone 1.72 uIU/mL (0.32-4.0)
[2024-09-04 13:19] LABS: Alanine Aminotransferase 25 U/L (0-31); Albumin Level 4.4 g/dL (3.5-5.0); Alkaline Phosphatase 87 U/L (39-117); Anion Gap 12 (12-20); Aspartate Amino Transferase 24 U/L (5-31); Bilirubin Total 0.8 mg/dL (0.0-1.0); Blood Urea Nitrogen 14 mg/dL (9-16); Calcium 10.1 mg/dL (8.4-10.2); Carbon Dioxide 26 mmol/L (22-29); Chloride 104 mmol/L (96-108); Cholesterol 125 mg/dL (<200); Estimated Glomerular Filt Rate 58; Glucose Random 98 mg/dL (60-115); HDL Cholesterol 45 mg/dL (>40); LDL Cholesterol Calculated 57 mg/dL (<100); Magnesium 2.3 mg/dL (1.6-2.6); Phosphorus 3.5 mg/dL (2.7-4.5); Sodium 138 mmol/L (135-145); Total Protein 7.3 g/dL (6.5-8.0); Triglycerides 117 mg/dL (<150)
== END 2024-09-04 09:34 | disposition home or self-care (01) ==
LOC: HO.LAB 09:33
PROVIDERS: PCP Internal Medicine; Visit Provider Internal Medicine
DX: I50.32 Chronic diastolic (congestive) heart failure (principal); E78.00 Pure hypercholesterolemia, unspecified; Z13.1 Encounter for screening for diabetes mellitus
CPT/HCPCS: 36415; 80053; 80061; 82607; 82746; 83036; 83735; 83880; 84100; 84439; 84443; 85025

== ENCOUNTER 2024-10-07 08:32 | Outpatient (REF) | payer MEDICARE, SELFPAY ==
--- NOTE | ~2024-10-07 | MM_ITS ---
EXAMINATION: BONE DENSITOMETRY CLINICAL INDICATION: Age-related osteoporosis without current pathological fracture. COMPARISON: Previous BD dated 09/18/2022 and baseline BD dated 03/19/2008. TECHNIQUE: Using a [employer] DXA System (software version: 13.1) manufactured by [employer], dual-energy x-ray absorptiometry was performed of the lumbar spine and left hip. The images are of good technical quality. Summary results are attached. FINDINGS: LEFT FEMUR, NECK: Current: BMD 0.955 g/cm2, Z-score 1.2, T-score -0.6, normal. Prior: BMD 0.972 g/cm2. Baseline: BMD 0.940 g/cm2. LEFT FEMUR, TOTAL: Current: BMD 0.861 g/cm2, Z-score 0.4, T-score -1.2, osteopenia, 2.4% decrease from previous, 5.6% decrease from baseline (<5% change is not significant). Prior: BMD 0.882 g/cm2. Baseline: BMD 0.912 g/cm2. AP SPINE L1-L4: Current: BMD 1.287 g/cm2, Z-score 2.7, T-score 0.9, normal, 3.1% decrease from previous, 2.3% decrease from baseline (<5% change is not significant). Prior: BMD 1.328 g/cm2. Baseline: BMD 1.317 g/cm2. IDENTIFIED RISK FACTORS: Early menopause, family history (parent hip fracture), anticonvulsant, history of fracture (adult), secondary osteoporosis. HISTORY OF FRACTURE: Elbow. MEDICATIONS: Vitamin D. MM/XR DEXA axial skeleton IMPRESSION: 1. DIAGNOSIS: Osteopenia based on the lowest T-score value of -1.2 in the total femur applying World Health Organization criteria. 2. 10-YEAR FRACTURE RISK PREDICTION, FRAX: Major osteoporotic fracture (clinical spine, forearm, hip or shoulder) 16.1%. Hip fracture 2.7%. 3. Treatment Recommendations: NOF guidelines recommend consideration for treatment in postmenopausal women and men age 50 and older presenting with the following: -A hip or vertebral (clinical or morphometric) fracture. -T-score less than or equal to -2.5 at the femoral neck or spine after appropriate evaluation to exclude secondary causes. -Low bone mass at the hip or spine and a 10-year fracture probability by FRAX of greater than or equal to 3% for hip fracture or greater than or equal to 20% for major osteoporotic fracture based on the [place] adapted WHO algorithm. 4. Other Recommendations: All treatment decisions require clinical judgment and consideration of individual patient factors, including patient preferences, comorbidities, previous drug use, risk factors not captured in the FRAX model (e.g. frailty, falls, vitamin D deficiency, increased bone turnover, interval significant decline in bone density) and possible under or overestimation of fracture risk by FRAX. Additional medical evaluation for secondary cause of low bone mineral density may be appropriate. FUTURE SCAN RECOMMENDATION: People with diagnosed cases of osteoporosis or at high risk for fracture should have regular bone mineral density tests. For patients eligible for Medicare, routine testing is allowed once every 2 years. The testing frequency can be increased to one year for patients who have rapidly progressing disease, those who are receiving or discontinuing medical therapy to restore bone mass, or have additional risk factors. Electronically signed by: Alli Levi MD 10/07/2024 01:03 PM [facility]OL[facility]
== END 2024-10-07 08:33 | disposition home or self-care (01) ==
LOC: HO.MAMMO 08:32
PROVIDERS: PCP Internal Medicine; Visit Provider Internal Medicine
DX: M81.0 Age-related osteoporosis without current pathological fracture (principal); M54.9 Dorsalgia, unspecified
CPT/HCPCS: 77080

== ENCOUNTER 2024-10-12 08:48 | Day surgery (SDC) | payer MEDICARE, SELFPAY ==
[2024-10-08 14:06] VITALS: BMI 32.7
--- NOTE | 2024-10-09 09:38 | HO.ANESPROP2 ---
Documented by User: Erika Irving NP 10/09/24 09:46 HPI - Anesthesia Eval Consult details Narrative: 69yo F for Colonoscopy Follows [facility] for afib (eliquis), HFpEF, stable CAD. Stable at 07/2024 office visit. [facility] Active Problems Active Problems: All Active Problems Paroxysmal atrial fibrillation (Acute) Vertigo (Acute) Chronic heart failure with preserved ejection fraction (HFpEF) (Acute) CAD (coronary artery disease) (Acute) Medication monitoring encounter (Acute) Drug rash (Acute) Breast cancer screening by mammogram (Acute) Colon cancer screening (Acute) Pulmonary nodules (Acute) Pneumonitis (Acute) Aspiration pneumonitis (Acute) Abnormal PFTs (pulmonary function tests) (Acute) Dyspnea (Acute) Seizure disorder (Acute) HTN (hypertension) (Acute) HLD (hyperlipidemia) (Acute) Impaired glucose tolerance (Acute) Obstructive sleep apnea (Acute) Central sleep apnea (Acute) SOB (shortness of breath) on exertion (Acute) Back pain (Acute) Generalized anxiety disorder (Acute) Renal insufficiency (Acute) Urge incontinence (Acute) Restless leg syndrome (Acute) Hyperhidrosis (Acute) Obesity (BMI 30-39.9) (Acute) Closed fracture of head of left radius with routine healing (Acute) Bilateral shoulder pain (Acute) Knee pain, left (Acute) Arthritis of left shoulder region (Acute) Left shoulder pain (Acute) Osteoarthritis of left knee (Acute) Past Medical History Medical History (Updated 09/03/24 @ 09:01 by Alexsander Burroughs MD) Paroxysmal atrial fibrillation Persistent atrial fibrillation (~2019) Chronic heart failure with preserved ejection fraction (HFpEF) CAD (coronary artery disease) Pulmonary nodules Aspiration pneumonitis Tubular adenoma of colon (~2006) History of COVID-19 Osteoarthritis of left knee Impaired glucose tolerance Obesity (BMI 30-39.9) Glaucoma Seizure disorder Obstructive sleep apnea HLD (hyperlipidemia) HTN (hypertension) Family History Family History Father CVD (cardiovascular disease) Mother CVD (cardiovascular disease) Sister Cancer Family history of problems with anesthesia: No Surgical History Surgical History History of cardiac cath History of colonoscopy History of appendectomy History of cataract surgery History of cardioversion History of eye surgery History of Problems with Anesthesia: No Social History Social History Household Members: None Housing: House Are you a primary career developer to a significant other at home: No Do you presently have visiting nurse or other home services: No Alcohol intake: current Alcohol intake frequency: holidays/special occasions only Patient Tobacco Use Status: Never used Tobacco e-Cigarette/Vaping Use: Never Used Second Hand Smoke Exposure: Yes Use of substances other than those prescribed or required for medical reasons: No Are you DNR?: No Advance Directives: No Advance Directives Information Provided: Yes Advance Directives on File: No Advance Directives Date on File: 11/01/23 Recently lost weight without trying: No Nutrition Risks: No Nutritional Risk Patient : No service: No Current occupational status: retired Current occupation: rt handed Cognitive needs: No Hearing needs: No Vision needs: Yes (Glasses) Meds Allergies Allergy/AdvReac Type Severity Reaction Status Date / Time sotalol Allergy Severe Rash Verified 10/08/24 13:47 Home Medications ?Medication ?Instructions ?Recorded ?Confirmed ?Last Taken ?Type cholecalciferol (vitamin D3) 25 25 mcg PO DAILY 09/16/20 10/08/24 10/29/23 History mcg (1,000 unit) capsule Exam Height,Weight and Vital Signs: Height 6 ft Weight 109.316 kg Pertinent Lab Results Pertinent Lab Results: Laboratory Tests 09/04/24 09:56 WBC 6.3 Hgb 13.6 Hct 41.7 Plt Count 228 Sodium 138 Potassium 4.0 Chloride 104 Carbon Dioxide 26 BUN 14 Creatinine 0.95 Narrative Narrative: EKG 07/2024 normal sinus rhythm normal EKG with normal QT interval Holter 1. Patient was monitored for total period of 3 days 2. Baseline was normal sinus rhythm with average heart rate of 73 beats per minute 3. Intermittent episodes of atrial fibrillation with total burden of 21% with longest episode lasting 15 hours with fastest heart rate of 131 beats per minute 4. Occasional PACs noted 5. No significant pauses noted 6. No patient reported events ECHO 2022 Conclusions: - 1. Normal LV systolic function 2. Mildly dilated left atrium 3. Normal cardiac valvular Doppler 4. Normal RV systolic pressure 5. Small loculated pericardial effusion near the left ventricle Assessment and Plan Assessment Anesthesia Assessment: Chart Reviewed Final Anesthetic Review Family History of Problems with Anesthesia: No History of Problems with Anesthesia: No Documented by User: Smooth Rodriguez MD 10/12/24 09:26 [facility] Past Medical History Medical History (Updated 09/03/24 @ 09:01 by Alexsander Burroughs MD) Paroxysmal atrial fibrillation Persistent atrial fibrillation (~2018) Chronic heart failure with preserved ejection fraction (HFpEF) CAD (coronary artery disease) Pulmonary nodules Aspiration pneumonitis Tubular adenoma of colon (~2006) History of COVID-19 Osteoarthritis of left knee Impaired glucose tolerance Obesity (BMI 30-39.9) Glaucoma Seizure disorder Obstructive sleep apnea HLD (hyperlipidemia) HTN (hypertension) Family History Family History Father CVD (cardiovascular disease) Mother CVD (cardiovascular disease) Sister Cancer Surgical History Surgical History History of cardiac cath History of colonoscopy History of appendectomy History of cataract surgery History of cardioversion History of eye surgery Social History Social History Household Members: None Housing: House Are you a primary career developer to a significant other at home: No Do you presently have visiting nurse or other home services: No Alcohol intake: current Alcohol intake frequency: holidays/special occasions only Patient Tobacco Use Status: Never used Tobacco e-Cigarette/Vaping Use: Never Used Second Hand Smoke Exposure: Yes Use of substances other than those prescribed or required for medical reasons: No Are you DNR?: No Advance Directives: No Advance Directives Information Provided: Yes Advance Directives on File: No Advance Directives Date on File: 11/01/23 Recently lost weight without trying: No Nutrition Risks: No Nutritional Risk Patient : No service: No Current occupational status: retired Current occupation: rt handed Cognitive needs: No Hearing needs: No Vision needs: Yes (Glasses) Meds Allergies Allergy/AdvReac Type Severity Reaction Status Date / Time sotalol Allergy Severe Rash Verified 10/08/24 13:47 Home Medications ?Medication ?Instructions ?Recorded ?Confirmed ?Last Taken ?Type cholecalciferol (vitamin D3) 25 25 mcg PO DAILY 09/16/20 10/08/24 10/29/23 History mcg (1,000 unit) capsule Exam Pertinent Lab Results Pertinent Lab Results: nLaboratory Tests 09/04/24 09:56 WBC 6.3 Hgb 13.6 Hct 41.7 Plt Count 228 Sodium 138 Potassium 4.0 Chloride 104 Carbon Dioxide 26 BUN 14 Creatinine 0.95 Airway Mallampati Class: II TM Dist: >3cm Neck ROM: Full Assessment and Plan Assessment Anesthesia Assessment: Anesthesia Plan Discussed Final Anesthetic Review NPO: Yes ASA Class: III Final Preanesthetic Review: No Changes in Pt Med Stat, Meds/Allgs Chart Reviewed, Consent Obtained/Reviewed and Anes Risks/Benef Reviewed Patient Risk: Intermediate Procedure Risk: Low Anesthetic Plan Anesthetic Plan: TIVA Disposition: Standard PACU
[2024-10-12 09:07] VITALS: BMI 32.2
[2024-10-12 09:14] VITALS: BP 152/94; PULSE 84; RESP 16; TEMP 36.5; O2SAT 94
[2024-10-12] MEDS: Lactated Ringers 1,000 ML 100 ML IVCONT (09:32)
[2024-10-12 11:22] VITALS: BP 109/53; PULSE 77; RESP 16; TEMP 36.2; O2SAT 95
--- NOTE | 2024-10-12 11:30 | PM.OP ---
Brief Operative Note Date of Service: 10/12/24 Pre-op diagnosis: Screening Post-op diagnosis: other (Colon and rectal polyps) Procedure: Colonoscopy to the ascending colon and TI with hot snare polypectomy x 2 and placement of 2 Resolution clips on each site with marking with ink at the rectal polypectomy site Surgeon: Chato Diop MD Anesthesia: MAC Was an Carton Repairer used for this Procedure?: No Estimated blood loss (mL): 0 Pathology: other (A. Transverse colon polyp B. Distal rectal polyp) Condition: stable Disposition: PACU
[2024-10-12 11:37] VITALS: BP 100/64; PULSE 71; RESP 16; TEMP 36.5; O2SAT 94
--- NOTE | 2024-10-12 12:11 | OP_ITS ---
DATE OF SERVICE: 10/12/2024 SURGEON: Chato Diop MD INDICATIONS: The patient presents for evaluation of colorectal cancer screening. Full consent has been obtained from her for this, including risks of bleeding and perforation. PREOPERATIVE DIAGNOSIS: Colorectal cancer screening. POSTOPERATIVE DIAGNOSIS: PROCEDURE PERFORMED: Colonoscopy to the ascending colon and terminal ileum with hot snare polypectomy x 2 with placement of 2 resolution clips on each polypectomy site, and marking with submucosal ink at the rectal polypectomy site ESTIMATED BLOOD LOSS: COMPLICATIONS: ANESTHESIA: Monitored anesthesia care. ASSISTANTS: SPECIMENS: POSTOPERATIVE DIAGNOSES: Colorectal cancer screening, colon polyps, diverticulosis, and internal hemorrhoids. DESCRIPTION OF PROCEDURE: The patient was placed in the left lateral decubitus position. The digital rectal exam revealed no abnormalities. The Olympus video pediatric colonoscope was entered into the rectum and advanced easily to the region of the ascending colon, where I was able to visualize an anastomosis from her previous surgery. The ileum was cannulated and appeared normal. The scope was withdrawn back into the colon. The entire anastomosis appeared normal. The scope was then slowly withdrawn assessing all mucosal surfaces carefully. Preparation was excellent. In the transverse colon was an approximately 1.2 cm polyp, which was removed by hot snare polypectomy and recovered by withdrawing it onto the tip of the colonoscope. The scope was advanced back to the polypectomy site, which appeared clean, without any sign of residual polyp nor bleeding. I placed 2 resolution clips onto the polypectomy site with good deployment and good hemostasis. There was a mild amount of sigmoid diverticulosis. I did not visualize any sign of colitis nor angiodysplasia. In the rectum, scope was retroflexed visualizing an approximately 1.5 cm polyp just above the dentate line, which was removed by hot snare polypectomy and recovered with the tip of the colonoscope. The scope was advanced back into the rectum. The polypectomy site appeared to have some residual polyp on the edge, and this was also removed by hot snare polypectomy and recovered by suction. At that point, the polypectomy site appeared to be clean, without any sign of residual polyp nor bleeding. I used 2 ultra resolution clips on the polypectomy site with again good deployment and good hemostasis. Given the size and location of the polyp, I did place a submucosal nahum with ink on each side of the polypectomy site. The remainder of the rectum appeared normal other than some internal hemorrhoids. The scope was straightened and withdrawn from the patient. She tolerated the procedure well and was returned to the recovery area in stable condition. IMPRESSION: 1. Colon polyps. 2. Diverticulosis. 3. Internal hemorrhoids. PLAN: The results of the pathology will be checked. Given these findings, particularly the polyp in the distal rectum, she will have to have a repeat colonoscopy within 1 year. She was advised to resume her Eliquis in 72 hours. She has been in a normal sinus rhythm during the procedure.. She was advised not to use any aspirin and NSAIDs for at least 2 weeks, but most likely she should avoid those long- term given the fact that she is on chronic Eliquis. ADDENDUM Of note, her previous issues with diarrhea seemed to have resolved. ?Lab work for celiac disease was negative. ?If her diarrhea recurs, I would recommend placing her on a trial of cholestyramine to treat any component of bile-induced diarrhea given her anatomy with the resection of the ileocecal valve. MD WON Nuñez/ELVIA / [id number]
== END 2024-10-12 12:17 | disposition home or self-care (01) ==
PROVIDERS: PCP Internal Medicine; Visit Provider Internal Medicine
PROC: 0DJD8ZZ Inspection of Lower Intestinal Tract, Via Natural or Artificial Opening Endoscopic (ICD-10-PCS; CPT 45378; principal; 2024-10-12 10:20)
DX: Z12.11 Encounter for screening for malignant neoplasm of colon (principal); Z86.0101 Personal history of adenomatous and serrated colon polyps; D12.3 Benign neoplasm of transverse colon; D12.8 Benign neoplasm of rectum; K57.30 Diverticulosis of large intestine without perforation or abscess without bleeding; K58.9 Irritable bowel syndrome, unspecified; K64.8 Other hemorrhoids; R14.0 Abdominal distension (gaseous); G40.909 Epilepsy, unspecified, not intractable, without status epilepticus; I10 Essential (primary) hypertension; I48.91 Unspecified atrial fibrillation; E78.00 Pure hypercholesterolemia, unspecified; F32.A Depression, unspecified; G47.33 Obstructive sleep apnea (adult) (pediatric); Z79.01 Long term (current) use of anticoagulants; Z79.899 Other long term (current) drug therapy; Z99.89 Dependence on other enabling machines and devices
CPT/HCPCS: 45385; 45381; 88305; J2405; J2704

== ENCOUNTER 2024-10-20 08:06 | Outpatient (REF) | payer MEDICARE, SELFPAY | END 2024-10-20 08:07 | disposition home or self-care (01) | LOC: HO.CT 08:06 | PROVIDERS: PCP Internal Medicine; Visit Provider Hospitalist | DX: R91.8 Other nonspecific abnormal finding of lung field (principal) | CPT/HCPCS: 71250 ==

== ENCOUNTER → 2024-10-20 08:06 | Outpatient (BNV) | payer MEDICARE, SELFPAY | PROVIDERS: PCP Internal Medicine; Visit Provider Radiology Diagnostic Radiology | DX: R91.8 Other nonspecific abnormal finding of lung field (principal) | CPT/HCPCS: 71250 ==

== ENCOUNTER 2024-11-16 08:12 | Outpatient (AMB) | payer MEDICARE, SELFPAY ==
--- NOTE | 2024-11-16 08:20 | MHC.OFFVIS ---
Vital Signs 11/16/24 08:22 Weight 244 lb 11.41 oz BP 100/52 L Blood Pressure Location Lt brachial Position Sitting Pulse 81 Pulse Source Pulse Oximeter Pulse Oximetry (%) 93 Oxygen Delivery Method Room Air Intake Visit Reasons: Shortness of breath/CT Follow Up Allergies sotalol Allergy (Severe, Verified 11/16/24 08:25) Rash Medication List - Last Reconciled 11/16/24 by Betty Kennedy LPN aluminum chloride 20% (Drysol) 1 appl topical 2XW PRN apixaban (Eliquis) 5 mg PO BID cholecalciferol (vitamin D3) 25 mcg PO DAILY dofetilide 250 mcg PO Q12H 90 days dofetilide (Tikosyn) 125 mcg PO Q12H furosemide 20 mg PO DAILY 90 days isosorbide mononitrate ER 120 mg PO DAILY metoprolol succinate ER 50 mg See Protocol PO DAILY nitroglycerin 0.4 mg sublingual DAILY PRN oxcarbazepine 150 mg PO DAILY rosuvastatin 40 mg PO BEDTIME tramadol 25 mg (1/2 x 50 mg) PO DAILY PRN HPI Comments Details: The patient is a 69 y/o woman complainging of dyspnea on exertion. Moderate inseverity, worse when going up stairs. Had recent PFTs. This shows significantly reduced diffusion capacity and concern for pulmonary vascular disease and/or interstitial lung disease. She had a CXR personally reviewed by me without any evidence of acute disease. She will requiere a CT chest. Has atrial fibrillation and have been adherent to the Eliquis. Has never had bloodclots. Takes all her medications. She denies any orthopnea, PND, leg edema. No lightheadedness, syncope. No bleeding issues or neurologic events. We did have her go on a brief walking oximetry and she did become dyspneic after going up stairs, She did not desaturate which is reassuring. 10/02/2023 the patient is here for a pulmonary follow-up visit. Overall the patient is doing about the same. Still having dyspnea on exertion. [id number]-yk-[id number] severity. We did review her CT scan of the chest which demonstrated some evidence of mild pneumonitis in addition to mild degree of bronchiectasis and also subcentimeter pulmonary nodule. The findings whenever dramatic but still could be if plain the patient has abnormal PFTs and also shortness of breath. The patient may be developing some degree of hypersensitivity. Be reasonable to try her on a course of inhaled cortical steroids see if she gets some relief. If she does not have any relief will be reasonable to get some blood work to assess for the pneumonitis. In addition to that she will need another CT scan in a year's time. 05/11/2024 the patient is here for a pulmonary follow-up visit. The patient has been doing well from a respiratory status. Has not had to use any rescue inhalers or therapies. This is reassuring. She did have a blood work with the allergy testing still pending. Her WENDY was negative which is reassuring. We again looked at her CT scan of the chest. She has subcentimeter pulmonary nodules. She has a significant history of secondhand smoke. The patient however never smoked. She also has some minimal bronchiectasis and some ground-glass opacities in the left base. She is having issues with atrial fibrillation which is going more into her. She is going to talk to Cardiology about changes. She has already had allergic reactions to sotalol. With history of pneumonitis I would steer away from amiodarone at this time. Regarding follow-up CT scans CT scan in 6 months will be warranted to follow-up with the pulmonary nodule in the pneumonitis. The patient right now is off inhalers. She is doing well. Her respiratory exam is reassuring. 11/16/2024 the patient is here for pulmonary follow-up visit. Overall the patient has been doing well. Denies any respiratory complaints. She has not been using any inhalers which is reassuring. She did start a new antiarrhythmic agent and she seems to be tolerating that well. She did have repeat CT scan of the chest which I did review with her. Unfortunately has not been officially read yet but we did repeat compared to her previous CT scan. Appears that her nodules are stable measuring up to 5 mm in size. Although she has multiple nodules bilaterally. No evidence of any pneumonitis. In addition to that she does have some minimal degree of atelectasis primarily on the left side. Otherwise no evidence of any significant progressive disease. Will go ahead and repeat the CT scan next year. If she has any issues prior to that she will call for an earlier assessment. [facility] Medical History (Updated 11/16/24 @ 08:49 by Dagoberto Casey MD) Paroxysmal atrial fibrillation Persistent atrial fibrillation (~2019) Chronic heart failure with preserved ejection fraction (HFpEF) CAD (coronary artery disease) Pulmonary nodules Aspiration pneumonitis Tubular adenoma of colon (~2006) History of COVID-19 Osteoarthritis of left knee Impaired glucose tolerance Obesity (BMI 30-39.9) Glaucoma Seizure disorder Obstructive sleep apnea HLD (hyperlipidemia) HTN (hypertension) Surgical History History of cardiac cath History of colonoscopy History of appendectomy History of cataract surgery History of cardioversion History of eye surgery Family History Father CVD (cardiovascular disease) Mother CVD (cardiovascular disease) Sister Cancer Social History Household Members: None Housing: House Are you a primary managed care analyst to a significant other at home: No Do you presently have visiting nurse or other home services: No Alcohol intake: current Alcohol intake frequency: holidays/special occasions only Patient Tobacco Use Status: Never used Tobacco e-Cigarette/Vaping Use: Never Used Second Hand Smoke Exposure: Yes Advance Directives Date on File: 11/01/23 service: No Current occupational status: retired Current occupation: rt handed Cognitive needs: No Hearing needs: No Vision needs: Yes (Glasses) Review of Systems Const Denies chills, Denies fatigue, Denies fever(s), Denies frequent falls, Denies weakness, Denies weight gain and Denies weight loss ENT Denies dizziness Card Denies chest pain, Denies leg edema, Denies lightheadedness, Denies palpitations, Denies dyspnea, Reports dyspnea on exertion, Denies orthopnea and Denies other (loss of consciousness) Resp Denies cough, Denies dyspnea and Reports dyspnea on exertion GI Denies hematochezia and Denies change in stool character Musc Denies abnormal gait, Denies muscle weakness, Denies numbness, Denies radiating pain into limb and Denies tingling Skin/Breast Denies rash Neuro Denies abnormal gait, Denies dizziness, Denies frequent falls, Denies numbness, Denies tingling and Denies weakness Endo Denies fatigue and Denies palpitations Physical Exam Vital Signs: Last Vital Signs Pulse 81 11/16/24 08:22 BP 100/52 L 11/16/24 08:22 Pulse Ox 93 11/16/24 08:22 Oxygen Delivery Method Room Air 11/16/24 08:22 Const General: cooperative, comfortable, no acute distress, alert, awake and well groomed Orientation/consciousness: patient oriented x3 Limitations: no limitations HEENT Head: Yes normocephalic Neck Neck: Yes trachea midline, Yes supple and Yes no JVD Chest Chest palpation & inspection: normal inspection of the chest Resp Effort & Inspection: normal respiratory effort Auscultation: clear to auscultation bilaterally, no crackles, no rales, no rhonchi and no wheezes Cardio Rate: regular rate Heart sounds: S1 normal heart sound present and S2 normal heart sound present GI Auscultation: normal bowel sounds Skin General skin exam: no rashes or lesions noted Neuro General: patient oriented x3 and no focal motor deficits Extrem General: Yes no clubbing, cyanosis or edema Psych Appearance: grossly normal Assessment & Plan Assessment & Plan (1) Dyspnea: Code(s): R06.00 - Dyspnea, unspecified Category: Medical Qualifiers: Dyspnea type: dyspnea on exertion Qualified Code(s): R06.09 - Other forms of dyspnea (2) Abnormal PFTs (pulmonary function tests): Code(s): R94.2 - Abnormal results of pulmonary function studies Category: Medical (3) Pneumonitis: Comment: resolved Code(s): J98.4 - Other disorders of lung Category: Medical (4) Pulmonary nodules: Code(s): R91.8 - Other nonspecific abnormal finding of lung field Category: Medical Plan stopped Flovent Repeat CT chest in 12 months F/U 12 months Orders: Orders CT chest wo IV con 1 Year R91.8 - Other nonspecific abnormal finding of lung field Coding Level of Care Code Est Pt Level 4 (86367) Diagnoses Dyspnea on exertion R06.09 Dyspnea type: dyspnea on exertion Abnormal PFTs (pulmonary function tests) R94.2 Pneumonitis J98.4 Pulmonary nodules R91.8 Time Spent (min) 17
[2024-11-16 08:22] VITALS: BP 100/52; PULSE 81; O2SAT 93
== END 2024-11-16 08:52 | disposition home or self-care (01) ==
PROVIDERS: PCP Internal Medicine; Visit Provider Hospitalist
DX: R06.09 Other forms of dyspnea (principal); R94.2 Abnormal results of pulmonary function studies; J98.4 Other disorders of lung; R91.8 Other nonspecific abnormal finding of lung field
CPT/HCPCS: 99214

== ENCOUNTER → 2024-11-16 08:12 | Outpatient (BNVA) | payer MEDICARE, SELFPAY | PROVIDERS: PCP Internal Medicine; Visit Provider Hospitalist | DX: J98.4 Other disorders of lung (principal); R91.8 Other nonspecific abnormal finding of lung field; R06.09 Other forms of dyspnea; R94.2 Abnormal results of pulmonary function studies | CPT/HCPCS: 99212 ==

== ENCOUNTER 2024-12-24 08:23 | Outpatient (AMB) | payer MEDICARE, SELFPAY ==
[2024-12-24 08:41] VITALS: PULSE 67; O2SAT 94; BMI 33.8
--- NOTE | 2024-12-24 08:41 | A.OFFPC_ITS ---
Vital Signs 12/24/24 08:41 Height 6 ft Weight 249 lb BMI 33.8 Blood Pressure Location Lt brachial Position Sitting Pulse 67 Pulse Source Pulse Oximeter Pulse Oximetry (%) 94 Oxygen Delivery Method Room Air Intake Visit Reasons: a fib cad, SUSIE Allergies sotalol Allergy (Severe, Verified 12/24/24 08:42) Rash Tobacco use date assessed: 12/24/24 Fall risk assessment: No Falls in past year Last assessed Fall Risk: 12/24/24 Dental Screening Dental Screen Date: 12/24/24 Did you have a dental visit in the last 12 months?: Yes Did you have a dental problem in the last 6 months where you did not have access to dental care?: No Was dental information given to patient?: Patient has dentist HPI a fib cad, SUSIE HPI Details The patient is a 69-year-old female presenting for a wellness visit and chronic condition management. She has a history of seizure disorder, which remains controlled on medication despite efforts to reduce dosage. Colonic polyps were identified on a recent colonoscopy, namely a tubular adenoma and a serrated adenoma, requiring follow-up within a year. Osteopenia has been diagnosed, with no significant changes since the last bone density examination; preventative measures include monitoring bone health. The patient's blood glucose levels indicate prediabetes with an A1c level rising to 6.1% from 5.7% in previous years, necessitating dietary adjustments and increased physical activity. Current activity levels are limited, with the patient recognizing the need for lifestyle modifications. Additionally, the patient reports symptoms of GERD treated with tofetilide, which also impacts her excessive sweating with a notable odor. Anxiety or ADHD issues remain unaddressed since no referrals have been followed up. Hyperlipidemia is well- managed, with LDL levels at 57 mg/dL. Recent investigations including blood work and imaging noted satisfactory results apart from the noted problems. [facility] Medical History (Updated 12/24/24 @ 08:48 by Alexsander Burroughs MD) Colon cancer screening Paroxysmal atrial fibrillation Persistent atrial fibrillation (~2018) Chronic heart failure with preserved ejection fraction (HFpEF) CAD (coronary artery disease) Pulmonary nodules Aspiration pneumonitis Tubular adenoma of colon (~2006) History of COVID-19 Osteoarthritis of left knee Impaired glucose tolerance Obesity (BMI 30-39.9) Glaucoma Seizure disorder Obstructive sleep apnea HLD (hyperlipidemia) HTN (hypertension) Surgical History History of cardiac cath History of colonoscopy History of appendectomy History of cataract surgery History of cardioversion History of eye surgery Family History Father CVD (cardiovascular disease) Mother CVD (cardiovascular disease) Sister Cancer Social History Household Members: None Housing: House Are you a primary career based intervention coordinator to a significant other at home: No Do you presently have visiting nurse or other home services: No Alcohol intake: current Alcohol intake frequency: holidays/special occasions only Patient Tobacco Use Status: Never used Tobacco Tobacco use type: Cigarette e-Cigarette/Vaping Use: Never Used Second Hand Smoke Exposure: Yes Advance Directives Date on File: 11/01/23 service: No Current occupational status: retired Current occupation: rt handed Cognitive needs: No Hearing needs: No Vision needs: Yes (Glasses) Questionnaire PHQ-9 Over the last 2 weeks, how often have you been bothered by any of the following problems? 1. Little interest or pleasure in doing things: not at all 2. Feeling down, depressed, or hopeless: not at all 3. Trouble falling or staying asleep, or sleeping too much: not at all 4. Feeling tired or having little energy: not at all 5. Poor appetite or overeating: not at all 6. Feeling bad about yourself - or that you are a failure or have let yourself or your family down: not at all 7. Trouble concentrating on things, such as reading the newspaper or watching television: not at all 8. Moving or speaking so slowly that other people could have noticed. Or the opposite - being so fidgety or restless that you have been moving around a lot more than usual: not at all 9. Thoughts that you would be better off or of hurting yourself in some way: not at all Total score: 0 Depression Screening Interpretation: Negative Depression Screening Done: Yes Source: Developed by Drs. Chato Veliz, Aysha Cox, Shaka Adamson and colleagues, with an educational ly from [employer]. Thrive Questionnaire Date Thrive assessed: 12/24/24 I am a: Patient What is your living situation today?: I have a steady place to live Within the past 12 months, did the food you bought not last and you didn't have the money to get more?: Never true Within the past 12 months, did you worry whether your food would run out before you got money to buy more?: Never true Do you have trouble paying for medicines?: No Do you have trouble getting transportation to medical appointments?: No Do you have trouble paying your heating and electricity bill?: No Do you have trouble taking care of your child, family member or friend?: No Do you have trouble with day-to-day activities such as bathing, preparing meals, shopping, managing finances, etc.?: No Are you currently unemployed and looking for a job?: No Are you interested in more education?: No Please select the resources that you would like help with: None Currently or been in a relationship where the following occur: No concerns reported THRIVE Score: 0 AUDIT C Alcohol Use Questionnaire (AUDIT-C) 2. How many drinks containing alcohol do you have on a typical day when you are drinking?: 1 or 2 3. How often do you have six or more drinks on one occasion?: Never Total Score: 0 TERRELL-7 AMB Questionnaire TERRELL-7 Date TERRELL - 7 assessed: 12/24/24 Feeling nervous, anxious, or on edge: 0 = Not at all Not being able to stop or control worryin = Not at all Worrying too much about different things: 0 = Not at all Trouble relaxin = Not at all Being so restless that it is hard to sit still: 0 = Not at all Becoming easily annoyed or irritable: 0 = Not at all Feeling afraid as if something awful might happen: 0 = Not at all Total TERRELL-7 score (0-4 normal; 5-9 mild; 10-14 moderate; 15-21 severe): 0 Source: Developed by Drs. Chato Veliz, Aysha Cox, Shaka Adamson and colleagues, with an educational ly from [employer]. Physical exam (Primary Care) Vital Signs: Last Vital Signs Pulse 67 12/24/24 08:41 Pulse Ox 94 12/24/24 08:41 Oxygen Delivery Method Room Air 12/24/24 08:41 BMI result Body Mass Index 33.8 Tobacco/Smoking Status: Tobacco use Status Tobacco use date assessed 12/24/24 12/24/24 08:47 Patient Tobacco Use Status Never used Tobacco 12/24/24 08:47 Tobacco use type Cigarette 12/24/24 08:47 e-Cigarette/Vaping Use Never Used 12/24/24 08:47 PHQ-9: PHQ-9 Score PHQ-9: Total score 0 12/24/24 08:47 Depression Screening Interpretation: Negative Thrive Assessment: Date of Thrive Assessment Date Thrive assessed 12/24/24 12/24/24 08:47 Currently or been in a relationship where the following occur: No concerns reported Const General: alert; No acute distress Eyes Conjunctivae: conjunctivae normal Resp Auscultation: clear to auscultation bilaterally Cardio Rate: regular rate Rhythm: regular rhythm GI Inspection: Yes normal to inspection Extrem General: Yes normal to inspection and No edema Coding Level of Care Code Est Pt Level 4 (33099) Complex EM visit Add On G2211 Diagnoses Paroxysmal atrial fibrillation I48.0 Chronic heart failure with preserved ejection fraction (HFpEF) I50.32 Coronary artery disease involving [place] coronary artery of [place] heart without angina pectoris I25.10 Associated angina: without angina Coronary Disease-Associated Artery/Lesion type: [place] artery [place] vs. transplanted heart: [place] heart Breast cancer screening by mammogram Z. Tubular adenoma of colon D12.6 Seizure disorder G40.909 Essential hypertension I10 Hypertension type: essential hypertension Mixed hyperlipidemia E78.2 Hyperlipidemia type: mixed hyperlipidemia Obstructive sleep apnea G47.33 Assessment & Plan Assessment & Plan (1) Paroxysmal atrial fibrillation: Code(s): I48.0 - Paroxysmal atrial fibrillation Category: Medical (2) Chronic heart failure with preserved ejection fraction (HFpEF): Code(s): I50.32 - Chronic diastolic (congestive) heart failure Category: Medical (3) CAD (coronary artery disease): Code(s): I25.10 - Atherosclerotic heart disease of [place] coronary artery without angina pectoris Category: Medical Qualifiers: Associated angina: without angina Coronary Disease-Associated A rtery/Lesion type: [place] artery [place] vs. transplanted heart: [place] heart Qualified Code(s): I25.10 - Atherosclerotic heart disease of [place] coronary artery without angina pectoris (4) Breast cancer screening by mammogram: Code(s): Z12.31 - Encounter for screening mammogram for malignant neoplasm of breast Category: Medical (5) Tubular adenoma of colon: Onset Date: ~2006 Comment: (TA on 2006 scope - normal 2012 scope) 10/2024 Code(s): D12.6 - Benign neoplasm of colon, unspecified Category: Medical (6) Seizure disorder: Comment: Complex partial lbjanpy-aeey-clt not had in a long time per patient Code(s): G40.909 - Epilepsy, unspecified, not intractable, without status epilepticus Category: Medical (7) HTN (hypertension): Comment: Well controlled. Continue current meds Code(s): I10 - Essential (primary) hypertension Category: Medical Qualifiers: Hypertension type: essential hypertension Qualified Code(s): I10 - Essential (primary) hypertension (8) HLD (hyperlipidemia): Comment: LDL goal < 70. Well controlled. Continue statin Code(s): E78.5 - Hyperlipidemia, unspecified Category: Medical Qualifiers: Hyperlipidemia type: mixed hyperlipidemia Qualified Code(s): E78.2 - Mixed hyperlipidemia (9) Obstructive sleep apnea: Comment: in-lab PSG- AHI 24/hr, REM AHI 60/hr, O2 wild[place] 79% Code(s): G47.33 - Obstructive sleep apnea (adult) (pediatric) Category: Medical Plan - Continue current seizure disorder management and monitor medication efficacy. - Schedule a follow-up colonoscopy for surveillance of polyps. - Manage osteopenia through lifestyle modifications and reassess bone density regularly. - Address prediabetes by encouraging dietary modifications, focusing on reducing carbohydrate intake and increasing physical activity to improve glycemic control. - Manage GERD symptoms and assess the need for ongoing use of tofetilide. - Address excessive sweating and associated odor with patient-preferred topical applications as needed. - Request a new referral for anxiety or ADHD evaluation. - Continue current hyperlipidemia management. - Encourage vaccination updates for influenza and COVID-19 due to respiratory infection risks. - Advise on preventative measures against respiratory infections, including hand hygiene and wearing masks in crowded settings. - Consider further cardiovascular evaluation as part of comprehensive wellness care. Orders: Orders Hemoglobin A1c Today R73.02 - Impaired glucose tolerance (oral) Complete Blood Count Auto Diff Today R73.02 - Impaired glucose tolerance (oral) Free T4 (Free Thyroxine) Today R73.02 - Impaired glucose tolerance (oral) Vitamin B12 and Folate Today R73.02 - Impaired glucose tolerance (oral) Vitamin D 25-OH Total Today R73.02 - Impaired glucose tolerance (oral) Comprehensive Met. Panel Today R73.02 - Impaired glucose tolerance (oral) Lipid Panel Today E78.00 - Pure hypercholesterolemia, unspecified, R73.02 - Impaired glucose tolerance (oral) Thyroid Stimulating Hormone Today R73.02 - Impaired glucose tolerance (oral) B Type Natriuretic Peptide Today I50.32 - Chronic diastolic (congestive) heart failure Medications: Changed From aluminum chloride 20% (Drysol) 1 appl topical 2XW PRN 37.5 mL 5RF excessive sweating R61 - Generalized hyperhidrosis To aluminum chloride 20% (Drysol) 1 appl topical .QD PRN 37.5 mL 5RF excessive sweating R61 - Generalized hyperhidrosis Refilled aluminum chloride 20% (Drysol) 1 appl topical .QD PRN 37.5 mL 5RF excessive sweating R61 - Generalized hyperhidrosis
== END 2024-12-24 09:09 | disposition home or self-care (01) ==
PROVIDERS: PCP Internal Medicine; Visit Provider Internal Medicine
DX: I48.0 Paroxysmal atrial fibrillation (principal); I50.32 Chronic diastolic (congestive) heart failure; I25.10 Atherosclerotic heart disease of native coronary artery without angina pectoris; Z12.31 Encounter for screening mammogram for malignant neoplasm of breast; D12.6 Benign neoplasm of colon, unspecified; G40.909 Epilepsy, unspecified, not intractable, without status epilepticus; I10 Essential (primary) hypertension; E78.2 Mixed hyperlipidemia; G47.33 Obstructive sleep apnea (adult) (pediatric)

== ENCOUNTER → 2024-12-24 08:23 | Outpatient (BNVA) | payer MEDICARE, SELFPAY | PROVIDERS: PCP Internal Medicine; Visit Provider Internal Medicine | DX: I48.0 Paroxysmal atrial fibrillation (principal); I11.0 Hypertensive heart disease with heart failure; I50.32 Chronic diastolic (congestive) heart failure; I25.10 Atherosclerotic heart disease of native coronary artery without angina pectoris; D12.6 Benign neoplasm of colon, unspecified; G40.909 Epilepsy, unspecified, not intractable, without status epilepticus; E78.2 Mixed hyperlipidemia; G47.33 Obstructive sleep apnea (adult) (pediatric) | CPT/HCPCS: 99212 ==

== ENCOUNTER → 2025-01-06 09:24 | Outpatient (BNVA) | payer MEDICARE, SELFPAY | PROVIDERS: PCP Internal Medicine; Visit Provider Internal Medicine Cardiovascular Disease | DX: I48.0 Paroxysmal atrial fibrillation (principal); I25.10 Atherosclerotic heart disease of native coronary artery without angina pectoris; I50.32 Chronic diastolic (congestive) heart failure | CPT/HCPCS: 93005; 99212 ==

== ENCOUNTER 2025-01-27 11:35 | Outpatient (REF) | payer MEDICARE, SELFPAY ==
--- OUTSIDE RECORDS SUMMARY | 2025-01-27 14:33 | XMS_ITS ---
Author Organization [facility] Address [address] [place] [address] Care Team Providers Care Manufacturing Engineer Machining Name Role Phone Po Alexsander FARIAS Primary Care Provider Chato Rubio Unavailable [phone] REASON FOR VISIT cardiac clearance Encounters Encounter Location Date Provider Diagnosis [facility] [address] [place] [address] 06/18/2024 Chato Diop PLAN OF TREATMENT No Information
--- OUTSIDE RECORDS SUMMARY | 2025-01-27 14:33 | XMS_ITS | Patient Health Record ---
Author Organization [facility] Address [address] [place] [address] Care Team Providers Care Admission Nurse Name Role Phone Po Alexsander FARIAS Primary Care Provider Chato Rubio [phone] ALLERGIES Allergen (clinical drug ingredient) Drug/Non Drug Allergy documented on EMR Reaction Allergy Type Onset Date Status sulfacetamide Sulfacetamide Unknown Drug Allergy Active RESULTS Component Value Reference Range Notes Immunoglobulin A Reviewed date:07/15/2024 06:45:51 PM Interpretation: Performing Lab:[facility], [address] [place] [phone] Notes/Report: Immunoglobulin A 168 70-320 mg/dL THIS TEST WAS PERFORMED AT: [facility] [address] [place] [phone] TENNILLE RODRIGUEZ MD Transglutaminase Ab IgG Reviewed date:07/14/2024 12:58:49 PM Interpretation: Performing Lab:[facility], [address] [place] [phone] Notes/Report: Transglutaminase Ab IgG <1.0 Value Interpretation ----- <15.0 Antibody not detected > or = 15.0 Antibody detected THIS TEST WAS PERFORMED AT: [facility] [address] [place] [phone] TENNILLE RODRIGUEZ MD Transglutaminase IgA Reviewed date:07/14/2024 12:58:56 PM Interpretation: Performing Lab:[facility], [address] [place] [phone] Notes/Report: Transglutaminase IgA <1.0 Value Interpretation ----- <15.0 Antibody not detected > or = 15.0 Antibody detected THIS TEST WAS PERFORMED AT: [facility] [address] [place] [phone] TENNILLE RODRIGUEZ MD Gliadin Ab Panel Reviewed date:07/14/2024 12:59:02 PM Interpretation: Performing Lab:[facility], [address] [place] [phone] Notes/Report: Gliadin Deamidated IgA Ab 3.4 Value Interpretation ----- <15.0 Antibody not detected > or = 15.0 Antibody detected Gliadin Deamidated IgG Ab <1.0 Value Interpretation ----- <15.0 Antibody not detected > or = 15.0 Antibody detected THIS TEST WAS PERFORMED AT: [facility] [address] [place] [phone] TENNILLE RODRIGUEZ MD Endomysial IgA rflx Titer Reviewed date:10/11/2024 05:07:53 PM Interpretation: Performing Lab:[facility], [address] [place] [phone] Notes/Report: Endomysial IgA Antibody Negative Negative THIS TEST WAS PERFORMED AT: [facility] [facility]/[address] [phone] TED SILVA MD,PHD Endomysial Titer TNP Pathology Reviewed date:11/08/2024 12:36:00 AM Interpretation: Performing Lab:[facility], [address] [place] [phone] Notes/Report: REASON FOR REFERRAL No Information MEDICATIONS Medication SIG (Take, Route, Frequency, Duration) Notes Start Date End Date Status Dofetilide 250 MCG TAKE 1 CAPSULE BY MOUTH EVERY 12 HOURS Oral for 30 For the Afib Active Isosorbide Mononitrate ER 120 MG Oral for 90 Active OXcarbazepine 150mg Active Vitamin D3 25 MCG (1000 UT) 1 capsule Orally Once a day for 30 day(s) Active Metoprolol Succinate ER 50 MG TAKE 1 TABLET BY MOUTH DIALY Oral for 90 Active Furosemide 20 MG Oral for 40 A ctive Rosuvastatin Calcium 40 MG Oral for 90 Active Dicyclomine HCl 10 MG 1 or 2 capsules Orally Every 6 hours as needed for abdominal bloating/discomfort/c ramps for 30 day(s) 06/18/2024 Active Eliquis 5 MG TAKE 1 TABLET BY MOUTH TWICE A DAY Oral for 90 Active SOCIAL HISTORY Sex Assigned At : Social History Observation Description Sex Assigned At Unknown PROBLEMS Problem Type ICD Code Onset Dates Problem Status W/U Status Risk SNOMED Code Notes Problem Colon cancer screening (Z12.11) Active confirmed Colon cancer screening (792505799) Problem History of adenomatous polyp of colon (Z86.010) Active confirmed History of adenomatous polyp of colon (199913651) Problem Abdominal bloating (R14.0) Active confirmed Abdominal b loating (862333090) Problem Diverticulosis of large intestine without perforation or abscess without bleeding (K57.30) Active confirmed Diverticul ar disease of colon (951611166) Problem Intestinal bypass and anastomosis status (Z98.0) Active confirmed History of gastrointestinal tract bypass (979319013) Problem Irritable bowel (K58.9) Active confirmed Irritable bowel (59282213) VITAL SIGNS Blood pressure diastolic 00 mm Hg 06/18/2024 Height 72.75 in 06/18/2024 Blood pressure systolic 0 mm Hg 06/18/2024 Weight 244 lbs 06/18/2024 BMI 32.41 kg/m2 06/18/2024 Encounters Encounter Location Date Provider Diagnosis [facility] [place] [address] [place] [phone] 10/12/2024 Chato Diop Colon cancer screeni ng Z12.11 ; Colon polyps K63.5 ; Rectal polyp K62.1 ; Intestinal bypass and anastomosis status Z98.0 and Diverticulosis of large intestine without perforation or abscess without bleeding K57.30 [facility] [address] [place] [phone] 06/18/2024 Chato Diop Irritable bowel K58. 9 ; Colon cancer screening Z12.11 ; History of adenomatous polyp of colon Z86.010 and Abdominal bloating R14.0 [facility] [address] [place] [phone] 06/18/2024 Chato Diop ASSESSMENTS Encounter Date Diagnosis Assessment Notes Treatment Notes Treatment Clinical Notes 10/12/2024 Colon cancer screening (ICD-10 - Z12.11) 10/12/2024 Colon polyps (ICD-10 - K63.5) 06/18/2024 Colon cancer screening (ICD-10 - Z12.11) Stop Eliquis for three days before the colonoscopy Do not take the Furosemide the day before or on the day of the colonoscopy We will get a clearance from Dr. Caro for the Eliquis 06/18/2024 Irritable bowel (ICD-10 - K58.9) 10/12/2024 Rectal polyp (ICD-10 - K62.1) 06/18/2024 History of adenomatous polyp of colon (ICD-10 - Z86.010) 10/12/2024 Intestinal bypass an d anastomosis status (ICD-10 - Z98.0) 06/18/2024 Abdominal bloating (ICD-10 - R14.0) 10/12/2024 Diverticulosis of large intestine without perforation or abscess without bleeding (ICD-10 - K57.30) PLAN OF TREATMENT Pending Test Test Name Order Date CELIAC PANEL #10 06/18/2024 Future Test Test Name Order Date COLONOSCOPY 01/28/2013 COLONOSCOPY 06/18/2024 Insurance Providers Payer Name Payer Address Payer Phone Subscriber Number Group Number Insured Name Patient Relationship to Insured Coverage Start Date Coverage End Date MEDICARE OF [place] [address] [place] [address] [id number] PHILOMENA GUERRERO Self - patient is the insured [employer] ATT[employer] CLAIMS [address] [place] [phone] [id number] PHILOMENA GUERRERO Self - patient is the insured MEDICAL (GENERAL) HISTORY Medical History History ICD Code ADD Depression Seizure disorder Sleep apnea-uses a CPAP machine Elevated cholesterol Screening colonoscopy in 06/2007 with a t ubular adenoma removed Denies DM,CVA,Lung disease,renal disease Neg. ETT and cardiac ECHO in summer 2011 Silent heart attack Afib - Dr. Caro Hypertension Vertigo Negative colonoscopy in 2012 Glaucoma Surgical History Surgery Date(Month/Year) Appendectomy with partial right colectom y in approx. 2001 Eye surgery
--- OUTSIDE RECORDS SUMMARY | 2025-01-27 14:33 | XMS_ITS ---
Author Organization [facility] Address [address] [place] [address] Care Team Providers Care Auto Body Detailer Name Role Phone Po Alexsander FARIAS Primary Care Provider Chato Rubio [phone] REASON FOR VISIT screening, h/o polyps PROBLEMS Problem Type ICD Code Onset Dates Problem Status W/U Status Risk SNOMED Code Notes Problem Intestinal bypass and anastomosis status (Z98.0) Active confirmed History of gastrointestinal tract bypass (669297889) Problem Diverticulosis of large intestine without perforation or abscess without bleeding (K57.30) Active confirmed Diverticul ar disease of colon (427170866) Encounters Encounter Location Date Provider Diagnosis [facility] [place] Outpatient [address] [place] [phone] 10/12/2024 Chato Diop Colon cancer scree leon Z12.11 ; Colon polyps K63.5 ; Rectal polyp K62.1 ; Intestinal bypass and anastomosis status Z98.0 and Diverticulosis of large intestine without perforation or abscess without bleeding K57.30 ASSESSMENTS Encounter Date Diagnosis Assessment Notes Treatment Notes Treatment Clinical Notes 10/12/2024 Colon cancer screening (ICD-10 - Z12.11) 10/12/2024 Colon polyps (ICD-10 - K63.5) 10/12/2024 Rectal polyp (ICD-10 - K62.1) 10/12/2024 Intestinal bypass an d anastomosis status (ICD-10 - Z98.0) 10/12/2024 Diverticulosis of large intestine without perforation or abscess without bleeding (ICD-10 - K57.30) PLAN OF TREATMENT No Information
--- OUTSIDE RECORDS SUMMARY | 2025-01-27 14:33 | XMS_ITS ---
Author Organization [facility] Address [address] [place] [phone] Care Team Providers Care Help Desk Administrator Name Role Phone Po Alexsander FARIAS Primary Care Provider Chato Rubio [phone] ALLERGIES Allergen (clinical drug ingredient) Drug/Non Drug Allergy documented on EMR Reaction Allergy Type Onset Date Status sulfacetamide Sulfacetamide Unknown Drug Allergy Active REASON FOR VISIT Patient presents today for a colon screening MEDICATIONS Medication SIG (Take, Route, Frequency, Duration) Notes Start Date End Date Status Dofetilide 250 MCG TAKE 1 CAPSULE BY MOUTH EVERY 12 HOURS Oral for 30 For the Afib Active Metoprolol Succinate ER 50 MG TAKE 1 TABLET BY MOUTH DIALY Oral for 90 Active Furosemide 20 MG Oral for 40 A ctive Rosuvastatin Calcium 40 MG Oral for 90 Active Eliquis 5 MG TAKE 1 TABLET BY MOUTH TWICE A DAY Oral for 90 Active Isosorbide Mononitrate ER 120 MG Oral for 90 Active OXcarbazepine 150mg Active Vitamin D3 25 MCG (1000 UT) 1 capsule Orally Once a day for 30 day(s) Active Dicyclomine HCl 10 MG 1 or 2 capsules Orally Every 6 hours as needed for abdominal bloating/discomfort/c ramps for 30 day(s) 06/18/2024 Active SOCIAL HISTORY Tobacco Use: Social History Observation Description Date Details (start date - stop date) Never Smoker NA - NA Sex Assigned At : Social History Observation Description Sex Assigned At Unknown Tobacco Use/Smoking Question Answer Notes Patient is a nonsmoker Alcohol Screen Question Answer Notes Did you have a drink contain ing alcohol in the past year? Yes Points 2 Interpretation Negative How often did you have 6 or more drinks on one occasion in the past year? Never (0 point) How many drinks did you have on a typical day when you were drinking in the past year? 1 or 2 drinks (0 point) How often did you have a dri nk containing alcohol in the past year? 2 to 4 times a month (2 points) PROBLEMS Problem Type ICD Code Onset Dates Problem Status W/U Status Risk SNOMED Code Notes Problem Irritable bowel (K58.9) Active confirmed Irritable bowel (55749498) Problem Colon cancer screening (Z12.11) Active confirmed Colon cancer screening (034453634) Problem History of adenomatous polyp of colon (Z86.010) Active confirmed History of adenomatous polyp of colon (627241588) Problem Abdominal bloating (R14.0) Active confirmed Abdominal bloating (445866773) VITAL SIGNS Blood pressure systolic 0 mm Hg 06/18/20 24 Blood pressure diastolic 00 mm Hg 024 Height 72.75 in 06/18/2024 Weight 244 lbs 06/18/2024 BMI 32.41 kg/m2 06/18/2024 Encounters Encounter Location Date Provider Diagnosis [facility] [address] [place] [phone] 06/18/2024 Chato Diop Irritable bowel K58. 9 ; Colon cancer screening Z12.11 ; History of adenomatous polyp of colon Z86.010 and Abdominal bloating R14.0 ASSESSMENTS Encounter Date Diagnosis Assessment Notes Treatment Notes Treatment Clinical Notes 06/18/2024 Irritable bowel (ICD-10 - K58.9) 06/18/2024 Colon cancer screening (ICD-10 - Z12.11) Stop Eliquis for three days before the colonoscopy Do not take the Furosemide the day before or on the day of the colonoscopy We will get a clearance from Dr. Caro for the Eliquis 06/18/2024 History of adenomatous polyp of colon (ICD-10 - Z86.010) 06/18/2024 Abdominal bloating (ICD-10 - R14.0) PLAN OF TREATMENT Medication Medication Name Sig Start Date Stop Date Notes Dicyclomine HCl 10 MG 1 or 2 capsules Or ally Every 6 hours as needed for abdominal bloating/discomfort/cramps for 30 day(s) 06/18/2024 Treatment Notes Assessment Notes Colon cancer screening Stop Eliquis for three days before the colonoscopy Do not take the Furosemide the day before or on the day of the colonoscopy We will get a clearance from Dr. Caro for the Berylquis Pending Test Test Name Order Date CELIAC PANEL #10 06/18/2024 Future Test Test Name Order Date COLONOSCOPY 06/18/2024 Next Appt Details Follow Up: prn, Reason: Progress Notes * Examination Category Sub-Category Detail Notes General Examination GENERAL APPEARANCE: pleasant , well nourished, well developed, in no acute distress EYES: sclera non-icteric NECK/THYROID: no cervical lymphade nopathy, neck supple HEART: S1, S2 normal LUNGS: clear to auscultatio n bilaterally ABDOMEN: normal bowel sounds, no guarding or rigidity, no hepatosplenomegaly, no masses palpable, soft, nontender, nondistended. NEUROLOGIC: alert and oriented SKIN: nonjaundiced, no spi kimi angiomata. EXTREMITIES: no edema ORAL CAVITY: mucosa moist
== END 2025-01-27 11:36 | disposition home or self-care (01) ==
LOC: HO.MAMMO 11:35
PROVIDERS: PCP Internal Medicine; Visit Provider Internal Medicine
DX: Z12.31 Encounter for screening mammogram for malignant neoplasm of breast (principal)
CPT/HCPCS: 77063; 77067

== ENCOUNTER → 2025-01-27 11:45 | Outpatient (BNV) | payer MEDICARE, SELFPAY | PROVIDERS: PCP Internal Medicine; Visit Provider Internal Medicine | DX: Z12.31 Encounter for screening mammogram for malignant neoplasm of breast (principal) | CPT/HCPCS: 77063; 77067 ==

== ENCOUNTER → 2025-04-01 11:02 | Outpatient (RCR) | payer MEDICARE, SELFPAY ==
--- NOTE | 2020-10-10 16:53 | MHC.PT.DC ---
[facility] [place] Office [place] Office [place] Office [address] Elham Stern [address] [phone] F: [phone] F: [phone] F: [phone] F: [phone] Physical Therapy Discharge Report Diagnosis: Neck Pain Date of Surgery: Date of Evaluation: 08/31/20 Date of Discharge: Treatments to Date: 10 Cancellations to Date: 1 No Shows to Date: 0 Discharge Status: Achieved Goals Discharge Summary: Natacha has been an ideal and active participant in her therapy in and out of the clinic. She has met all of her therapeutic goals, she is independent with her home program and is in agreement with DC at this time. No cervical pain > 3 weeks. Neck Disability Index (NDI) improved from 9/50 to 0/50. Electronically signed by: Axel Johnson PT. Please sign and return to therapist. Thank you for your referral.
== END | disposition home or self-care (01) ==
LOC: HO.PTCHIC 09-07 09:56
PROVIDERS: PCP Internal Medicine; Visit Provider Internal Medicine
DX: M54.2 Cervicalgia (principal); I10 Essential (primary) hypertension; E78.5 Hyperlipidemia, unspecified; I25.119 Atherosclerotic heart disease of native coronary artery with unspecified angina pectoris; I48.0 Paroxysmal atrial fibrillation; Z79.899 Other long term (current) drug therapy
CPT/HCPCS: 97110; 97140; 99213; 99214

== ENCOUNTER 2025-04-03 09:59 | Outpatient (REF) | payer MEDICARE, SELFPAY ==
[2025-04-03 10:11] LABS: MANUAL DIFF FLAG NO
[2025-04-03 10:52] LABS: Basophils Absolute Auto 0.1 X10*3/uL (0.0-0.2); Basophils Percent Auto 1.3 % (0-2); Eosinophils Absolute Auto 0.1 X10*3/uL (0.0-0.4); Eosinophils Percent Auto 2.6 % (0-4); Hematocrit 39.8 % (37.0-47.0); Hemoglobin 13.1 g/dl (12.0-16.0); Imm Gran Abs Auto 0.02 X10*3/uL (0.00-0.03); Imm Gran Pct Auto 0.4 % (0.0-0.4); Lymphocytes Absolute Auto 2.2 X10*3/uL (1.2-4.9); Lymphocytes Percent Auto 40.6 % (20-40); Mean Corpuscular HGB Conc 32.9 g/dl (31.0-35.0); Mean Corpuscular Hemoglobin 30.8 pg (27.0-33.0); Mean Corpuscular Volume 93.4 fL (80.0-98.0); Mean Platelet Volume 10.3 fL (9.4-12.3); Monocytes Absolute Auto 0.7 X10*3/uL (0.1-1.2); Monocytes Percent Auto 13.2 % (2-11); Neutrophils Absolute Auto 2.3 x10*3/uL (2.0-8.3); Neutrophils Percent Auto 41.9 % (45-73); Platelet Count 225 X10*3/uL (160-400); Red Blood Count 4.26 X10*6/uL (4.20-5.50); Red Cell Distribution Width 13.4 % (11.0-16.0); White Blood Count 5.5 X10*3/uL (4.8-10.8)
[2025-04-03 11:09] LABS: B Type Natriuretic Peptide 145 pg/mL (<100); Estimated Average Glucose 128 mg/dL; Hemoglobin A1C 153.6726 umol/L; Hemoglobin A1c % 6.1 % (<6.0); Total Hemoglobin (HGBA1C) 3536.9379 umol/L
[2025-04-03 11:29] LABS: Alanine Aminotransferase 34 U/L (0-31); Albumin Level 4.2 g/dL (3.5-5.0); Anion Gap 12 (12-20); Aspartate Amino Transferase 46 U/L (5-31); Bilirubin Total 0.7 mg/dL (0.0-1.0); Blood Urea Nitrogen 11 mg/dL (9-16); Calcium 9.6 mg/dL (8.4-10.2); Carbon Dioxide 25 mmol/L (22-29); Chloride 108 mmol/L (96-108); Cholesterol 129 mg/dL (<200); Estimated Glomerular Filt Rate > 60; Glucose Random 108 mg/dL (60-115); HDL Cholesterol 46 mg/dL (>40); LDL Cholesterol Calculated 65 mg/dL (<100); Potassium 4.1 mmol/L (3.3-5.1); Sodium 141 mmol/L (135-145); Total Protein 6.8 g/dL (6.5-8.0); Triglycerides 90 mg/dL (<150)
[2025-04-03 11:57] LABS: Vitamin D 25-OH Total 41.4 ng/mL (>30)
[2025-04-03 11:59] LABS: Folate 11.2 ng/mL (> or = 4.0); Vitamin B12 294 pg/mL (200-900)
[2025-04-03 13:12] LABS: Alkaline Phosphatase 66 U/L (39-117)
== END 2025-04-03 10:00 | disposition home or self-care (01) ==
LOC: HO.LAB 09:59
PROVIDERS: PCP Internal Medicine; Visit Provider Internal Medicine
DX: I50.32 Chronic diastolic (congestive) heart failure (principal); E78.00 Pure hypercholesterolemia, unspecified; R73.02 Impaired glucose tolerance (oral)
CPT/HCPCS: 36415; 80053; 80061; 82306; 82607; 82746; 83036; 83880; 84439; 84443; 85025

== ENCOUNTER 2025-04-07 08:28 | Outpatient (AMB) | payer MEDICARE, SELFPAY ==
[2025-04-07 08:32] VITALS: BP 108/62; PULSE 79; O2SAT 97; BMI 33.6
--- NOTE | 2025-04-07 08:32 | A.OFFPC_ITS ---
Vital Signs 04/07/25 08:32 Height 6 ft Weight 248 lb BMI 33.6 BP 108/62 Blood Pressure Location Lt brachial Position Sitting Pulse 79 Pulse Source Pulse Oximeter Pulse Oximetry (%) 97 Oxygen Delivery Method Room Air Intake Visit Reasons: 3mth f/u Allergies sotalol Allergy (Severe, Verified 04/07/25 08:33) Rash Medication List - Last Reconciled 04/07/25 by Alexsander Burroughs MD aluminum chloride 20% (Drysol) 1 appl topical .QD PRN apixaban (Eliquis) 5 mg PO BID cholecalciferol (vitamin D3) 25 mcg PO DAILY dofetilide (Tikosyn) 375 mcg (3 x 125 mcg) PO Q12H 90 days furosemide 20 mg PO DAILY 90 days isosorbide mononitrate ER 120 mg PO DAILY metoprolol succinate ER 50 mg See Protocol PO DAILY nitroglycerin 0.4 mg sublingual DAILY PRN oxcarbazepine 150 mg PO DAILY rosuvastatin 40 mg PO BEDTIME tramadol 50 mg PO DAILY PRN Tobacco use date assessed: 12/24/24 Fall risk assessment: No Falls in past year Last assessed Fall Risk: 04/07/25 Dental Screening Dental Screen Date: 12/24/24 [facility] Medical History Colon cancer screening Paroxysmal atrial fibrillation Persistent atrial fibrillation (~2018) Chronic heart failure with preserved ejection fraction (HFpEF) CAD (coronary artery disease) Pulmonary nodules Aspiration pneumonitis Tubular adenoma of colon (~2006) History of COVID-19 Osteoarthritis of left knee Impaired glucose tolerance Obesity (BMI 30-39.9) Glaucoma Seizure disorder Obstructive sleep apnea HLD (hyperlipidemia) HTN (hypertension) Surgical History History of cardiac cath History of colonoscopy History of appendectomy History of cataract surgery History of cardioversion History of eye surgery Family History Father CVD (cardiovascular disease) Mother CVD (cardiovascular disease) Sister Cancer Social History Household Members: None Housing: House Are you a primary care administrative tech to a significant other at home: No Do you presently have visiting nurse or other home services: No Alcohol intake: current Alcohol intake frequency: holidays/special occasions only Patient Tobacco Use Status: Never used Tobacco Tobacco use type: Cigarette e-Cigarette/Vaping Use: Never Used Second Hand Smoke Exposure: Yes Advance Directives Date on File: 11/01/23 service: No Current occupational status: retired Current occupation: rt handed Cognitive needs: No Hearing needs: No Vision needs: Yes (Glasses) Questionnaire PHQ-9 Over the last 2 weeks, how often have you been bothered by any of the following problems? 1. Little interest or pleasure in doing things: several days 2. Feeling down, depressed, or hopeless: several days 3. Trouble falling or staying asleep, or sleeping too much: several days 4. Feeling tired or having little energy: more than half the days 5. Poor appetite or overeating: more than half the days 6. Feeling bad about yourself - or that you are a failure or have let yourself or your family down: not at all 7. Trouble concentrating on things, such as reading the newspaper or watching television: more than half the days 8. Moving or speaking so slowly that other people could have noticed. Or the opposite - being so fidgety or restless that you have been moving around a lot more than usual: not at all 9. Thoughts that you would be better off or of hurting yourself in some way: not at all Total score: 9 Depression Screening Interpretation: Positive Depression Screening Done: Yes 17289 - PHQ-9 Billing: Yes Source: Developed by Drs. Chato Veliz, Aysha Cox, Shaka Adamson and colleagues, with an educational ly from [employer]. Thrive Questionnaire Date Thrive assessed: 12/24/24 I am a: Patient What is your living situation today?: I have a steady place to live Within the past 12 months, did the food you bought not last and you didn't have the money to get more?: Never true Within the past 12 months, did you worry whether your food would run out before you got money to buy more?: Never true Do you have trouble paying for medicines?: No Do you have trouble getting transportation to medical appointments?: No Do you have trouble paying your heating and electricity bill?: No Do you have trouble taking care of your child, family member or friend?: No Do you have trouble with day-to-day activities such as bathing, preparing meals, shopping, managing finances, etc.?: No Are you currently unemployed and looking for a job?: No Are you interested in more education?: No Please select the resources that you would like help with: None Currently or been in a relationship where the following occur: No concerns reported THRIVE Score: 0 AUDIT C Alcohol Use Questionnaire (AUDIT-C) 1. How often do you have a drink containing alcohol?: 2-4 times a month Total Score: 2 TERRELL-7 AMB Questionnaire TERRELL-7 Date TERRELL - 7 assessed: 12/24/24 Feeling nervous, anxious, or on edge: 1 = Several days Not being able to stop or control worryin = Several days Worrying too much about different things: 1 = Several days Trouble relaxin = Several days Being so restless that it is hard to sit still: 0 = Not at all Becoming easily annoyed or irritable: 0 = Not at all Feeling afraid as if something awful might happen: 0 = Not at all Total TERRELL-7 score (0-4 normal; 5-9 mild; 10-14 moderate; 15-21 severe): 4 Source: Developed by Drs. Chato Veliz, Aysha Cox, Shaka Adamson and colleagues, with an educational ly from [employer]. TERRELL-7 Assessment Billing TERRELL-7 Assessment Tool: TERRELL-7 Assessment 30755 Physical exam (Primary Care) Vital Signs: Last Vital Signs Pulse 79 04/07/25 08:32 BP 108/62 04/07/25 08:32 Pulse Ox 97 04/07/25 08:32 Oxygen Delivery Method Room Air 04/07/25 08:32 BMI result Body Mass Index 33.6 Tobacco/Smoking Status: Tobacco use Status Tobacco use date assessed 12/24/24 04/07/25 08:38 Patient Tobacco Use Status Never used Tobacco 04/07/25 08:38 Tobacco use type Cigarette 04/07/25 08:38 e-Cigarette/Vaping Use Never Used 04/07/25 08:38 PHQ-9: PHQ-9 Score PHQ-9: Total score 9 04/07/25 08:48 Depression Screening Interpretation: Positive Thrive Assessment: Date of Thrive Assessment Date Thrive assessed 12/24/24 04/07/25 08:38 Currently or been in a relationship where the following occur: No concerns reported Const General: alert; No acute distress Eyes Conjunctivae: conjunctivae normal Resp Auscultation: clear to auscultation bilaterally Cardio Rate: regular rate Rhythm: regular rhythm GI Inspection: Yes normal to inspection Extrem General: Yes normal to inspection and No edema Coding Level of Care Code Est Pt Level 4 (40187) Complex EM visit Add On G2211 Diagnoses Paroxysmal atrial fibrillation I48.0 Chronic heart failure with preserved ejection fraction (HFpEF) I50.32 Coronary artery disease involving [place] coronary artery of [place] heart without angina pectoris I25.10 Associated angina: without angina Coronary Disease-Associated Artery/Lesion type: [place] artery [place] vs. transplanted heart: [place] heart Essential hypertension I10 Hypertension type: essential hypertension Mixed hyperlipidemia E78.2 Hyperlipidemia type: mixed hyperlipidemia Impaired glucose tolerance R73.02 Obstructive sleep apnea G47.33 Obesity (BMI 30-39.9) E66.9 Actinic keratoses L57.0 Additional Codes TERRELL-7 Assessment Billing - TERRELL-7 Assessment Tool: TERRELL-7 Assessment 84352 ([id number]) PHQ-9 - 15465 - PHQ-9 Billing: Yes ([id number]) Assessment & Plan Assessment & Plan (1) Paroxysmal atrial fibrillation: Code(s): I48.0 - Paroxysmal atrial fibrillation Category: Medical Plan: Continue with Tikosyn and anticoagulation twice a day year blood work requested for renal function (2) Chronic heart failure with preserved ejection fraction (HFpEF): Code(s): I50.32 - Chronic diastolic (congestive) heart failure Category: Medical Plan: Continue with furosemide renal function stable weigh daily (3) CAD (coronary artery disease): Code(s): I25.10 - Atherosclerotic heart disease of [place] coronary artery without angina pectoris Category: Medical Qualifiers: Associated angina: without angina Coronary Disease-Associated Artery/Lesion type: [place] artery [place] vs. transplanted heart: [place] heart Qualified Code(s): I25.10 - Atherosclerotic heart disease of [place] coronary artery without angina pectoris Plan: Control the cholesterol, weight, blood pressure, continue with anticoagulation (4) HTN (hypertension): Comment: Well controlled. Continue current meds Code(s): I10 - Essential (primary) hypertension Category: Medical Qualifiers: Hypertension type: essential hypertension Qualified Code(s): I10 - Essential (primary) hypertension Plan: Continue with blood pressure medication. Decrease salt intake and exercise on metoprolol 50 mg once a day (5) HLD (hyperlipidemia): Comment: LDL goal < 70. Well controlled. Continue statin Code(s): E78.5 - Hyperlipidemia, unspecified Category: Medical Qualifiers: Hyperlipidemia type: mixed hyperlipidemia Qualified Code(s): E78.2 - Mixed hyperlipidemia Plan: Avoid fried foods, chicken skin, eggs, butter margarine, pastries and meat. Be it pork or beef they have a lot of cholesterol under statin 40 mg once a day cardiology has given the guidelines of 55 LDL (6) Impaired glucose tolerance: Code(s): R73.02 - Impaired glucose tolerance (oral) Category: Medical Plan: Decrease the amount of carbohydrate intake, pasta, bread, rice and potatoes are all sugar and that is aside from all the sweet stuff, remember that fruits are good but they are Sweet also. (7) Obstructive sleep apnea: Comment: in-lab PSG- AHI 24/hr, REM AHI 60/hr, O2 [place] 79% Code(s): G47.33 - Obstructive sleep apnea (adult) (pediatric) Category: Medical Plan: Continue to use the CPAP more than 4 hours a night and benefits from this (8) Obesity (BMI 30-39.9): Code(s): E66.9 - Obesity, unspecified Category: Medical Plan: Continue with diet and exercise (9) Actinic keratoses: Code(s): L57.0 - Actinic keratosis Category: Medical Plan History of Present Illness The patient is a 70-year-old female presenting for a follow-up visit concerning her chronic medical conditions, with a particular focus on recent weight gain and associated impacts on health. She reports difficulty managing her obstructive sleep apnea, requires continued anticoagulation for atrial fibrillation, and has noted slight improvements in her congestive heart failure symptoms since cardiology follow-up in January 2025. Despite high-dose rosuvastatin therapy, her LDL cholesterol remains above the fuse spooler-recommended level. This issue, combined with compliance issues in dietary habits, poses a challenge in achieving desired lipid levels. The continued presence of fatty liver disease with elevated enzymes remains a concern, though previous stable patterns suggest chronic etiology. With a recent weight increment, the patient's physical capacity has declined, leading to intensified back pain and loss of functional status, including performing basic activities such as yard work and house chores, compounded by musculoskeletal pain which she manages occasionally with Tramadol. This situation underscores the persistence of a cycle where health issues impede and are exacerbated by lifestyle factors, notably physical inactivity and dietary imbalances. Health Maintenance - Mammogram up to date - Bone density test up to date - Colonoscopy completed in October 2024 with a repeat suggested in 2024 - CPAP usage for obstructive sleep apnea encouraged for over 4 hours a night - Anticoagulation management for atrial fibrillation with potential for dose adjustment if necessary - Regular cardiac evaluations and blood work advice at 6-month intervals - Encouragement for adherence to diet and exercise to assist with weight management Social History - Reports challenges with physical activity due to musculoskeletal pain and breathing difficulties - Occasional alcohol consumption, but predominantly avoids to mitigate liver impact - Engages in activities that were previously manageable, hindered by weight- related joint and back pain Review of Systems - Cardiovascular: Reports shortness of breath improved, occasional palpitations - Musculoskeletal: Reports back pain with physical activity - Gastrointestinal: Reports history of elevated liver enzymes - General Symptoms: Reports weight gain Physical Exam Results Labs: - Hemoglobin A1c: 6.1 - LDL Cholesterol: 65 mg/dL - Vitamin B12:294 pg/mL - Creatinine: 0.82 mg/dL, GFR >60 - Liver Enzymes: AST 45 U/L, ALT 34 U/L Plan The patient's follow-up plan includes dietary modifications and increased physical activity to address obesity-related factors. We discussed the possibility of adding ezetimibe to meet LDL cholesterol targets. The patient's atrial fibrillation management will be revisited regarding Tikosyn dosing adjustments or ablation if A-fib burden increases. Liver function monitoring will be ongoing, aligned with regular health maintenance and elevated enzyme observation. The necessity of dermatological follow-up for persistent skin issues was noted. Renewed Tramadol prescriptions were issued to support the patient's mobility amid joint discomfort. Engaging strategies to ensure adherence to her medication and CPAP usage remain pivotal in her cardiovascular health strategy. Patient was informed and verbally consented to the use of an ambient scribe for clinic note documentation during this visit. Discussion Notes In today's session, I discussed the patient's diagnosis and the need to address weight management from both a dietary and physical activity standpoint to support cardiovascular and overall health. The importance of complying with treatment plans such as anticoagulation, high-dose statin therapy, and CPAP adherence was emphasized. Treatment options for cholesterol management were reviewed extensively, including adding ezetimibe to rosuvastatin, in light of recent LDL readings. The potential side effects such as gastrointestinal issues were clarified. We agreed to retain the current approach for atrial fibrillation while being open to potential interventions upon symptom escalation. Continued health surveillance, including fasting blood tests before our next interaction, was advised, refocusing on reducing her risk for cardiovascular events. Patient Instructions - Monitor and follow a heart-healthy diet and exercise routine daily - Use CPAP machine for more than 4 hours every night - Adhere to prescribed medications including Tramadol as needed for pain - Schedule a follow-up colonoscopy this year - Follow up with fuse spooler for atrial fibrillation management - Undergo a fasting blood test in three months for cholesterol and sugar levels - Schedule a visit with a road patcher for a skin assessment - Communicate any new or worsening symptoms, especially chest pain, shortness of breath, or heart palpitations promptly Orders: Orders Comprehensive Met. Panel 3 Months E78.2 - Mixed hyperlipidemia Hemoglobin A1c 3 Months E78.2 - Mixed hyperlipidemia Lipid Panel 3 Months E78.00 - Pure hypercholesterolemia, unspecified, E78.2 - Mixed hyperlipidemia Referrals Dermatology Referral L57.0 - Actinic keratosis Medications: Changed From tramadol 25 mg (1/2 x 50 mg) PO DAILY PRN 20 tabs 0RF pain M54.9 - Dorsalgia, unspecified To tramadol 50 mg PO DAILY PRN 30 tabs 2RF pain M54.9 - Dorsalgia, unspecified
== END 2025-04-07 09:15 | disposition home or self-care (01) ==
LOC: HO.HMCH 08:29
PROVIDERS: PCP Internal Medicine; Visit Provider Internal Medicine
DX: I48.0 Paroxysmal atrial fibrillation (principal); I50.32 Chronic diastolic (congestive) heart failure; E66.9 Obesity, unspecified; Z68.33 Body mass index [BMI] 33.0-33.9, adult; I25.10 Atherosclerotic heart disease of native coronary artery without angina pectoris; I10 Essential (primary) hypertension; E78.2 Mixed hyperlipidemia; R73.02 Impaired glucose tolerance (oral); G47.33 Obstructive sleep apnea (adult) (pediatric); L57.0 Actinic keratosis

== ENCOUNTER → 2025-04-07 08:28 | Outpatient (BNVA) | payer MEDICARE, SELFPAY | PROVIDERS: PCP Internal Medicine; Visit Provider Internal Medicine | DX: I48.0 Paroxysmal atrial fibrillation (principal); I25.10 Atherosclerotic heart disease of native coronary artery without angina pectoris; I11.0 Hypertensive heart disease with heart failure; I50.32 Chronic diastolic (congestive) heart failure; E78.2 Mixed hyperlipidemia; R73.02 Impaired glucose tolerance (oral); G47.33 Obstructive sleep apnea (adult) (pediatric); E66.9 Obesity, unspecified; Z68.33 Body mass index [BMI] 33.0-33.9, adult; L57.0 Actinic keratosis; Z71.3 Dietary counseling and surveillance | CPT/HCPCS: 96127; 99212 ==

== ENCOUNTER → 2025-07-07 09:40 | Outpatient (REF) | payer MEDICARE, SELFPAY ==
--- NOTE | 2025-07-07 09:44 | CA_ITS ---
Transthoracic Echocardiogram Patient (Last, First, Middle): Natacha Mei H Gender: Female Date of : 1955 Age: 70 Procedure Date: 07/07/2025 Procedure Type: Transthoracic Echocardiogram Location: OP Height: 182.88 cm Weight: 107.5 kg BSA: 2.29 m2 Heart Rate: 75 bpm BP: 110 / 64 mmHg Software Technical Lead: SB Referring MD: George Caro MD Symptoms: I50.32 - Chronic diastolic (congestive) heart failure Study Quality: Adequate w contrast ECG Rhythm: Sinus Conclusions: - The left ventricular systolic function is normal. The calculated ejection fraction is 61% by biplane method. - No obvious valvular pathology seen on this study. Findings Procedure Information Contrast agent, definity, is being given per protocol without apparent complications. The quality of the study was technically difficult. Left Ventricle Normal left ventricular cavity size. There is normal left ventricular wall thickness. The left ventricular systolic function is normal. The calculated ejection fraction is 61% by biplane method. There is no evidence of regional wall motion abnormalities. Diastolic function is normal for age. Right Ventricle Normal right ventricular cavity size and systolic function. Atria Both atria are normal in size. Aortic Valve There is a normal trileaflet aortic valve. There is no aortic valve stenosis. There is no aortic valve regurgitation. Mitral Valve The mitral valve appears normal. There is no mitral valve regurgitation. There is no mitral valve stenosis. Pulmonic Valve The pulmonic valve is likely normal. Tricuspid Valve There is trace tricuspid valve regurgitation. There is no evidence of pulmonary hypertension. Great Vessels The asc aorta is normal in size. Venous The inferior vena cava is normal in size and collapses greater than 50% with inspiration. Pericardium/Pleural There is a trivial pericardial effusion. Prior Study Comparison No significant change compared to prior study dated: 07/31/2023. Recommendations, Care & Conclusions No obvious valvular pathology seen on this study. Measurements 2D Linear Measurements IVSd: 0.91 0.6-0.9/0.6-1.0 cm LVIDd: 5.32 3.9-5.3/4.2-5.9 cm LVIDd Index: 2.32 2.4-3.2/2.2-3.1 cm/m2 LVIDs: 3.43 2.0-3.6 cm LVPWd: 0.73 0.7-1.1 cm LA Diam: 4.10 2.7-3.8/3.0-4.0 cm LAIDs Index: 1.79 1.5-2.3 cm/m2 LV Mass: 193.29 67-162/88-224 g LV Mass Index: 84.41 43-95/49-115 g/m2 LVOT Diam: 2.20 3.0+(-)1.3 cm 2D Systolic Function EF 4C: 60.80 >55% EF 2C: 59.10 >55% EF BiP: 61.00 >55% Mitral Valve MV Pk E: 0.71 MV PK A: 0.62 MV Decel Time: 248.00 E/A: 1.10 E'Lateral: 9.68 E'Medial: 7.40 E/E' Med: 9.60 E/E' Lat: 7.30 PHT: 73.00 MVA PHT: 3.01 Decel Kinney: 2.87 Aortic Valve AoV Pk Anders: 1.23 AoV Pk Grad: 6.00 ROCHELLE: 2.90 LVOT LVOT Pk Anders: 0.90 LVOT Mn Anders: 0.62 LVOT VTI: 0.19 LVOT Pk Grad: 3.00 LVOT Mn Grad: 2.00 LVOT Diam: 2.20 LVOT Area: 3.80 Diastolic Function MV Pk E: 0.71 MV Pk A: 0.62 E/A: 1.10 E'Medial: 7.40 E/E' Med: 9.60 E' Laterial: 9.68 E/E' Lat: 7.30 Right Ventricle TAPSE (mm): 16.50 TVS' Anders: 7.90 Tricuspid Valve TR Pk Anders: 2.06 TR Pk Grad: 17.00 RA Press: 3.00 RVSP: 20.00 Great Vessels Aorta Sinus of Valsalva: 2.70 2.0-3.5 cm Ao Asc: 3.50 2.1-3.4 cm Ao Arch: 2.60 Pulmonary Veins Pulm Vein S/D 1.00 Pulmonary Valve PV Pk Anders: 0.84 Peak PV Grad: 3.00 Updated in Other Vendor System with Status of Final Desean Jefferson MD electronically signed on 07/09/2025 3:55:24 PM with status of Final
--- OUTSIDE RECORDS SUMMARY | 2025-07-07 10:01 | XMS_ITS | Encounter Summary ---
Author Organization [facility] Address [address] [place] [address] Phone Care Team Providers Care [employer] Name Role Phone Alexsander Burroughs MD Primary Care Provider [phone] Encounter Details Date Type Department Care Team (Late st Contact Info) Description 06/10/2019 Procedure Pass [facility] PERIOP DEPT [address] [place] [id number] Social History Tobacco Use Types Packs/Day Years Used Date Smoking Tobacco: Never Smokeless Tobacco: Never Alcohol Use Standard Drinks/Week Comments Yes 0 (1 standard drink = 0.6 oz pure alcohol) rare. one drink every other week Comments No Sex and Gender Information Value Date Recorded Sex Assigned at Not on file Legal Sex Female 9:30 AM EDT Gender Identity Not on file Sexual Orientation Not on file documented as of this encounter Plan of Treatment Not on file documented as of this encounter Visit Diagnoses Not on filedocumented in this encounter Care Teams [employer] Relationship Specialty Start Date End Date Alexsander Burroughs MD [address] [place] [id number] PCP - General Internal Medicine 06/10/19 documented as of this encounter Additional Source Comments The information contained in this document represents components of the legal health record. It is not the complete legal health record.[facility]
== END ==
LOC: HO.CARD 09:40
PROVIDERS: PCP Internal Medicine; Visit Provider Internal Medicine Cardiovascular Disease
DX: I50.32 Chronic diastolic (congestive) heart failure (principal)
CPT/HCPCS: 93306; Q9957

== ENCOUNTER → 2025-07-07 09:44 | Outpatient (BNV) | payer MEDICARE, SELFPAY | PROVIDERS: PCP Internal Medicine; Visit Provider Internal Medicine | DX: I50.32 Chronic diastolic (congestive) heart failure (principal) | CPT/HCPCS: 93306 ==

== ENCOUNTER 2025-07-14 09:27 | Outpatient (REF) | payer MEDICARE, SELFPAY ==
[2025-07-14 11:29] LABS: Hematocrit 38.9 % (37.0-47.0); Hemoglobin 13.1 g/dl (12.0-16.0); Mean Corpuscular HGB Conc 33.7 g/dl (31.0-35.0); Mean Corpuscular Hemoglobin 31.2 pg (27.0-33.0); Mean Corpuscular Volume 92.6 fL (80.0-98.0); NRBC Abs Auto 0.000 X10*3/uL (0.0-0.012); NRBC Pct Auto 0.0 /100WBC (0.0-0.2); Platelet Count 215 X10*3/uL (160-400); Red Blood Count 4.20 X10*6/uL (4.20-5.50); White Blood Count 5.1 X10*3/uL (4.8-10.8)
[2025-07-14 12:14] LABS: Alanine Aminotransferase 30 U/L (0-31); Albumin Level 4.5 g/dL (3.5-5.0); Alkaline Phosphatase 69 U/L (39-117); Anion Gap 13 (12-20); Aspartate Amino Transferase 34 U/L (5-31); Blood Urea Nitrogen 17 mg/dL (9-16); Calcium 9.5 mg/dL (8.4-10.2); Carbon Dioxide 27 mmol/L (22-29); Chloride 107 mmol/L (96-108); Cholesterol 128 mg/dL (<200); Estimated Glomerular Filt Rate 52; HDL Cholesterol 42 mg/dL (>40); Hemoglobin A1C 150.9653 umol/L; Potassium 3.9 mmol/L (3.3-5.1); Sodium 143 mmol/L (135-145); Total Hemoglobin (HGBA1C) 3480.8948 umol/L; Total Protein 6.9 g/dL (6.5-8.0); Triglycerides 106 mg/dL (<150)
== END 2025-07-14 09:28 | disposition home or self-care (01) ==
LOC: HO.LAB 09:27
PROVIDERS: PCP Internal Medicine; Visit Provider Internal Medicine Cardiovascular Disease
DX: I48.0 Paroxysmal atrial fibrillation (principal); I11.0 Hypertensive heart disease with heart failure; I50.32 Chronic diastolic (congestive) heart failure; I25.10 Atherosclerotic heart disease of native coronary artery without angina pectoris; E78.2 Mixed hyperlipidemia; E78.00 Pure hypercholesterolemia, unspecified; R06.02 Shortness of breath; Z79.899 Other long term (current) drug therapy; Z79.01 Long term (current) use of anticoagulants
CPT/HCPCS: 36415; 80053; 80061; 83036; 85027; 93005; 99212

== ENCOUNTER 2025-07-14 09:27 | Outpatient (AMB) | payer MEDICARE, SELFPAY ==
[2025-07-14 09:35] VITALS: BP 118/74; PULSE 64; BMI 32.3
--- NOTE | 2025-07-14 09:35 | MHC.OFFVIS ---
Vital Signs 07/14/25 09:35 Height 6 ft Weight 238 lb 1.588 oz BMI 32.3 BP 118/74 Blood Pressure Location Lt brachial Position Sitting Pulse 64 Intake Visit Reasons: 6m follow up Intake Note: 6 month with ekg has been feeling good today feeling a little dizzy and sob (state happen when going to doctor office) Soccer Referee Required: No Allergies sotalol Allergy (Severe, Verified 04/07/25 08:33) Rash Medication List - Last Reconciled 07/14/25 by George Caro MD aluminum chloride 20% (Drysol) 1 appl topical .QD PRN apixaban (Eliquis) 5 mg PO BID cholecalciferol (vitamin D3) 25 mcg PO DAILY dofetilide (Tikosyn) 375 mcg (3 x 125 mcg) PO Q12H 90 days furosemide 20 mg PO DAILY 90 days isosorbide mononitrate ER 120 mg PO DAILY metoprolol succinate ER 50 mg See Protocol PO DAILY nitroglycerin 0.4 mg sublingual DAILY PRN oxcarbazepine 150 mg PO DAILY rosuvastatin 40 mg PO BEDTIME tramadol 50 mg PO DAILY PRN HPI Comments Details: Natacha comes for follow-up. Couple of months ago she had frequent episodes of atrial fibrillation which concerned her. Symptoms lasted for few days. She might has been under increased stress. 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 Overall she is feeling well. She also has improved shortness of breath with exercise like walking on the beach. Denies any chest pain. No lightheadedness, syncope. No bleeding issues or neurologic events. [facility] Medical History Colon cancer screening Paroxysmal atrial fibrillation Persistent atrial fibrillation (~2018) Chronic heart failure with preserved ejection fraction (HFpEF) CAD (coronary artery disease) Pulmonary nodules Aspiration pneumonitis Tubular adenoma of colon (~2006) History of COVID-19 Osteoarthritis of left knee Impaired glucose tolerance Obesity (BMI 30-39.9) Glaucoma Seizure disorder Obstructive sleep apnea HLD (hyperlipidemia) HTN (hypertension) Surgical History History of cardiac cath History of colonoscopy History of appendectomy History of cataract surgery History of cardioversion History of eye surgery Family History Father CVD (cardiovascular disease) Mother CVD (cardiovascular disease) Sister Cancer Social History Household Members: None Housing: House Are you a primary wound care center consultant to a significant other at home: No Do you presently have visiting nurse or other home services: No Alcohol intake: current Alcohol intake frequency: holidays/special occasions only Patient Tobacco Use Status: Never used Tobacco Tobacco use type: Cigarette e-Cigarette/Vaping Use: Never Used Second Hand Smoke Exposure: Yes Advance Directives Date on File: 11/01/23 service: No Current occupational status: retired Current occupation: rt handed Cognitive needs: No Hearing needs: No Vision needs: Yes (Glasses) Review of Systems Const Denies chills, Denies fatigue, Denies fever(s), Denies frequent falls, Denies weakness, Denies weight gain and Denies weight loss ENT Denies dizziness Card Denies chest pain, Denies leg edema, Denies lightheadedness, Denies palpitations, Denies dyspnea, Denies dyspnea on exertion, Denies orthopnea and Denies other (loss of consciousness) Resp Denies cough, Denies dyspnea and Denies dyspnea on exertion GI Denies hematochezia and Denies change in stool character Musc Denies abnormal gait, Denies muscle weakness, Denies numbness, Denies radiating pain into limb and Denies tingling Neuro Denies abnormal gait, Denies dizziness, Denies frequent falls, Denies numbness, Denies tingling and Denies weakness Endo Denies fatigue and Denies palpitations Physical Exam Vital Signs: Last Vital Signs Pulse 64 07/14/25 09:35 BP 118/74 07/14/25 09:35 BMI result Body Mass Index 32.3 Const General: cooperative, comfortable, no acute distress, alert, awake and well groomed Nutritional Appearance: overweight Orientation/consciousness: patient oriented x3 Limitations: no limitations Neck Neck: Yes trachea midline, Yes supple and Yes JVD Resp Effort & Inspection: normal respiratory effort Auscultation: clear to auscultation bilaterally Cardio Jugular venous distension: JVD Palpation: normal PMI Rate: regular rate Rhythm: regular rhythm Heart sounds: S1 normal heart sound present, S2 normal heart sound present, no click, no gallops and no murmurs GI Auscultation: normal bowel sounds Neuro General: patient oriented x3 and no focal motor deficits Extrem General: Yes no clubbing, cyanosis or edema Psych Appearance: grossly normal Office Procedures EKG Details: EKG shows normal sinus rhythm normal EKG [place] [id number], Complete Assessment & Plan Assessment & Plan (1) Paroxysmal atrial fibrillation: Code(s): I48.0 - Paroxysmal atrial fibrillation Category: Medical Plan: Highly symptomatic paroxysmal atrial fibrillation has done extremely well with rhythm control approach will continue pursue rhythm control approach. She had couple of months ago increased episodes of atrial fibrillation that lasted for few days probably related to increased stress. This is now subsided and episodes of atrial fibrillation subsided. She is tolerating Tikosyn therapy. Continue the same. We discussed about procedure for ablation also in details. If she has recurrent atrial fibrillation can consider combined pharmacologic bleed if strategy. Continue full oral anticoagulation, currently on Eliquis 5 mg b.i.d.. (2) CAD (coronary artery disease): Code(s): I25.10 - Atherosclerotic heart disease of [place] coronary artery without angina pectoris Category: Medical Qualifiers: Coronary Disease-Associated Artery/Lesion type: [place] artery [place] vs. transplanted heart: [place] heart Associated angina: without angina Qualified Code(s): I25.10 - Atherosclerotic heart disease of [place] coronary artery without angina pectoris Plan: CAD with prior stenting. Currently not having any symptoms of angina. Currently on full oral anticoagulation Eliquis and therefore would avoid aspirin therapy. Continue high-intensity statin therapy. Target goal LDL less than 70 mg/dL. Continue aggressive blood pressure control which is currently well optimized. Currently also on isosorbide therapy and metoprolol therapy which are both antianginal therapies. Advised to continue participate in regular physical activity as tolerated. (3) Chronic heart failure with preserved ejection fraction (HFpEF): Code(s): I50.32 - Chronic diastolic (congestive) heart failure Category: Medical Plan: Chronic heart failure with preserved ejection fraction clinically euvolemic well compensated. Has done well with rhythm control approach. Continue the same. Continue low-dose diuretic therapy. Daily weight monitoring avoidance salt loading was discussed. Continue aggressive blood pressure control. Encouraged to participate in regular physical activity. Will follow up in the clinic in 6 months time, sooner p.r.n.. Thank you for allowing me to partake in her care Orders: Orders Complete Blood Count no Diff Today I48.0 - Paroxysmal atrial fibrillation Basic Metabolic Panel Today I48.0 - Paroxysmal atrial fibrillation Coding Level of Care Code Est Pt Level 4 (24135) Complex EM visit Add On G2211 Diagnoses Paroxysmal atrial fibrillation I48.0 Coronary artery disease involving [place] coronary artery of [place] heart without angina pectoris I25.10 Coronary Disease-Associated Artery/Lesion type: [place] artery [place] vs. transplanted heart: [place] heart Associated angina: without angina Chronic heart failure with preserved ejection fraction (HFpEF) I50.32 CPT Codes EKG - CPT: [id number]-[id number], Complete ([id number])
--- OUTSIDE RECORDS SUMMARY | 2025-07-14 09:55 | XMS_ITS | Encounter Summary ---
Author Organization [facility] Address [address] [place] [address] Phone Care Team Providers Care Front End Loader Driver Name Role Phone Alexsander Burroughs MD Primary Care Provider [phone] Encounter Details Date Type Department Care Team (Late st Contact Info) Description 06/10/2019 Procedure Pass [facility]TH FL PERIOP DEPT [address] [place] [id number] Social History Tobacco Use Types Packs/Day Years [...] on filedocumented in this encounter Care Teams Front End Loader Driver Relationship Specialty Start Date End Date Alexsander Burroughs MD [address] [place] [id number] PCP - General Internal Medicine 06/10/19 documented as of this encounter Additional Source Comments The information contained in this document represents components of the legal health record. It is not the complete legal health record.[facility]
== END 2025-07-14 10:10 | disposition home or self-care (01) ==
LOC: HO.HCS 09:28
PROVIDERS: PCP Internal Medicine; Visit Provider Internal Medicine Cardiovascular Disease
DX: I48.0 Paroxysmal atrial fibrillation (principal); I25.10 Atherosclerotic heart disease of native coronary artery without angina pectoris; I50.32 Chronic diastolic (congestive) heart failure
CPT/HCPCS: 93010; 99214; G2211

== ENCOUNTER 2025-08-06 09:35 | Outpatient (AMB) | payer MEDICARE, SELFPAY ==
[2025-08-06 09:41] VITALS: BP 118/70; PULSE 88; O2SAT 95; BMI 32.4
--- NOTE | 2025-08-06 09:41 | A.OFFPC_ITS ---
Vital Signs 08/06/25 09:41 Height 6 ft Weight 239 lb BMI 32.4 BP 118/70 Blood Pressure Location Lt brachial Position Sitting Pulse 88 Pulse Source Pulse Oximeter Pulse Oximetry (%) 95 Oxygen Delivery Method Room Air Intake Visit Reasons: 3mth f/u Allergies sotalol Allergy (Severe, Verified 08/06/25 09:41) Rash Tobacco use date assessed: 12/24/24 Fall risk assessment: No Falls in past year Last assessed Fall Risk: 08/06/25 Dental Screening Dental Screen Date: 12/24/24 [facility] Medical History Colon cancer screening Paroxysmal atrial fibrillation Persistent atrial fibrillation (~2018) Chronic heart failure with preserved ejection fraction (HFpEF) CAD (coronary artery disease) Pulmonary nodules Aspiration pneumonitis Tubular adenoma of colon (~2006) History of COVID-19 Osteoarthritis of left knee Impaired glucose tolerance Obesity (BMI 30-39.9) Glaucoma Seizure disorder Obstructive sleep apnea HLD (hyperlipidemia) HTN (hypertension) Surgical History History of cardiac cath History of colonoscopy History of appendectomy History of cataract surgery History of cardioversion History of eye surgery Family History Father CVD (cardiovascular disease) Mother CVD (cardiovascular disease) Sister Cancer Social History Household Members: None Housing: House Are you a primary daycare manager to a significant other at home: No Do you presently have visiting nurse or other home services: No Alcohol intake: current Alcohol intake frequency: holidays/special occasions only Patient Tobacco Use Status: Never used Tobacco Tobacco use type: Cigarette e-Cigarette/Vaping Use: Never Used Second Hand Smoke Exposure: Yes Advance Directives Date on File: 11/01/23 service: No Current occupational status: retired Current occupation: rt handed Cognitive needs: No Hearing needs: No Vision needs: Yes (Glasses) Questionnaire PHQ-9 Over the last 2 weeks, how often have you been bothered by any of the following problems? 1. Little interest or pleasure in doing things: several days 2. Feeling down, depressed, or hopeless: several days 3. Trouble falling or staying asleep, or sleeping too much: several days 4. Feeling tired or having little energy: more than half the days 5. Poor appetite or overeating: more than half the days 6. Feeling bad about yourself - or that you are a failure or have let yourself or your family down: not at all 7. Trouble concentrating on things, such as reading the newspaper or watching television: more than half the days 8. Moving or speaking so slowly that other people could have noticed. Or the opposite - being so fidgety or restless that you have been moving around a lot more than usual: not at all 9. Thoughts that you would be better off or of hurting yourself in some way: not at all Total score: 9 Depression Screening Interpretation: Positive Depression Screening Done: Yes Source: Developed by Drs. Chato Veliz, Aysha Cox, Shaka Adamson and colleagues, with an educational ly from [employer]. Thrive Questionnaire Date Thrive assessed: 04/07/25 I am a: Patient What is your living situation today?: I have a steady place to live Within the past 12 months, did the food you bought not last and you didn't have the money to get more?: Never true Within the past 12 months, did you worry whether your food would run out before you got money to buy more?: Never true Do you have trouble paying for medicines?: No Do you have trouble getting transportation to medical appointments?: No Do you have trouble paying your heating and electricity bill?: No Do you have trouble taking care of your child, family member or friend?: No Do you have trouble with day-to-day activities such as bathing, preparing meals, shopping, managing finances, etc.?: No Are you currently unemployed and looking for a job?: No Are you interested in more education?: No Please select the resources that you would like help with: None Currently or been in a relationship where the following occur: No concerns reported THRIVE Score: 0 AUDIT C Alcohol Use Questionnaire (AUDIT-C) 1. How often do you have a drink containing alcohol?: 2-4 times a month 2. How many drinks containing alcohol do you have on a typical day when you are drinking?: 1 or 2 3. How often do you have six or more drinks on one occasion?: Never Total Score: 2 TERRELL-7 AMB Questionnaire TERRELL-7 Date TERRELL - 7 assessed: 12/24/24 Source: Developed by Drs. Chato Veliz, Aysha Cox, Shaka Adamson and colleagues, with an educational ly from [employer]. Physical exam (Primary Care) Vital Signs: Last Vital Signs Pulse 88 08/06/25 09:41 BP 118/70 08/06/25 09:41 Pulse Ox 95 08/06/25 09:41 Oxygen Delivery Method Room Air 08/06/25 09:41 BMI result Body Mass Index 32.4 Tobacco/Smoking Status: Tobacco use Status Tobacco use date assessed 12/24/24 08/06/25 09:42 Patient Tobacco Use Status Never used Tobacco 08/06/25 09:42 Tobacco use type Cigarette 08/06/25 09:42 e-Cigarette/Vaping Use Never Used 08/06/25 09:42 PHQ-9: PHQ-9 Score PHQ-9: Total score 9 08/06/25 10:10 Depression Screening Interpretation: Positive Thrive Assessment: Date of Thrive Assessment Date Thrive assessed 04/07/25 08/06/25 09:42 Currently or been in a relationship where the following occur: No concerns reported Const General: alert; No acute distress Eyes Conjunctivae: conjunctivae normal Resp Auscultation: clear to auscultation bilaterally Cardio Rate: regular rate Rhythm: regular rhythm GI Inspection: Yes normal to inspection Extrem General: Yes normal to inspection and No edema Coding Level of Care Code Est Pt Level 4 (60504) Complex EM visit Add On G2211 Diagnoses Coronary artery disease involving [place] coronary artery of [place] heart without angina pectoris I25.10 Associated angina: without angina Coronary Disease-Associated Artery/Lesion type: [place] artery [place] vs. transplanted heart: [place] heart Chronic heart failure with preserved ejection fraction (HFpEF) I50.32 Essential hypertension I10 Hypertension type: essential hypertension Paroxysmal atrial fibrillation I48.0 Mixed hyperlipidemia E78.2 Hyperlipidemia type: mixed hyperlipidemia Impaired glucose tolerance R73.02 Obesity (BMI 30-39.9) E66.9 Tubular adenoma of colon D12.6 Obstructive sleep apnea G47.33 Visual hallucination R44.1 Assessment & Plan Assessment & Plan (1) CAD (coronary artery disease): Code(s): I25.10 - Atherosclerotic heart disease of [place] coronary artery without angina pectoris Category: Medical Qualifiers: Associated angina: without angina Coronary Disease-Associated Artery/Lesion type: [place] artery [place] vs. transplanted heart: [place] heart Qualified Code(s): I25.10 - Atherosclerotic heart disease of [place] coronary artery without angina pectoris Plan: Control the cholesterol, weight, blood pressure, patient on anticoagulation. Eliquis 5 mg twice a day, isosorbide mononitrate 120 mg once a day (2) Chronic heart failure with preserved ejection fraction (HFpEF): Code(s): I50.32 - Chronic diastolic (congestive) heart failure Category: Medical Plan: Continue with furosemide 20 mg once a day, weigh daily (3) HTN (hypertension): Comment: Well controlled. Continue current meds Code(s): I10 - Essential (primary) hypertension Category: Medical Qualifiers: Hypertension type: essential hypertension Qualified Code(s): I10 - Essential (primary) hypertension Plan: Continue with blood pressure medication. Decrease salt intake and exercise takes metoprolol 50 mg once a day (4) Paroxysmal atrial fibrillation: Code(s): I48.0 - Paroxysmal atrial fibrillation Category: Medical Plan: Continue with anticoagulation and has been placed on Tikosyn. (5) HLD (hyperlipidemia): Comment: LDL goal < 70. Well controlled. Continue statin Code(s): E78.5 - Hyperlipidemia, unspecified Category: Medical Qualifiers: Hyperlipidemia type: mixed hyperlipidemia Qualified Code(s): E78.2 - Mixed hyperlipidemia Plan: Avoid fried foods, chicken skin, eggs, butter margarine, pastries and meat. Be it pork or beef they have a lot of cholesterol LDL goal of less than 70 and triglyceride of less than 150 on rosuvastatin 40 mg at bedtime (6) Impaired glucose tolerance: Code(s): R73.02 - Impaired glucose tolerance (oral) Category: Medical Plan: Decrease the amount of carbohydrate intake, pasta, bread, rice and potatoes are all sugar and that is aside from all the sweet stuff, remember that fruits are good but they are Sweet also. (7) Obesity (BMI 30-39.9): Code(s): E66.9 - Obesity, unspecified Category: Medical Plan: Diet and exercise (8) Tubular adenoma of colon: Onset Date: ~2006 Comment: (TA on 2006 scope - normal 2013 scope) 10/2024 Code(s): D12.6 - Benign neoplasm of colon, unspecified Category: Medical Plan: Patient has a scheduled colonoscopy in a few months (9) Obstructive sleep apnea: Comment: in-lab PSG- AHI 24/hr, REM AHI 60/hr, O2 wilda 79% Code(s): G47.33 - Obstructive sleep apnea (adult) (pediatric) Category: Medical Plan: Continue to use the CPAP more than 4 hours a night and benefits from this (10) Visual hallucination: Code(s): R44.1 - Visual hallucinations Category: Medical Plan History of Present Illness The patient is a 70-year-old female presenting for a follow-up visit. The patient has a history of obesity, which has been a long-standing issue. She also suffers from generalized anxiety disorder and sleep apnea, both of which have been managed over time. Hypertension and hypercholesterolemia are part of her chronic conditions, with a history of seizure disorder also noted. She has coronary artery disease with congestive heart failure, with preserved ejection fraction, and atrial fibrillation. The patient has a history of tubular adenoma of the colon, and she is scheduled for a colonoscopy in October. Her last echocardiogram in July 2025 showed a left ventricular ejection fraction of 61% with no valvular pathology. Blood work from July 2025 indicated normal blood count, normal electrolytes, renal function with creatinine at 1.04, and a blood sugar level of 100 mg/dL with a hemoglobin A1c of 6.1%. Liver function tests have improved, and her LDL cholesterol is at 65 mg/dL, which is within the target range. The patient has quit work, leading to reduced stress and improved shortness of breath and exercise tolerance. She continues to use CPAP therapy for sleep apnea, which she finds beneficial. Health Maintenance - Mammogram is up to date - Bone density is up to date - Colonoscopy scheduled for October - Continues CPAP therapy for sleep apnea - LDL cholesterol goal of less than 70 mg/dL, currently at 65 mg/dL Social History - Employment: Patient has quit work, resulting in reduced stress - Exercise: Improved exercise tolerance noted Review of Systems - Cardiovascular: Reports improved shortness of breath - Neurological: Reports visual hallucinations - Respiratory: Denies shortness of breath at night Physical Exam Results - Echocardiogram (July 2025): Left ventricular ejection fraction of 61%, no valvular pathology - Blood work (July 2025): Normal blood count, normal electrolytes, creatinine 1.04 mg/dL, blood sugar 100 mg/dL, hemoglobin A1c 6.1% - Liver function: Improved - Cholesterol: LDL 65 mg/dL Plan Patient was informed and verbally consented to the use of an ambient scribe for clinic note documentation during this visit. 1. Obesity The patient is advised to continue with lifestyle modifications including diet and exercise to manage obesity. 2. Generalized Anxiety Disorder The patient should continue current management strategies for generalized anxiety disorder. 3. Sleep Apnea The patient is advised to continue using CPAP therapy for sleep apnea, which has been beneficial. 4. Hypertension The patient is on metoprolol 50 mg once a day for hypertension management. 5. Hypercholesterolemia The patient is on rosuvastatin 40 mg to maintain LDL cholesterol below 70 mg/dL. 6. Seizure Disorder The patient is on oxcarbazepine for seizure disorder management. 7. Coronary Artery Disease With Congestive Heart Failure The patient is on furosemide 20 mg daily and isosorbide mononitrate 120 mg daily for heart failure management. 8. Atrial Fibrillation The patient is on anticoagulation therapy with Eliquis 5 mg twice a day for atrial fibrillation. 9. History Of Tubular Adenoma Of The Colon The patient is scheduled for a colonoscopy in October to monitor for recurrence. Discussion Notes During the visit, we discussed the management of the patient's chronic condi tions, including hypertension, hypercholesterolemia, and atrial fibrillation. The importance of continuing CPAP therapy for sleep apnea was emphasized, and the patient was advised to maintain her current medication regimen. We also reviewed the upcoming colonoscopy scheduled for October and the need for regular follow-up with cardiology and neurology as needed. Patient Instructions - Continue current medication regimen as prescribed. - Use CPAP machine for at least 4 hours each night. - Schedule and attend colonoscopy in October. - Follow up with cardiology and neurology as needed. - Maintain a healthy diet and exercise regularly. Orders: Orders Comprehensive Met. Panel 3 Months I48.0 - Paroxysmal atrial fibrillation Hemoglobin A1c 3 Months I48.0 - Paroxysmal atrial fibrillation Free T4 (Free Thyroxine) 3 Months I48.0 - Paroxysmal atrial fibrillation Magnesium 3 Months I48.0 - Paroxysmal atrial fibrillation UA CC w/rflx Micro + Cult 3 Months I48.0 - Paroxysmal atrial fibrillation, R30.0 - Dysuria Complete Blood Count Auto Diff 3 Months I48.0 - Paroxysmal atrial fibrillation Thyroid Stimulating Hormone 3 Months I48.0 - Paroxysmal atrial fibrillation
--- OUTSIDE RECORDS SUMMARY | 2025-08-06 10:17 | XMS_ITS | Encounter Summary ---
Author Organization [facility] Address [address] [place] [address] Phone Care Team Providers Care Cage Maker Machine Name Role Phone Alexsander Burroughs MD Primary Care Provider [phone] Encounter Details Date Type Department Care Team (Late st Contact Info) Description 06/10/2019 Procedure Pass [facility] FL PERIOP DEPT [address] [place] [id number] Social History Tobacco Use Types Packs/Day Years [...] on filedocumented in this encounter Care Teams Cage Maker Machine Relationship Specialty Start Date End Date Alexsander Burroughs MD [address] [place] [id number] PCP - General Internal Medicine 06/10/19 documented as of this encounter Additional Source Comments The information contained in this document represents components of the legal health record. It is not the complete legal health record.[facility]
--- OUTSIDE RECORDS SUMMARY | 2025-08-06 10:18 | XMS_ITS | Encounter Summary ---
Author Organization [facility] Address [address] [place] [address] Phone Care Team Providers Care Broomcorn Sorter Name Role Phone Alexsander Burroughs MD Primary Care Provider [phone] Encounter Details Date Type Department Care Team ([facility] st Contact Info) Description 10/21/2019 Procedure Pass VIKTOR 6TH FL PERIOP DEPT [address] [place] [address] Social History Tobacco Use Types Packs/Day Years [...] on filedocumented in this encounter Care Teams Broomcorn Sorter Relationship Specialty Start Date End Date Alexsander Burroughs MD [address] [place] [phone] PCP - General Internal Medicine 06/10/19 documented as of this encounter Additional Source Comments The information contained in this document represents components of the legal health record. It is not the complete legal health record.[facility]
--- OUTSIDE RECORDS SUMMARY | 2025-08-06 10:18 | XMS_ITS | Encounter Summary ---
Author Organization [facility] Address [address] [place] [address] Phone Care Team Providers Care Enterprise Systems Manager Name Role Phone Alexsander Burroughs MD Primary Care Provider [phone] Encounter Details Date Type Department Care Team ([facility] st Contact Info) Description 10/11/2019 Prep for Surgery [address] [address] Missy Butts MD Social History Tobacco Use Types Packs/Day Years [...] on file documented as of this encounter H&P Notes * Missy Butts MD - 10/11/2019 1:08 PM EST FOCUSED OPHTHALMOLOGY SURGICAL H&P Date: 10/11/2019 Indication for surgery (proposed procedure): * No surgery found * LEFT EYE History of Present Illness: Glaucoma Past Medical/Surgical History/Problem List: Past Medical History: Diagnosis Date ??? Glaucoma ??? Hyperlipidemia ??? Seizure Four seizures in her lifetime, last seizure 8-9 years ago ??? Sleep apnea hasnt used CPAP for awhile, having another sleep study soon Past Surgical History: Procedure Laterality Date ??? APPENDECTOMY ??? COLONOSCOPY ??? GLAUCOMA SURGERY ??? WISDOM TOOTH EXTRACTION There are no active problems to display for this patient. Allergies/Reactions: No Known Allergies Medications: Current Outpatient Medications Medication Sig Dispense Refill ??? aspirin 81 mg chewable tablet Take 81 mg by mouth daily. ??? cholecalciferol (VITAMIN D3) 2,000 unit tablet Take 1,000 Units by mouth daily. ??? latanoprost (XALATAN) 0.005 % ophthalmic solution Place 1 drop into the left eye nightly at bedtime. 2.5 mL 12 ??? netarsudil (RHOPRESSA) 0.02 % ophthalmic solution Place 1 drop into the left eye every evening.Dispose of bottle 6 weeks after opening. 2.5 mL 12 ??? OXcarbazepine (TRILEPTAL) 150 MG tablet Take 150 mg by mouth 2 (two) times a day. ??? pravastatin (PRAVACHOL) 40 MG tablet Take 40 mg by mouth daily. ??? timolol (TIMOPTIC) 0.5 % ophthalmic solution Place 1 drop into the left eye daily. 10 mL 12 No current facility-administered medications for this visit. Relevant Eye History: See most recent office note. Any changes are as follows: None Ophthalmic Exam: External Exam: Per last ophthalmology note Assessment and Surgical Plan: Proceed with as scheduled LEFT EYE documented in this encounter Plan of Treatment Not on file documented as of this encounter Visit Diagnoses Not on filedocumented in this encounter Care Teams Enterprise Systems Manager Relationship Specialty Start Date End Date Alexsander Burroughs MD [address] [place] [address] [place] [phone] PCP - General Internal Medicine 06/10/19 documented as of this encounter Additional Source Comments The information contained in this document represents components of the legal health record. It is not the complete legal health record.[facility]
--- OUTSIDE RECORDS SUMMARY | 2025-08-06 10:18 | XMS_ITS | Clinical Summary ---
Author Organization [facility] Address [address] [place] [address] Phone Care Team Providers Care Alum Plant Supervisor Name Role Phone Alexsander Burroughs MD Primary Care Provider [phone] Allergies No known active allergies Medications aspirin 81 mg chewable tablet Take 81 mg by mouth daily. Active cholecalciferol (VITAMIN D3) 2,000 unit tablet Take 1,000 Units by mouth daily. Active OXcarbazepine (TRILEPTAL) 150 MG tablet Take 150 mg by mouth daily. Active pravastatin (PRAVACHOL) 40 MG tablet Take 40 mg by mouth daily. Active metoprolol succinate (TOPROL-XL) 25 MG 24 hr tablet Take 100 mg by mouth daily. Active apixaban (ELIQUIS) 5 mg tablet Take 5 mg by mouth 2 (two) times a day. Active isosorbide mononitrate (IMDUR) 60 MG 24 hr tablet Take 60 mg by mouth daily. Active atorvastatin (LIPITOR) 80 MG tablet Take 80 mg by mouth daily. Active rOPINIRole (REQUIP) 0.25 MG tablet Take 0.25 mg by mouth. Active nitroglycerin (NITROSTAT) 0.[address] 0.4 mg under the tongue every 5 (five) minutes as needed for chest pain. Active Active Problems No known active problems Family History Medical History Relation Comments Glaucoma Father Glaucoma Mother Relation Status Comments Father Mother Social History Tobacco Use Types Packs/Day Years Used Date Smoking Tobacco: Never Smokeless Tobacco: Never Alcohol Use Standard Drinks/Week Comments Yes 0 (1 standard drink = 0.6 oz pure alcohol) rare. one drink every other week Education Answer Date Recorded Are you interested in more education? Not on valerie e 03/29/2023 Are you concerned about learning? Not on file 03/29/2023 No 03/29/2023 No 03/29/2023 Digital Access Answer Date Recorded No 04/30/2023 No 04/30/2023 No 04/30/2023 Reliable internet access at home? Not on file 04/30/2023 Device with a working camera? Not on file Comments No Sex and Gender Information Value Date Recorded Sex Assigned at Not on file Legal Sex Female 9:30 AM EDT Gender Identity Not on file Sexual Orientation Not on file Last Filed Vital Signs Vital Sign Reading Time Taken Comments Blood Pressure 114/66 10/21/2019 8:40 AM EST Pulse 72 10/21/2019 8:40 AM EST Temperature 36.4 C (97.5 F) 10/21/2019 8:24 AM EST Respiratory Rate 17 10/21/2019 8:40 AM EST Oxygen Saturation 95% 10/21/2019 8:24 AM EST Inhaled Oxygen Concentration - - Weight 100.2 kg (221 lb) 10/21/2019 6:40 AM EST Height 182.9 cm (6') 10/21/2019 6:40 AM EST Body Mass Index 29.97 10/21/2019 6:40 AM EST Plan of Treatment Health Maintenance Due Date Last Done Comments Adult Td,Tdap Booster 1953 CREATININE LEVEL 1953 LIPID PANEL 1953 DEPRESSION SCREENING 1965 HEPATITIS C SCREENING 1971 MAMMOGRAM 1993 COLOGUARD 1998 COLONOSCOPY 1998 COLORECTAL CANCER SCREENING 1998 FIT TEST 1998 FOBT 1998 SIGMOIDOSCOPY 1998 VIRTUAL COLONOSCOPY 1998 ZOSTER VACCINES (1 of 2) 2003 OSTEOPOROSIS SCREENING INITI AL (ONE-TIME) 2018 PNEUMOCOCCAL VACCINES (50+ years) (2 of 2 - PCV) 09/02/2019 09/02/2018 INFLUENZA VACCINE (#1) 2025 8, 10/16/2017, 11/16/2016 COVID-19 VACCINE (3 - 2024-2 6 season) 2025 03/10/2021, 02/17/2021 RSV VACCINE (1 - 1-dose 75+ series) 2028 SMOKING STATUS SCREENING (On ce After 26 Yrs) Completed 04/06/2021 HEPATITIS A VACCINES Aged Out No long er eligible based on patient's age to complete this topic HIB VACCINES Aged Out No longer eligi ble based on patient's age to complete this topic MENINGOCOCCAL VACCINES (ACWY) Aged Out No longer eligible based on patient's age to complete this topic MENINGOCOCCAL VACCINES (B) Aged Out N o longer eligible based on patient's age to complete this topic Medical Devices Implanted Type Area Press Puller Device Identifier Shelf Expiration Date Model / Serial / Lot Pin Pin Description:Pin in tooth hol ding crown in place per patient. Insurance [facility] MEDEX SUPPLEMENT MEDICARE PART A & B [employer] MEDEX SUPPLEMENT MEDICARE PART A & B Member Subscriber Plan / Payer (Ef fective 2018-Present) Name:Natacha Mei Member ID:[id number] Relation to Subscriber:Self Name:Natacha Mei Subscriber ID:[id number] Payer ID:[id number] Group ID:Not on file Type:Medicare Address: [employer] [facility] [address] [place] [address] [employer] MEDEX SUPPLEMENT MEDICARE PART A & B [employer] MEDEX SUPPLEMENT MEDICARE PART A & B [employer] MEDEX SUPPLEMENT MEDICARE PART A & B [employer] MEDEX SUPPLEMENT MEDICARE PART A & B [employer] MEDEX SUPPLEMENT MEDICARE PART A & B [employer] MEDEX SUPPLEMENT MEDICARE PART A & B Member Subscriber Plan / Payer (Ef fective 2018-Present) Name:Natacha Mei Member ID:[id number] Relation to Subscriber:Self Name:Sosa Meiyce Subscriber ID:[id number] Payer ID:[id number] Group ID:Not on file Type:Medicare Address: [employer] [address] [employer] MEDEX SUPPLEMENT MEDICARE PART A & B Advance Directives For more information, please contact: [phone] (9AM - 5PM [facility], Saturday-Saturday) * Full Code (Presumed) (Latest Code Status on File) Date Activated Date Inactivated Comments 10/21/2019 6:28 AM 10/21/2019 11:07 AM * Full Code (Presumed) Date Activated Date Inactivated Comments 06/10/2019 6:50 AM 06/10/2019 11:07 AM Care Teams Alum Plant Supervisor Relationship Specialty Start Date End Date Alexsander Burroughs MD [address] [place] [address] [place] [phone] PCP - General Internal Medicine 06/10/19 Additional Source Comments The information contained in this document represents components of the legal health record. It is not the complete legal health record.[facility]
== END 2025-08-06 10:27 | disposition home or self-care (01) ==
LOC: HO.HMCH 09:35
PROVIDERS: PCP Internal Medicine; Visit Provider Internal Medicine
DX: I11.0 Hypertensive heart disease with heart failure (principal); I50.32 Chronic diastolic (congestive) heart failure; I48.0 Paroxysmal atrial fibrillation; Z68.32 Body mass index [BMI] 32.0-32.9, adult; E66.9 Obesity, unspecified; I25.10 Atherosclerotic heart disease of native coronary artery without angina pectoris; E78.2 Mixed hyperlipidemia; R73.02 Impaired glucose tolerance (oral); D12.6 Benign neoplasm of colon, unspecified; G47.33 Obstructive sleep apnea (adult) (pediatric); R44.1 Visual hallucinations

== ENCOUNTER → 2025-08-06 09:35 | Outpatient (BNVA) | payer MEDICARE, SELFPAY | PROVIDERS: PCP Internal Medicine; Visit Provider Internal Medicine | DX: I25.10 Atherosclerotic heart disease of native coronary artery without angina pectoris (principal); I11.0 Hypertensive heart disease with heart failure; I50.32 Chronic diastolic (congestive) heart failure; I48.0 Paroxysmal atrial fibrillation; E78.2 Mixed hyperlipidemia; R73.02 Impaired glucose tolerance (oral); E66.9 Obesity, unspecified; Z68.32 Body mass index [BMI] 32.0-32.9, adult; D12.6 Benign neoplasm of colon, unspecified; R44.1 Visual hallucinations; G47.33 Obstructive sleep apnea (adult) (pediatric); Z71.3 Dietary counseling and surveillance | CPT/HCPCS: 99212 ==

== ENCOUNTER 2025-09-03 07:43 | Outpatient (AMB) | payer MEDICARE, SELFPAY ==
--- OUTSIDE RECORDS SUMMARY | 2025-09-03 07:46 | XMS_ITS | Encounter Summary ---
Author Organization [facility] Address [address] [place] [address] Phone Care Team Providers Care Digital Marketing Consultant Name Role Phone Alexsander Burroughs MD Primary Care Provider [phone] Encounter Details Date Type Department Care Team ([facility] st Contact Info) Description 10/11/2019 Prep for Surgery [address] [address] Missy Butts MD Social History Tobacco Use [...] on filedocumented in this encounter Care Teams Digital Marketing Consultant Relationship Specialty Start Date End Date Alexsander Burroughs MD [address] [place] [address] [place] [phone] PCP - General Internal Medicine 06/10/19 documented as of this encounter Additional Source Comments The information contained in this document represents components of the legal health record. It is not the complete legal health record.[facility]
--- OUTSIDE RECORDS SUMMARY | 2025-09-03 07:46 | XMS_ITS | Encounter Summary ---
Author Organization [facility] Address [address] [place] [address] Phone Care Team Providers Care Broadcast Designer Name Role Phone Alexsander Burroughs MD Primary Care Provider [phone] Encounter Details Date Type Department Care Team ([facility] st Contact Info) Description 10/21/2019 Procedure Pass VIKTOR 6TH FL PERIOP DEPT [address] [place] [address] Social History Tobacco Use Types Packs/Day Years [...] on filedocumented in this encounter Care Teams Broadcast Designer Relationship Specialty Start Date End Date Alexsander Burroughs MD [address] [place] [phone] PCP - General Internal Medicine 06/10/19 documented as of this encounter Additional Source Comments The information contained in this document represents components of the legal health record. It is not the complete legal health record.[facility]
--- OUTSIDE RECORDS SUMMARY | 2025-09-03 07:46 | XMS_ITS | Encounter Summary ---
Author Organization [facility] Address [address] [place] [address] Phone Care Team Providers Care Retail Parts Professional Name Role Phone Alexsander Burroughs MD Primary Care Provider [phone] Encounter Details Date Type Department Care Team (Late st Contact Info) Description 06/10/2019 Procedure Pass ZMEE 6TH FL PERIOP DEPT [address] [place] [address] Social History Tobacco Use Types Packs/Day Years [...] on filedocumented in this encounter Care Teams Retail Parts Professional Relationship Specialty Start Date End Date Alexsander Burroughs MD [address] [place] [phone] PCP - General Internal Medicine 06/10/19 documented as of this encounter Additional Source Comments The information contained in this document represents components of the legal health record. It is not the complete legal health record.[facility]
--- OUTSIDE RECORDS SUMMARY | 2025-09-03 07:46 | XMS_ITS | Clinical Summary ---
Author Organization [facility] Address [address] [place] [address] Phone Care Team Providers Care Social Service Assistant Name Role Phone Alexsander Burroughs MD Primary Care Provider [phone] Allergies No known active allergies Medications aspirin [...] this topic Medical Devices Implanted Type Area Iron Erector Device Identifier Shelf Expiration Date Model / Serial / Lot Pin Pin Description:Pin in tooth hol ding crown in place per patient. Insurance [facility] MEDEX SUPPLEMENT MEDICARE PART A & B [employer] MED[employer] SUPPLEMENT MEDICARE PART A & B [employer] MED[employer] SUPPLEMENT MEDICARE PART A & B [employer] MED[employer] SUPPLEMENT MEDICARE PART A & B [employer] MED[employer] SUPPLEMENT MEDICARE PART A & B [employer] SUPPLEMENT MEDICARE PART A & B [employer] MED[employer] SUPPLEMENT MEDICARE PART A & B [employer] MED[employer] SUPPLEMENT MEDICARE PART A & B Member Subscriber Plan / Payer (Ef fective 2018-Present) Name:Natacha Mei Member ID:[id number] Relation to Subscriber:Self Name:Sosa Meiyce Subscriber ID:[id number] Payer ID:[id number] Group ID:Not on file Type:Medicare Address: [employer] [address] [employer] MEDEX SUPPLEMENT MEDICARE PART A & B Member Subscriber Plan / Payer (Ef fective 2018-Present) Name:Natacha Mei Member ID:[id number] Relation to Subscriber:Self Name:Natacha Mei Subscriber ID:[id number] Payer ID:[id number] Group ID:Not on file Type:Medicare Address: [employer] [address] [place] [address] Advance Directives For more information, please contact: [phone] (9AM - 5PM [facility], Saturday-Saturday) * Full Code (Presumed) (Latest Code Status on File) Date Activated Date Inactivated Comments 10/21/2019 6:28 AM 10/21/2019 11:07 AM * Full Code (Presumed) Date Activated Date Inactivated Comments 06/10/2019 6:50 AM 06/10/2019 11:07 AM Care Teams Social Service Assistant Relationship Specialty Start Date End Date Alexsander Burroughs MD [address] [place] [address] [place] [phone] PCP - General Internal Medicine 06/10/19 Additional Source Comments The information contained in this document represents components of the legal health record. It is not the complete legal health record.[facility]
[2025-09-03 08:02] VITALS: BP 100/60; PULSE 86; O2SAT 95; BMI 32.4
--- NOTE | 2025-09-03 08:02 | A.OFFVIS_ITS ---
Vital Signs 09/03/25 08:02 Height 6 ft Weight 239 lb BMI 32.4 BP 100/60 Blood Pressure Location Rt brachial Position Sitting Pulse 86 Pulse Source Pulse Oximeter Pulse Oximetry (%) 95 Oxygen Delivery Method Room Air Intake Visit Reasons: Follow Up Intake Note: Patient presents for 6 month follow up Roll Tube Setter Required: No Accompanied by: Self / Same As Patient Allergies sotalol Allergy (Severe, Verified 09/03/25 08:06) Rash Medication List - Last Reconciled 09/03/25 by MAX Callahan aluminum chloride 20% (Drysol) 1 appl topical .QD PRN apixaban (Eliquis) 5 mg PO BID cholecalciferol (vitamin D3) 25 mcg PO DAILY dicyclomine PO .prn dofetilide (Tikosyn) 375 mcg (3 x 125 mcg) PO Q12H 90 days furosemide 20 mg PO DAILY 90 days isosorbide mononitrate ER 120 mg PO DAILY metoprolol succinate ER 50 mg See Protocol PO DAILY nitroglycerin 0.4 mg sublingual DAILY PRN oxcarbazepine 150 mg PO DAILY rosuvastatin 40 mg PO BEDTIME tramadol 50 mg PO DAILY PRN HPI Comments Details: 70-yr-old female presents for follow-up visit of sleep apnea and seizure d/o. Pt denies any significant interval medical history changes. Patient reports she has started experiencing hallucinations in the last year. She states she has had at least 4 episodes of waking up at night (to the point of feeling as though she were fully awake in the moment) and briefly seeing a face in front of her.. She denies any specific cognitive concerns. However, she reports she has always had difficulty recalling names or retelling a story/joke she has been told. 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 She reports her father had signs of moderate to severe dementia in his 80s-90s, and her mother had dementia in her late 70s and did have a h/o REM sleep behaviors- would punch and kick in her sleep. Her BP is normotensive. Last HbA1c was 6.1%. Lipid panel was WNL. She states she is not regularly exercising due to back pain. But has a plan to start walking again. She is looking to see if [place] [facility] [place] the use of their pool and gym facility again. She is using her CPAP machine with good effect; her residual AHI is < 5/hr. She denies any interval seizure activity. She does still take her Trileptal. Last CBC and BMP- WNL. Seizure history: Pt reports she thinks she may have had a total of 4-5 seizures overall in childhood and in college, as she had episodes of passing out and other episodes of all of a sudden feeling like she was waking up but was standing. She was diagnosed with/ seizure in the early , as she had LOC with a fall, and broke her fingers and injured her chin. She has had a neuro work-up in the past- seizure etiology was never specifically identified. Her last seizure was ~15 yrs ago- when she was sick and possibly had not taken her seizure med. 90-day CPAP compliance report reviewed: [facility] Usage June 05, 2025 to September 02, 2025 Usage days >= 4 hours: 79% Overall usage days: 81% Average usage days used: 7 hours and 0 minutes AirCurve 10 STAT-[employer]ost[employer] Serial number [id number] Mode CPAP 12 cmH2O EPR 3 Leaks: * Median 0 L/min * Maximum 15.5 L/min Residual AHI: 4.2 per hour [facility] Medical History Colon cancer screening Paroxysmal atrial fibrillation Persistent atrial fibrillation (~2018) Chronic heart failure with preserved ejection fraction (HFpEF) CAD (coronary artery disease) Pulmonary nodules Aspiration pneumonitis Tubular adenoma of colon (~2006) History of COVID-19 Osteoarthritis of left knee Impaired glucose tolerance Obesity (BMI 30-39.9) Glaucoma Seizure disorder Obstructive sleep apnea HLD (hyperlipidemia) HTN (hypertension) Surgical History History of cardiac cath History of colonoscopy History of appendectomy History of cataract surgery History of cardioversion History of eye surgery Family History Father CVD (cardiovascular disease) Mother CVD (cardiovascular disease) Sister Cancer Social History Household Members: None Housing: House Are you a primary care management specialist to a significant other at home: No Do you presently have visiting nurse or other home services: No Alcohol intake: current Alcohol intake frequency: holidays/special occasions only Patient Tobacco Use Status: Never used Tobacco Tobacco use type: Cigarette e-Cigarette/Vaping Use: Never Used Second Hand Smoke Exposure: Yes Advance Directives Date on File: 11/01/23 service: No Current occupational status: retired Current occupation: rt handed Cognitive needs: No Hearing needs: No Vision needs: Yes (Glasses) Physical Exam Vital Signs: Last Vital Signs Pulse 86 09/03/25 08:02 BP 100/60 09/03/25 08:02 Pulse Ox 95 09/03/25 08:02 Oxygen Delivery Method Room Air 09/03/25 08:02 BMI result Body Mass Index 32.4 Const General: no acute distress Orientation/consciousness: patient oriented x3 HEENT Other: Mallampati stage Resp Effort & Inspection: normal respiratory effort and able to speak in complete sentences Neuro Other: Good facial expression Voice intact No evidence of tremor or involuntary movements General: patient oriented x3 Cranial nerves: Yes CN's II-XII intact bilaterally Gait exam (Neuro): Normal gait present Motor exam (neuro): 5/5 motor strength present throughout Psych Appearance: grossly normal Mental Status: mental status grossly normal Speech and movement: Normal speech and movement present and Clear speech present Affect: normal affect Attitude: cooperative Thought process: Normal thought process present Results Reviewed Results Reviewed: PAP compliance report- see HPI Assessment & Plan Assessment & Plan (1) Obstructive sleep apnea: Comment: in-lab PSG- AHI 24/hr, REM AHI 60/hr, O2 wilda 79% Code(s): G47.33 - Obstructive sleep apnea (adult) (pediatric) Category: Medical (2) Seizure disorder: Comment: Complex partial [id number] not had in a long time per patient Code(s): G40.909 - Epilepsy, unspecified, not intractable, without status epilepticus Category: Medical (3) Visual hallucination: Code(s): R44.1 - Visual hallucinations Category: Medical (4) Family history of dementia: Comment: Paternal and maternal. Mother had signs of REM sleep behavior disorder Code(s): Z81.8 - Family history of other mental and behavioral disorders Category: Medical Plan For isolated episodes of nocturnal visual hallucinations: She denies any current risk factors such as alcohol intake, late-day caffeine intake, changes in medication, and chronic sleep deprivation, and furthermore, she is compliant with her CPAP machine, and the compliance report shows a good reduction in residual AHI. It is possible that these hypnopompic-type hallucinations may be benign; however, it is important to rule out secondary underlying etiologies. Therefore, the patient is advised to undergo a brain MRI with and without contrast to assess for secondary underlying etiologies. Future considerations include genetic testing for AD and/or amyloid PET scan due to family history of dementia in her mother displayed symptoms of REM sleep behavior disorders. For SUSIE: Continue CPAP 12 cmH2O with EPR 3 nightly > 4 hours, as pt continues to have good clinical effect from use.. Clean CPAP machine and supplies routinely. Change CPAP supplies routinely. Use distilled water in CPAP water reservoir. Pt to contact us or respiratory company with any questions or concerns. For seizure: Continue troleptal 150mg qd- advised to take consistently. She did ask if trileptal could be a cause of her glaucoma- discussed this si not a reported adverse effect. Check CBC and CMP with next scheduled lab draws Will follow-up upon review of above and patient to follow-up in clinic in 6 months or sooner prn. Orders: Orders MR head/brain wo/w con 09/03/25 G40.909 - Epilepsy, unspecified, not intractable, without status epilepticus, I48.0 - Paroxysmal atrial fibrillation, R44.1 - Visual hallucinations Complete Blood Count Auto Diff Today G40.909 - Epilepsy, unspecified, not intra ctable, without status epilepticus, R44.1 - Visual hallucinations Comprehensive [place]. Panel Fast Today G40.909 - Epilepsy, unspecified, not intractable, without status epilepticus, R44.1 - Visual hallucinations Coding Level of Care Code Est Pt Level 4 (40745) Diagnoses Obstructive sleep apnea G47.33 Seizure disorder G40.909 Visual hallucination R44.1 Family history of dementia Z81.8
== END 2025-09-03 09:00 | disposition home or self-care (01) ==
LOC: HO.HSMS 07:44
PROVIDERS: PCP Internal Medicine; Visit Provider Nurse Practitioner Family
DX: G47.33 Obstructive sleep apnea (adult) (pediatric) (principal); G40.909 Epilepsy, unspecified, not intractable, without status epilepticus; R44.1 Visual hallucinations; Z81.8 Family history of other mental and behavioral disorders
CPT/HCPCS: 99214

== ENCOUNTER → 2025-09-03 07:43 | Outpatient (BNVA) | payer MEDICARE, SELFPAY | PROVIDERS: PCP Internal Medicine; Visit Provider Nurse Practitioner Family | DX: G47.33 Obstructive sleep apnea (adult) (pediatric) (principal); G40.909 Epilepsy, unspecified, not intractable, without status epilepticus; R44.1 Visual hallucinations; Z99.89 Dependence on other enabling machines and devices; Z81.8 Family history of other mental and behavioral disorders | CPT/HCPCS: 99212 ==

== ENCOUNTER 2025-09-15 08:55 | Outpatient (AMB) | payer MEDICARE, SELFPAY ==
--- NOTE | 2025-09-15 08:59 | AM.OFFVISNUR ---
Intake Visit Reasons: Flu Shot Allergies sotalol Allergy (Severe, Verified 09/03/25 08:06) Rash Office Procedures Flu Questionnaire Does the patient have a severe egg allergy?: No Does the patient have severe life threatening allergies?: No Does the patient have a fever or illness today?: No Has the patient ever had Guillain-[place] Syndrome?: No Has the patient ever had any past reaction to a flu shot?: No Immunizations Fluarix [id number] (PF) 45 mcg (15 mcg x 3)/0.5 mL IM syringe Performing Provider: Alexsander Burroughs MD [facility] Administered by: Lori Monsalve RN on 09/15/25 09:00 Dose Route Admin Location Dispensed Lot Number Expiration Date [facility] Faculty Support Coordinator 0.5 mL IM Left Deltoid 0.5 mL [id number] 05/31/26 [id number] [facility] VIS Given Date VIS Provided VIS Publication Date 09/15/25 Single Vaccine 25 Eligibility Eligibility Date Funding Source Not [facility] Eligible 09/15/25 Private Assessment & Plan Assessment & Plan Orders: Orders Influenza [id number] Immunization Today Z23 - Encounter for immunization Coding
--- OUTSIDE RECORDS SUMMARY | 2025-09-15 09:36 | XMS_ITS | Encounter Summary ---
Author Organization [facility] Address [address] [place] [address] Phone Care Team Providers Care Liability Claims Manager Name Role Phone Alexsander Burroughs MD Primary Care Provider [phone] Encounter Details Date Type Department Care Team (Late st Contact Info) Description 06/10/2019 Procedure Pass ZMEE 6TH FL PERIOP DEPT [address] [place] [address] Social History Tobacco Use Types Packs/Day Years [...] on filedocumented in this encounter Care Teams Liability Claims Manager Relationship Specialty Start Date End Date Alexsander Burroughs MD [address] [place] [phone] PCP - General Internal Medicine 06/10/19 documented as of this encounter Additional Source Comments The information contained in this document represents components of the legal health record. It is not the complete legal health record.[facility]
--- OUTSIDE RECORDS SUMMARY | 2025-09-15 09:36 | XMS_ITS | Clinical Summary ---
Author Organization [facility] Address [address] [place] [address] Phone Care Team Providers Care Sales Development Representative Name Role Phone Alexsander Burroughs MD Primary Care Provider [phone] Allergies No known active allergies Medications aspirin [...] this topic Medical Devices Implanted Type Area Floor Coverer Apprentice Device Identifier Shelf Expiration Date Model / Serial / Lot Pin Pin Description:Pin in tooth hol ding crown in place per patient. Insurance [facility] MEDEX SUPPLEMENT MEDICARE PART A & B [employer] MEDEX SUPPLEMENT MEDICARE PART A & B [employer] MEDEX SUPPLEMENT MEDICARE PART A & B [employer] MEDEX SUPPLEMENT MEDICARE PART A & B [employer] MEDEX SUPPLEMENT MEDICARE PART A & B [employer] MEDEX SUPPLEMENT MEDICARE PART A & B [employer] MEDEX SUPPLEMENT MEDICARE PART A & B [employer] MEDEX SUPPLEMENT MEDICARE PART A & B Member Subscriber Plan / Payer (Ef fective 2018-Present) Name:Natacha Mei Member ID:[id number] Relation to Subscriber:Self Name:Sosa Meiyce Subscriber ID:[id number] Payer ID:[id number] Group ID:Not on file Type:Medicare Address: [employer] [address] [employer] MEDEX SUPPLEMENT MEDICARE PART A & B Advance Directives For more information, please contact: [phone] (9AM - 5PM [facility], Saturday-Saturday) * Full Code (Presumed) (Latest Code Status on File) Date Activated Date Inactivated Comments 10/21/2019 6:28 AM 10/21/2019 11:07 AM * Full Code (Presumed) Date Activated Date Inactivated Comments 06/10/2019 6:50 AM 06/10/2019 11:07 AM Care Teams Sales Development Representative Relationship Specialty Start Date End Date Alexsander Burroughs MD [address] [place] [address] [place] [phone] PCP - General Internal Medicine 06/10/19 Additional Source Comments The information contained in this document represents components of the legal health record. It is not the complete legal health record.[facility]
--- OUTSIDE RECORDS SUMMARY | 2025-09-15 09:36 | XMS_ITS | Encounter Summary ---
Author Organization [facility] Address [address] [place] [address] Phone Care Team Providers Care Patient Care Secretary Name Role Phone Alexsander Burroughs MD Primary Care Provider [phone] Encounter Details Date Type Department Care Team ([facility] st Contact Info) Description 10/21/2019 Procedure Pass VIKTOR 6TH FL PERIOP DEPT [address] [place] [address] Social History Tobacco Use Types Packs/Day Years [...] on filedocumented in this encounter Care Teams Patient Care Secretary Relationship Specialty Start Date End Date Alexsander Burroughs MD [address] [place] [phone] PCP - General Internal Medicine 06/10/19 documented as of this encounter Additional Source Comments The information contained in this document represents components of the legal health record. It is not the complete legal health record.[facility]
--- OUTSIDE RECORDS SUMMARY | 2025-09-15 09:36 | XMS_ITS | Encounter Summary ---
Author Organization [facility] Address [address] [place] [address] Phone Care Team Providers Care Assigner Name Role Phone Alexsander Burroughs MD Primary Care Provider [phone] Encounter Details Date Type Department Care Team ([facility] st Contact Info) Description 10/11/2019 Prep for Surgery [address] [address] Missy Butts MD Social History Tobacco Use [...] on filedocumented in this encounter Care Teams Assigner Relationship Specialty Start Date End Date Alexsander Burroughs MD [address] [place] [address] [place] [phone] PCP - General Internal Medicine 06/10/19 documented as of this encounter Additional Source Comments The information contained in this document represents components of the legal health record. It is not the complete legal health record.[facility]
== END 2025-09-15 09:09 | disposition home or self-care (01) ==
LOC: HO.HMCH 08:57
PROVIDERS: PCP Internal Medicine; Visit Provider Internal Medicine
DX: Z23 Encounter for immunization (principal)

== ENCOUNTER → 2025-09-15 08:55 | Outpatient (BNVA) | payer MEDICARE, SELFPAY | PROVIDERS: PCP Internal Medicine; Visit Provider Internal Medicine | DX: Z23 Encounter for immunization (principal) | CPT/HCPCS: 90471; 90656 ==

== ENCOUNTER 2025-10-04 07:37 | Outpatient (REF) | payer MEDICARE, SELFPAY ==
--- NOTE | ~2025-10-04 | CT_ITS ---
EXAMINATION: CT CHEST WITHOUT CONTRAST CLINICAL INFORMATION: R91.8. COMPARISON: October 20, 2024. TECHNIQUE: Multidetector volumetric CT imaging of the chest was done. Axial MIP volume rendering provided. Sagittal and coronal reformatted images were obtained. This CT examination was performed using dose optimization techniques as appropriate, variously including the following: *Automated exposure control *Adjustment of mA and/or kV according to patient size (this includes techniques or standardized protocols for targeted exams where dose is matched to indication/reason for exam; i.e. extremities or head) *Use of iterative reconstruction technique DLP: 336 mGy-cm FINDINGS: DRAWING FRAME TENDER: Satisfactory inspiration. Cardiomediastinal silhouette size is normal. Right upper extremity next to the head the left upper extremity in adduction LUNGS: Bilateral, less than 2 mm noncalcified pulmonary nodules the most conspicuous in the right middle lung lobe with similar morphology and distribution. 1 mm calcified pulmonary nodule, right lung base. Linear attenuation abnormalities in the lingula. No bronchiectasis. No honeycombing. Subtle centrilobular emphysematous type changes. MEDIASTINUM: No lymphadenopathy. Small volume pericardial effusion. Heart is not enlarged. No aneurysm, thoracic aorta. Calcified plaque in the origin of the left subclavian artery and right brachiocephalic trunk. Calcified plaques in the coronary arteries. Calcified plaques in the descending thoracic aorta. CORONARY ARTERY CALCIFICATION: Calcified plaques. PLEURA: No pleural effusion. No pneumothorax. No calcified pleural plaques. No hemothorax. AXILLA: Mild prominent, nonspecific axillary lymph nodes. UPPER ABDOMEN: Calcified plaques in the abdominal aorta the origin of the mesenteric arteries and the left main renal artery. Gallbladder is contracted. OSSEOUS STRUCTURES: Multilevel spondylosis throughout the axial skeleton. S-shaped curvature of the thoracic spine. Degenerative changes in the right shoulder. CT/CT chest wo IV con IMPRESSION: Nonspecific subcentimeter noncalcified pulmonary nodules. Stable. Small pericardial effusion. New since prior exam. Coronary artery disease and atherosclerosis disease Fleischner guidelines were followed. Electronically signed by: Danyel Worthy MD 10/04/2025 08:44 AM EST
--- NOTE | ~2025-10-04 | MR_ITS ---
EXAMINATION: MR BRAIN WITH AND WITHOUT CONTRAST CLINICAL INFORMATION: Visual hallucinations. COMPARISON: None TECHNIQUE: Multiplanar multisequence MR imaging of the brain/sella was done prior to and following the intravenous administration of 10 mL Gadavist. Examination performed on a 1.5 Kimberly Siemens high-field unit. FINDINGS: There is no diffusion restriction. There is no intracranial hemorrhage, acute infarction, mass effect, or edema. Ventricles, sulci, and cisterns are normal in size and configuration for patient age. No shift of midline. No abnormal hemosiderin deposition is identified. There are rare scattered tiny punctate foci of white matter T2 hyperintensity in the periventricular, subcortical, and hemispheric deep white matter. These foci are nonspecific but statistically relate to small vessel ischemic changes. There is no abnormal intra or extra-axial enhancement after the administration of contrast. Midline structures appear normally formed. There are falcine calcifications. The pituitary gland appears normal. Posterior fossa structures appear normal. Cerebellar tonsils are appropriately located. Major flow voids are preserved within the skull base. The globes and orbital contents demonstrate no abnormalities. There are bilateral lens replacements. There is a tiny mucous retention cyst in the dependent left maxillary antrum. The remainder of the paranasal sinuses are normally aerated. The mastoids and tympanic cavities are normally aerated. Extracranial soft tissues demonstrate no abnormalities. No suspicious bone marrow changes are evident. There is hyperostosis frontalis. Atlantoaxial joint demonstrates moderate degenerative changes. MR/MR head/brain wo/w con IMPRESSION: 1. No evidence of intracranial hemorrhage, acute infarction, mass effect, edema, or abnormal contrast enhancement. 2. Minimal changes of small vessel ischemia. Electronically signed by: Guilherme Graham MD 10/04/2025 11:59 AM RAMIREZ
--- OUTSIDE RECORDS SUMMARY | 2025-10-04 07:39 | XMS_ITS | Encounter Summary ---
Author Organization [facility] Address [address] [place] [address] Phone Care Team Providers Care Fit Model Name Role Phone Alexsander Burroughs MD Primary Care Provider [phone] Encounter Details Date Type Department Care Team ([facility] st Contact Info) Description 10/11/2019 Prep for Surgery [address] [address] Missy Butts MD Social History Tobacco Use [...] on filedocumented in this encounter Care Teams Fit Model Relationship Specialty Start Date End Date Alexsander Burroughs MD [address] [place] [address] [place] [phone] PCP - General Internal Medicine 06/10/19 documented as of this encounter Additional Source Comments The information contained in this document represents components of the legal health record. It is not the complete legal health record.[facility]
--- OUTSIDE RECORDS SUMMARY | 2025-10-04 07:39 | XMS_ITS | Encounter Summary ---
Author Organization [facility] Address [address] [place] [address] Phone Care Team Providers Care Senior Contract Specialist Name Role Phone Alexsander Burroughs MD Primary Care Provider [phone] Encounter Details Date Type Department Care Team ([facility] st Contact Info) Description 10/21/2019 Procedure Pass VIKTOR 6TH FL PERIOP DEPT [address] [place] [address] Social History Tobacco Use Types Packs/Day Years [...] on filedocumented in this encounter Care Teams Senior Contract Specialist Relationship Specialty Start Date End Date Alexsander Burroughs MD [address] [place] [phone] PCP - General Internal Medicine 06/10/19 documented as of this encounter Additional Source Comments The information contained in this document represents components of the legal health record. It is not the complete legal health record.[facility]
--- OUTSIDE RECORDS SUMMARY | 2025-10-04 07:39 | XMS_ITS | Encounter Summary ---
Author Organization [facility] Address [address] [place] [address] Phone Care Team Providers Care Front End Developer Javascript Html Css Name Role Phone Alexsander Burroughs MD Primary Care Provider [phone] Encounter Details Date Type Department Care Team (Late st Contact Info) Description 06/10/2019 Procedure Pass ZMEE 6TH FL PERIOP DEPT [address] [place] [id number] Social History Tobacco Use Types Packs/Day Years [...] in this encounter Care Teams Front End Developer Javascript Html Css Relationship Specialty Start Date End Date Alexsander Burroughs MD [address] [place] [phone] PCP - General Internal Medicine 06/10/19 documented as of this encounter Additional Source Comments The information contained in this document represents components of the legal health record. It is not the complete legal health record.[facility]
--- OUTSIDE RECORDS SUMMARY | 2025-10-04 07:40 | XMS_ITS | Clinical Summary ---
Author Organization [facility] Address [address] [place] [address] Phone Care Team Providers Care Full Fashioned Garment Knitter Name Role Phone Alexsander Burroughs MD Primary Care Provider [phone] Allergies No known active allergies Medications aspirin [...] this topic Medical Devices Implanted Type Area Laboratory Supervisor Device Identifier Shelf Expiration Date Model / Serial / Lot Pin Pin Description:Pin in tooth hol ding crown in place per patient. Insurance [facility] MEDEX SUPPLEMENT MEDICARE PART A & B [employer] MEDEX SUPPLEMENT MEDICARE PART A & B [employer] MED[employer] SUPPLEMENT MEDICARE PART A & B [employer] MEDEX SUPPLEMENT MEDICARE PART A & B [employer] MEDEX SUPPLEMENT MEDICARE PART A & B [employer] MEDEX SUPPLEMENT MEDICARE PART A & B [employer] MEDEX SUPPLEMENT MEDICARE PART A & B [employer] MED[employer] SUPPLEMENT MEDICARE PART A & B Member Subscriber Plan / Payer (Ef fective 2018-Present) Name:Natacha Mei Member ID:[id number] Relation to Subscriber:Self Name:Sosa Meiyce Subscriber ID:[id number] Payer ID:[id number] Group ID:Not on file Type:Medicare Address: [employer] [address] [employer] MEDEX SUPPLEMENT MEDICARE PART A & B Advance Directives For more information, please contact: [phone] (9AM - 5PM [facility], Saturday-Saturday) * Full Code (Presumed) (Latest Code Status on File) Date Activated Date Inactivated Comments 10/21/2019 6:28 AM 10/21/2019 11:07 AM * Full Code (Presumed) Date Activated Date Inactivated Comments 06/10/2019 6:50 AM 06/10/2019 11:07 AM Care Teams Full Fashioned Garment Knitter Relationship Specialty Start Date End Date Alexsander Burroughs MD [address] [place] [address] [place] [phone] PCP - General Internal Medicine 06/10/19 Additional Source Comments The information contained in this document represents components of the legal health record. It is not the complete legal health record.[facility]
== END 2025-10-04 07:38 | disposition home or self-care (01) ==
LOC: HO.CT 07:37
PROVIDERS: PCP Internal Medicine; Visit Provider Nurse Practitioner Family
DX: R91.8 Other nonspecific abnormal finding of lung field (principal); R44.1 Visual hallucinations; G40.909 Epilepsy, unspecified, not intractable, without status epilepticus; I48.0 Paroxysmal atrial fibrillation
CPT/HCPCS: 70553; 71250; A9585

== ENCOUNTER → 2025-10-04 07:37 | Outpatient (BNV) | payer MEDICARE, SELFPAY | PROVIDERS: PCP Internal Medicine; Visit Provider Radiology Diagnostic Radiology | DX: I67.82 Cerebral ischemia (principal); I31.39 Other pericardial effusion (noninflammatory); I25.10 Atherosclerotic heart disease of native coronary artery without angina pectoris | CPT/HCPCS: 70553; 71250 ==

== ENCOUNTER 2025-10-11 07:15 | Day surgery (SDC) | payer MEDICARE, SELFPAY ==
--- OUTSIDE RECORDS SUMMARY | 2025-08-18 09:08 | XMS_ITS | Encounter Summary ---
Author Organization [facility] Address [address] [place] [address] Phone Care Team Providers Care Security Intelligence Analyst Name Role Phone Alexsander Burroughs MD Primary Care Provider [phone] Encounter Details Date Type Department Care Team ([facility] st Contact Info) Description 10/21/2019 Procedure Pass VIKTOR 6TH FL PERIOP DEPT [address] [place] [address] Social History Tobacco Use Types Packs/Day Years [...] on filedocumented in this encounter Care Teams Security Intelligence Analyst Relationship Specialty Start Date End Date Alexsander Burroughs MD [address] [place] [phone] PCP - General Internal Medicine 06/10/19 documented as of this encounter Additional Source Comments The information contained in this document represents components of the legal health record. It is not the complete legal health record.[facility]
--- OUTSIDE RECORDS SUMMARY | 2025-08-18 09:08 | XMS_ITS | Encounter Summary ---
Author Organization [facility] Address [address] [place] [address] Phone Care Team Providers Care Community Relations Advisor Name Role Phone Alexsander Burroughs MD Primary Care Provider [phone] Encounter Details Date Type Department Care Team (Late st Contact Info) Description 06/10/2019 Procedure Pass ZMEE 6TH FL PERIOP DEPT [address] [place] [address] Social History Tobacco Use Types Packs/Day Years [...] on filedocumented in this encounter Care Teams Community Relations Advisor Relationship Specialty Start Date End Date Alexsander Burroughs MD [address] [place] [phone] PCP - General Internal Medicine 06/10/19 documented as of this encounter Additional Source Comments The information contained in this document represents components of the legal health record. It is not the complete legal health record.[facility]
--- OUTSIDE RECORDS SUMMARY | 2025-08-18 09:08 | XMS_ITS | Encounter Summary ---
Author Organization [facility] Address [address] [place] [address] Phone Care Team Providers Care Analytics Lead Name Role Phone Alexsander Burroughs MD Primary Care Provider [phone] Encounter Details Date Type Department Care Team ([facility] st Contact Info) Description 10/11/2019 Prep for Surgery [address] [address] Missy Butts MD Social History Tobacco Use [...] on filedocumented in this encounter Care Teams Analytics Lead Relationship Specialty Start Date End Date Alexsander Burroughs MD [address] [place] [address] [place] [phone] PCP - General Internal Medicine 06/10/19 documented as of this encounter Additional Source Comments The information contained in this document represents components of the legal health record. It is not the complete legal health record.[facility]
--- OUTSIDE RECORDS SUMMARY | 2025-08-18 09:08 | XMS_ITS | Clinical Summary ---
Author Organization [facility] Address [address] [place] [address] Phone Care Team Providers Care Legal Secretary Receptionist Name Role Phone Alexsander Burroughs MD Primary Care Provider [phone] Allergies No known active allergies Medications aspirin [...] this topic Medical Devices Implanted Type Area Bottle Label Inspector Device Identifier Shelf Expiration Date Model / Serial / Lot Pin Pin Description:Pin in tooth hol ding crown in place per patient. Insurance [facility] MEDEX SUPPLEMENT MEDICARE PART A & B [employer] MEDEX SUPPLEMENT MEDICARE PART A & B [employer] MEDEX SUPPLEMENT MEDICARE PART A & B [employer] MEDEX SUPPLEMENT MEDICARE PART A & B [employer] MEDEX SUPPLEMENT MEDICARE PART A & B [employer] MEDEX SUPPLEMENT MEDICARE PART A & B [employer] MEDEX SUPPLEMENT MEDICARE PART A & B [employer] MEDEX SUPPLEMENT MEDICARE PART A & B Member Subscriber Plan / Payer (Ef fective 2018-Present) Name:Natacha Mei Member ID:[id number] Relation to Subscriber:Self Name:Sosa Meiyce Subscriber ID:[id number] Payer ID:[id number] Group ID:Not on file Type:Medicare Address: [employer] [address] C[employer] MEDEX SUPPLEMENT MEDICARE PART A & B Advance Directives For more information, please contact: [phone] (9AM - 5PM [facility], Saturday-Saturday) * Full Code (Presumed) (Latest Code Status on File) Date Activated Date Inactivated Comments 10/21/2019 6:28 AM 10/21/2019 11:07 AM * Full Code (Presumed) Date Activated Date Inactivated Comments 06/10/2019 6:50 AM 06/10/2019 11:07 AM Care Teams Legal Secretary Receptionist Relationship Specialty Start Date End Date Alexsander Burroughs MD [address] [place] [address] [place] [phone] PCP - General Internal Medicine 06/10/19 Additional Source Comments The information contained in this document represents components of the legal health record. It is not the complete legal health record.[facility]
--- NOTE | 2025-10-06 13:58 | P.CONAN_ITS ---
Documented by User: Erika Irving NP 10/06/25 14:01 HPI - Anesthesia Eval Consult details Narrative: 70yo F for Colonoscopy Follows [facility] [place] Cardiology: Afib (eliquis); CAD s/p stenting; HFpEF. Stable at 07/2025 office visit [facility] Active Problems Active Problems: All Active Problems Family history of dementia (Acute) Visual hallucination (Acute) Actinic keratoses (Acute) Tubular adenoma of colon (Acute ~2006) Paroxysmal atrial fibrillation (Acute) Vertigo (Acute) Chronic heart failure with preserved ejection fraction (HFpEF) (Acute) CAD (coronary artery disease) (Acute) Medication monitoring encounter (Acute) Drug rash (Acute) Breast cancer screening by mammogram (Acute) Pulmonary nodules (Acute) Pneumonitis (Acute) Aspiration pneumonitis (Acute) Abnormal PFTs (pulmonary function tests) (Acute) Dyspnea (Acute) Seizure disorder (Acute) HTN (hypertension) (Acute) HLD (hyperlipidemia) (Acute) Impaired glucose tolerance (Acute) Obstructive sleep apnea (Acute) Central sleep apnea (Acute) SOB (shortness of breath) on exertion (Acute) Back pain (Acute) Generalized anxiety disorder (Acute) Renal insufficiency (Acute) Urge incontinence (Acute) Restless leg syndrome (Acute) Hyperhidrosis (Acute) Obesity (BMI 30-39.9) (Acute) Closed fracture of head of left radius with routine healing (Acute) Bilateral shoulder pain (Acute) Knee pain, left (Acute) Arthritis of left shoulder region (Acute) Left shoulder pain (Acute) Osteoarthritis of left knee (Acute) Past Medical History Medical History Colon cancer screening Paroxysmal atrial fibrillation Persistent atrial fibrillation (~2018) Chronic heart failure with preserved ejection fraction (HFpEF) CAD (coronary artery disease) Pulmonary nodules Aspiration pneumonitis Tubular adenoma of colon (~2006) History of COVID-19 Osteoarthritis of left knee Impaired glucose tolerance Obesity (BMI 30-39.9) Glaucoma Seizure disorder Obstructive sleep apnea HLD (hyperlipidemia) HTN (hypertension) Family History Family History Father CVD (cardiovascular disease) Mother CVD (cardiovascular disease) Sister Cancer Family history of problems with anesthesia: No Surgical History Surgical History History of cardiac cath History of colonoscopy (10/12/24) History of appendectomy History of cataract surgery History of cardioversion History of eye surgery History of Problems with Anesthesia: No Social History Social History Household Members: None Housing: House Are you a primary career technical education teacher to a significant other at home: No Do you presently have visiting nurse or other home services: No Alcohol intake: current Alcohol intake frequency: does not drink Patient Tobacco Use Status: Never used Tobacco Tobacco use type: Cigarette e-Cigarette/Vaping Use: Never Used Second Hand Smoke Exposure: No Use of substances other than those prescribed or required for medical reasons: No Have you been hit, kicked, punched, or otherwise hurt by someone within the past year? If so, by whom?: No Are you DNR?: No Advance Directives: Yes Advance Directives Information Provided: No Advance Directives on File: No Advance Directives Date on File: 11/01/23 Patient : No : No service: No Current occupational status: retired Current occupation: rt handed Cognitive needs: No Hearing needs: No Vision needs: Yes (Glasses) Meds Allergies Allergy/AdvReac Type Severity Reaction Status Date / Time sotalol Allergy Severe Rash Verified 09/03/25 08:06 Home Medications ?Medication ?Instructions ?Recorded ?Confirmed ?Last Taken ?Type cholecalciferol (vitamin D3) 25 25 mcg PO DAILY 10/07/25 10/29/23 History mcg (1,000 unit) capsule dicyclomine 10 mg capsule 10 - 20 mg PO QID PRN Abdomi nal 10/07/25 10/07/25 Unknown History Discomfort oxcarbazepine 150 mg tablet 150 mg PO BEDTIME 10/07/25 10/07/25 Unknown History Exam Narrative Narrative: EKG 07/2025 EKG Details: EKG shows normal sinus rhythm normal EKG with normal QT interval ECHO 07/2025 Conclusions: - The left ventricular systolic function is normal. The calculated ejection fraction is 61% by biplane method. - No obvious valvular pathology seen on this study. Assessment and Plan Assessment Anesthesia Assessment: Chart Reviewed Final Anesthetic Review Family History of Problems with Anesthesia: No History of Problems with Anesthesia: No Documented by User: Ac Sigala MD 10/11/25 08:06 [facility] Past Medical History Medical History Colon cancer screening Paroxysmal atrial fibrillation Persistent atrial fibrillation (~2018) Chronic heart failure with preserved ejection fraction (HFpEF) CAD (coronary artery disease) Pulmonary nodules Aspiration pneumonitis Tubular adenoma of colon (~2006) History of COVID-19 Osteoarthritis of left knee Impaired glucose tolerance Obesity (BMI 30-39.9) Glaucoma Seizure disorder Obstructive sleep apnea HLD (hyperlipidemia) HTN (hypertension) Functional capacity: independent ambulation Family History Family History Father CVD (cardiovascular disease) Mother CVD (cardiovascular disease) Sister Cancer Surgical History Surgical History History of cardiac cath History of colonoscopy (10/12/24) History of appendectomy History of cataract surgery History of cardioversion History of eye surgery Social History Social History Household Members: None Housing: House Are you a primary career technical education teacher to a significant other at home: No Do you presently have visiting nurse or other home services: No Alcohol intake: current Alcohol intake frequency: does not drink Patient Tobacco Use Status: Never used Tobacco Tobacco use type: Cigarette e-Cigarette/Vaping Use: Never Used Second Hand Smoke Exposure: No Use of substances other than those prescribed or required for medical reasons: No Have you been hit, kicked, punched, or otherwise hurt by someone within the past year? If so, by whom?: No Are you DNR?: No Advance Directives: Yes Advance Directives Information Provided: No Advance Directives on File: No Advance Directives Date on File: 11/01/23 Patient : No : No service: No Current occupational status: retired Current occupation: rt handed Cognitive needs: No Hearing needs: No Vision needs: Yes (Glasses) Meds Allergies Allergy/AdvReac Type Severity Reaction Status Date / Time sotalol Allergy Severe Rash Verified 09/03/25 08:06 Home Medications ?Medication ?Instructions ?Recorded ?Confirmed ?Last Taken ?Type cholecalciferol (vitamin D3) 25 25 mcg PO DAILY 10/07/25 10/29/23 His tory mcg (1,000 unit) capsule dicyclomine 10 mg capsule 10 - 20 mg PO QID PRN Abdomi nal 10/07/25 10/07/25 Unknown History Discomfort oxcarbazepine 150 mg tablet 150 mg PO BEDTIME 10/07/25 10/07/25 Unknown History Exam Exam Date and Time: 10/11/2025 Airway TM Dist: <=3cm Neck ROM: Full Loose/Missing/Broken Teeth: No Heart: normal Lungs: normal Other: normal Assessment and Plan Final Anesthetic Review NPO: Yes ASA Class: II Final Preanesthetic Review: No Changes in Pt Med Stat, Meds/Allgs Chart Reviewed, Consent Obtained/Reviewed and Anes Risks/Benef Reviewed Patient Risk: Low Procedure Risk: Low Anesthetic Plan Anesthetic Plan: MAC: Disposition: Standard PACU
[2025-10-07 14:48] VITALS: BMI 31.9
[2025-10-07 15:13] VITALS: BMI 32.5
[2025-10-11 07:35] VITALS: BMI 32.9
[2025-10-11 07:52] VITALS: BP 145/79; PULSE 86; RESP 14; TEMP 36.6; O2SAT 94
[2025-10-11] MEDS: Lactated Ringers 1,000 ML 50 ML IVCONT (07:55)
[2025-10-11 09:37] VITALS: BP 120/50; PULSE 75; RESP 16; TEMP 36.1; O2SAT 92
--- NOTE | 2025-10-11 09:42 | P.BOP_ITS ---
Brief Operative Note Date of Service: 10/11/25 Pre-op diagnosis: Screening Post-op diagnosis: other (Polyps) Procedure: Colonoscopy to the anastomosis and SI with hot snare polypectomies x 6 with placement of a Resolution clip on each polypectomy site Surgeon: Chato Diop MD Was an Vice President Of Communications used for this Procedure?: No Estimated blood loss (mL): 0 Pathology: other (A. Polyps distal to the anastomosis B. Transverse colon polyps C. Polyp at 60cm) Condition: stable Disposition: PACU
[2025-10-11 09:52] VITALS: BP 121/65; PULSE 105; RESP 12; TEMP 36.1; O2SAT 93
--- NOTE | 2025-10-11 11:15 | OP_ITS ---
DATE OF SERVICE: 10/11/2025 SURGEON: Chato Diop MD INDICATIONS: The patient presents for followup of personal history of colon polyps and colorectal cancer screening. Full consent has been obtained from her for this, including risks of bleeding and perforation. PREOPERATIVE DIAGNOSIS: History of colon polyps and colorectal cancer screening. POSTOPERATIVE DIAGNOSIS: History of colon polyps and colorectal cancer screening, colon polyps, diverticulosis, and internal hemorrhoids. PROCEDURE PERFORMED: Colonoscopy to the anastomosis and small bowel with multiple hot snare polypectomies and placement of a total of 6 resolution clips. ESTIMATED BLOOD LOSS: COMPLICATIONS: ANESTHESIA: Monitored anesthesia care. ASSISTANTS: SPECIMENS: DESCRIPTION OF PROCEDURE: The patient was placed in the left lateral decubitus position. The digital rectal exam revealed no abnormalities. The Olympus video pediatric colonoscope was entered into the rectum and advanced easily to the level of the anastomosis. The small bowel was cannulated and appeared normal. The scope was withdrawn back in the colon. The anastomosis appeared normal. Just distal to the anastomosis were 2 polyps. These were between 8 and 12 mm in diameter and were both removed with hot snare polypectomy. Both polypectomy sites appeared clean, without any sign of residual polyp nor bleeding. The polyps were retrieved by suction. I placed a single resolution clip on the each polypectomy site with good deployment and good hemostasis. In the more distal transverse colon were a total of 3 polyps ranging in size from 6 to 12 mm. These were also removed by hot snare polypectomy and recovered by suction. All the polypectomy sites appeared clean, without any sign of residual polyp nor bleeding. A single resolution clip was applied to each polypectomy site with good deployment and good hemostasis. At 30 cm was an approximately 10 mm polyp, which was removed by hot snare polypectomy recovered by suction. The polypectomy site appeared clean, without any sign of residual polyp nor bleeding. A single resolution clip was applied to the polypectomy site with good deployment and good hemostasis. I did not visualize any other polyps, colitis, nor angiodysplasia. There was a mild amount of sigmoid diverticulosis. In the rectum, scope was retroflexed visualizing previously placed submucosal ink. I could see a scar from where she had her previous polypectomy, but there was no sign of any residual polyp tissue. The distal rectum was carefully inspected and I did not visualize any other abnormalities aside from hemorrhoids. The proximal rectum appeared normal. The scope was straightened and withdrawn from the patient. She tolerated procedure well and was returned to recovery area in stable condition. IMPRESSION: 1. Colon polyps. 2. Diverticulosis. 3. Internal hemorrhoids. PLAN: Given her history and today's findings, I would recommend a repeat colonoscopy within 1 to 2 years. She will see me otherwise on a p.r.n. basis. She was advised to resume her Eliquis in 48 hours. She was advised to stay off all aspirin and NSAIDs while on Eliquis. MD WON Nuñez/ELVIA / [phone]
== END 2025-10-11 11:27 | disposition home or self-care (01) ==
PROVIDERS: PCP Internal Medicine; Visit Provider Internal Medicine
PROC: 0DJD8ZZ Inspection of Lower Intestinal Tract, Via Natural or Artificial Opening Endoscopic (ICD-10-PCS; CPT 45378; principal; 2025-10-11 08:30)
DX: Z12.11 Encounter for screening for malignant neoplasm of colon (principal); Z86.0101 Personal history of adenomatous and serrated colon polyps; Z79.02 Long term (current) use of antithrombotics/antiplatelets; D12.6 Benign neoplasm of colon, unspecified; K57.30 Diverticulosis of large intestine without perforation or abscess without bleeding; K64.8 Other hemorrhoids; D12.3 Benign neoplasm of transverse colon
CPT/HCPCS: 45385; 88305; J2003; J2371; J2704; J3010

== ENCOUNTER 2025-11-12 08:16 | Outpatient (REF) | payer MEDICARE, SELFPAY ==
[2025-11-12 08:37] LABS: MANUAL DIFF FLAG NO
[2025-11-12 08:59] LABS: Hematocrit 43.5 % (37.0-47.0); Hemoglobin 14.2 g/dl (12.0-16.0); Imm Gran Abs Auto 0.02 X10*3/uL (0.00-0.03); Imm Gran Pct Auto 0.3 % (0.0-0.4); Lymphocytes Absolute Auto 1.8 X10*3/uL (1.2-4.9); Mean Corpuscular HGB Conc 32.6 g/dl (31.0-35.0); Mean Corpuscular Hemoglobin 31.0 pg (27.0-33.0); Mean Corpuscular Volume 95.0 fL (80.0-98.0); NRBC Abs Auto 0.000 X10*3/uL (0.0-0.012); NRBC Pct Auto 0.0 /100WBC (0.0-0.2); Platelet Count 242 X10*3/uL (160-400); Red Blood Count 4.58 X10*6/uL (4.20-5.50); White Blood Count 6.3 X10*3/uL (4.8-10.8)
[2025-11-12 09:42] LABS: Alanine Aminotransferase 29 U/L (0-31); Albumin Level 4.7 g/dL (3.5-5.0); Alkaline Phosphatase 73 U/L (39-117); Anion Gap 10 (12-20); Aspartate Amino Transferase 28 U/L (5-31); Blood Urea Nitrogen 18 mg/dL (9-16); Calcium 9.5 mg/dL (8.4-10.2); Carbon Dioxide 29 mmol/L (22-29); Chloride 105 mmol/L (96-108); Estimated Glomerular Filt Rate 56; Free T4 (Free Thyroxine) 0.91 ng/dL (0.71-1.85); Magnesium 2.1 mg/dL (1.6-2.6); Potassium 4.2 mmol/L (3.3-5.1); Sodium 140 mmol/L (135-145); Thyroid Stimulating Hormone 2.01 uIU/mL (0.32-4.0); Total Protein 7.3 g/dL (6.5-8.0)
[2025-11-12 10:14] LABS: Appearance Urine Cloudy; Glucose Urine UA Negative (Negative); PH 6.0 (5.0-9.0); Specific Gravity - Urine <= 1.005 (1.005-1.025)
== END 2025-11-12 08:17 | disposition home or self-care (01) ==
LOC: HO.LAB 08:16
PROVIDERS: PCP Internal Medicine; Visit Provider Internal Medicine
DX: R06.09 Other forms of dyspnea (principal); R91.8 Other nonspecific abnormal finding of lung field; R94.2 Abnormal results of pulmonary function studies; I48.0 Paroxysmal atrial fibrillation; R30.0 Dysuria; Z79.01 Long term (current) use of anticoagulants; Z13.1 Encounter for screening for diabetes mellitus
CPT/HCPCS: 36415; 80053; 81003; 83036; 83735; 84439; 84443; 85025; 99212

== ENCOUNTER 2025-11-12 08:42 | Outpatient (AMB) | payer MEDICARE, SELFPAY ==
--- NOTE | 2025-11-12 08:44 | A.OFFVIS_ITS ---
Vital Signs 11/12/25 08:45 Height 6 ft Weight 251 lb 5.231 oz BMI 34.1 BP 110/76 Blood Pressure Location Lt brachial Position Sitting Pulse 99 Pulse Source Pulse Oximeter Pulse Oximetry (%) 94 Oxygen Delivery Method Room Air Intake Visit Reasons: Shortness of breath/CT Follow Up Auto Bumper Straightener Required: No Accompanied by: Self / Same As Patient Allergies sotalol Allergy (Severe, Verified 11/12/25 08:49) Rash HPI Comments Details: The patient is a 70 y/o woman complainging of dyspnea on exertion. Moderate inseverity, worse when going up stairs. Had recent PFTs. This shows significantly reduced diffusion capacity and concern for pulmonary vascular disease and/or interstitial lung disease. She had a CXR personally reviewed by me without any evidence of acute disease. She will requiere a CT chest. Has atrial fibrillation and have been adherent to the Eliquis. Has never had bloodclots. Takes all her medications. She denies any orthopnea, PND, leg edema. No lightheadedness, syncope. No bleeding issues or neurologic events. We did have her go on a brief walking oximetry and she did become dyspneic after going up stairs, She did not desaturate which is reassuring. 10/02/2023 the patient is here for a pulmonary follow-up visit. Overall the patient is doing about the same. Still having dyspnea on exertion. [id number] severity. We did review her CT scan of the chest which demonstrated some evidence of mild pneumonitis in addition to mild degree of bronchiectasis and also subcentimeter pulmonary nodule. The findings whenever dramatic but still could be if plain the patient has abnormal PFTs and also shortness of breath. The patient may be developing some degree of hypersensitivity. Be reasonable to try her on a course of inhaled cortical steroids see if she gets some relief. If she does not have any relief will be reasonable to get some blood work to assess for the pneumonitis. In addition to that she will need another CT scan in a year's time. 05/11/2024 the patient is here for a pulmonary follow-up visit. The patient has been doing well from a respiratory status. Has not had to use any rescue inhalers or therapies. This is reassuring. She did have a blood work with the allergy testing still pending. Her WENDY was negative which is reassuring. We again looked at her CT scan of the chest. She has subcentimeter pulmonary nodules. She has a significant history of secondhand smoke. The patient however never smoked. She also has some minimal bronchiectasis and some ground- glass opacities in the left base. She is having issues with atrial fibrillation which is going more into her. She is going to talk to Cardiology about changes. She has already had allergic reactions to sotalol. With history of pneumonitis I would steer away from amiodarone at this time. Regarding follow-up CT scans CT scan in 6 months will be warranted to follow-up with the pulmonary nodule in the pneumonitis. The patient right now is off inhalers. She is doing well. Her respiratory exam is reassuring. 11/16/2024 the patient is here for pulmonary follow-up visit. Overall the patient has been doing well. Denies any respiratory complaints. She has not been using any inhalers which is reassuring. She did start a new antiarrhythmic agent and she seems to be tolerating that well. She did have repeat CT scan of the chest which I did review with her. Unfortunately has not been officially read yet but we did repeat compared to her previous CT scan. Appears that her nodules are stable measuring up to 5 mm in size. Although she has multiple nodules bilaterally. No evidence of any pneumonitis. In addition to that she d oes have some minimal degree of atelectasis primarily on the left side. Otherwise no evidence of any significant progressive disease. Will go ahead and repeat the CT scan next year. If she has any issues prior to that she will call for an earlier assessment. 11/12/2025 the patient is here for pulmonary follow-up visit. Overall she is doing well from a respiratory status. 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 The patient was very stressed. It is affecting her heart. She has gained significant amount of weight also. This is also affecting her breathing. The patient is going to start exercising regularly and changing her lifestyle. In the meantime the patient has not been using any inhalers. She does have a little wheezing on exam specially on forced exhalation. We did talk about considering a short-acting muscarinic antagonist. She is going to think about it she is going to start exercising and see how she does and if she feels like she needs something she will call. In addition to that we did look at her CT scan of the chest that she had in September 2025. Personally by me. Pulmonary nodules appear to be stable. In addition to that no evidence of any pneumonitis which is reassuring. The patient was mentioned to have a small pericardial effusion. I did look at her echocardiogram from July demonstrating a trivial pericardial effusion. Therefore see any concern. 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 for further [facility] Medical History Colon cancer screening Paroxysmal atrial fibrillation Persistent atrial fibrillation (~2018) Chronic heart failure with preserved ejection fraction (HFpEF) CAD (coronary artery disease) Pulmonary nodules Aspiration pneumonitis Tubular adenoma of colon (~2006) History of COVID-19 Osteoarthritis of left knee Impaired glucose tolerance Obesity (BMI 30-39.9) Glaucoma Seizure disorder Obstructive sleep apnea HLD (hyperlipidemia) HTN (hypertension) Surgical History History of cardiac cath History of colonoscopy (10/12/24) History of appendectomy History of cataract surgery History of cardioversion History of eye surgery Family History Father CVD (cardiovascular disease) Mother CVD (cardiovascular disease) Sister Cancer Social History Household Members: None Housing: House Are you a primary child care development specialist to a significant other at home: No Do you presently have visiting nurse or other home services: No Alcohol intake: current Alcohol intake frequency: does not drink Patient Tobacco Use Status: Never used Tobacco Tobacco use type: Cigarette e-Cigarette/Vaping Use: Never Used Second Hand Smoke Exposure: No Advance Directives Date on File: 11/01/23 service: No Current occupational status: retired Current occupation: rt handed Cognitive needs: No Hearing needs: No Vision needs: Yes (Glasses) Review of Systems Const Denies chills, Denies fatigue, Denies fever(s), Denies frequent falls, Denies weakness and Reports weight gain ENT Denies dizziness Card Denies chest pain, Denies leg edema, Denies lightheadedness, Denies palpitations, Denies dyspnea, Reports dyspnea on exertion, Denies orthopnea and Denies other (loss of consciousness) Resp Denies cough, Denies dyspnea and Reports dyspnea on exertion GI Denies hematochezia and Denies change in stool character Musc Denies abnormal gait, Denies muscle weakness, Denies numbness, Denies radiating pain into limb and Denies tingling Skin/Breast Denies rash Neuro Denies abnormal gait, Denies dizziness, Denies frequent falls, Denies numbness, Denies tingling and Denies weakness Endo Denies fatigue and Denies palpitations Physical Exam Vital Signs: Last Vital Signs Pulse 99 11/12/25 08:45 BP 110/76 11/12/25 08:45 Pulse Ox 94 11/12/25 08:45 Oxygen Delivery Method Room Air 11/12/25 08:45 BMI result Body Mass Index 34.1 Const General: cooperative, comfortable, no acute distress, alert, awake and well groomed Orientation/consciousness: patient oriented x3 Limitations: no limitations HEENT Head: Yes normocephalic Neck Neck: Yes trachea midline, Yes supple and Yes no JVD Chest Chest palpation & inspection: normal inspection of the chest Resp Effort & Inspection: normal respiratory effort Auscultation: clear to auscultation bilaterally, no crackles, no rales, no rhonchi and no wheezes Cardio Rate: regular rate Heart sounds: S1 normal heart sound present and S2 normal heart sound present GI Auscultation: normal bowel sounds Skin General skin exam: no rashes or lesions noted Neuro General: patient oriented x3 and no focal motor deficits Extrem General: Yes no clubbing, cyanosis or edema Psych Appearance: grossly normal Assessment & Plan Assessment & Plan (1) Dyspnea: Code(s): R06.00 - Dyspnea, unspecified Category: Medical Qualifiers: Dyspnea type: dyspnea on exertion Qualified Code(s): R06.09 - Other forms of dyspnea (2) Abnormal PFTs (pulmonary function tests): Code(s): R94.2 - Abnormal results of pulmonary function studies Category: Medical (3) Pneumonitis: Comment: resolved Code(s): J98.4 - Other disorders of lung Category: Medical (4) Pulmonary nodules: Code(s): R91.8 - Other nonspecific abnormal finding of lung field Category: Medical Plan No inhalers Afib is beter F/U with Cardiology re: pericardial effusion consider ABDIAZIZ as needed and before exercise, pt will call No further serial CT chest at this time F/U 12 months Coding Level of Care Code Est Pt Level 4 (76897) Diagnoses Dyspnea on exertion R06.09 Dyspnea type: dyspnea on exertion Abnormal PFTs (pulmonary function tests) R94.2 Pneumonitis J98.4 Pulmonary nodules R91.8 Time Spent (min) 17
[2025-11-12 08:45] VITALS: BP 110/76; PULSE 99; O2SAT 94; BMI 34.1
== END 2025-11-12 10:31 | disposition home or self-care (01) ==
PROVIDERS: PCP Internal Medicine; Visit Provider Hospitalist
DX: R06.09 Other forms of dyspnea (principal); R94.2 Abnormal results of pulmonary function studies; J98.4 Other disorders of lung; R91.8 Other nonspecific abnormal finding of lung field
CPT/HCPCS: 99214

== ENCOUNTER 2025-11-15 14:40 | Outpatient (AMB) | payer MEDICARE, SELFPAY ==
[2025-11-15 15:10] VITALS: BP 142/60; PULSE 75; RESP 16; TEMP 36.1; O2SAT 97; BMI 33.5
--- NOTE | 2025-11-15 15:10 | A.OFFPC_ITS ---
Vital Signs 11/15/25 15:10 11/15/25 15:38 Height 6 ft Weight 247 lb 2 oz BMI 33.5 BP 142/60 H 132/70 Blood Pressure Location Lt brachial Lt brachial Position Sitting Sitting Respiration 16 Pulse 75 Temp 96.9 F Temp Source Temporal Artery Scan Pulse Oximetry (%) 97 Oxygen Delivery Method Room Air Intake Visit Reasons: CHF, CAD Secretarial Teacher Required: No Zinc Etcher: Not Required per policy Accompanied by: Self / Same As Patient Allergies sotalol Allergy (Severe, Verified 11/15/25 15:26) Rash Tobacco use date assessed: 11/15/25 Fall risk assessment: No Falls in past year Last assessed Fall Risk: 11/15/25 Dental Screening Dental Screen Date: 12/24/24 HPI HPI Comments History of Present Illness Details History of Present Illness The patient is a 70 year old obese female presenting for a follow-up visit for management of multiple chronic conditions. Her past medical history is significant for hypertension, hypercholesterolemia, impaired glucose tolerance, obstructive sleep apnea, seizure disorder, coronary artery disease with congestive heart failure, atrial fibrillation, and generalized anxiety disorder. Regarding her cardiac history, she follows up with cardiology, last seen in July, for atrial fibrillation on a rhythm control strategy with anticoagulation, and congestive heart failure managed with diuretics. She continues on metoprolol 50 mg and isosorbide mononitrate. For her respiratory issues, she follows up with pulmonology for shortness of breath, but has not been using any inhalers. A CT scan in September 2025 showed stable pulmonary nodules, and no further serial CT scans are needed. She has a history of tubular adenoma of the colon, with the last colonoscopy in October 2025 where all biopsies revealed tubular adenoma. She was advised to repeat the colonoscopy in one to two years. For obstructive sleep apnea, she follows up with neurology and continues to use her CPAP machine. Neurology had advised a brain MRI without contrast, which has been completed. Laboratory work from November 12 showed a normal blood count, electrolytes, and renal function. Her blood sugar at that time was 111, and her hemoglobin A1c has been slowly increasing, with values of 5.9, 6.0, 6.1, and most recently 6.2 on November 01. Her last cholesterol panel was in July 2025 with an LDL of 65 and her liver function and thyroid are normal. She reports a weight gain of about 10 pounds. Her diet has recently included more carbohydrates like pasta, bread, and rice. 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 Regarding health maintenance, her mammogram is up to date, and she had a bone density scan in October 2024. Health Maintenance - Last seen for follow-up in August 03. - Mammogram is up to date. - Bone density scan was performed in Oct. - A colonoscopy was performed in 2024, which revealed tubular adenoma, with a recommendation for a repeat colonoscopy in 1-2 years. - Lab work to monitor blood glucose and electrolytes is planned in 3 months with a request for fasting before the blood draw. - Hemoglobin A1c has been trending upwar ds from 5.9 in 2020 to 6.2 in November. - Lifestyle: The importance of diet and exercise was discussed to prevent the progression to diabetes, with the patient planning to start exercising at a gym in December. 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 - Exercise: She reports being inactive a nd getting so tired or stressed that she just lies down at home. - Exercise: She plans to start using the gym at the [employer] [place] in December. - Nutrition: She reports eating a lot mo re carbohydrates, including pasta, bread, and rice, which she identifies as her favorite foods. - Weight Management: She reports a weigh t gain of about 10 pounds. Results - Labs (November 12): Normal blood count , electrolytes, and renal function. - Labs (November 12): Blood sugar was 11 1. - Labs (November 01): Hemoglobin A1c was 6.2. - Labs (July 2025): LDL was 65. - Labs: Thyroid function is normal. - Labs: Liver function is fine. - Imaging (Brain MRI): Revealed minimal changes of small vessel ischemia, a retention cyst in the left sinus, and arthritis in the neck. - Imaging (CT Scan, September 2025): Showe d stable pulmonary nodules. [facility] Medical History (Updated 11/15/25 @ 15:28 by Alexsander Burroughs MD) Colon cancer screening Paroxysmal atrial fibrillation Persistent atrial fibrillation (~2018) Chronic heart failure with preserved ejection fraction (HFpEF) CAD (coronary artery disease) Pulmonary nodules Aspiration pneumonitis Tubular adenoma of colon (~2006) History of COVID-19 Osteoarthritis of left knee Impaired glucose tolerance Obesity (BMI 30-39.9) Glaucoma Seizure disorder Obstructive sleep apnea HLD (hyperlipidemia) HTN (hypertension) Surgical History History of cardiac cath History of colonoscopy (10/12/24) History of appendectomy History of cataract surgery History of cardioversion History of eye surgery Family History Father CVD (cardiovascular disease) Mother CVD (cardiovascular disease) Sister Cancer Social History Household Members: None Housing: House Are you a primary dog daycare provider to a significant other at home: No Do you presently have visiting nurse or other home services: No Alcohol intake: current Alcohol intake frequency: does not drink Patient Tobacco Use Status: Never used Tobacco Tobacco use type: Cigarette e-Cigarette/Vaping Use: Never Used Second Hand Smoke Exposure: No Advance Directives Date on File: 11/01/23 service: No Current occupational status: retired Current occupation: rt handed Cognitive needs: No Hearing needs: No Vision needs: Yes (Glasses) Questionnaire Thrive Questionnaire Date Thrive assessed: 04/07/25 I am a: Patient What is your living situation today?: I have a steady place to live Within the past 12 months, did the food you bought not last and you didn't have the money to get more?: Never true Within the past 12 months, did you worry whether your food would run out before you got money to buy more?: Never true Do you have trouble paying for medicines?: No Do you have trouble getting transportation to medical appointments?: No Do you have trouble paying your heating and electricity bill?: No Do you have trouble taking care of your child, family member or friend?: No Do you have trouble with day-to-day activities such as bathing, preparing meals, shopping, managing finances, etc.?: No Are you currently unemployed and looking for a job?: No Are you interested in more education?: No Please select the resources that you would like help with: None Currently or been in a relationship where the following occur: No concerns reported THRIVE Score: 0 TERRELL-7 AMB Questionnaire TERRELL-7 Date TERRELL - 7 assessed: 12/24/24 Source: Developed by Drs. Chato Veliz, Aysha Cox, Shaka Adamson and colleagues, with an educational ly from [employer]. Review of Systems Narrative Review of Systems - Respiratory: Reports shortness of breath. - Neurological: Reports dizziness upon standing. - Gastrointestinal: Reports occasional bloating, sometimes feeling like her stomach is extended. - Gastrointestinal: Denies problems with bowel movements. - Eyes: Reports worsening eyesight, stating her prescription is worse than before her cataract surgery. - Eyes: Reports her eyes water all the time, which has been attributed to dry eye. - Eyes: Reports photophobia, especially bothered by lights in stores. - Eyes: Reports an intermittent haze or fog over her vision that comes and goes, which is not an issue with her glasses. - HEENT: Denies sinus congestion. Physical exam (Primary Care) Vital Signs: Last Vital Signs Temp 96.9 F 11/15/25 15:10 Pulse 75 11/15/25 15:10 Resp 16 11/15/25 15:10 BP 132/70 11/15/25 15:38 Pulse Ox 97 11/15/25 15:10 Oxygen Delivery Method Room Air 11/15/25 15:10 BMI result Body Mass Index 33.5 Tobacco/Smoking Status: Tobacco use Status Tobacco use date assessed 11/15/25 11/15/25 15:25 Patient Tobacco Use Status Never used Tobacco 11/15/25 15:25 Tobacco use type Cigarette 11/15/25 15:25 e-Cigarette/Vaping Use Never Used 11/15/25 15:25 Thrive Assessment: Date of Thrive Assessment Date Thrive assessed 04/07/25 11/15/25 15:25 Currently or been in a relationship where the following occur: No concerns reported Narrative Physical Exam - Vitals: Initial blood pressure was elevated. - Vitals: Repeat blood pressure after a period of rest was 132/70 mmHg. Const General: alert; No acute distress Eyes Conjunctivae: conjunctivae normal Resp Auscultation: clear to auscultation bilaterally Cardio Rate: regular rate Rhythm: regular rhythm GI Inspection: Yes normal to inspection Extrem General: Yes normal to inspection and No edema Coding Level of Care Code Est Pt Level 4 (29676) Add On Problem Visit Only Diagnoses Impaired glucose tolerance R73.02 Obesity (BMI 30-39.9) E66.9 Paroxysmal atrial fibrillation I48.0 Essential hypertension I10 Hypertension type: essential hypertension Coronary artery disease involving [place] coronary artery of [place] heart without angina pectoris I25.10 Associated angina: without angina Coronary Disease-Associated Artery/Lesion type: [place] artery [place] vs. transplanted heart: [place] heart Mixed hyperlipidemia E78.2 Hyperlipidemia type: mixed hyperlipidemia Chronic heart failure with preserved ejection fraction (HFpEF) I50.32 Tubular adenoma of colon D12.6 Obstructive sleep apnea G47.33 Visual hallucination R44.1 Assessment & Plan Assessment & Plan (1) Impaired glucose tolerance: Code(s): R73.02 - Impaired glucose tolerance (oral) Category: Medical Plan: Decrease the amount of carbohydrate intake, pasta, bread, rice and potatoes are all sugar and that is aside from all the sweet stuff, remember that fruits are good but they are Sweet also. Discussed that the A1c is getting higher (2) Obesity (BMI 30-39.9): Code(s): E66.9 - Obesity, unspecified Category: Medical Plan: Diet and exercise (3) Paroxysmal atrial fibrillation: Code(s): I48.0 - Paroxysmal atrial fibrillation Category: Medical Plan: Continue with anticoagulation and continue follow-up with cardiology seen in July the last time. Discussed about ablation (4) HTN (hypertension): Comment: Well controlled. Continue current meds Code(s): I10 - Essential (primary) hypertension Category: Medical Qualifiers: Hypertension type: essential hypertension Qualified Code(s): I10 - Essential (primary) hypertension Plan: Continue with blood pressure medication. Decrease salt intake and exercise continuing with metoprolol 50 isosorbide mononitrate (5) CAD (coronary artery disease): Code(s): I25.10 - Atherosclerotic heart disease of [place] coronary artery without angina pectoris Category: Medical Qualifiers: Associated angina: without angina Coronary Disease-Associated Artery/Lesion type: [place] artery [place] vs. transplanted heart: [place] heart Qualified Code(s): I25.10 - Atherosclerotic heart disease of [place] coronary artery without angina pectoris Plan: Control the cholesterol, weight, blood pressure, continue with anticoagulation on isosorbide (6) HLD (hyperlipidemia): Comment: LDL goal < 70. Well controlled. Continue statin Code(s): E78.5 - Hyperlipidemia, unspecified Category: Medical Qualifiers: Hyperlipidemia type: mixed hyperlipidemia Qualified Code(s): E78.2 - Mixed hyperlipidemia Plan: Avoid fried foods, chicken skin, eggs, butter margarine, pastries and meat. Be it pork or beef they have a lot of cholesterol LDL goal of less than 70 and triglyceride of less than 150 on rosuvastatin 40 (7) Chronic heart failure with preserved ejection fraction (HFpEF): Code(s): I50.32 - Chronic diastolic (congestive) heart failure Category: Medical Plan: Continue with diuretics and isosorbide mononitrate (8) Tubular adenoma of colon: Onset Date: ~2006 Comment: (TA on 2006 scope - normal 2012 scope) 10/2024, October 2025 Code(s): D12.6 - Benign neoplasm of colon, unspecified Category: Medical Plan: Patient had colonoscopy done and was advised repeat in 1-2 years all the biopsies were tubular adenoma (9) Obstructive sleep apnea: Comment: in-lab PSG- AHI 24/hr, REM AHI 60/hr, O2 wilda 79% Code(s): G47.33 - Obstructive sleep apnea (adult) (pediatric) Category: Medical Plan: Continue with CPAP more than 4 hours a night and benefits from this. Follows up with Neurology (10) Visual hallucination: Code(s): R44.1 - Visual hallucinations Category: Medical Plan: Patient was seen by Neurology and has advised MRI Plan Plan Patient was informed and verbally consented to the use of an ambient scribe for clinic note documentation during this visit. 1. Impaired Glucose Tolerance The patient's hemoglobin A1c is gradually increasing, with the latest value being 6.2, approaching the diagnostic threshold for diabetes of 6.5. Lifestyle modifications with diet, specifically reducing carbohydrate intake, and increasing exercise were strongly recommended to prevent the onset of diabetes. Plan to recheck fasting sugar and A1c in 3 months to monitor the trend. 2. Atrial Fibrillation The patient will continue with anticoagulation for rhythm control. Discussion was had regarding a potential ablation. She will continue to follow up with cardiology, whom she last saw in July. 3. Coronary Artery Disease The patient will continue her current medication regimen, which includes metoprolol 50mg, isosorbide mononitrate, and anticoagulation. 4. Hypercholesterolemia The goal is to maintain an LDL cholesterol level of less than 70 mg/dL and triglycerides less than 150 mg/dL. The patient will continue taking rosuvastatin 40 mg. 5. Congestive Heart Failure The patient will continue her current regimen of diuretics and isosorbide mononitrate. 6. History Of Tubular Adenoma Of Colon Following a colonoscopy in October 2025 where biopsies showed tubular adenoma, the patient was advised to have a repeat colonoscopy in 1 to 2 years. 7. Obstructive Sleep Apnea The patient is advised to continue using her CPAP for more than 4 hours a night. She will continue to follow up with her neurology specialist. 8. Eye Complaint The patient reports worsening vision, intermittent hazy vision not related to her glasses, and photophobia. She was advised that elevated blood sugar can affect her eyes by increasing intraocular pressure. It was recommended that she be seen by an banbury mixer operator to evaluate these symptoms. Discussion Notes I reviewed the results of the patient's recent brain MRI, explaining that the findings of minimal small vessel ischemic changes are age-related and that management involves the preventive measures we are already taking. I also noted the incidental findings of a retention cyst in the left sinus, which would only be a problem if she experiences significant congestion, and arthritis in her neck. I reviewed her recent lab work, noting that her blood count, electrolytes, and kidney function are normal. I emphasized the significance of her rising hemoglobin A1c, which has increased from 5.9 to 6.2, and her fasting blood sugar of 111. I explained that normal A1c is below 5.7 and diabetes is diagnosed at 6.5, stressing that her rising numbers are a concern and that she is at risk of developing diabetes. I stressed the importance of balancing carbohydrate and sugar intake with exercise to manage this. We discussed her occasional bloating and use of dicyclomine. I clarified that dicyclomine is for cramping pain by slowing gut movement and that bloating is typically related to specific foods like dairy, broccoli, and beans. Regarding probiotics, I mentioned that they are not required but can be trialed, and if she feels better, she can continue them. Regarding her eye complaints, including worsening vision and intermittent haze, I recommended she see an banbury mixer operator for evaluation. I also explained that high blood sugar can increase pressure inside the eye, potentially contributing to her symptoms. I rechecked her blood pressure, noting the initial reading was likely high because she did not rest beforehand, and the repeat reading was better at 132/70 mmHg. I provided a lab requisition for her to get her sugar and electrolytes checked in three months' time, before her next visit, and advised that it requires fasting. Patient Instructions - Continue your current medications for blood pressure, heart conditions, and cholesterol as prescribed, including metoprolol, isosorbide mononitrate, rosuvastatin, diuretics, and anticoagulants. - It is very important to manage your diet and exercise to prevent your blood sugar from getting higher and turning into diabetes. Try to reduce carbohydrates like pasta, bread, rice, and potatoes. - Continue to use your CPAP machine for your sleep apnea for at least 4 hours every night. - You need to see an eye doctor (banbury mixer operator) to have your worsening vision, eye watering, and the hazy vision you are experiencing evaluated. - In about 3 months, please go to the lab to have your blood drawn to check your sugar and electrolytes. You must fast before this blood test. - Continue to follow up with your specialists for cardiology and neurology. - Check with the front maker lockstitch about scheduling your next follow-up appointment. Orders: Orders Comprehensive Met. Panel 3 Months I48.0 - Paroxysmal atrial fibrillation Complete Blood Count Auto Diff 3 Months I48.0 - Paroxysmal atrial fibrillation Hemoglobin A1c 3 Months I48.0 - Paroxysmal atrial fibrillation
[2025-11-15 15:38] VITALS: BP 132/70
--- OUTSIDE RECORDS SUMMARY | 2025-11-15 21:11 | XMS_ITS | Encounter Summary ---
Author Organization [facility] Address [address] [place] [id number] Phone Care Team Providers Care Director Of Market Intelligence Name Role Phone Alexsander Burroughs MD Primary Care Provider [phone] Encounter Details Date Type Department Care Team ([facility] st Contact Info) Description 10/11/2019 Prep for Surgery [address] [address] Missy Butts MD Social History Tobacco Use [...] on filedocumented in this encounter Care Teams Director Of Market Intelligence Relationship Specialty Start Date End Date Alexsander Burroughs MD [address] [place] [address] [place] [id number] PCP - General Internal Medicine 06/10/19 documented as of this encounter Additional Source Comments The information contained in this document represents components of the legal health record. It is not the complete legal health record.[facility]
--- OUTSIDE RECORDS SUMMARY | 2025-11-15 21:11 | XMS_ITS | Clinical Summary ---
Author Organization [facility] Address [address] [place] [id number] Phone Care Team Providers Care Public Area Supervisor Name Role Phone Alexsander Burroughs MD Primary Care Provider [phone] Allergies No known active allergies Medications aspirin [...] this topic Medical Devices Implanted Type Area Confidential Investigator Device Identifier Shelf Expiration Date Model / Serial / Lot Pin Pin Description:Pin in tooth hol ding crown in place per patient. Insurance [facility] MEDEX SUPPLEMENT MEDICARE PART A & B [employer] MEDEX SUPPLEMENT MEDICARE PART A & B [employer] MEDEX SUPPLEMENT MEDICARE PART A & B [employer] MEDEX SUPPLEMENT MEDICARE PART A & B [employer] MEDEX SUPPLEMENT MEDICARE PART A & B [employer] MEDEX SUPPLEMENT MEDICARE PART A & B [employer] MEDEX SUPPLEMENT MEDICARE PART A & B [employer] MEDEX SUPPLEMENT MEDICARE PART A & B Member Subscriber Plan / Payer (Ef fective 2018-Present) Name:Natacha Mei Member ID:[id number] Relation to Subscriber:Self Name:Sosa Meiyce Subscriber ID:[id number] Payer ID:[id number] Group ID:Not on file Type:Medicare Address: [employer] [address] [employer] MEDEX SUPPLEMENT MEDICARE PART A & B Advance Directives For more information, please contact: [phone] (9AM - 5PM [facility], Saturday-Saturday) * Full Code (Presumed) (Latest Code Status on File) Date Activated Date Inactivated Comments 10/21/2019 6:28 AM 10/21/2019 11:07 AM * Full Code (Presumed) Date Activated Date Inactivated Comments 06/10/2019 6:50 AM 06/10/2019 11:07 AM Care Teams Public Area Supervisor Relationship Specialty Start Date End Date Alexsander Burroughs MD [address] [place] [address] [place] [phone] PCP - General Internal Medicine 06/10/19 Additional Source Comments The information contained in this document represents components of the legal health record. It is not the complete legal health record.[facility]
--- OUTSIDE RECORDS SUMMARY | 2025-11-15 21:11 | XMS_ITS | Encounter Summary ---
Author Organization [facility] Address [address] [place] [address] Phone Care Team Providers Care Call Center Trainer Name Role Phone Alexsander Burroughs MD Primary Care Provider [phone] Encounter Details Date Type Department Care Team ([facility] st Contact Info) Description 10/21/2019 Procedure Pass [facility] PERI[facility] DEPT [address] [place] [id number] Social History Tobacco Use Types Packs/Day Years [...] on filedocumented in this encounter Care Teams Call Center Trainer Relationship Specialty Start Date End Date Alexsander Burroughs MD [address] [place] [phone] PCP - General Internal Medicine 06/10/19 documented as of this encounter Additional Source Comments The information contained in this document represents components of the legal health record. It is not the complete legal health record.[facility]
--- OUTSIDE RECORDS SUMMARY | 2025-11-15 21:11 | XMS_ITS | Encounter Summary ---
Author Organization [facility] Address [address] [place] [address] Phone Care Team Providers Care Oracle Developer Name Role Phone Alexsander Burroughs MD Primary Care Provider [phone] Encounter Details Date Type Department Care Team (Late st Contact Info) Description 06/10/2019 Procedure Pass [facility] PERI[facility] DEPT [address] [place] [id number] Social History Tobacco Use Types Packs/Day Years [...] on filedocumented in this encounter Care Teams Oracle Developer Relationship Specialty Start Date End Date Alexsander Burroughs MD [address] [place] [phone] PCP - General Internal Medicine 06/10/19 documented as of this encounter Additional Source Comments The information contained in this document represents components of the legal health record. It is not the complete legal health record.[facility]
== END 2025-11-15 15:51 | disposition home or self-care (01) ==
LOC: HO.HMCH 14:41
PROVIDERS: PCP Internal Medicine; Visit Provider Internal Medicine
DX: I50.32 Chronic diastolic (congestive) heart failure (principal); E66.9 Obesity, unspecified; Z68.33 Body mass index [BMI] 33.0-33.9, adult; I48.0 Paroxysmal atrial fibrillation; R73.02 Impaired glucose tolerance (oral); I10 Essential (primary) hypertension; I25.10 Atherosclerotic heart disease of native coronary artery without angina pectoris; E78.2 Mixed hyperlipidemia; D12.6 Benign neoplasm of colon, unspecified; G47.33 Obstructive sleep apnea (adult) (pediatric); R44.1 Visual hallucinations

== ENCOUNTER → 2025-11-15 14:40 | Outpatient (BNVA) | payer MEDICARE, SELFPAY | PROVIDERS: PCP Internal Medicine; Visit Provider Internal Medicine | DX: I48.0 Paroxysmal atrial fibrillation (principal); E66.9 Obesity, unspecified; R73.02 Impaired glucose tolerance (oral); I25.10 Atherosclerotic heart disease of native coronary artery without angina pectoris; E78.2 Mixed hyperlipidemia; I50.32 Chronic diastolic (congestive) heart failure; D12.6 Benign neoplasm of colon, unspecified; G47.33 Obstructive sleep apnea (adult) (pediatric); R44.1 Visual hallucinations; R06.02 Shortness of breath; R42 Dizziness and giddiness | CPT/HCPCS: 99212 ==